=== PATIENT | female | born 1945 | race Caucasian/White ===

== ENCOUNTER 2016-05-05 14:23 | Inpatient (IN) | payer OTHER ==
[~2016-05-05] VITALS: Ht 160 cm; Wt 80.2 kg
[~2016-05-05 14:23] MED LIST: ALBUAER INH; AMITRIPTYLLINE; CHOL100010 PO; ZNTT/150 PO
--- NOTE | 2016-05-05 14:59 | EMERGENCY ROOM VISIT NOTE ---
History Report prepared by Blanka: Renetta Butts Under the Supervision of: Dr. Darci English M.D. First contact with patient: 14:37 Chief Complaint: OTHER COMPLAINT Stated Complaint: INTERNAL B DIRECT ADMIT-TO SOMERSET History of Present Illness The patient is a 70 year old female who presents to the Emergency Room per PCP referral to be evaluated for anemia. The patient states that she has a history of anemia and GI bleeding. Her most recent GI bleed was about a year ago. The patient states that she intermittently receives IV iron. Last week she had blood work and her hemoglobin was up to 9 after 4 weeks of IV iron. She is unsure what her target hemoglobin is. About a week ago, the patient started to develop shortness of breath which worsens with exertion. Her shortness of breath has been worsening since then. She also complains of a diffuse burning sensation to her body. She has been having black stools over the past couple of days. She is on Plavix and aspirin. The patient was referred to the ER today by Dr. Vargas for possible transfer to [facility]. She has been transferred to [facility] for transfusions in the past. 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 A total of 10 systems reviewed and were otherwise negative. 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 (11) Iron Defic Anemia Nos (12) PAD (peripheral artery disease) Surgical Problems: (1) History of appendectomy (2) History of cholecystectomy Family History Diabetes mellitus Kidney disease Social History Smoking Status: Former Smoker Alcohol Use: none Drug Use: none Marital Status: single Housing Status: lives with family Occupation Status: employed Current/Historical Medications Scheduled Amitriptyline HCl (Amitriptyline HCl), 5 MG PO HS Ascorbic Acid (Vitamin C), 500 MG PO DAILY Aspirin (Aspirin EC Low Dose), 81 MG PO DAILY B-Complex W/Biotin & Folic Aci (Super B-Complex), 1 CAP PO DAILY Buspirone Hcl (Buspar), 30 MG PO BID Cholecalciferol (Vitamin D 1000 Unit), 1,000 INTER.UNIT PO DAILY Citalopram Hydrobromide (Celexa), 40 MG PO QAM Clopidogrel (Plavix), 75 MG PO HS Diclofenac Sodium (Topical) (Voltaren 1% Top Gel), 2 GM TOP BID Furosemide (Lasix), 1 TAB PO DAILY Gabapentin (Neurontin), 300 MG PO BID Insulin Isophan/Regular (Novolin 70/30), 35 UNITS SC BID Magnesium Oxide (Mg Supplement (Magnesium), 500 MG PO DAILY Metformin Hcl (Glucophage), 1,000 MG PO BIDM Octreotide Acetate (Sandostatin [place]), 20 MG IM MONTHLY Omeprazole (Prilosec), 20 MG PO DAILY Probiotic Product (Probiotic), 1 TAB PO DAILY Ranitidine Hcl (Zantac), 1 TAB PO BID Simvastatin (Zocor), 20 MG PO QPM Scheduled PRN Acetaminophen (Tylenol), 1-2 TAB PO Q8 PRN for Pain Albuterol Sulfate (Proventil Hfa), 2 PUFFS INH Q6 PRN for Wheezing Cyclobenzaprine Hcl (Flexeril), 1 TAB PO BID PRN for Muscle Spasms Lorazepam (Lorazepam), 0.5 MG PO HS PRN for Anxiety Allergies Coded Allergies: Bupropion (Unverified Allergy, Intermediate, HIVES, 02/01/16) Iodinated Diagnostic Agents (Unverified Allergy, Intermediate, HIVES, ) TOLERATED IVP DYE WITH 50 MG IV BENADRYL, 100 MG SOLUCORTEF IV AND 20 MG IV PEPCID PREP Oxycodone (Verified Allergy, Intermediate, rashes, 02/01/16) Penicillins (Verified Allergy, Intermediate, Hives, 02/01/16) Pioglitazone (Verified Allergy, Intermediate, HIVES, 02/01/16) Sulfa Antibiotics (Verified Allergy, Intermediate, Hives, 02/01/16) Sulfamethoxazole w/Trimethoprim (Verified Allergy, Intermediate, HIVES, ) Acetaminophen (Unverified Allergy, Mild, ITCHING, 02/01/16) Clindamycin (Unverified Allergy, Mild, ITCHING, 02/01/16) Codeine (Unverified Allergy, Mild, ITCING, 02/01/16) Erythromycin (Unverified Allergy, Mild, RASH, HIVES, 02/01/16) Glimepiride (Unverified Allergy, Mild, TONGUE TINGLING AND ITCHING, ) Morphine (Unverified Allergy, Mild, ITCHING, 02/01/16) NSAIDs (Verified Allergy, Mild, Itching - TORADOL OK, 02/01/16) Propoxyphene (Unverified Allergy, Mild, ITCHING, 02/01/16) Glipizide (Verified Allergy, Unknown, Needle sensation- Tongue, 02/01/16) Rosuvastatin (Unverified Adverse Reaction, Intermediate, MUSCLE PAIN, ) Sitagliptin (Unverified Adverse Reaction, Intermediate, GI SYMPTOMS, 01/31) Adhesives (Verified Adverse Reaction, Mild, Tape - skin irritation, ) Atorvastatin (Verified Adverse Reaction, Mild, Muscle cramps, 02/01/16) Hydrocodone (Verified Adverse Reaction, Mild, ITCHING, 02/01/16) FROM DARVOCET Metformin (Unverified Adverse Reaction, Mild, BLOATING, 02/01/16) Physical Exam Vital Signs Date Time Temp Pulse Resp B/P Pulse Ox O2 Delivery O2 Flow Rate FiO2 05/05/16 15:05 84 05/05/16 14:53 98 Room Air 05/05/16 14:29 37.2 97 18 103/51 97 Room Air Physical Exam GENERAL: Patient is anxious appearing and in minimal distress. HEENT: No acute trauma, normocephalic atraumatic, mucous membranes moist, no nasal congestion, no scleral icterus. NECK: No stridor, no adenopathy, no meningismus, trachea is midline. LUNGS: No dyspnea. Clear to auscultation and equal bilaterally. No wheeze, no rhonchi. HEART: Regular rate and rhythm. No murmurs, rubs, gallops appreciated. ABDOMEN: Soft, nontender, bowel sounds positive, no masses appreciated, no peritonitis. BACK: No midline tenderness, no CVA tenderness RECTAL: Small hemorrhoids, dark black/brown heme positive stool. EXTREMITIES: Normal motion all extremities, no cyanosis, no edema. NEUROLOGIC: Alert and oriented, no acute motor or sensory deficits, no focal weakness, cranial nerves grossly intact. SKIN: No rash, no jaundice, no diaphoresis. Medical Decision & Procedures ER Provider Diagnostic Interpretation: X ray results are stated below per my interpretation and the radiologist's interpretation. CHEST ONE VIEW PORTABLE CLINICAL HISTORY: shortness of breath COMPARISON STUDY: 02/01/2016 FINDINGS: The cardiac and mediastinal contours are normal. There is no evidence of focal pulmonary consolidation. There is no evidence of failure. No pleural effusions are visualized.[ Spinal electrodes are again visualized. IMPRESSION: No active disease in the chest. Electronically signed by: Jimenez Snell M.D. 05/05/2016 3:17 PM Dictated Date/Time: 05/05/2016 3:16 PM Laboratory Results 05/05/16 15:15 Red Blood Count 3.04, Mean Corpuscular Volume 85.5, Mean Corpuscular Hemoglobin 27.0, Mean Corpuscular Hemoglobin Concent 31.5, Mean Platelet Volume 9.2, Neutrophils (%) (Auto) 72.0, Lymphocytes (%) (Auto) 17.5, Monocytes (%) (Auto) 6.2, Eosinophils (%) (Auto) 2.9, Basophils (%) (Auto) 1.0, Neutrophils # (Auto) 6.81, Lymphocytes # (Auto) 1.65, Monocytes # (Auto) 0.59, Eosinophils # (Auto) 0.27, Basophils # (Auto) 0.09 05/05/16 15:15 Test 05/05/16 15:15 White Blood Count 9.45 K/uL (4.8-10.8) Red Blood Count 3.04 M/uL (4.2-5.4) Hemoglobin 8.2 g/dL (12.0-16.0) Hematocrit 26.0 % (37-47) Mean Corpuscular Volume 85.5 fL (80-100) Mean Corpuscular Hemoglobin 27.0 pg (25-34) Mean Corpuscular Hemoglobin Concent 31.5 g/dl (32-36) Platelet Count 372 K/uL (130-400) Mean Platelet Volume 9.2 fL (7.4-10.4) Neutrophils (%) (Auto) 72.0 % Lymphocytes (%) (Auto) 17.5 % Monocytes (%) (Auto) 6.2 % Eosinophils (%) (Auto) 2.9 % Basophils (%) (Auto) 1.0 % Neutrophils # (Auto) 6.81 K/uL (1.4-6.5) Lymphocytes # (Auto) 1.65 K/uL (1.2-3.4) Monocytes # (Auto) 0.59 K/uL (0.11-0.59) Eosinophils # (Auto) 0.27 K/uL (0-0.5) Basophils # (Auto) 0.09 K/uL (0-0.2) RDW Standard Deviation 57.7 fL (36.4-46.3) RDW Coefficient of Variation 18.3 % (11.5-14.5) Immature Granulocyte % (Auto) 0.4 % Immature Granulocyte # (Auto) 0.04 K/uL (0.00-0.02) Polychromasia 1+ Ovalocytes 1+ Prothrombin Time 10.2 SECONDS (9.0-12.0) Prothromb Time International Ratio 1.0 (0.9-1.1) Activated Partial Thromboplast Time 21.0 SECONDS (21.0-31.0) Partial Thromboplastin Ratio 0.8 Anion Gap 14.0 mmol/L (3-11) Est Creatinine Clear Calc Drug Dose 53.4 ml/min Estimated GFR () 66.6 Estimated GFR (Non- 57.4 BUN/Creatinine Ratio 19.3 (10-20) Calcium Level 9.5 mg/dl (8.5-10.1) Troponin I < 0.015 ng/ml (0-0.045) Laboratory results as reviewed by me. Medications Administered Medications (Trade) Dose Ordered Sig/Carson Route Start Time Stop Time Status Last Admin Dose Admin Pantoprazole Sodium/Dextrose (Protonix Inj/D5 100ml) 120 ml @ 480 mls/hr TODAY@1530 ONCE IV 05/05/16 15:30 05/05/16 15:44 DC 05/05/16 15:29 480 MLS/HR Lorazepam (Ativan Tab) 0.5 mg NOW STAT PO 05/05/16 16:56 05/05/16 17:03 DC 05/05/16 17:09 0.5 MG ED Course 1450: The patient was evaluated in room C5. A complete history and physical exam was performed. 1500: Ordered Pantoprazole Sodium 80 mg/Dextrose 120 ml @ 400 mls/hr IV. 1525: I reassessed the patient. She was feeling fine. 1550: I spoke with the [facility] transfer center. They will not have any available beds for 2-3 days so I held off on speaking with the transfer physician. 1605: I discussed the case with Dr. Christa Zelaya. The patient will be evaluated for further management. 1610: Discussed results and treatment plan with the patient. She verbalized understanding and agreement with the treatment plan. The patient will be evaluated for further management. Medical Decision Differential: Diverticulitis, AVM, Coagulopathy, Colitis, Malignancy, Upper GI bleed, Fissure, Hemorrhoids, amongst other pathologies entertained. 70 yr old female arrives with complaint of increasing weakness, mild shob with exertion and new onset black tarry stools. Found to have acute anemia. Vitals remain stable. Review of chart notes extreme difficulty obtained PRBCs for transfusion in past secondary to her multiple antibodies. At request of PCP I attempted to transfer her to [facility] where she has had extensive procedures over the years including transfusions. They have no beds available for next few days thus can not accept her at this time. She is hemodynamically stable. She is not interested in being transferred to a different facility. I feel that any facility would likely have the same difficulties of transfusion thus transfer to another facility that knows nothing about her would likely be of little benefit. Will defer order of transfusion to hospitalist service. Given known history of duodenal ulcer, I did give dose of protonix. She is in no distress and looks well. 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 Consults Time Called: 1600 Consulting Physician: Dr. Christa Urbinaist Returned Call: 1605 I discussed the case with him. The patient will be evaluated for further management. Impression Primary Impression: GI bleed Additional Impression: Anemia Scribe Attestation The scribe's documentation has been prepared under my direction and personally reviewed by me in its entirety. I confirm that the note above accurately reflects all work, treatment, procedures, and medical decision making performed by me. Departure Information Dispostion Being Evaluated By Hospitalist Referrals Nicole Catherine M.D. (PCP) Patient Instructions My [facility] Problem Qualifiers Primary Impression: GI bleed GI bleed type/associated pathology: duodenal ulcer Qualified Codes: K26.4 - Chronic or unspecified duodenal ulcer with hemorrhage Additional Impression: Anemia Anemia type: unspecified type Qualified Codes: D64.9 - Anemia, unspecified
[2016-05-05] MEDS ORDERED: PANTOprazole INJ 80 MG in DEXTROSE 5% 100ML 100 ML IV SCH (15:00)
--- NOTE | 2016-05-05 15:19 | DIAGNOSTIC IMAGING REPORT ---
CHEST ONE VIEW PORTABLE CLINICAL HISTORY: shortness of breath COMPARISON STUDY: 02/01/2016 FINDINGS: The cardiac and mediastinal contours are normal. There is no evidence of focal pulmonary consolidation. There is no evidence of failure. No pleural effusions are visualized.[ Spinal electrodes are again visualized. IMPRESSION: No active disease in the chest. Electronically signed by: Jimenez Snell M.D. 05/05/2016 3:17 PM Dictated Date/Time: 05/05/2016 3:16 PM
[2016-05-05] MEDS ORDERED: PANTOprazole INJ 80 MG in DEXTROSE 5% 100ML IV ONE (15:30)
[2016-05-05 15:34] LABS: BASO ABS # 0.09 K/uL (0-0.2); EOS % 2.9 %; IG% 0.4 %; LYMPH % 17.5 %; LYMPH ABS # 1.65 K/uL (1.2-3.4); MEAN CELL VOLUME 85.5 fL (80-100); MEAN CORPUSCULAR HGB CONC 31.5 g/dl (32-36); MEAN PLATELET VOLUME 9.2 fL (7.4-10.4); MONO % 6.2 %; PLATELET COUNT 372 K/uL (130-400); RED BLOOD COUNT 3.04 M/uL (4.2-5.4); WHITE BLOOD COUNT 9.45 K/uL (4.8-10.8)
[2016-05-05 15:54] LABS: BLOOD UREA NITROGEN 19 mg/dl (7-18); BUN/CREATININE RATIO 19.3 (10-20); CALCIUM 9.5 mg/dl (8.5-10.1); CARBON DIOXIDE 23 mmol/L (21-32); CHLORIDE 106 mmol/L (98-107); COMPLETE YES; GLUCOSE 72 mg/dl (70-99); OVALOCYTES 1+; POLYCHROMASIA 1+; POTASSIUM 3.7 mmol/L (3.5-5.1); SODIUM 143 mmol/L (136-145)
[2016-05-05] MEDS ORDERED: OMEP20CA9 PO (15:56)
[2016-05-05 15:59] LABS: PARTIAL THROMBOPLASTIN RATIO 0.8; PROTHROMBIN TIME (PATIENT) 10.2 SECONDS (9.0-12.0)
[2016-05-05] MEDS ORDERED: RANI150T3 PO (16:51)
[2016-05-05] MEDS ORDERED: LORAZEPAM 0.5 MG TAB PO STA (16:56)
[2016-05-05] MEDS ORDERED: CYCLOBENZAPRINE HCL 5 MG TAB PO PRN (17:00)
[2016-05-05] MEDS ORDERED: LORAZEPAM 0.5 MG TAB PO PRN (17:00)
[2016-05-05] MEDS ORDERED: ONDANSETRON INJ 2 MG/ML 2 ML VIAL IV PRN (17:00)
[2016-05-05 17:20] VITALS: O2SAT 95; Ht 160 cm; Wt 80.2 kg
--- NOTE | 2016-05-05 17:28 | History and Physical ---
History & Physical Date & Time of Service: May 05, 2016 at 17:02 Chief Complaint: Internal B Direct Admit-To [facility] Primary Care Physician: Nicole Catherine M.D. History of Present Illness Source: patient, clinic records, hospital records Patient seen and examined. 70 year old female with PMHx of chronic mesenteric ischemia s/p bypass and stenting on ASA/Plavix, IDDM, depression and other problems listed below presents to the ED complaining of dark stools x 10 days. 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 She reports that in the last week or so she started to notice that her stool was very dark and tarry. She states that she has had increasing SOB and generalized weakness along with the dark stools.She reports low grade fevers and chills. She states that she occasionally has abdominal pain where she had the bypass but it comes and goes and is not severe, she denies vomiting. She reports that she saw her PCP and he sent her to the ED. She reports that she has many antibodies and needs special blood transfusions. She recently had stents placed in her mesenteric artery bypass and per patient her vascular surgeon said they may be narrowing. She denies URI symptoms, chest pain, vomiting, diarrhea, dysuria, calf pain and edema. She notices when she walks around she has heart palpitations. In the ED VS were stable, hgb was 8.2, other lab work was unremarkable. Rectal exam showed dark heme positive stool. She was given IV Protonix. [place] [facility] [place] for her interventions but they do not have any beds available for 2-3 days. She will be admitted for further workup and treatment. Past Medical/Surgical History Medical Problems: (1) Degenerative disc disease Status: Chronic (2) Depression Status: Chronic (3) Diab Gloria Wo Compl, Type Ii Or Unspec Type, Not Uncntrld Status: Chronic (4) Diverticulosis Colon (W/O Ment Of Hemorrhage) Status: Resolved (5) History of CVA (cerebrovascular accident) Permanent Comment: 2012; no residual deficits Status: Resolved (6) Hyperlipidemia Nec/Nos Status: Chronic (7) Hypertension Nos Status: Chronic (8) Intestinal ischemia Permanent Comment: s/p hepatic artery to SMA in November 2014 S/p angioplasty of proximal and distal anastomoses of the common hepatic to superior mesenteric artery reversed saphenous vein bypass graft (4 mm [employer] [place] balloon) by Dr. Gatica on 03/04/2015. -S/p angioplasty of proximal and distal anastomoses of the re-stenotic common hepatic => SMA reversed saphenous vein bypass graft 08/06/[address] Gatica. -S/p open exposure of left brachial artery (re-do), stenting of celiac artery ( Atrium iCast 7 x 22 mm stent post dilated to 8 mm), and angioplasty of proximal and distal anastomoses of the re-stenotic common hepatic to SMA reversed saphenous vein bypass graft (5 mm [employer] Angio[employer]pt balloon) 12/10/[address] Gatica. Status: Chronic (9) Iron Defic Anemia Nos Status: Chronic (10) PAD (peripheral artery disease) Status: Chronic Surgical Problems: (1) History of appendectomy Status: Resolved (2) History of cholecystectomy Status: Resolved Family History Diabetes mellitus Kidney disease Social History Smoking Status: Former Smoker Alcohol Use: none Drug Use: none Marital Status: single Housing status: lives with family Occupational Status: employed Immunizations History of Influenza Vaccine: Yes Influenza Vaccine Date: Dec 17, 2013 History of Tetanus Vaccine?: utd Tetanus Immunization Date: Jun 22, 2011 History of Pneumococcal: Yes Pneumococcal Date: Jun 15, 2012 History of Hepatitis B Vaccine: No Hepatitis Immunization Date: Jun 21, 1968 Multi-Drug Resistant Organisms History of MDRO: No Allergies Coded Allergies: Bupropion (Unverified Allergy, Intermediate, HIVES, 02/01/16) Iodinated Diagnostic Agents (Unverified Allergy, Intermediate, HIVES, ) TOLERATED IVP DYE WITH 50 MG IV BENADRYL, 100 MG SOLUCORTEF IV AND 20 MG IV PEPCID PREP Oxycodone (Verified Allergy, Intermediate, rashes, 02/01/16) Penicillins (Verified Allergy, Intermediate, Hives, 02/01/16) Pioglitazone (Verified Allergy, Intermediate, HIVES, 02/01/16) Sulfa Antibiotics (Verified Allergy, Intermediate, Hives, 02/01/16) Sulfamethoxazole w/Trimethoprim (Verified Allergy, Intermediate, HIVES, ) Acetaminophen (Unverified Allergy, Mild, ITCHING, 02/01/16) Clindamycin (Unverified Allergy, Mild, ITCHING, 02/01/16) Codeine (Unverified Allergy, Mild, ITCING, 02/01/16) Erythromycin (Unverified Allergy, Mild, RASH, HIVES, 02/01/16) Glimepiride (Unverified Allergy, Mild, TONGUE TINGLING AND ITCHING, ) Morphine (Unverified Allergy, Mild, ITCHING, 02/01/16) NSAIDs (Verified Allergy, Mild, Itching - TORADOL [place], 02/01/16) Propoxyphene (Unverified Allergy, Mild, ITCHING, 02/01/16) Glipizide (Verified Allergy, Unknown, Needle sensation- Tongue, 02/01/16) Rosuvastatin (Unverified Adverse Reaction, Intermediate, MUSCLE PAIN, ) Sitagliptin (Unverified Adverse Reaction, Intermediate, GI SYMPTOMS, 01/31) Adhesives (Verified Adverse Reaction, Mild, Tape - skin irritation, ) Atorvastatin (Verified Adverse Reaction, Mild, Muscle cramps, 02/01/16) Hydrocodone (Verified Adverse Reaction, Mild, ITCHING, 02/01/16) FROM DARVOCET Metformin (Unverified Adverse Reaction, Mild, BLOATING, 02/01/16) Home Medications Scheduled Amitriptyline HCl (Amitriptyline HCl), 5 MG PO HS Ascorbic Acid (Vitamin C), 500 MG PO DAILY Aspirin (Aspirin EC Low Dose), 81 MG PO DAILY B-Complex W/Biotin & Folic Aci (Super B-Complex), 1 CAP PO DAILY Buspirone Hcl (Buspar), 30 MG PO BID Cholecalciferol (Vitamin D 1000 Unit), 1,000 INTER.UNIT PO DAILY Citalopram Hydrobromide (Celexa), 40 MG PO QAM Clopidogrel (Plavix), 75 MG PO HS Diclofenac Sodium (Topical) (Voltaren 1% Top Gel), 2 GM TOP BID Furosemide (Lasix), 1 TAB PO DAILY Gabapentin (Neurontin), 300 MG PO BID Insulin Isophan/Regular (Novolin 70/30), 35 UNITS SC BID Magnesium Oxide (Mg Supplement (Magnesium), 500 MG PO DAILY Metformin Hcl (Glucophage), 1,000 MG PO BIDM Octreotide Acetate (Sandostatin [place]), 20 MG IM MONTHLY Omeprazole (Prilosec), 20 MG PO DAILY Probiotic Product (Probiotic), 1 TAB PO DAILY Ranitidine Hcl (Zantac), 1 TAB PO BID Simvastatin (Zocor), 20 MG PO QPM Scheduled PRN Acetaminophen (Tylenol), 1-2 TAB PO Q8 PRN for Pain Albuterol Sulfate (Proventil Hfa), 2 PUFFS INH Q6 PRN for Wheezing Cyclobenzaprine Hcl (Flexeril), 1 TAB PO BID PRN for Muscle Spasms Lorazepam (Lorazepam), 0.5 MG PO HS PRN for Anxiety Review of Systems See above for pertinent positives & negatives. A total of 10 systems reviewed and were otherwise negative. Physical Exam Vital Signs Date Time Temp Pulse Resp B/P Pulse Ox O2 Delivery O2 Flow Rate FiO2 05/05/16 15:05 84 05/05/16 14:53 98 Room Air 05/05/16 14:29 37.2 97 18 103/51 97 Room Air General Appearance: WD/WN, no apparent distress, + pertinent finding (Pleasant WD/WN 70 year old female lying in bed in NAD ) Head: normocephalic, atraumatic Eyes: PERRL, EOMI, sclerae normal ENT: hearing grossly normal, pharynx normal Neck: supple, no JVD, trachea midline Respiratory/Chest: chest non-tender, lungs clear, normal breath sounds, no respiratory distress, no accessory muscle use Cardiovascular: regular rate, rhythm, no edema, no gallop, no JVD, no murmur, normal peripheral pulses Abdomen/GI: normal bowel sounds, non tender, soft Back: normal inspection, no muscle spasm Extremities/Musculoskelatal: no calf tenderness, normal capillary refill, no pedal edema Neurologic/Psych: no motor/sensory deficits, alert, oriented x 3, + pertinent finding (no focal deficits noted on gross exam ) Skin: normal color, warm/dry, no rash Lymphatic: no adenopathy Diagnostics Laboratory Results Results Past 24 Hours Test 05/05/16 15:15 Range/Units White Blood Count 9.45 4.8-10.8 K/uL Red Blood Count 3.04 4.2-5.4 M/uL Hemoglobin 8.2 12.0-16.0 g/dL Hematocrit 26.0 37-47 % Mean Corpuscular Volume 85.5 80-100 fL Mean Corpuscular Hemoglobin 27.0 25-34 pg Mean Corpuscular Hemoglobin Concent 31.5 32-36 g/dl Platelet Count 372 130-400 K/uL Mean Platelet Volume 9.2 7.4-10.4 fL Neutrophils (%) (Auto) 72.0 % Lymphocytes (%) (Auto) 17.5 % Monocytes (%) (Auto) 6.2 % Eosinophils (%) (Auto) 2.9 % Basophils (%) (Auto) 1.0 % Neutrophils # (Auto) 6.81 1.4-6.5 K/uL Lymphocytes # (Auto) 1.65 1.2-3.4 K/uL Monocytes # (Auto) 0.59 0.11-0.59 K/uL Eosinophils # (Auto) 0.27 0-0.5 K/uL Basophils # (Auto) 0.09 0-0.2 K/uL RDW Standard Deviation 57.7 36.4-46.3 fL RDW Coefficient of Variation 18.3 11.5-14.5 % Immature Granulocyte % (Auto) 0.4 % Immature Granulocyte # (Auto) 0.04 0.00-0.02 K/uL Polychromasia 1+ Ovalocytes 1+ Prothrombin Time 10.2 9.0-12.0 SECONDS Prothromb Time International Ratio 1.0 0.9-1.1 Activated Partial Thromboplast Time 21.0 21.0-31.0 SECONDS Partial Thromboplastin Ratio 0.8 Sodium Level 143 136-145 mmol/L Potassium Level 3.7 3.5-5.1 mmol/L Chloride Level 106 98-107 mmol/L Carbon Dioxide Level 23 21-32 mmol/L Anion Gap 14.0 3-11 mmol/L Blood Urea Nitrogen 19 7-18 mg/dl Creatinine 1.00 0.60-1.20 mg/dl Est Creatinine Clear Calc Drug Dose 53.4 ml/min Estimated GFR () 66.6 Estimated GFR (Non- 57.4 BUN/Creatinine Ratio 19.3 10-20 Random Glucose 72 70-99 mg/dl Calcium Level 9.5 8.5-10.1 mg/dl Troponin I < 0.015 0-0.045 ng/ml Diagnostic Radiology CXR Per radiologist read: IMPRESSION: No active disease in the chest. Impression Assessment and Plan 70 year old female with significant PMHx of GI bleeds and mesenteric ischemia presents to the ED complaining of dark stools, SOB, generalized weakness. GI BLEED -Admit to tele -Likely upper heme positive dark stool -H&H 8.2, baseline around 11, serial H&H q6h -Type and cross 2 units PRBCs - patient has many antibodies - blood bank aware states blood will have to come from [place] -Protonix IV BID -clear liquid diet -IVFs -GI consult for further recommendations input appreciated - they do not anticipate any type of scoping down at [facility] any intervention would likely need transfer- [facility] [place] at this time -CBC, PRP, Mg daily -hemodynamically stable, monitor in tele CHRONIC MESENTERIC ISCHEMIA -follows with Dr. Clark - vascular surgery -Per outpatient note by Dr. Clark "S/p open exposure of left brachial artery (re -do), stenting of celiac artery (Atrium iCast 7 x 22 mm stent post dilated to 8 mm), and angioplasty of proximal and distal anastomoses of the re-stenotic common hepatic to SMA reversed saphenous vein bypass graft (5 mm [employer] Ang[employer] balloon) 12/10/[address] Gatica." -hold aspirin and plavix for GI bleed COPD -stable - recently quit smoking - efforts applauded -continue home inhalers prn DM2 -Hold po diabetic agents -SSI coverage -BSG AC HS DEPRESSION -continue Celexa, Ativan, BuSpar, Amitriptyline [id number] RED BLOOD CELL ANTIBODY POSITIVE -difficulty getting PRBCs, will try to obtain from [place] -[place] number listed at bottom of note HLD -continue Statin H/O CVA -no residual defects -hold ASA -continue statin for secondary prevention DVT PROPHYLAXIS: SCDs RE: GI bleed CODE STATUS: FULL CODE DISPO:In my clinical judgment this beneficiary meets acute admission criteria, established by [facility], that includes being hospitalized through two midnights. Patient seen in collaboration with Dr Christa Parrish [phone] - [place] Attending Note: Patient is a 70 Yr old female with PMH of chronic mesenteric ischemia s/p bypass and stenting on ASA/Plavix, H/O AVMs DM II, depression, Abs in blood presents with history of melena since 10 days duration. Reports associated SOB on exertion, generalized weakness and intermittent mild abdominal discomfort at the surgical site. Her Hb currently is 8.2 and her baseline is around 11.0. Physical Exam: Vital signs as noted above General:Moderately built and nourished, No distress HEENT: NC/AT, EOMI, PERRLA Neck: Supple, No JVD CVS: S1, S2, NSR, No murmur Resp: NVBS, CTA, no accessory muscle use Abd: Soft, non tender, BS present PAGINATOR: no focal deficits Ext: No cyanosis, clubbing, edema Assessment and Plan: Acute GI bleeding: Likely Upper GI H/O chronic mesenteric ischemia s/p bypass and stenting on ASA/Plavix, H /O AVMs Hold Aspirin, Plavix IV protonic BID, IV fluids Clear liquid diet Monitor H&H , Transfuse PRN H/O [id number] Red blood cell Ab positive GI consulted Agree with assessment and plan of Palmira Rubalcava PA-C as above VTE Prophylaxis VTE Risk Assessment Done? Y/N: Yes Risk Level: High
[2016-05-05] MEDS ORDERED: GLUCOSE 10 TABS/TUBE PO PRN (17:30)
[2016-05-05] MEDS ORDERED: GLUCAGON FOR INJ 1 MG VIAL SQ PRN (17:30)
[2016-05-05] MEDS ORDERED: DEXTROSE 50% 50 ML SYR IV PRN (17:30)
[2016-05-05] MEDS ORDERED: GLUCOSE 40% GEL 15 GM TUBE PO PRN (17:30)
[2016-05-05 18:42] VITALS: BP 104/67; PULSE 89; TEMP 36.7
[2016-05-05] MEDS ORDERED: DICL1GEL12 TOP (19:02)
[2016-05-05 19:09] VITALS: BP 95/52; PULSE 81; TEMP 36.9; O2SAT 94
[2016-05-05] MEDS: SODIUM CHLORIDE 0.9% 1000ML 1,000 ML IV SCH (19:24)
[2016-05-05] MEDS: INSULIN ASPART 100 UNITS/ML 3 ML PEN SC SCH (20:57)
[2016-05-05] MEDS ORDERED: ALBUTEROL HFA 8 GM INHALER INH PRN (21:00)
[2016-05-05 21:13] LABS: HEMATOCRIT 24.1 % (37-47)
[2016-05-05] MEDS: AMITRIPTYLINE HCL 10 MG TAB PO SCH (21:31)
[2016-05-05] MEDS: SIMVASTATIN 20 MG TAB PO SCH (21:32)
[2016-05-05] MEDS: BusPIRone 15 MG TAB PO SCH (21:32)
[2016-05-05] MEDS: GABAPENTIN 300 MG CAP PO SCH (21:32)
[2016-05-05] MEDS: PANTOprazole INJ 40 MG in SYRINGE 0 ML IV SCH (21:34)
[2016-05-06] VITALS (21 sets, daily range): BP systolic 82–135; BP diastolic 46–71; PULSE 70–84; TEMP 36.4–37.1; O2SAT 91–100
[2016-05-06] MEDS: SODIUM CHLORIDE 0.9% 1000ML 1,000 ML IV SCH ×3 (03:15→22:59)
[2016-05-06 03:22] LABS: HEMATOCRIT 24.3 % (37-47); MEAN CELL VOLUME 87.4 fL (80-100); MEAN CORPUSCULAR HEMOGLOBIN 27.7 pg (25-34); MEAN CORPUSCULAR HGB CONC 31.7 g/dl (32-36); MEAN PLATELET VOLUME 9.2 fL (7.4-10.4); PLATELET COUNT 360 K/uL (130-400); RED BLOOD COUNT 2.78 M/uL (4.2-5.4); WHITE BLOOD COUNT 5.87 K/uL (4.8-10.8)
[2016-05-06 03:40] LABS: BUN/CREATININE RATIO 15.7 (10-20); CALCIUM 8.7 mg/dl (8.5-10.1); CREATININE 0.98 mg/dl (0.60-1.20)
[2016-05-06] MEDS: BusPIRone 15 MG TAB PO SCH ×2 (07:54→21:22)
[2016-05-06] MEDS: GABAPENTIN 300 MG CAP PO SCH ×2 (07:55→21:22)
[2016-05-06] MEDS: CITALOPRAM 40 MG TAB PO SCH (07:55)
[2016-05-06] MEDS: PANTOprazole INJ 40 MG in SYRINGE 0 ML IV SCH ×2 (07:55→21:26)
[2016-05-06] MEDS: INSULIN ASPART 100 UNITS/ML 3 ML PEN SC SCH ×4 (08:05→21:20)
--- NOTE | 2016-05-06 08:20 | Progress Note ---
Medicine Progress Note Date & Time of Visit: May 06, 2016 at 08:07. (Palmira Rubalcava PA-C) Subjective Patient seen and examined this morning. Admitted last evening for a GI bleed likely upper. She is in good spirits this morning, reports feeling well. She states she slept very well, but still feels tired. Denies any more SOB. States she has not had a bowl movement since admission. She states her blood pressure is always on the lower side, denies dizziness, syncope. She denies fevers, chills, chest pain, SOB, palpitations, nausea, vomiting, diarrhea, dysuria, calf pain and edema. (Palmira Rubalcava PA-C) Objective Last 8 Hrs Date Time Temp Pulse Resp B/P Pulse Ox O2 Delivery O2 Flow Rate FiO2 05/06/16 07:45 36.8 78 18 90/46 92 Room Air 05/06/16 04:21 36.7 75 18 82/48 91 Room Air 05/06/16 04:00 Room Air 05/06/16 00:15 36.9 74 18 88/51 92 Room Air Physical Exam: General-Very pleasant WD/WN 70 year old female sitting in chair in NAD Eyes-PERRLA. EOMI ENT-hearing grossly intact, mucosa moist Neck-supple no JVD Lungs-CTA BL no accessory muscle use Heart-RRR, no murmurs, gallops or rubs Abdomen-Normoactive, soft, NT Extremities-distal pulses intact, no calf pain, no edema Neuro-A&Ox3, no focal deficits Laboratory Results: Last 24 Hours Test 05/05/16 15:15 05/05/16 21:03 05/06/16 03:14 White Blood Count 9.45 K/uL 5.87 K/uL Red Blood Count 3.04 M/uL 2.78 M/uL Hemoglobin 8.2 g/dL 7.7 g/dL 7.7 g/dL Hematocrit 26.0 % 24.1 % 24.3 % Mean Corpuscular Volume 85.5 fL 87.4 fL Mean Corpuscular Hemoglobin 27.0 pg 27.7 pg Mean Corpuscular Hemoglobin Concent 31.5 g/dl 31.7 g/dl Platelet Count 372 K/uL 360 K/uL Mean Platelet Volume 9.2 fL 9.2 fL Neutrophils (%) (Auto) 72.0 % Lymphocytes (%) (Auto) 17.5 % Monocytes (%) (Auto) 6.2 % Eosinophils (%) (Auto) 2.9 % Basophils (%) (Auto) 1.0 % Neutrophils # (Auto) 6.81 K/uL Lymphocytes # (Auto) 1.65 K/uL Monocytes # (Auto) 0.59 K/uL Eosinophils # (Auto) 0.27 K/uL Basophils # (Auto) 0.09 K/uL RDW Standard Deviation 57.7 fL 59.4 fL RDW Coefficient of Variation 18.3 % 18.5 % Immature Granulocyte % (Auto) 0.4 % Immature Granulocyte # (Auto) 0.04 K/uL Polychromasia 1+ Ovalocytes 1+ Prothrombin Time 10.2 SECONDS Prothromb Time International Ratio 1.0 Activated Partial Thromboplast Time 21.0 SECONDS Partial Thromboplastin Ratio 0.8 Sodium Level 143 mmol/L 144 mmol/L Potassium Level 3.7 mmol/L 4.0 mmol/L Chloride Level 106 mmol/L 108 mmol/L Carbon Dioxide Level 23 mmol/L 28 mmol/L Anion Gap 14.0 mmol/L 8.0 mmol/L Blood Urea Nitrogen 19 mg/dl 15 mg/dl Creatinine 1.00 mg/dl 0.98 mg/dl Est Creatinine Clear Calc Drug Dose 53.4 ml/min 54.5 ml/min Estimated GFR () 66.6 68.2 Estimated GFR (Non- 57.4 58.9 BUN/Creatinine Ratio 19.3 15.7 Random Glucose 72 mg/dl 132 mg/dl Calcium Level 9.5 mg/dl 8.7 mg/dl Troponin I < 0.015 ng/ml Magnesium Level 2.0 mg/dl (Palmira Rubalcava, PA-C) Assessment & Plan GI BLEED -Likely upper GI Bleed heme positive dark stool - no more BMs since admission -H&H 8.2 on arrival decreased to 7.7 overnight (baseline 11) -2 units PRBCs arrived from [place] - will transfuse now: indication Hgb <8 -continue Protonix IV BID, IVFs, and clear liquid diet -GI consult for further recommendations input appreciated - per Dr. Goodwin's discussion with GI - they do not anticipate any type of scoping down at [facility] any intervention would likely need transfer- [facility] [place] at [place], awaiting GI to see patient today -CBC, PRP, Mg daily HYPOTENSION -BP dropped into the 80s-90s systolically over night, patient asymptomatic -Hgb 7.7 so will transfuse 2 units PRBCs now -Continue volume support with IVF hydration -monitor BP closely CHRONIC MESENTERIC ISCHEMIA -follows with Dr. Clark - vascular surgery -Per outpatient note by Dr. Clark "S/p open exposure of left brachial artery (re -do), stenting of celiac artery (Atrium iCast 7 x 22 mm stent post dilated to 8 mm), and angioplasty of proximal and distal anastomoses of the re-stenotic common hepatic to SMA reversed saphenous vein bypass graft (5 mm [employer] Ang[employer] balloon) 12/10/[address] Gatica." -hold aspirin and Plavix for GI bleed COPD -stable - recently quit smoking - efforts applauded -continue home inhalers prn DM2 -Hold po diabetic agents -SSI coverage -BSG AC HS DEPRESSION -continue Celexa, Ativan, BuSpar, Amitriptyline [id number] RED BLOOD CELL ANTIBODY POSITIVE -Difficult to obtain PRBCs- 2 units PRBCs arrived from [place] overnight -[place] [employer] number listed at bottom of note HLD -continue Statin H/O CVA -no residual defects -hold ASA -continue statin for secondary prevention DVT PROPHYLAXIS: SCDs RE: GI bleed CODE STATUS: FULL CODE Patient seen in collaboration with Dr. Becerra Current Inpatient Medications: Current Inpatient Medications Medications (Trade) Dose Ordered Sig/Carson Route Start Time Stop Time Status Last Admin Dose Admin Ondansetron HCl (Zofran Inj) 4 mg Q6H PRN IV 05/05/16 17:00 06/04/16 16:59 05/06/16 01:51 4 MG Albuterol (Ventolin Hfa Inhaler) 2 puffs Q6R PRN INH 05/05/16 21:00 06/04/16 20:59 Amitriptyline HCl (Elavil Tab) 5 mg HS PO 05/05/16 21:00 06/04/16 20:59 05/05/16 21:31 5 MG Buspirone HCl (BusPAR TAB) 30 mg BID PO 05/05/16 21:00 06/04/16 20:59 05/05/16 21:32 30 MG Citalopram Hydrobromide (celeXA TAB) 40 mg QAM PO 05/06/16 09:00 06/05/16 08:59 Cyclobenzaprine HCl (Flexeril Tab) 5 mg BID PRN PO 05/05/16 17:00 06/04/16 16:59 05/05/16 19:26 5 MG Gabapentin (Neurontin Cap) 300 mg BID PO 05/05/16 21:00 06/04/16 20:59 05/05/16 21:32 300 MG Lorazepam 0.5 mg 0.5 mg HS PRN PO 05/05/16 17:00 06/04/16 16:59 Pantoprazole Sodium 40 mg/ Syringe 10 ml @ 5 mls/min BID@0900,2100 IV 05/05/16 21:00 06/04/16 20:59 05/05/16 21:34 5 MLS/MIN Sodium Chloride (Nss 1000ml) 1,000 ml @ 100 mls/hr Q10H IV 05/05/16 17:15 06/04/16 17:14 05/06/16 03:15 100 MLS/HR Insulin Aspart (novoLOG ASPART) SLIDING SCALE If C... ACHS SC 05/05/16 21:00 06/04/16 20:59 Glucose (Glucose 40% Gel) 15-30 GRAMS 15 GRAMS... UD PRN PO 05/05/16 17:30 06/04/16 17:29 Glucose (Glucose Chew Tab) 4-8 Tablets 4 Tabl... UD PRN PO 05/05/16 17:30 06/04/16 17:29 Dextrose (Dextrose 50% 50ML Syringe) 25-50ML OF 50% DW IV FOR... UD PRN IV 05/05/16 17:30 06/04/16 17:29 Glucagon (Glucagon Inj) 1 mg UD PRN SQ 05/05/16 17:30 06/04/16 17:29 Simvastatin (Zocor Tab) 20 mg QPM PO 05/05/16 21:00 06/04/16 20:59 05/05/16 21:32 20 MG (Palmira Rubalcava, DAMON) ATTENDING ADDENDUM care coordinated with COREY Rubalcava please refer to her notes for full details, I agree with her notes patient seen and examined, records reviewed by myself as well on exam, patient seen resting in bed, appears comfortable states she just feels tired, somewhat dyspneic with exertion no chest pain, dizziness no abdominal pain, no BM since admission, no nausea no other symptoms VS noted and reviewed oriented x 3 , not in distress, speaks in sentences with no effort nor accessory muscle use normal rate, regular rhythm, no murmurs clear breath sounds bilaterally non distended, soft, nontender no bipedal edema, erythema, warmth no neuro deficits Hg 7.7 Crea 0.98 ASSESSMENT/PLAN> POSSIBLE UPPER GI BLEED HISTORY OF AVMS, MESENTERIC ISCHEMIA S/P STENT - Hg 7.7 transfuse 2 units to maintain >8 - Protonix BID GI consulted awaiting further recommendations BORDERLINE HYPOTENSION - IV fluids hold Lasix monitor other diagnoses and plan of care as per COREY Rubalcava's notes Justin Becerra MD (Justin Becerra MD)
--- NOTE | 2016-05-06 08:36 | Clinical Documentation Query ---
SABI Mo : CLINICAL DOCUMENTATION QUERY Patient is a 70 year old female admitted for acute GI bleed. Admission hemoglobin and hematocrit were 8.2 g/dl and 26%. Treatment includes monitoring of CBC, PRP, Mg, telemetry, IV PPI, CL diet, IVF, GI consultation, type/cross/screen. Risk factors include chronic mesenteric ischemia with bypass grafting, angioplasty and stenting, ASA, Plavix, gastric ulcer. In your clinical opinion is this patient being managed for: ( ) Acute blood loss anemia ( ) Other explanation of clinical findings (Please Explain) ( ) Unable to determine (Please Define) ( ) Need to Discuss ( ) Not Agree The medical record reflects the following clinical findings, treatment, and risk factors. Clinical Indicators: As above. Anemia in the setting of black tarry stools, SOB, etc. Treatment:monitoring of CBC, PRP, Mg, telemetry, IV PPI, CL diet, IVF, GI consultation Risk Factors:chronic mesenteric ischemia with bypass grafting, angioplasty and stenting, ASA, Plavix Please clarify and document your clinical opinion in the progress notes and discharge summary. Terms such as "probable", "suspected", "likely", "questionable", "possible", or "still to be ruled out" are acceptable. IF IN AGREEMENT, YOU MUST DOCUMENT ABOVE DIAGNOSTIC STATEMENT IN DAILY PROGRESS NOTES AND DISCHARGE SUMMARY. This document is not part of the patient's record. Thank You, Priyank De Luna RN [phone]
[2016-05-06 09:42] LABS: HEMATOCRIT 26.5 % (37-47)
[2016-05-06] MEDS ORDERED: SUCCINYLCHOLINE CHLORIDE 20 MG/ML 10 ML VIAL IV ONE (10:00)
--- NOTE | 2016-05-06 10:50 | CONSULTATION REPORT ---
DATE OF CONSULTATION: 05/06/2016 REFERRING PHYSICIAN: Dr. Justin Becerra. CONSULTING PHYSICIAN: Dr. Prosper Verduzco. REASON FOR CONSULTATION: GI bleed. HISTORY OF PRESENT ILLNESS: Ms. Hawley is a 70-year-old female with past medical histories including chronic mesenteric ischemia status post SMA bypass grafting and stent placements, ex-lap, on aspirin and Plavix. 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 She presented to hematology/oncology clinic yesterday with complaints of melena x1 week, also having symptoms of lightheadedness, weakness, slight shortness of breath and thus referred to the ED for evaluation. She last received her octreotide depot injection about a week ago, noted that after the injection, she felt a ball of the medication remaining around the injection site. She has been rubbing around that area to help it absorb. She upon evaluation was noted to be febrile. Her blood pressure is somewhat soft around 100s/50s, currently 90s/40s. She is not tachycardic. O2 sat between 91-97% on room air. Her blood count is noted to be low, H/H of 8.2/26, baseline hemoglobin is around 9. She has got no leukocytosis. Her PT/INR is 10/1.0. BMP showed normal renal function, anion gap initially 14 but then now down to 8. Currently she has been typed and crossed for 1 unit of PRBC transfusion. She did have a chest x-ray done last night which was unremarkable. Rectal exam in the ED yesterday did show heme positive stool. She is currently on Protonix 40 mg IV b.i.d. [place], [place] [facility] [place], they did not have any beds for another 2-3 days, thus kept over at [facility] for stabilization, further evaluation and treatment. PAST MEDICAL HISTORY: As noted above. Also, DDD, depression, diabetes mellitus type 2, diverticulosis, history of CVA, hypertension, intestinal ischemia, PAD. PAST SURGICAL HISTORY: As noted in HPI above. Also history of appendectomy, cholecystectomy, D\T\C, ex-lap, tonsil and adenectomy, repair of ventral hernia. FAMILY HISTORY: Pertinent for diabetes mellitus and kidney disease. SOCIAL HISTORY: Former smoker, no alcohol or drug uses. ALLERGIES: BUPROPION, IODINATED CONTRAST AGENTS, OXYCODONE, PENICILLIN, PIOGLITAZONE, SULFA ANTIBIOTICS, BACTRIM, ACETAMINOPHEN, CLINDAMYCIN, CODEINE, ERYTHROMYCIN, LOPERAMIDE, MORPHINE, NSAIDS, PROPOXYPHENE, GLIPIZIDE, ROSUVASTATIN, SITAGLIPTIN ADHESIVES, ATORVASTATIN, HYDROCODONE, AND METFORMIN. MEDICATIONS: Current medication list reviewed in her EMR. REVIEW OF SYSTEMS: Please see HPI above. Rest of 12 systems reviewed are negative. PHYSICAL EXAMINATION: VITAL SIGNS: Temperature is 36.8, pulse 78, respiration rate 18, blood pressure 90/46, O2 sat 92% on room air. GENERAL: Ms. Hawley is a 70-year-old female, pleasant, cooperative, in no acute distress. HEENT: Head normocephalic. Eyes PERRLA. EOMs intact. NECK: Neck supple. Trachea midline. No JVD noted. RESPIRATORY: Clear to auscultation bilateral lung lobes. No respiratory distress or accessory muscles use noted. CARDIOVASCULAR: Heart sounds RRR. S1, S2 present. No murmur or gallops noted. GASTROINTESTINAL: Abdomen soft, nontender to palpation. LYMPHATIC: No edema on extremities. NEUROLOGIC: Awake, alert, oriented x3. No focal deficits noted. DIAGNOSTIC STUDIES: The patient's most recent imaging studies and lab results have all been reviewed in her EMR. ASSESSMENT AND PLAN: Ms. Hawley is a 70-year-old female with history of chronic superior mesenteric artery ischemia, status post bypass and stent placements, also arteriovenous malformations in the upper gastrointestinal area, currently on monthly octreotide depot injection to control the bleeding. She had her last EGD in 2014 and February, noted to have 9 arteriovenous malformations in the esophagus, stomach and duodenum, treated with APC and clip placement in the duodenum arteriovenous malformations. She had since noticed intermittent dark stools; however, this past week noticed that she has had multiple melanomas along with having symptoms of weakness, slight shortness of breath, and lightheadedness. No abdominal pain, nausea, or vomiting. She had received her octreotide injection about a week ago. Her last aspirin and Plavix intake was yesterday. She had been made n.p.o. after midnight. Protonix 40 mg IV b.i.d. had been started. She is going to receive a unit of blood this morning. H/H is now 8.4/26.5. We will go ahead and proceed with EGD evaluation to rule out upper gastrointestinal source of bleeding and treated if possible. Depending on results of the EGD, continues to have active bleeding source, we may need to obtain a gastrointestinal bleeding scan. If she continues to have melena within the next few days, she may need to be transferred [place] [facility] [place]. The above assessment has been reviewed with Dr. Verduzco who is in agreement with the-stated plan. I performed a history and physical examination of the patient. I have discussed the patient's case, impression and plan with FRANC Enriquez. Her note reflects my findings and plan. Most likely chronic bleeding from small bowel AVM's. I would discuss with cardiology if patient needs both ASA and Plavix and if so whether she can take ASA 2 or 3 times a week instead of daily. Prosper Verduzco MD [facility]
--- NOTE | 2016-05-06 11:34 | Anesthesiology Progress Note ---
Anesthesia Post Op Note Date & Time May 06, 2016 at 11:33 Vital Signs Pain Intensity: 0.0 Vital Signs Past 12 Hours Date Time Temp Pulse Resp B/P Pulse Ox O2 Delivery O2 Flow Rate FiO2 05/06/16 10:30 37.0 84 16 115/53 92 05/06/16 10:30 37.0 82 18 115/53 92 Room Air 05/06/16 10:10 36.9 78 20 104/46 93 Room Air 0.0 05/06/16 09:59 36.9 79 20 104/46 93 05/06/16 09:42 36.9 81 20 105/61 94 0.0 05/06/16 07:45 36.8 78 18 90/46 92 Room Air 05/06/16 04:21 36.7 75 18 82/48 91 Room Air 05/06/16 04:00 Room Air 05/06/16 00:15 36.9 74 18 88/51 92 Room Air 05/06/16 00:00 Room Air Notes Mental Status: alert / awake / arousable, participated in evaluation Pt Amnestic to Procedure: Yes Nausea / Vomiting: adequately controlled Pain: adequately controlled Airway Patency, RR, SpO2: stable & adequate BP & HR: stable & adequate Hydration State: stable & adequate Anesthetic Complications: no major complications apparent
--- NOTE | 2016-05-06 11:35 | GI REPORT ---
Procedure Date: 05/06/2016 10:36 AM Procedure: Upper GI endoscopy Indications: Melena, Anemia Medicines: See the Anesthesia note for documentation of the administered medications Complications: No immediate complications. Estimated Blood Loss: Estimated blood loss: none. Procedure: Pre-Anesthesia Assessment: - Prior to the procedure, a History and Physical was performed, and patient medications, allergies and sensitivities were reviewed. The patient's tolerance of previous anesthesia was reviewed. - The risks and benefits of the procedure and the sedation options and risks were discussed with the patient. All questions were answered and informed consent was obtained. - Patient identification and proposed procedure were verified prior to the procedure by the physician and the nurse. The procedure was verified in the pre-procedure area. - Pre-procedure physical examination revealed no contraindications to sedation. - After reviewing the risks and benefits, the patient was deemed in satisfactory condition to undergo the procedure. After obtaining informed consent, the endoscope was passed under direct vision. Throughout the procedure, the patient's blood pressure, pulse, and oxygen saturations were monitored continuously. The scope was introduced through the mouth, and advanced to the third part of duodenum. The upper GI endoscopy was accomplished without difficulty. The patient tolerated the procedure well. Findings: The esophagus was normal. The stomach was normal. The examined duodenum was normal. The cardia and gastric fundus were normal on retroflexion. Impression: - Normal esophagus. - Normal stomach. - No blood seen. - Normal examined duodenum. - No specimens collected. Recommendation: - Return patient to [facility] for [facility] care. - Advance diet as per primary service. Prosper Verduzco M.D. Prosper Verduzco MD 05/06/2016 11:33:49 AM This report has been signed electronically. Note Initiated On: 05/06/2016 10:36 AM
[2016-05-06 15:49] LABS: HEMATOCRIT 30.4 % (37-47)
[2016-05-06 21:21] LABS: HEMATOCRIT 30.5 % (37-47)
[2016-05-06] MEDS: AMITRIPTYLINE HCL 10 MG TAB PO SCH (21:21)
[2016-05-06] MEDS: SIMVASTATIN 20 MG TAB PO SCH (21:22)
[2016-05-07 00:51] VITALS: BP 110/60; PULSE 78; TEMP 36.7; O2SAT 91
[2016-05-07 03:28] LABS: HEMATOCRIT 31.1 % (37-47); MEAN CELL VOLUME 86.9 fL (80-100); MEAN CORPUSCULAR HEMOGLOBIN 27.9 pg (25-34); MEAN CORPUSCULAR HGB CONC 32.2 g/dl (32-36); MEAN PLATELET VOLUME 9.4 fL (7.4-10.4); PLATELET COUNT 301 K/uL (130-400); RED BLOOD COUNT 3.58 M/uL (4.2-5.4); WHITE BLOOD COUNT 6.62 K/uL (4.8-10.8)
[2016-05-07 04:00] LABS: BUN/CREATININE RATIO 7.8 (10-20); CALCIUM 8.4 mg/dl (8.5-10.1); CREATININE 0.97 mg/dl (0.60-1.20); MAGNESIUM 1.8 mg/dl (1.8-2.4); POTASSIUM 4.1 mmol/L (3.5-5.1)
[2016-05-07 04:33] VITALS: BP 104/57; PULSE 78; TEMP 36.8; O2SAT 93
--- NOTE | 2016-05-07 06:04 | Clinical Documentation Query ---
BETTIE REES : CLINICAL DOCUMENTATION QUERY Patient is a 70 year old female admitted for acute GI bleed. Admission hemoglobin and hematocrit were 8.2 g/dl and 26%. Treatment includes transfusion of PRBC's, monitoring of CBC, PRP, Mg, telemetry, IV PPI, CL diet, IVF, GI consultation, type/cross/screen. Risk factors include chronic mesenteric ischemia with bypass grafting, angioplasty and stenting, ASA, Plavix, gastric ulcer. In your clinical opinion is this patient being managed for: (x ) Acute blood loss anemia ( ) Other explanation of clinical findings (Please Explain) ( ) Unable to determine (Please Define) ( ) Need to Discuss ( ) Not Agree The medical record reflects the following clinical findings, treatment, and risk factors. Clinical Indicators: As above. Anemia in the setting of black tarry stools, SOB, etc. Treatment:monitoring of CBC, PRP, Mg, telemetry, IV PPI, CL diet, IVF, GI consultation Risk Factors:chronic mesenteric ischemia with bypass grafting, angioplasty and stenting, ASA, Plavix Please clarify and document your clinical opinion in the progress notes and discharge summary. Terms such as "probable", "suspected", "likely", "questionable", "possible", or "still to be ruled out" are acceptable. IF IN AGREEMENT, YOU MUST DOCUMENT ABOVE DIAGNOSTIC STATEMENT IN DAILY PROGRESS NOTES AND DISCHARGE SUMMARY. This document is not part of the patient's record. Thank You, Priyank De Luna, WILLOW [phone]
[2016-05-07 07:33] VITALS: BP 121/65; PULSE 77; TEMP 36.9; O2SAT 91
[2016-05-07] MEDS: GABAPENTIN 300 MG CAP PO SCH ×2 (07:43→20:21)
[2016-05-07] MEDS: BusPIRone 15 MG TAB PO SCH ×2 (07:43→20:21)
[2016-05-07] MEDS: CITALOPRAM 40 MG TAB PO SCH (07:43)
[2016-05-07] MEDS: SODIUM CHLORIDE 0.9% 1000ML 1,000 ML IV SCH (08:04)
[2016-05-07] MEDS: PANTOprazole INJ 40 MG in SYRINGE 0 ML IV SCH ×2 (08:04→20:33)
[2016-05-07] MEDS: INSULIN ASPART 100 UNITS/ML 3 ML PEN SC SCH ×4 (08:11→20:35)
--- NOTE | 2016-05-07 09:11 | Progress Note ---
Medicine Progress Note Date & Time of Visit: May 07, 2016 at 09:03. (Palmira Ledesma PA-C) Subjective Patient seen and examined this morning. Reports feeling tired this morning. States she was having diarrhea all last night, said the stool was very watery, still dark. Otherwise she reports feeling better, states the Protonix have really helped with the nausea. She denies fevers, chills, chest pain, SOB, nausea, vomiting, dysuria, calf pain and edema. Had EGD yesterday without source of bleeding. Tolerating clear liquid diet. (Palmira Ledesma PA-C) Objective Last 8 Hrs Date Time Temp Pulse Resp B/P Pulse Ox O2 Delivery O2 Flow Rate FiO2 05/07/16 07:33 36.9 77 16 121/65 91 Room Air 05/07/16 04:33 36.8 78 18 104/57 93 Room Air 05/07/16 04:00 Room Air Physical Exam: General-Very pleasant WD/WN 70 year old female sitting in chair in NAD Eyes-PERRLA. EOMI, sclera normal ENT-hearing grossly intact, mucosa moist Neck-supple no JVD Lungs-CTA BL no accessory muscle use Heart-RRR, no murmurs, gallops or rubs Abdomen-Normoactive, soft, NT Extremities-distal pulses intact, no calf pain, no edema Neuro-A&Ox3, no focal deficits Laboratory Results: Last 24 Hours Test 05/06/16 09:25 05/06/16 12:37 05/06/16 15:42 05/06/16 16:35 Hemoglobin 8.4 g/dL 9.9 g/dL Hematocrit 26.5 % 30.4 % Bedside Glucose 213 mg/dl 277 mg/dl Test 05/06/16 20:23 05/06/16 21:08 05/07/16 02:58 05/07/16 07:11 Bedside Glucose 223 mg/dl 202 mg/dl Hemoglobin 10.0 g/dL 10.0 g/dL Hematocrit 30.5 % 31.1 % White Blood Count 6.62 K/uL Red Blood Count 3.58 M/uL Mean Corpuscular Volume 86.9 fL Mean Corpuscular Hemoglobin 27.9 pg Mean Corpuscular Hemoglobin Concent 32.2 g/dl RDW Standard Deviation 53.9 fL RDW Coefficient of Variation 17.0 % Platelet Count 301 K/uL Mean Platelet Volume 9.4 fL Nucleated RBC Absolute Count (auto) 0.02 K/uL Nucleated Red Blood Cells % 0.3 % Sodium Level 145 mmol/L Potassium Level 4.1 mmol/L Chloride Level 111 mmol/L Carbon Dioxide Level 25 mmol/L Anion Gap 9.0 mmol/L Blood Urea Nitrogen 8 mg/dl Creatinine 0.97 mg/dl Est Creatinine Clear Calc Drug Dose 54.4 ml/min Estimated GFR () 69.1 Estimated GFR (Non- 59.6 BUN/Creatinine Ratio 7.8 Random Glucose 179 mg/dl Calcium Level 8.4 mg/dl Magnesium Level 1.8 mg/dl (Palmira Ledesma, PA-C) Assessment & Plan GI BLEED -S/P EGD on 05/06, no bleeding or bleeding source found -continue Protonix IV BID -Advance diet at lunch today -If good po intake continues will cut back on IVFs -GI on board, input appreciated -CBC, PRP, Mg daily ACUTE BLOOD LOSS ANEMIA -secondary to GI bleed -Hgb as low as 7.7 -S/P 2units PRBC now around 10 -continue to monitor H&H DIARRHEA -check C.diff HYPOTENSION - resolved -asymptomatic -BP improved s/p 2units PRBCs -continue gentle IVF hydration for now -monitor BP closely CHRONIC MESENTERIC ISCHEMIA -follows with Dr. Clark - vascular surgery -Per outpatient note by Dr. Clark "S/p open exposure of left brachial artery (re -do), stenting of celiac artery (Atrium iCast 7 x 22 mm stent post dilated to 8 mm), and angioplasty of proximal and distal anastomoses of the re-stenotic common hepatic to SMA reversed saphenous vein bypass graft (5 mm Open Lending AngioSculpt balloon) 12/10/[address] Gatica." -hold aspirin and Plavix for GI bleed COPD -stable - recently quit smoking - efforts applauded -continue home inhalers prn DM2 -Hold po diabetic agents -SSI coverage -BSG AC HS DEPRESSION -continue Celexa, Ativan, BuSpar, Amitriptyline [id number] RED BLOOD CELL ANTIBODY POSITIVE -Difficult to obtain PRBCs- 2 units PRBCs type and crossed -[place] number listed at bottom of note HLD -continue Statin H/O CVA -no residual defects -hold ASA -continue statin for secondary prevention H/O MRSA -contact precautions DVT PROPHYLAXIS: SCDs RE: GI bleed CODE STATUS: FULL CODE DISPO: likely discharge home when medically stable Patient seen in collaboration with Dr. Becerra Current Inpatient Medications: Current Inpatient Medications Medications (Trade) Dose Ordered Sig/Carson Route Start Time Stop Time Status Last Admin Dose Admin Ondansetron HCl (Zofran Inj) 4 mg Q6H PRN IV 05/05/16 17:00 06/04/16 16:59 05/06/16 01:51 4 MG Albuterol (Ventolin Hfa Inhaler) 2 puffs Q6R PRN INH 05/05/16 21:00 06/04/16 20:59 Amitriptyline HCl (Elavil Tab) 5 mg HS PO 05/05/16 21:00 06/04/16 20:59 05/06/16 21:21 5 MG Buspirone HCl (BusPAR TAB) 30 mg BID PO 05/05/16 21:00 06/04/16 20:59 05/07/16 07:43 30 MG Citalopram Hydrobromide (celeXA TAB) 40 mg QAM PO 05/06/16 09:00 06/05/16 08:59 05/07/16 07:43 40 MG Cyclobenzaprine HCl (Flexeril Tab) 5 mg BID PRN PO 05/05/16 17:00 06/04/16 16:59 05/05/16 19:26 5 MG Gabapentin (Neurontin Cap) 300 mg BID PO 05/05/16 21:00 06/04/16 20:59 05/07/16 07:43 300 MG Lorazepam 0.5 mg 0.5 mg HS PRN PO 05/05/16 17:00 06/04/16 16:59 Pantoprazole Sodium 40 mg/ Syringe 10 ml @ 5 mls/min BID@0900,2100 IV 05/05/16 21:00 06/04/16 20:59 05/07/16 08:04 5 MLS/MIN Sodium Chloride (Nss 1000ml) 1,000 ml @ 100 mls/hr Q10H IV 05/05/16 17:15 06/04/16 17:14 05/07/16 08:04 100 MLS/HR Insulin Aspart (novoLOG ASPART) SLIDING SCALE If C... ACHS SC 05/05/16 21:00 06/04/16 20:59 05/07/16 08:11 5 UNITS Glucose (Glucose 40% Gel) 15-30 GRAMS 15 GRAMS... UD PRN PO 05/05/16 17:30 06/04/16 17:29 Glucose (Glucose Chew Tab) 4-8 Tablets 4 Tabl... UD PRN PO 05/05/16 17:30 06/04/16 17:29 Dextrose (Dextrose 50% 50ML Syringe) 25-50ML OF 50% DW IV FOR... UD PRN IV 05/05/16 17:30 06/04/16 17:29 Glucagon (Glucagon Inj) 1 mg UD PRN SQ 05/05/16 17:30 06/04/16 17:29 Simvastatin (Zocor Tab) 20 mg QPM PO 05/05/16 21:00 06/04/16 20:59 05/06/16 21:22 20 MG (Palmira Ledesma, DAMON) ATTENDING ADDENDUM care coordinated with COREY ledesma please refer to her notes for full details, I agree with her notes patient seen and examined, records reviewed by myself as well on exam, patient seen resting in bedside chair states she feels better no abdominal pain, nausea had 2 diarrhea episodes no other symptoms VS noted and reviewed oriented x 3 , not in distress, speaks in sentences with no effort nor accessory muscle use normal rate, regular rhythm, no murmurs clear breath sounds bilaterally non distended, soft, nontender no bipedal edema, erythema, warmth no neuro deficits Hg 10.5 Crea 0.9 ASSESSMENT/PLAN> POSSIBLE GI BLEED S/P EGD - no identifiable source of bleeding per EGD -will resume Aspirin monitor Hg d/c IV fluids advance diet ANEMIA, POSSIBLE ACUTE BLOOD LOSS FROM GI BLEED s/p 2 units PRBC monitor hg other diagnoses and plan of care as per COREY Ledesma's notes Justin Becerra MD (Justin Becerra MD)
[2016-05-07 10:11] LABS: HEMATOCRIT 33.2 % (37-47)
--- NOTE | 2016-05-07 10:11 | Gastroenterology Progress Note ---
Progress Note Date of Service: May 07, 2016 Subjective Pt evaluation today including: conversation w/ patient, physical exam, chart review, lab review, review of inpatient medication list Pt overall feels energy increased, no SOB, CP, abd pain, n/v. She had multiple loose, "green and foul" stools overnight, CDiff ordered and pending. EGD yesterday w/o s/s of AVMs or UGI bleed. She received 2u PRBC yesterday, Hgb increased from 8-10 Review of Systems Constitutional: No chills, No fever Respiratory: No cough, No shortness of breath Cardiac: No chest pain Abdomen: + diarrhea, No nausea, No pain, No vomiting Medications Current Inpatient Medications Medications (Trade) Dose Ordered Sig/Carson Route Start Time Stop Time Status Last Admin Dose Admin Ondansetron HCl (Zofran Inj) 4 mg Q6H PRN IV 05/05/16 17:00 06/04/16 16:59 05/06/16 01:51 4 MG Albuterol (Ventolin Hfa Inhaler) 2 puffs Q6R PRN INH 05/05/16 21:00 06/04/16 20:59 Amitriptyline HCl (Elavil Tab) 5 mg HS PO 05/05/16 21:00 06/04/16 20:59 05/06/16 21:21 5 MG Buspirone HCl (BusPAR TAB) 30 mg BID PO 05/05/16 21:00 06/04/16 20:59 05/07/16 07:43 30 MG Citalopram Hydrobromide (celeXA TAB) 40 mg QAM PO 05/06/16 09:00 06/05/16 08:59 05/07/16 07:43 40 MG Cyclobenzaprine HCl (Flexeril Tab) 5 mg BID PRN PO 05/05/16 17:00 06/04/16 16:59 05/05/16 19:26 5 MG Gabapentin (Neurontin Cap) 300 mg BID PO 05/05/16 21:00 06/04/16 20:59 05/07/16 07:43 300 MG Lorazepam 0.5 mg 0.5 mg HS PRN PO 05/05/16 17:00 06/04/16 16:59 Pantoprazole Sodium 40 mg/ Syringe 10 ml @ 5 mls/min BID@0900,2100 IV 05/05/16 21:00 06/04/16 20:59 05/07/16 08:04 5 MLS/MIN Sodium Chloride (Nss 1000ml) 1,000 ml @ 100 mls/hr Q10H IV 05/05/16 17:15 06/04/16 17:14 05/07/16 08:04 100 MLS/HR Insulin Aspart (novoLOG ASPART) SLIDING SCALE If C... ACHS SC 05/05/16 21:00 06/04/16 20:59 05/07/16 08:11 5 UNITS Glucose (Glucose 40% Gel) 15-30 GRAMS 15 GRAMS... UD PRN PO 05/05/16 17:30 06/04/16 17:29 Glucose (Glucose Chew Tab) 4-8 Tablets 4 Tabl... UD PRN PO 05/05/16 17:30 06/04/16 17:29 Dextrose (Dextrose 50% 50ML Syringe) 25-50ML OF 50% DW IV FOR... UD PRN IV 05/05/16 17:30 06/04/16 17:29 Glucagon (Glucagon Inj) 1 mg UD PRN SQ 05/05/16 17:30 06/04/16 17:29 Simvastatin (Zocor Tab) 20 mg QPM PO 05/05/16 21:00 06/04/16 20:59 05/06/16 21:22 20 MG Objective Vital Signs Date Time Temp Pulse Resp B/P Pulse Ox O2 Delivery O2 Flow Rate FiO2 05/07/16 08:00 Room Air 05/07/16 07:33 36.9 77 16 121/65 91 Room Air 05/07/16 04:33 36.8 78 18 104/57 93 Room Air 05/07/16 04:00 Room Air 05/07/16 00:51 36.7 78 22 110/60 91 Room Air 05/06/16 23:59 Room Air 05/06/16 20:00 95 Room Air 3.0 05/06/16 19:48 37.1 71 18 114/68 95 Room Air 05/06/16 16:00 96 Room Air 05/06/16 15:35 36.7 78 18 115/65 96 Room Air 05/06/16 14:12 94 Room Air 05/06/16 13:50 36.8 80 18 101/63 95 05/06/16 13:31 36.7 81 18 108/62 94 Room Air 05/06/16 13:15 36.7 81 20 108/62 94 05/06/16 13:00 36.4 78 20 102/62 94 Room Air 3.0 05/06/16 12:45 36.4 81 20 102/62 94 05/06/16 12:30 36.7 18 135/71 91 Room Air 05/06/16 12:26 36.7 80 18 135/71 91 05/06/16 11:56 37.0 78 20 125/57 100 05/06/16 11:56 78 20 125/57 100 Room Air 05/06/16 11:44 75 18 119/56 99 Room Air 05/06/16 11:30 37.0 70 20 116/58 100 3.0 05/06/16 11:26 37.0 70 20 116/58 100 Mask 3 05/06/16 10:30 37.0 84 16 115/53 92 05/06/16 10:30 37.0 82 18 115/53 92 Room Air 05/06/16 10:10 36.9 78 20 104/46 93 Room Air 0.0 05/06/16 09:59 36.9 79 20 104/46 93 Physical Exam General Appearance: WD/WN, no apparent distress, + obese Eyes: normal inspection, PERRL, EOMI Neck: supple, no JVD, trachea midline Respiratory/Chest: normal breath sounds, no respiratory distress, no accessory muscle use Cardiovascular: regular rate, rhythm, no gallop, no murmur Abdomen: normal bowel sounds, non tender, soft Extremities: normal inspection, no pedal edema, no calf tenderness Neurologic/Psych: alert, normal mood/affect, oriented x 3 Skin: normal color, no jaundice, no rash Laboratory Results Last 24 Hours Test 05/06/16 12:37 05/06/16 15:42 05/06/16 16:35 05/06/16 20:23 Bedside Glucose 213 mg/dl 277 mg/dl 223 mg/dl Hemoglobin 9.9 g/dL Hematocrit 30.4 % Test 05/06/16 21:08 05/07/16 02:58 05/07/16 07:11 Hemoglobin 10.0 g/dL 10.0 g/dL Hematocrit 30.5 % 31.1 % White Blood Count 6.62 K/uL Red Blood Count 3.58 M/uL Mean Corpuscular Volume 86.9 fL Mean Corpuscular Hemoglobin 27.9 pg Mean Corpuscular Hemoglobin Concent 32.2 g/dl RDW Standard Deviation 53.9 fL RDW Coefficient of Variation 17.0 % Platelet Count 301 K/uL Mean Platelet Volume 9.4 fL Nucleated RBC Absolute Count (auto) 0.02 K/uL Nucleated Red Blood Cells % 0.3 % Sodium Level 145 mmol/L Potassium Level 4.1 mmol/L Chloride Level 111 mmol/L Carbon Dioxide Level 25 mmol/L Anion Gap 9.0 mmol/L Blood Urea Nitrogen 8 mg/dl Creatinine 0.97 mg/dl Est Creatinine Clear Calc Drug Dose 54.4 ml/min Estimated GFR () 69.1 Estimated GFR (Non- 59.6 BUN/Creatinine Ratio 7.8 Random Glucose 179 mg/dl Calcium Level 8.4 mg/dl Magnesium Level 1.8 mg/dl Bedside Glucose 202 mg/dl Assessment and Plan Ms. Hawley is a 70-year-old female w hx of bleeding UGI AVMs currently on Octreotide depot monthly injections. She was admitted for symptomatic anemia, dark stools. Hgb improved from 8-10 after 2U PRBC transfusion. EGD yesterday normal w/o signs of UGI bleeding or AVMs. She reports diarrhea, green and foul stools. Cdiff pending. PLANS: - Primary team to discuss w cardiology or vascular surgery if her ASA and Plavix should be continued - Continue Protonix 40mg IV - F/U on Cdiff - GI will watch peripherally; call if questions or concerns. I performed a history and physical examination of the patient. I have discussed the patient's case, impression and plan with FRANC Enriquez. Her note reflects my findings and plan. Check stools for C. diff. Prosper Verduzco MD
[2016-05-07 11:26] VITALS: BP 114/70; PULSE 71; TEMP 36.9; O2SAT 93
[2016-05-07] MEDS ORDERED: ASPIRIN 81 MG ECTAB PO ONE (11:36)
[2016-05-07 15:48] VITALS: BP 114/61; PULSE 76; TEMP 36.8; O2SAT 95
[2016-05-07 19:30] VITALS: BP 123/64; PULSE 74; TEMP 36.6; O2SAT 99
[2016-05-07] MEDS: SIMVASTATIN 20 MG TAB PO SCH (20:21)
[2016-05-07] MEDS: AMITRIPTYLINE HCL 10 MG TAB PO SCH (20:21)
[2016-05-08] VITALS (10 sets, daily range): BP systolic 116–147; BP diastolic 64–73; PULSE 68–85; TEMP 36.8–37.2; O2SAT 91–95
[2016-05-08 05:54] LABS: HEMATOCRIT 32.3 % (37-47); MEAN CELL VOLUME 86.4 fL (80-100); MEAN CORPUSCULAR HEMOGLOBIN 28.6 pg (25-34); MEAN CORPUSCULAR HGB CONC 33.1 g/dl (32-36); MEAN PLATELET VOLUME 9.3 fL (7.4-10.4); PLATELET COUNT 305 K/uL (130-400); RED BLOOD COUNT 3.74 M/uL (4.2-5.4); WHITE BLOOD COUNT 6.43 K/uL (4.8-10.8)
[2016-05-08 06:22] LABS: BUN/CREATININE RATIO 8.5 (10-20); CALCIUM 9.1 mg/dl (8.5-10.1); CREATININE 0.97 mg/dl (0.60-1.20); MAGNESIUM 1.8 mg/dl (1.8-2.4)
[2016-05-08] MEDS: CITALOPRAM 40 MG TAB PO SCH (07:45)
[2016-05-08] MEDS: GABAPENTIN 300 MG CAP PO SCH ×2 (07:45→20:33)
[2016-05-08] MEDS: ASPIRIN 81 MG ECTAB PO SCH (07:46)
[2016-05-08] MEDS: BusPIRone 15 MG TAB PO SCH ×2 (07:46→20:34)
[2016-05-08] MEDS: INSULIN ASPART 100 UNITS/ML 3 ML PEN SC SCH ×4 (08:33→20:45)
[2016-05-08] MEDS: PANTOprazole INJ 40 MG in SYRINGE 0 ML IV SCH ×2 (09:11→20:33)
--- NOTE | 2016-05-08 18:44 | Progress Note ---
Medicine Progress Note Date & Time of Visit: May 08, 2016 at 18:39. Subjective resting in bed, comfortable diarrhea resolved no abdominal pain, melena/hematochezia no chest pain, dyspnea, dizziness denies other symptoms Objective Last 8 Hrs Date Time Temp Pulse Resp B/P Pulse Ox O2 Delivery O2 Flow Rate FiO2 05/08/16 15:35 Room Air 05/08/16 15:22 36.9 74 20 137/73 93 Room Air 05/08/16 12:00 95 Room Air 05/08/16 11:29 37.2 70 18 144/71 95 Room Air Physical Exam: General-oriented x 3, not in distress, speaks in sentences with no effort Eyes- anicteric Neck- supple, no JVD Lungs- clear to auscultation bilaterally Heart- regular rhythm; no murmurs Abdomen- normal bowel sounds, soft, nontender Extremities- no pretibial edema, no calf tenderness Neuro- alert, oriented x 3; no gross deficits Skin- warm & dry Laboratory Results: Last 24 Hours Test 05/07/16 20:18 05/08/16 05:27 05/08/16 06:38 05/08/16 11:25 Bedside Glucose 245 mg/dl 284 mg/dl 282 mg/dl White Blood Count 6.43 K/uL Red Blood Count 3.74 M/uL Hemoglobin 10.7 g/dL Hematocrit 32.3 % Mean Corpuscular Volume 86.4 fL Mean Corpuscular Hemoglobin 28.6 pg Mean Corpuscular Hemoglobin Concent 33.1 g/dl RDW Standard Deviation 52.9 fL RDW Coefficient of Variation 16.7 % Platelet Count 305 K/uL Mean Platelet Volume 9.3 fL Sodium Level 141 mmol/L Potassium Level 4.0 mmol/L Chloride Level 106 mmol/L Carbon Dioxide Level 25 mmol/L Anion Gap 10.0 mmol/L Blood Urea Nitrogen 8 mg/dl Creatinine 0.97 mg/dl Est Creatinine Clear Calc Drug Dose 54.8 ml/min Estimated GFR () 69.1 Estimated GFR (Non- 59.6 BUN/Creatinine Ratio 8.5 Random Glucose 268 mg/dl Calcium Level 9.1 mg/dl Magnesium Level 1.8 mg/dl Test 05/08/16 16:15 Bedside Glucose 252 mg/dl Assessment & Plan POSSIBLE GI BLEED S/P EGD - no identifiable source of bleeding per EGD - resumed Aspirin, no signs of GI bleed Hg stable ANEMIA, POSSIBLE ACUTE BLOOD LOSS FROM GI BLEED s/p 2 units PRBC Hg stable at 10.7 DIARRHEA resolved HYPOTENSION - resolved -BP improved s/p 2units PRBCs CHRONIC MESENTERIC ISCHEMIA HISTORY -follows with Dr. Clark - vascular surgery -Per outpatient note by Dr. Clark "S/p open exposure of left brachial artery (re -do), stenting of celiac artery (Atrium iCast 7 x 22 mm stent post dilated to 8 mm), and angioplasty of proximal and distal anastomoses of the re-stenotic common hepatic to SMA reversed saphenous vein bypass graft (5 mm iZoca AngioSculpt balloon) 12/10/[address] Gatica." - Aspirin resumed Plavix on hold COPD -stable - recently quit smoking - efforts applauded -continue home inhalers prn DM2 -Hold po diabetic agents - start Lantus ISS DEPRESSION -continue Celexa, Ativan, BuSpar, Amitriptyline [id number] RED BLOOD CELL ANTIBODY POSITIVE -Difficult to obtain PRBCs- 2 units PRBCs type and crossed -[place] Bruneau number listed at bottom of note HLD -continue Statin H/O CVA -no residual defects - Aspirin resumed -continue statin H/O MRSA -contact precautions DVT PROPHYLAXIS: SCDs RE: GI bleed CODE STATUS: FULL CODE DISPO likely d/c home tomorrow Current Inpatient Medications: Current Inpatient Medications Medications (Trade) Dose Ordered Sig/Carson Route Start Time Stop Time Status Last Admin Dose Admin Ondansetron HCl (Zofran Inj) 4 mg Q6H PRN IV 05/05/16 17:00 06/04/16 16:59 05/06/16 01:51 4 MG Albuterol (Ventolin Hfa Inhaler) 2 puffs Q6R PRN INH 05/05/16 21:00 06/04/16 20:59 Amitriptyline HCl (Elavil Tab) 5 mg HS PO 05/05/16 21:00 06/04/16 20:59 05/07/16 20:21 5 MG Buspirone HCl (BusPAR TAB) 30 mg BID PO 05/05/16 21:00 06/04/16 20:59 05/08/16 07:46 30 MG Citalopram Hydrobromide (celeXA TAB) 40 mg QAM PO 05/06/16 09:00 06/05/16 08:59 05/08/16 07:45 40 MG Cyclobenzaprine HCl (Flexeril Tab) 5 mg BID PRN PO 05/05/16 17:00 06/04/16 16:59 05/05/16 19:26 5 MG Gabapentin (Neurontin Cap) 300 mg BID PO 05/05/16 21:00 06/04/16 20:59 05/08/16 07:45 300 MG Lorazepam 0.5 mg 0.5 mg HS PRN PO 05/05/16 17:00 06/04/16 16:59 Pantoprazole Sodium/Syringe (Protonix Inj/ Syringe) 10 ml @ 5 mls/min BID@0900,2100 IV 05/05/16 21:00 06/04/16 20:59 05/08/16 09:11 5 MLS/MIN Insulin Aspart (novoLOG ASPART) SLIDING SCALE If C... ACHS SC 05/05/16 21:00 06/04/16 20:59 05/08/16 17:30 6 UNITS Glucose (Glucose 40% Gel) 15-30 GRAMS 15 GRAMS... UD PRN PO 05/05/16 17:30 06/04/16 17:29 Glucose (Glucose Chew Tab) 4-8 Tablets 4 Tabl... UD PRN PO 05/05/16 17:30 06/04/16 17:29 Dextrose (Dextrose 50% 50ML Syringe) 25-50ML OF 50% DW IV FOR... UD PRN IV 05/05/16 17:30 06/04/16 17:29 Glucagon (Glucagon Inj) 1 mg UD PRN SQ 05/05/16 17:30 06/04/16 17:29 Simvastatin (Zocor Tab) 20 mg QPM PO 05/05/16 21:00 06/04/16 20:59 05/07/16 20:21 20 MG Aspirin (Ecotrin Tab) 81 mg QAM PO 05/08/16 09:00 06/07/16 08:59 05/08/16 07:46 81 MG Insulin Glargine (Lantus Solostar Pen) 10 unit HS SC 05/08/16 21:00 06/07/16 20:59
[2016-05-08] MEDS: SIMVASTATIN 20 MG TAB PO SCH (20:34)
[2016-05-08] MEDS ORDERED: INSULIN GLARGINE SOLOSTAR 100 UNITS/ML 3 ML PEN SC SCH (21:00)
[2016-05-08] MEDS: AMITRIPTYLINE HCL 10 MG TAB PO SCH (21:34)
[2016-05-09 06:16] LABS: BASO ABS # 0.06 K/uL (0-0.2); COMPLETE YES; EOS % 4.7 %; HEMATOCRIT 32.9 % (37-47); IG% 0.2 %; LYMPH % 15.6 %; LYMPH ABS # 0.97 K/uL (1.2-3.4); MEAN CELL VOLUME 86.4 fL (80-100); MEAN CORPUSCULAR HEMOGLOBIN 27.8 pg (25-34); MEAN CORPUSCULAR HGB CONC 32.2 g/dl (32-36); MEAN PLATELET VOLUME 9.6 fL (7.4-10.4); MONO % 9.3 %; NEUT % 69.2 %; PLATELET COUNT 316 K/uL (130-400); RED BLOOD COUNT 3.81 M/uL (4.2-5.4); WHITE BLOOD COUNT 6.21 K/uL (4.8-10.8)
[2016-05-09 06:49] LABS: BUN/CREATININE RATIO 10.2 (10-20); CALCIUM 8.8 mg/dl (8.5-10.1); CREATININE 1.1 mg/dl (0.60-1.20)
[2016-05-09 07:24] VITALS: BP 112/68; PULSE 76; TEMP 37.1; O2SAT 92
[2016-05-09] MEDS: CITALOPRAM 40 MG TAB PO SCH (09:10)
[2016-05-09] MEDS: ASPIRIN 81 MG ECTAB PO SCH (09:10)
[2016-05-09] MEDS: GABAPENTIN 300 MG CAP PO SCH (09:10)
[2016-05-09] MEDS: BusPIRone 15 MG TAB PO SCH (09:10)
[2016-05-09] MEDS: INSULIN ASPART 100 UNITS/ML 3 ML PEN SC SCH ×2 (09:16→13:08)
[2016-05-09] MEDS: PANTOprazole INJ 40 MG in SYRINGE 0 ML IV SCH (09:17)
[2016-05-09 14:55] VITALS: BP 119/68; PULSE 74; TEMP 36.8; O2SAT 96
--- NOTE | 2016-05-09 16:02 | Progress Note ---
Medicine Progress Note Date & Time of Visit: May 09, 2016 at 15:57. Subjective patient states she feels better overall today denies abdominal pain ,nausea no melena, hematochezia no dizziness, chest pain, palpitations denies other symptoms Objective Last 8 Hrs Date Time Temp Pulse Resp B/P Pulse Ox O2 Delivery O2 Flow Rate FiO2 05/09/16 14:55 36.8 74 18 119/68 96 Room Air 05/09/16 08:30 Room Air Physical Exam: General-oriented x 3, not in distress, speaks in sentences with no effort Neck- no JVD Lungs- clear to auscultation bilaterally, no rales/wheezes Heart- normal rate, regular rhythm; no murmurs Abdomen- normal bowel sounds, soft, nontender Extremities- no pretibial edema, no calf tenderness Neuro- alert, oriented x 3; no gross deficits Skin- warm & dry Laboratory Results: Last 24 Hours Test 05/08/16 16:15 05/08/16 20:21 05/09/16 05:40 05/09/16 08:14 Bedside Glucose 252 mg/dl 304 mg/dl 299 mg/dl White Blood Count 6.21 K/uL Red Blood Count 3.81 M/uL Hemoglobin 10.6 g/dL Hematocrit 32.9 % Mean Corpuscular Volume 86.4 fL Mean Corpuscular Hemoglobin 27.8 pg Mean Corpuscular Hemoglobin Concent 32.2 g/dl Platelet Count 316 K/uL Mean Platelet Volume 9.6 fL Neutrophils (%) (Auto) 69.2 % Lymphocytes (%) (Auto) 15.6 % Monocytes (%) (Auto) 9.3 % Eosinophils (%) (Auto) 4.7 % Basophils (%) (Auto) 1.0 % Neutrophils # (Auto) 4.30 K/uL Lymphocytes # (Auto) 0.97 K/uL Monocytes # (Auto) 0.58 K/uL Eosinophils # (Auto) 0.29 K/uL Basophils # (Auto) 0.06 K/uL RDW Standard Deviation 52.9 fL RDW Coefficient of Variation 16.7 % Immature Granulocyte % (Auto) 0.2 % Immature Granulocyte # (Auto) 0.01 K/uL Sodium Level 141 mmol/L Potassium Level 4.0 mmol/L Chloride Level 105 mmol/L Carbon Dioxide Level 27 mmol/L Anion Gap 9.0 mmol/L Blood Urea Nitrogen 11 mg/dl Creatinine 1.10 mg/dl Est Creatinine Clear Calc Drug Dose 48.4 ml/min Estimated GFR () 59.3 Estimated GFR (Non- 51.2 BUN/Creatinine Ratio 10.2 Random Glucose 276 mg/dl Calcium Level 8.8 mg/dl Test 05/09/16 11:33 Bedside Glucose 261 mg/dl Assessment & Plan MELENA, POSSIBLE GI BLEED S/P EGD - no identifiable source of bleeding per EGD - resumed Aspirin, no signs of GI bleed Hg stable change Ranitidine to Protonix 40mg BID ff up with GI as advised ANEMIA, POSSIBLE ACUTE BLOOD LOSS FROM GI BLEED s/p 2 units PRBC after transfusion, Hg stable at 10.7 - repeat Hg on ff up with PCP DIARRHEA resolved HYPOTENSION- resolved - BP improved CHRONIC MESENTERIC ISCHEMIA HISTORY -follows with Dr. Clark - vascular surgery -Per outpatient note by Dr. Clark "S/p open exposure of left brachial artery (re -do), stenting of celiac artery (Atrium iCast 7 x 22 mm stent post dilated to 8 mm), and angioplasty of proximal and distal anastomoses of the re-stenotic common hepatic to SMA reversed saphenous vein bypass graft (5 mm Dweho AngioSculpt balloon) 12/10/[address] Gatica." -- resume Aspirin and Plavix monitor Hg closely COPD -stable - recently quit smoking - efforts applauded -continue home inhalers prn DM2 - resume usual regimen DEPRESSION -continue Celexa, Ativan, BuSpar, Amitriptyline [id number] RED BLOOD CELL ANTIBODY POSITIVE HLD -continue Statin H/O CVA -no residual defects - Aspirin resumed -continue statin H/O MRSA -contact precautions DVT PROPHYLAXIS: SCDs provided RE: GI bleed CODE STATUS: FULL CODE DISPO d/c home today ff up with PCP in 3-5 days ff up with GI as scheduled Current Inpatient Medications: Current Inpatient Medications Medications (Trade) Dose Ordered Sig/Carson Route Start Time Stop Time Status Last Admin Dose Admin Ondansetron HCl (Zofran Inj) 4 mg Q6H PRN IV 05/05/16 17:00 06/04/16 16:59 05/06/16 01:51 4 MG Albuterol (Ventolin Hfa Inhaler) 2 puffs Q6R PRN INH 1/18/17 21:00 06/04/16 20:59 Amitriptyline HCl (Elavil Tab) 5 mg HS PO 05/05/16 21:00 06/04/16 20:59 05/08/16 21:34 5 MG Buspirone HCl (BusPAR TAB) 30 mg BID PO 05/05/16 21:00 06/04/16 20:59 05/09/16 09:10 30 MG Citalopram Hydrobromide (celeXA TAB) 40 mg QAM PO 05/06/16 09:00 06/05/16 08:59 05/09/16 09:10 40 MG Cyclobenzaprine HCl (Flexeril Tab) 5 mg BID PRN PO 05/05/16 17:00 06/04/16 16:59 05/05/16 19:26 5 MG Gabapentin (Neurontin Cap) 300 mg BID PO 05/05/16 21:00 06/04/16 20:59 05/09/16 09:10 300 MG Lorazepam 0.5 mg 0.5 mg HS PRN PO 05/05/16 17:00 06/04/16 16:59 Pantoprazole Sodium/Syringe (Protonix Inj/ Syringe) 10 ml @ 5 mls/min BID@0900,2100 IV 05/05/16 21:00 06/04/16 20:59 05/09/16 09:17 5 MLS/MIN Insulin Aspart (novoLOG ASPART) SLIDING SCALE If C... ACHS SC 05/05/16 21:00 06/04/16 20:59 05/09/16 13:08 4 UNITS Glucose (Glucose 40% Gel) 15-30 GRAMS 15 GRAMS... UD PRN PO 05/05/16 17:30 06/04/16 17:29 Glucose (Glucose Chew Tab) 4-8 Tablets 4 Tabl... UD PRN PO 05/05/16 17:30 06/04/16 17:29 Dextrose (Dextrose 50% 50ML Syringe) 25-50ML OF 50% DW IV FOR... UD PRN IV 05/05/16 17:30 06/04/16 17:29 Glucagon (Glucagon Inj) 1 mg UD PRN SQ 05/05/16 17:30 06/04/16 17:29 Simvastatin (Zocor Tab) 20 mg QPM PO 05/05/16 21:00 06/04/16 20:59 05/08/16 20:34 20 MG Aspirin (Ecotrin Tab) 81 mg QAM PO 05/08/16 09:00 06/07/16 08:59 05/09/16 09:10 81 MG Insulin Glargine (Lantus Solostar Pen) 10 unit HS SC 05/08/16 21:00 06/07/16 20:59 05/08/16 20:46 10 UNIT
[2016-05-09] MEDS ORDERED: PRT40 PO (16:06)
--- NOTE | 2016-05-09 16:13 | Discharge Instructions ---
Discharge Instructions Admission Reason for Admission: Gi Bleed Discharge Discharge Diagnosis / Problem: ANEMIA, POSSIBLE GASTROINTESTINAL BLEED Discharge Goals Goal(s): Diagnostic testing, Therapeutic intervention Activity Recommendations Activity Limitations: as noted below (NO HEAVY EXERTION UNTIL RE-EVALUATED BY PRIMARY CARE PHYSICIAN) . Instructions / Follow-Up Instructions / Follow-Up PLEASE REVIEW YOUR NEW MEDICATION LIST AND FOLLOW INSTRUCTIONS CAREFULLY. CALL PRIMARY CARE PHYSICIAN OR RETURN TO ER IMMEDIATELY IF WITH RECURRENCE OF SYMPTOMS- BLACK OR BLOOD IN THE STOOLS, ABDOMINAL PAIN, NAUSEA, WEAKNESS, DIZZINESS, SHORTNESS OF BREATH. TAKE PROTONIX 30 MINUTES BEFORE MEALS. FOLLOW UP WITH DR. DUMAS IN 3-5 DAYS (CLINIC TO CALL PATIENT). FOLLOW UP WITH WATCH REPAIR PERSON ADVISED. Current Hospital Diet Patient's current hospital diet: Diabetes Type 2 Diet Discharge Diet Recommended Diet: Diabetes Type 2 Diet Procedures Procedures Performed: ESOPHAGOGASTRODUODENOSCOPY (EGD) Pending Studies Studies pending at discharge: yes (REPEAT BLOOD WORK: CBC) List of pending studies: REPEAT BLOOD WORK - CBC Medical Emergencies . Who to Call and When: Medical Emergencies: If at any time you feel your situation is an emergency, please call 911 immediately. . Non-Emergent Contact Non-Emergency issues call your: Primary Care Provider Call Non-Emergent contact if: you have a fever, your pain is not controlled . Past History Medical & Surgical History: (1) Degenerative disc disease (2) Diab Gloria Wo Compl, Type Ii Or Unspec Type, Not Uncntrld (3) Diverticulosis Colon (W/O Ment Of Hemorrhage) (4) Hyperlipidemia Nec/Nos (5) Hypertension Nos (6) Iron Defic Anemia Nos (7) Intestinal ischemia (8) History of CVA (cerebrovascular accident) (9) PAD (peripheral artery disease) (10) Depression (11) Anxiety (12) Anemia (13) GI bleed (14) History of appendectomy (15) History of cholecystectomy . "Provider Documentation" section prepared by Justin Becerra. VTE Core Measure Inpt VTE Proph given/why not?: SCD's
--- NOTE | 2016-05-09 16:20 | Discharge Summary ---
Discharge Summary Admission Date: May 05, 2016 at 16:56 Discharge Date: May 09, 2016 Discharge Disposition: Home Principal Diagnosis: ANEMIA, POSSIBLE ACUTE BLOOD LOSS FROM GI BLEED Secondary Diagnoses/Problems: PLEASE REFER TO HOSPITAL COURSE BELOW. Procedures: S/P EGD BY DR. VERDUZCO 05/06/16 Findings: The esophagus was normal. The stomach was normal. The examined duodenum was normal. The cardia and gastric fundus were normal on retroflexion. Impression: - Normal esophagus. - Normal stomach. - No blood seen. - Normal examined duodenum. - No specimens collected. Recommendation: - Return patient to hospital [facility] for ongoing care. - Advance diet as per primary service. Consultations: GI: Dr. Verduzco/COREY Herrera Pending Studies/Follow-Up: Repeat CBC , Please refer to hospital course below for further details. Medication Reconciliation New Medications: Pantoprazole (Pantoprazole Sodium) 40 Mg Tab 1 TAB PO BID for 30 Days, #60 TABS 1 Refill take 30 minutes before meal Continued Medications: Acetaminophen (Tylenol) 500 Mg Tab 1-2 TAB PO Q8 PRN for Pain for 3 Days, #10 TAB Albuterol Sulfate (Proventil Hfa) 108 Mcg/Act Aer 2 PUFFS INH Q6 PRN for Wheezing Amitriptyline HCl (Amitriptyline HCl) 10 Mg Tab 5 MG PO HS Ascorbic Acid (Vitamin C) 500 Mg Tab 500 MG PO DAILY Aspirin (Aspirin EC Low Dose) 81 Mg Ectab 81 MG PO DAILY B-Complex W/Biotin & Folic Aci (Super B-Complex) 1 Cap Cap 1 CAP PO DAILY Buspirone Hcl (Buspar) 15 Mg Tab 30 MG PO BID Cholecalciferol (Vitamin D 1000 Unit) 1,000 Unit Cap 1000 INTER.UNIT PO DAILY, CAP Citalopram Hydrobromide (Celexa) 40 Mg Tab 40 MG PO QAM Clopidogrel (Plavix) 75 Mg Tab 75 MG PO HS, TAB Cyclobenzaprine Hcl (Flexeril) 5 Mg Tab 1 TAB PO BID PRN for Muscle Spasms for 30 Days, #30 TAB Furosemide (Lasix) 20 Mg Tab 1 TAB PO DAILY, TAB 1 Refill CAN TAKE 1 EXTRA FOR INCREASED SWELLING/EDEMA WITH WEIGHT GAIN Gabapentin (Neurontin) 300 Mg Cap 300 MG PO BID, CAP Insulin Isophan/Regular (Novolin 70/30) Susp 35 UNITS SC BID, BTL TAKE BEFORE BREAKFAST AND SUPPER Lorazepam (Lorazepam) 0.5 Mg Tab 0.5 MG PO HS PRN for Anxiety Magnesium Oxide (Mg Supplement (Magnesium) 500 Mg Cap 500 MG PO DAILY Metformin Hcl (Glucophage) 1,000 Mg Tab 1000 MG PO BIDM, TAB Octreotide Acetate (Sandostatin [place]) 20 Mg Kit 20 MG IM MONTHLY Probiotic Product (Probiotic) 1 Tab Tab 1 TAB PO DAILY Simvastatin (Zocor) 20 Mg Tab 20 MG PO QPM, TAB Discontinued Medications: Diclofenac Sodium (Topical) (Voltaren 1% Top Gel) 1 % Gel 2 GM TOP BID APPLY NEEDED TO AFFECTED AREA Omeprazole (Prilosec) 20 Mg Cap 20 MG PO DAILY, #30 Ranitidine Hcl (Zantac) 150 Mg Tab 1 TAB PO BID for 90 Days, #180 TAB 3 Refills Admission Information HPI (per Admitting provider): Patient seen and examined. 70 year old female with PMHx of chronic mesenteric ischemia s/p bypass and stenting on ASA/Plavix, IDDM, depression and other problems listed below presents to the ED complaining of dark stools x 10 days. 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 She reports that in the last week or so she started to notice that her stool was very dark and tarry. She states that she has had increasing SOB and generalized weakness along with the dark stools.She reports low grade fevers and chills. She states that she occasionally has abdominal pain where she had the bypass but it comes and goes and is not severe, she denies vomiting. She reports that she saw her PCP and he sent her to the ED. She reports that she has many antibodies and needs special blood transfusions. She recently had stents placed in her mesenteric artery bypass and per patient her vascular surgeon said they may be narrowing. She denies URI symptoms, chest pain, vomiting, diarrhea, dysuria, calf pain and edema. She notices when she walks around she has heart palpitations. In the ED VS were stable, hgb was 8.2, other lab work was unremarkable. Rectal exam showed dark heme positive stool. She was given IV Protonix. A call was made to [facility] [place] [place] as patient traditionally goes there for her interventions but they do not have any beds available for 2-3 days. She will be admitted for further workup and treatment. Physical Exam (per Admitting): General Appearance: WD/WN, no apparent distress, + pertinent finding ( Pleasant WD/WN 70 year old female lying in bed in NAD ) Head: normocephalic, atraumatic Eyes: PERRL, EOMI, sclerae normal ENT: hearing grossly normal, pharynx normal Neck: supple, no JVD, trachea midline Respiratory/Chest: chest non-tender, lungs clear, normal breath sounds, no respiratory distress, no accessory muscle use Cardiovascular: regular rate, rhythm, no edema, no gallop, no JVD, no murmur , normal peripheral pulses Abdomen/GI: normal bowel sounds, non tender, soft Back: normal inspection, no muscle spasm Extremities/Musculoskelatal: no calf tenderness, normal capillary refill, no pedal edema Neurologic/Psych: no motor/sensory deficits, alert, oriented x 3, + pertinent finding (no focal deficits noted on gross exam ) Skin: normal color, warm/dry, no rash Lymphatic: no adenopathy Hospital Course MELENA, POSSIBLE GI BLEED S/P EGD 05/06/16 - no identifiable source of bleeding per EGD Findings: The esophagus was normal. The stomach was normal. The examined duodenum was normal. The cardia and gastric fundus were normal on retroflexion. Impression: - Normal esophagus. - Normal stomach. - No blood seen. - Normal examined duodenum. - No specimens collected. Recommendation: - Return patient to hospital [facility] for ongoing care. - Advance diet as per primary service. - resumed Aspirin, with no signs of GI bleed Hg stable at ~ 10 change Ranitidine to Protonix 40mg BID resume Aspirin and Plavix (history of Mesenteric Stent Placement) no further work up at this time per GI, monitor CBC and if symptoms recur, will need to be referred to [facility] for further work up ff up with GI as scheduled for now ANEMIA, POSSIBLE ACUTE BLOOD LOSS FROM GI BLEED Hg 7.7 s/p 2 units PRBC after transfusion, Hg stable at ~10 - repeat Hg on ff up with PCP DIARRHEA resolved HYPOTENSION - resolved - BP improved CHRONIC MESENTERIC ISCHEMIA HISTORY -follows with Dr. Clark - vascular surgery -Per outpatient note by Dr. Clark "S/p open exposure of left brachial artery (re -do), stenting of celiac artery (Atrium iCast 7 x 22 mm stent post dilated to 8 mm), and angioplasty of proximal and distal anastomoses of the re-stenotic common hepatic to SMA reversed saphenous vein bypass graft (5 mm Affymax AngioSculpt balloon) 12/10/[address] Gatica." -- resume Aspirin and Plavix monitor Hg closely COPD -stable - recently quit smoking - efforts applauded -continue home inhalers prn DM2 - resume usual regimen DEPRESSION -continue Celexa, Ativan, BuSpar, Amitriptyline [id number] RED BLOOD CELL ANTIBODY POSITIVE HLD -continue Statin H/O CVA -no residual defects - Aspirin resumed -continue statin DVT PROPHYLAXIS: SCDs provided RE: GI bleed CODE STATUS: FULL CODE DISPO d/c home ff up with PCP in 3-5 days ff up with GI as scheduled Total time spent on discharge = 30 minutes This includes examination of the patient, discharge planning, medication reconciliation, and communication with other providers. Discharge Instructions Discharge Instructions Admission Reason for Admission: Gi Bleed Discharge Discharge Diagnosis / Problem: ANEMIA, POSSIBLE GASTROINTESTINAL BLEED Discharge Goals Goal(s): Diagnostic testing, Therapeutic intervention Activity Recommendations Activity Limitations: as noted below (NO HEAVY EXERTION UNTIL RE-EVALUATED BY PRIMARY CARE PHYSICIAN) . Instructions / Follow-Up Instructions / Follow-Up PLEASE REVIEW YOUR NEW MEDICATION LIST AND FOLLOW INSTRUCTIONS CAREFULLY. CALL PRIMARY CARE PHYSICIAN OR RETURN TO ER IMMEDIATELY IF WITH RECURRENCE OF SYMPTOMS- BLACK OR BLOOD IN THE STOOLS, ABDOMINAL PAIN, NAUSEA, WEAKNESS, DIZZINESS, SHORTNESS OF BREATH. TAKE PROTONIX 30 MINUTES BEFORE MEALS. FOLLOW UP WITH DR. DUMAS IN 3-5 DAYS (CLINIC TO CALL PATIENT). FOLLOW UP WITH TUTOR COORDINATOR ADVISED. Current Hospital Diet Patient's current hospital diet: Diabetes Type 2 Diet Discharge Diet Recommended Diet: Diabetes Type 2 Diet Procedures Procedures Performed: ESOPHAGOGASTRODUODENOSCOPY (EGD) Pending Studies Studies pending at discharge: yes (REPEAT BLOOD WORK: CBC) List of pending studies: REPEAT BLOOD WORK - CBC Medical Emergencies . Who to Call and When: Medical Emergencies: If at any time you feel your situation is an emergency, please call 911 immediately. . Non-Emergent Contact Non-Emergency issues call your: Primary Care Provider Call Non-Emergent contact if: you have a fever, your pain is not controlled . Past History Medical & Surgical History: (1) Degenerative disc disease (2) Diab Gloria Wo Compl, Type Ii Or Unspec Type, Not Uncntrld (3) Diverticulosis Colon (W/O Ment Of Hemorrhage) (4) Hyperlipidemia Nec/Nos (5) Hypertension Nos (6) Iron Defic Anemia Nos (7) Intestinal ischemia (8) History of CVA (cerebrovascular accident) (9) PAD (peripheral artery disease) (10) Depression (11) Anxiety (12) Anemia (13) GI bleed (14) History of appendectomy (15) History of cholecystectomy . "Provider Documentation" section prepared by Justin Becerra. VTE Core Measure Inpt VTE Proph given/why not?: SCD's
[2016-05-09 16:21] VITALS: BP 119/68; PULSE 74; TEMP 36.8; O2SAT 96
[2016-05-13] MEDS ORDERED: ONDA4TAB46 PO (18:23)
[2016-06-08] MEDS ORDERED: AMT10 PO (00:53)
[2016-06-08] MEDS ORDERED: SIMV20TA2 PO (05:28)
[2016-06-08] MEDS ORDERED: B-CO1CAP5 PO (05:30)
[2016-06-08] MEDS ORDERED: OMEP40CA41 PO (12:28)
[2016-06-08] MEDS ORDERED: CHOL100027 PO (15:56)
[2016-06-08] MEDS ORDERED: ALBUAER INH (15:56)
[2016-06-08] MEDS ORDERED: MAGN500C PO (16:03)
[2016-06-08] MEDS ORDERED: ASCO500T3 PO (16:03)
[2016-06-08] MEDS ORDERED: LORA0.5T12 PO (16:12)
[2016-06-08] MEDS ORDERED: ASPEC81 PO (16:12)
[2016-06-08] MEDS ORDERED: BUSP15TA70 PO (18:58)
[2016-06-08] MEDS ORDERED: METF-384 PO (19:02)
[2016-06-08] MEDS ORDERED: CYCL5TAB PO (19:02)
[2016-06-08] MEDS ORDERED: FURO-85 PO (19:02)
[2016-06-08] MEDS ORDERED: GABA-113 PO (19:02)
[2016-06-09] MEDS ORDERED: PRD20 PO (10:02)
== END 2016-05-09 16:42 | disposition home or self-care (01) | DRG 378 ==
LOC: ENRESERVDT → ENRESERVTM → C.EDB 14:26 → C.2T 16:56 → EDBEDREQ 17:25 → C.MS4W 05-08 19:53
PROVIDERS: ADMIT Internal Medicine; ATTEND Internal Medicine
PROC: 0DJ08ZZ Inspection of Upper Intestinal Tract, Via Natural or Artificial Opening Endoscopic (ICD-10-PCS; principal; 2016-05-06 10:26)
DX: K92.2 Gastrointestinal hemorrhage, unspecified (principal); D62 Acute posthemorrhagic anemia; K55.1 Chronic vascular disorders of intestine; E11.9 Type 2 diabetes mellitus without complications; I10 Essential (primary) hypertension; E78.5 Hyperlipidemia, unspecified; F32.9 Major depressive disorder, single episode, unspecified; J44.9 Chronic obstructive pulmonary disease, unspecified; I95.9 Hypotension, unspecified; R19.7 Diarrhea, unspecified; Z79.02 Long term (current) use of antithrombotics/antiplatelets; Z79.82 Long term (current) use of aspirin; Z79.899 Other long term (current) drug therapy; Z86.73 Personal history of transient ischemic attack (TIA), and cerebral infarction without residual deficits; Z87.891 Personal history of nicotine dependence

== ENCOUNTER 2016-05-11 16:03 | Inpatient (IN) | payer OTHER ==
[~2016-05-11] VITALS: Ht 165.1 cm; Wt 81.8 kg
[~2016-05-11 16:03] MED LIST changes: -ALBUAER INH; -CHOL100010 PO; +PRT40 PO; -ZNTT/150 PO
[2016-05-11] MEDS ORDERED: FENTANYL CITRATE INJ 50 MCG/1 ML 2 ML VIAL IV STA (16:19)
[2016-05-11] MEDS ORDERED: ONDANSETRON INJ 2 MG/ML 2 ML VIAL IV STA (16:19)
[2016-05-11] MEDS ORDERED: SODIUM CHLORIDE 0.9% 500ML 500 ML IV STA (16:19)
--- NOTE | 2016-05-11 16:21 | EMERGENCY ROOM VISIT NOTE ---
History Report prepared by Blanka: Alonso Leal Under the Supervision of: Dr. Darci English M.D. First contact with patient: 16:13 Chief Complaint: ABDOMINAL PAIN Stated Complaint: ABD PAIN, HX OF OBSTRUCTIONS History of Present Illness The patient is a 70 year old female who presents to the Emergency Room with complaints of worsening abdominal pain that started this morning. She describes the pain as a terrible burning sensation. Per the patient's sister, the patient ate prior to arrival and then vomited on the way here. The patient says she was dry heaving after the episode of vomiting. She was at her doctor's office this morning, and the patient told her doctor about the burning pain, but the pain has worsened since then. She denies any bloating, melena, or rashes. The patient notes that she has not had burning pain like this before, and she says it does not feel like her previous bout of ischemia. The patient has a history of obstructions. She has been compliant with her medications, and she is still on Plavix and Aspirin. The patient was just here for a GI bleed. Source of History: patient, family Onset: This morning Position: abdomen Symptom Intensity: "terrible" Quality: burning Timing: worsening Associated Symptoms: + vomiting, No melena, No rash Note: Associated symptoms: Dry heaves. Denies any bloating. Review of Systems See HPI for pertinent positives & negatives. A total of 10 systems reviewed and were otherwise negative. Past Medical & Surgical Medical Problems: (1) Anxiety (2) Degenerative disc disease (3) Depression (4) Diab Gloria Wo Compl, Type Ii Or Unspec Type, Not Uncntrld (5) Diverticulosis Colon (W/O Ment Of Hemorrhage) (6) History of CVA (cerebrovascular accident) (7) Hyperlipidemia Nec/Nos (8) Hypertension Nos (9) Intestinal ischemia (10) Iron Defic Anemia Nos (11) PAD (peripheral artery disease) (12) SBO (small bowel obstruction) Surgical Problems: (1) History of appendectomy (2) History of cholecystectomy Family History Diabetes mellitus Kidney disease Social History Smoking Status: Former Smoker Alcohol Use: none Drug Use: none Marital Status: single Housing Status: lives with family Occupation Status: employed Current/Historical Medications Scheduled Amitriptyline HCl (Amitriptyline HCl), 5 MG PO HS Ascorbic Acid (Vitamin C), 500 MG PO DAILY Aspirin (Aspirin EC Low Dose), 81 MG PO DAILY B-Complex W/Biotin & Folic Aci (Super B-Complex), 1 CAP PO DAILY Buspirone Hcl (Buspar), 30 MG PO BID Cholecalciferol (Vitamin D 1000 Unit), 1,000 INTER.UNIT PO DAILY Citalopram Hydrobromide (Celexa), 40 MG PO QAM Clopidogrel (Plavix), 75 MG PO HS Furosemide (Lasix), 1 TAB PO DAILY Gabapentin (Neurontin), 300 MG PO BID Insulin Isophan/Regular (Novolin 70/30), 35 UNITS SC BID Magnesium Oxide (Mg Supplement (Magnesium), 500 MG PO DAILY Metformin Hcl (Glucophage), 1,000 MG PO BIDM Octreotide Acetate (Sandostatin Lar Depot), 20 MG IM MONTHLY Pantoprazole (Pantoprazole Sodium), 1 TAB PO BID Probiotic Product (Probiotic), 1 TAB PO DAILY Simvastatin (Zocor), 20 MG PO QPM Scheduled PRN Acetaminophen (Tylenol), 1-2 TAB PO Q8 PRN for Pain Albuterol Sulfate (Proventil Hfa), 2 PUFFS INH Q6 PRN for Wheezing Cyclobenzaprine Hcl (Flexeril), 1 TAB PO BID PRN for Muscle Spasms Lorazepam (Lorazepam), 0.5 MG PO HS PRN for Anxiety Allergies Coded Allergies: Bupropion (Unverified Allergy, Intermediate, HIVES, 02/01/16) Iodinated Diagnostic Agents (Unverified Allergy, Intermediate, HIVES, ) TOLERATED IVP DYE WITH 50 MG IV BENADRYL, 100 MG SOLUCORTEF IV AND 20 MG IV PEPCID PREP Oxycodone (Verified Allergy, Intermediate, rashes, 02/01/16) Penicillins (Verified Allergy, Intermediate, Hives, 02/01/16) Pioglitazone (Verified Allergy, Intermediate, HIVES, 02/01/16) Sulfa Antibiotics (Verified Allergy, Intermediate, Hives, 02/01/16) Sulfamethoxazole w/Trimethoprim (Verified Allergy, Intermediate, HIVES, ) Acetaminophen (Unverified Allergy, Mild, ITCHING, 02/01/16) Clindamycin (Unverified Allergy, Mild, ITCHING, 02/01/16) Codeine (Unverified Allergy, Mild, ITCING, 02/01/16) Erythromycin (Unverified Allergy, Mild, RASH, HIVES, 02/01/16) Glimepiride (Unverified Allergy, Mild, TONGUE TINGLING AND ITCHING, ) Morphine (Unverified Allergy, Mild, ITCHING, 02/01/16) NSAIDs (Verified Allergy, Mild, Itching - TORADOL OK, 02/01/16) Propoxyphene (Unverified Allergy, Mild, ITCHING, 02/01/16) Glipizide (Verified Allergy, Unknown, Needle sensation- Tongue, 02/01/16) Rosuvastatin (Unverified Adverse Reaction, Intermediate, MUSCLE PAIN, ) Sitagliptin (Unverified Adverse Reaction, Intermediate, GI SYMPTOMS, 01/31) Adhesives (Verified Adverse Reaction, Mild, Tape - skin irritation, ) Atorvastatin (Verified Adverse Reaction, Mild, Muscle cramps, 02/01/16) Hydrocodone (Verified Adverse Reaction, Mild, ITCHING, 02/01/16) FROM DARVOCET Metformin (Unverified Adverse Reaction, Mild, BLOATING, 02/01/16) Physical Exam Vital Signs Date Time Temp Pulse Resp B/P Pulse Ox O2 Delivery O2 Flow Rate FiO2 05/11/16 19:19 36.9 89 18 143/86 96 05/11/16 19:14 89 18 143/86 96 Room Air 05/11/16 18:10 96 Room Air 05/11/16 16:08 36.9 96 18 142/72 96 Room Air Physical Exam GENERAL: Patient is uncomfortable-appearing and in moderate distress. HEENT: No acute trauma, normocephalic atraumatic, mucous membranes moist, no nasal congestion, no scleral icterus. NECK: No stridor, no adenopathy, no meningismus, trachea is midline. LUNGS: No dyspnea. Clear to auscultation and equal bilaterally. No wheeze, no rhonchi. HEART: Regular rate and rhythm. No murmurs, rubs, gallops appreciated. ABDOMEN: Diffuse tenderness all over entire abdomen. Hyperactive bowel sounds. No masses, no rebound, no guarding. BACK: No midline tenderness, no CVA tenderness EXTREMITIES: Normal motion all extremities, no cyanosis, no edema. NEUROLOGIC: Alert and oriented, no acute motor or sensory deficits, no focal weakness, cranial nerves grossly intact. SKIN: No rash, no jaundice, no diaphoresis. Medical Decision & Procedures ER Provider Diagnostic Interpretation: CT results are stated below per my interpretation and the radiologist's interpretation. CT OF THE ABDOMEN AND PELVIS WITHOUT CONTRAST, STONE PROTOCOL CLINICAL HISTORY: Abdominal pain. History of bowel obstruction. COMPARISON STUDY: CT of the abdomen and pelvis May 23, 2014. TECHNIQUE: Helical axial images of the abdomen and pelvis were obtained without IV or oral contrast according to renal stone protocol. FINDINGS: Evaluation of the abdomen and pelvis is suboptimal given the lack of IV and oral contrast. There is no pneumatosis, free air or portal venous gas. An intracanalicular device is in place. There is fatty infiltration of the liver. Unenhanced images of the spleen, adrenal glands, kidneys and pancreas are unremarkable with exception of a left renal parapelvic cysts. The proximal small bowel is fluid-filled and moderately dilated. A small bowel feces sign is noted with transition point within the left mid anterior abdomen shown on image 282 of 436. Several bowel anastomoses are noted. There is colonic diverticulosis without evidence for acute diverticulitis. There are findings consistent with a ventral hernia repair with mesh. There is a recurrent hernia along the right anterior aspect of the mesh. This does not result in the bowel obstruction. No suspicious skeletal lesions are identified. There is no lymphadenopathy. IMPRESSION: Findings consistent with a moderate grade partial small bowel obstruction with transition site within the left mid anterior abdomen. Minimal adjacent infiltration. No free air, pneumatosis or portal venous gas. No bowel wall thickening. While nonspecific, this obstruction is statistically on the basis of adhesions. Electronically signed by: Jose Perkins M.D. 05/11/2016 5:00 PM Dictated Date/Time: 05/11/2016 4:51 PM Laboratory Results 05/11/16 16:30 Red Blood Count 4.33, Mean Corpuscular Volume 86.8, Mean Corpuscular Hemoglobin 28.4, Mean Corpuscular Hemoglobin Concent 32.7, Mean Platelet Volume 9.8, Neutrophils (%) (Auto) 81.6, Lymphocytes (%) (Auto) 8.6, Monocytes (%) (Auto) 6.4, Eosinophils (%) (Auto) 2.5, Basophils (%) (Auto) 0.5, Neutrophils # (Auto) 11.24, Lymphocytes # (Auto) 1.18, Monocytes # (Auto) 0.88, Eosinophils # (Auto) 0.35, Basophils # (Auto) 0.07 05/11/16 16:30 Test 05/11/16 16:29 05/11/16 16:30 05/11/16 17:46 Bedside Lactic Acid Venous 3.46 mmol/L (0.90-1.70) White Blood Count 13.78 K/uL (4.8-10.8) Red Blood Count 4.33 M/uL (4.2-5.4) Hemoglobin 12.3 g/dL (12.0-16.0) Hematocrit 37.6 % (37-47) Mean Corpuscular Volume 86.8 fL (80-100) Mean Corpuscular Hemoglobin 28.4 pg (25-34) Mean Corpuscular Hemoglobin Concent 32.7 g/dl (32-36) Platelet Count 381 K/uL (130-400) Mean Platelet Volume 9.8 fL (7.4-10.4) Neutrophils (%) (Auto) 81.6 % Lymphocytes (%) (Auto) 8.6 % Monocytes (%) (Auto) 6.4 % Eosinophils (%) (Auto) 2.5 % Basophils (%) (Auto) 0.5 % Neutrophils # (Auto) 11.24 K/uL (1.4-6.5) Lymphocytes # (Auto) 1.18 K/uL (1.2-3.4) Monocytes # (Auto) 0.88 K/uL (0.11-0.59) Eosinophils # (Auto) 0.35 K/uL (0-0.5) Basophils # (Auto) 0.07 K/uL (0-0.2) RDW Standard Deviation 53.0 fL (36.4-46.3) RDW Coefficient of Variation 16.6 % (11.5-14.5) Immature Granulocyte % (Auto) 0.4 % Immature Granulocyte # (Auto) 0.06 K/uL (0.00-0.02) Anion Gap 15.0 mmol/L (3-11) Est Creatinine Clear Calc Drug Dose 46.7 ml/min Estimated GFR () 53.4 Estimated GFR (Non- 46.1 BUN/Creatinine Ratio 9.8 (10-20) Calcium Level 9.8 mg/dl (8.5-10.1) Total Bilirubin 0.3 mg/dl (0.2-1) Direct Bilirubin < 0.1 mg/dl (0-0.2) Aspartate Amino Transf (AST/SGOT) 19 U/L (15-37) Alanine Aminotransferase (ALT/SGPT) 24 U/L (12-78) Alkaline Phosphatase 82 U/L (45-117) Total Protein 7.0 gm/dl (6.4-8.2) Albumin 3.9 gm/dl (3.4-5.0) Lipase 96 U/L (73-393) Lactic Acid Level 2.7 mmol/L (0.4-2.0) Laboratory results as reviewed by me. Medications Administered Medications (Trade) Dose Ordered Sig/Carson Route Start Time Stop Time Status Last Admin Dose Admin Sodium Chloride (Nss 500ml) 500 ml @ 999 mls/hr Q31M STAT IV 05/11/16 16:19 05/11/16 16:49 DC 05/11/16 16:32 999 MLS/HR Fentanyl Citrate (Fentanyl Inj) 100 mcg NOW STAT IV 05/11/16 16:19 05/11/16 16:21 DC 05/11/16 16:32 100 MCG Ondansetron HCl (Zofran Inj) 4 mg NOW STAT IV 05/11/16 16:19 05/11/16 16:21 DC 05/11/16 16:32 4 MG Hydromorphone HCl 2 mg 2 mg NOW STAT IV 05/11/16 16:59 05/11/16 17:00 DC 05/11/16 17:12 2 MG Sodium Chloride (Nss 1000ml) 1,000 ml @ 75 mls/hr [id number] STAT IV 05/11/16 17:19 05/12/16 06:38 05/11/16 18:10 75 MLS/HR ED Course 1614: The patient was evaluated in room A11B. A complete history and physical exam was performed. 1619: Ordered Zofran Inj 4 mg IV, Fentanyl Inj 100 mcg IV, NSS 500 ml @ 999 mls/ hr IV. 1659: Ordered Dilaudid Inj 2 mg IV. 1700: I reevaluated the patient and she says that her pain has not improved at all with the Fentanyl. 1706: I discussed the patient with Dr. Mesfin LARES General Surgery - he will come to see the patient. 1718: I discussed the patient with Julia Grant - she will evaluate the patient for further treatment. 1719: Ordered NSS 1000 ml @ 75 mls/hr IV. 1740: I reevaluated the patient and she is feeling much better. She has 1.5 liters NG tube out. The patient verbally expressed understanding and agreement of the treatment plan. The patient will be evaluated for further treatment. Medical Decision Differential: Appendicitis, Diverticulitis, PUD/Gastritis, Biliary Pathology, UTI, Pyelonephritis, Renal Colic, Bowel Obstruction, Aortic Pathology, Acute Coronary Syndrome, amongst other pathologies entertained. 70 yr old female well known to me from previous ED visits including recent visit for anemia due to GI bleed. She has history of SMA occlusion which I have previously seen her for and she makes clear this is not similar to that. Exam and story consistent with early SBO confirmed by CT. There is mild lactic acidosis which given vomiting and pain I suspect is not truly ischemic gut, especially given that she has tendancy to run mildly elevated lactic acid. I have consulted Gen Surg for their input but in mean time NG tube placed with large bowel outs and patient feeling much improved. She is not septic and does not have surgical abdomen by exam. Given fluids for clearance and IV narcotics for pain control. Consults Time Called: 170 Consulting Physician: Dr. Mesfin LARES General Surgery Returned Call: [phone] I discussed the patient with Dr. Mesfin LARES General Surgery - he will come to see the patient. Additional Consults: Time Called: 171 Consulted Physician: Julia Grant Returned Call: [phone] Additional Comments: I discussed the patient with Julia Grant - she will evaluate the patient for further treatment. Impression Primary Impression: Small bowel obstruction Additional Impression: Lactic acidosis Scribe Attestation The scribe's documentation has been prepared under my direction and personally reviewed by me in its entirety. I confirm that the note above accurately reflects all work, treatment, procedures, and medical decision making performed by me. Departure Information Dispostion Being Evaluated By Hospitalist Nicole Carlton M.D. (PCP) Patient Instructions My [facility] Health Problem Qualifiers
[2016-05-11 16:45] LABS: BASO % 0.5 %; BASO ABS # 0.07 K/uL (0-0.2); COMPLETE YES; EOS % 2.5 %; HEMATOCRIT 37.6 % (37-47); IG% 0.4 %; LYMPH % 8.6 %; LYMPH ABS # 1.18 K/uL (1.2-3.4); MEAN CELL VOLUME 86.8 fL (80-100); MEAN CORPUSCULAR HEMOGLOBIN 28.4 pg (25-34); MEAN CORPUSCULAR HGB CONC 32.7 g/dl (32-36); MEAN PLATELET VOLUME 9.8 fL (7.4-10.4); MONO % 6.4 %; NEUT % 81.6 %; PLATELET COUNT 381 K/uL (130-400); RED BLOOD COUNT 4.33 M/uL (4.2-5.4); WHITE BLOOD COUNT 13.78 K/uL (4.8-10.8)
[2016-05-11] MEDS ORDERED: HYDROmorphone INJ 2 MG/ML SYR/VIAL IV STA (16:59)
--- NOTE | 2016-05-11 17:02 | DIAGNOSTIC IMAGING REPORT ---
CT OF THE ABDOMEN AND PELVIS WITHOUT CONTRAST, STONE PROTOCOL CLINICAL HISTORY: Abdominal pain. History of bowel obstruction. COMPARISON STUDY: CT of the abdomen and pelvis May 23, 2014. TECHNIQUE: Helical axial images of the abdomen and pelvis were obtained without IV or oral contrast according to renal stone protocol. FINDINGS: Evaluation of the abdomen and pelvis is suboptimal given the lack of IV and oral contrast. There is no pneumatosis, free air or portal venous gas. An intracanalicular device is in place. There is fatty infiltration of the liver. Unenhanced images of the spleen, adrenal glands, kidneys and pancreas are unremarkable with exception of a left renal parapelvic cysts. The proximal small bowel is fluid-filled and moderately dilated. A small bowel feces sign is noted with transition point within the left mid anterior abdomen shown on image 282 of 436. Several bowel anastomoses are noted. There is colonic diverticulosis without evidence for acute diverticulitis. There are findings consistent with a ventral hernia repair with mesh. There is a recurrent hernia along the right anterior aspect of the mesh. This does not result in the bowel obstruction. No suspicious skeletal lesions are identified. There is no lymphadenopathy. IMPRESSION: Findings consistent with a moderate grade partial small bowel obstruction with transition site within the left mid anterior abdomen. Minimal adjacent infiltration. No free air, pneumatosis or portal venous gas. No bowel wall thickening. While nonspecific, this obstruction is statistically on the basis of adhesions. Electronically signed by: Jose Perkins M.D. 05/11/2016 5:00 PM Dictated Date/Time: 05/11/2016 4:51 PM
[2016-05-11 17:05] LABS: ALT/SGPT 24 U/L (12-78); BLOOD UREA NITROGEN 12 mg/dl (7-18); BUN/CREATININE RATIO 9.8 (10-20); CALCIUM 9.8 mg/dl (8.5-10.1); CARBON DIOXIDE 20 mmol/L (21-32); CHLORIDE 105 mmol/L (98-107); GLUCOSE 180 mg/dl (70-99); SODIUM 140 mmol/L (136-145)
[2016-05-11 17:08] LABS: ALKALINE PHOSPHATASE 82 U/L (45-117); AST/SGOT 19 U/L (15-37)
[2016-05-11] MEDS ORDERED: SODIUM CHLORIDE 0.9% 1000ML 1,000 ML IV STA (17:19)
[2016-05-11 18:10] VITALS: O2SAT 96; Ht 165.1 cm; Wt 81.8 kg
[2016-05-11] MEDS ORDERED: GLUCOSE 10 TABS/TUBE PO PRN (18:15)
[2016-05-11] MEDS ORDERED: GLUCAGON FOR INJ 1 MG VIAL SQ PRN (18:15)
[2016-05-11] MEDS ORDERED: ONDANSETRON INJ 2 MG/ML 2 ML VIAL IV PRN (18:15)
[2016-05-11] MEDS ORDERED: GLUCOSE 40% GEL 15 GM TUBE PO PRN (18:15)
[2016-05-11] MEDS ORDERED: HYDROmorphone INJ 1 MG/ML SYR IV PRN (18:15)
[2016-05-11] MEDS ORDERED: DEXTROSE 50% 50 ML SYR IV PRN (18:15)
--- NOTE | 2016-05-11 18:42 | Surgery Consultation ---
Consultation Date of Consultation: May 11, 2016. 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 she states she was recently d/c'd 2 days ago for admission for GI bleed. she has a hx of GI bleeds without identifiable source though has been told she has avm's. she states she has been admitted other times for partial SBO's but never had surgery for them. she states this pain does not feel like her prior ischemia. she is currently feeling better after NGT placement and dilaudid. Past Medical/Surgical History Medical Problems: (1) Abdominal pain Status: Acute (2) Abdominal pain Status: Acute (3) Diffuse abdominal pain Status: Acute (4) Hx of arteriovenous malformation (AVM) Status: Acute (5) Lactic acidosis Status: Acute (6) Mesenteric ischemia Status: Acute (7) Mesenteric ischemia Status: Acute (8) Mesenteric ischemia Status: Acute (9) Occlusion of superior mesenteric artery Status: Acute (10) Small bowel obstruction Status: Acute (11) Symptomatic anemia Status: Acute Family History Diabetes mellitus Kidney disease Social History Smoking Status: Former Smoker Drug Use: none Marital Status: single Housing Status: lives with family Occupation Status: employed Allergies Coded Allergies: Bupropion (Unverified Allergy, Intermediate, HIVES, 02/01/16) Iodinated Diagnostic Agents (Unverified Allergy, Intermediate, HIVES, ) TOLERATED IVP DYE WITH 50 MG IV BENADRYL, 100 MG SOLUCORTEF IV AND 20 MG IV PEPCID PREP Oxycodone (Verified Allergy, Intermediate, rashes, 02/01/16) Penicillins (Verified Allergy, Intermediate, Hives, 02/01/16) Pioglitazone (Verified Allergy, Intermediate, HIVES, 02/01/16) Sulfa Antibiotics (Verified Allergy, Intermediate, Hives, 02/01/16) Sulfamethoxazole w/Trimethoprim (Verified Allergy, Intermediate, HIVES, ) Acetaminophen (Unverified Allergy, Mild, ITCHING, 02/01/16) Clindamycin (Unverified Allergy, Mild, ITCHING, 02/01/16) Codeine (Unverified Allergy, Mild, ITCING, 02/01/16) Erythromycin (Unverified Allergy, Mild, RASH, HIVES, 02/01/16) Glimepiride (Unverified Allergy, Mild, TONGUE TINGLING AND ITCHING, ) Morphine (Unverified Allergy, Mild, ITCHING, 02/01/16) NSAIDs (Verified Allergy, Mild, Itching - TORADOL OK, 02/01/16) Propoxyphene (Unverified Allergy, Mild, ITCHING, 02/01/16) Glipizide (Verified Allergy, Unknown, Needle sensation- Tongue, 02/01/16) Rosuvastatin (Unverified Adverse Reaction, Intermediate, MUSCLE PAIN, ) Sitagliptin (Unverified Adverse Reaction, Intermediate, GI SYMPTOMS, 01/31) Adhesives (Verified Adverse Reaction, Mild, Tape - skin irritation, ) Atorvastatin (Verified Adverse Reaction, Mild, Muscle cramps, 02/01/16) Hydrocodone (Verified Adverse Reaction, Mild, ITCHING, 02/01/16) FROM DARVOCET Metformin (Unverified Adverse Reaction, Mild, BLOATING, 02/01/16) Home Medications Scheduled Amitriptyline HCl (Amitriptyline HCl), 5 MG PO HS Ascorbic Acid (Vitamin C), 500 MG PO DAILY Aspirin (Aspirin EC Low Dose), 81 MG PO DAILY B-Complex W/Biotin & Folic Aci (Super B-Complex), 1 CAP PO DAILY Buspirone Hcl (Buspar), 30 MG PO BID Cholecalciferol (Vitamin D 1000 Unit), 1,000 INTER.UNIT PO DAILY Citalopram Hydrobromide (Celexa), 40 MG PO QAM Clopidogrel (Plavix), 75 MG PO HS Furosemide (Lasix), 1 TAB PO DAILY Gabapentin (Neurontin), 300 MG PO BID Insulin Isophan/Regular (Novolin 70/30), 35 UNITS SC BID Magnesium Oxide (Mg Supplement (Magnesium), 500 MG PO DAILY Metformin Hcl (Glucophage), 1,000 MG PO BIDM Octreotide Acetate (Sandostatin Lar Depot), 20 MG IM MONTHLY Pantoprazole (Pantoprazole Sodium), 1 TAB PO BID Probiotic Product (Probiotic), 1 TAB PO DAILY Simvastatin (Zocor), 20 MG PO QPM Scheduled PRN Acetaminophen (Tylenol), 1-2 TAB PO Q8 PRN for Pain Albuterol Sulfate (Proventil Hfa), 2 PUFFS INH Q6 PRN for Wheezing Cyclobenzaprine Hcl (Flexeril), 1 TAB PO BID PRN for Muscle Spasms Lorazepam (Lorazepam), 0.5 MG PO HS PRN for Anxiety Current Inpatient Medications Current Inpatient Medications Medications (Trade) Dose Ordered Sig/Carson Route Start Time Stop Time Status Last Admin Dose Admin Sodium Chloride (Nss 1000ml) 1,000 ml @ 75 mls/hr [id number] STAT IV 05/11/16 17:19 05/12/16 06:38 05/11/16 18:10 75 MLS/HR Enoxaparin Sodium (Lovenox Inj) 40 mg Q24H SQ 05/11/16 18:15 06/10/16 18:14 UNV Ondansetron HCl 4 mg 4 mg Q6H PRN IV 05/11/16 18:15 06/10/16 18:14 Sodium Chloride (Nss 1000ml) 1,000 ml @ 100 mls/hr Q10H IV 05/11/16 18:15 06/10/16 18:14 Hydromorphone HCl (Dilaudid Inj) 0.5 mg Q4H PRN IV 05/11/16 18:15 05/25/16 18:14 Insulin Aspart (novoLOG ASPART) SLIDING SCALE If C... ACHS SC 05/11/16 21:00 06/10/16 20:59 Glucose (Glucose 40% Gel) 15-30 GRAMS 15 GRAMS... UD PRN PO 05/11/16 18:15 06/10/16 18:14 Glucose (Glucose Chew Tab) 4-8 Tablets 4 Tabl... UD PRN PO 05/11/16 18:15 06/10/16 18:14 Dextrose (Dextrose 50% 50ML Syringe) 25-50ML OF 50% DW IV FOR... UD PRN IV 05/11/16 18:15 06/10/16 18:14 Glucagon (Glucagon Inj) 1 mg UD PRN SQ 05/11/16 18:15 06/10/16 18:14 Review of Systems Respiratory: + shortness of breath (states improved after recent transfusion) Abdomen: + GI bleeding, + nausea, + pain, + vomiting Physical Exam Date Time Temp Pulse Resp B/P Pulse Ox O2 Delivery O2 Flow Rate FiO2 05/11/16 18:10 96 Room Air 05/11/16 16:08 36.9 96 18 142/72 96 Room Air General Appearance: no apparent distress Head: normocephalic, atraumatic Eyes: PERRL, EOMI ENT: hearing grossly normal Neck: supple, no adenopathy Respiratory/Chest: no respiratory distress, no accessory muscle use Cardiovascular: no edema Abdomen/GI: soft, + pertinent finding (slightly distended. no g/r/r. pt resting comfortably/no colicky pain. 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, alert, normal mood/affect Skin: warm/dry, + pertinent finding (decreased turgor) Lymphatic: no adenopathy Laboratory Results Last 24 Hours Test 05/11/16 16:29 05/11/16 16:30 05/11/16 17:46 Bedside Lactic Acid Venous 3.46 mmol/L White Blood Count 13.78 K/uL Red Blood Count 4.33 M/uL Hemoglobin 12.3 g/dL Hematocrit 37.6 % Mean Corpuscular Volume 86.8 fL Mean Corpuscular Hemoglobin 28.4 pg Mean Corpuscular Hemoglobin Concent 32.7 g/dl Platelet Count 381 K/uL Mean Platelet Volume 9.8 fL Neutrophils (%) (Auto) 81.6 % Lymphocytes (%) (Auto) 8.6 % Monocytes (%) (Auto) 6.4 % Eosinophils (%) (Auto) 2.5 % Basophils (%) (Auto) 0.5 % Neutrophils # (Auto) 11.24 K/uL Lymphocytes # (Auto) 1.18 K/uL Monocytes # (Auto) 0.88 K/uL Eosinophils # (Auto) 0.35 K/uL Basophils # (Auto) 0.07 K/uL RDW Standard Deviation 53.0 fL RDW Coefficient of Variation 16.6 % Immature Granulocyte % (Auto) 0.4 % Immature Granulocyte # (Auto) 0.06 K/uL Sodium Level 140 mmol/L Potassium Level 4.0 mmol/L Chloride Level 105 mmol/L Carbon Dioxide Level 20 mmol/L Anion Gap 15.0 mmol/L Blood Urea Nitrogen 12 mg/dl Creatinine 1.20 mg/dl Est Creatinine Clear Calc Drug Dose 46.7 ml/min Estimated GFR () 53.4 Estimated GFR (Non- 46.1 BUN/Creatinine Ratio 9.8 Random Glucose 180 mg/dl Calcium Level 9.8 mg/dl Total Bilirubin 0.3 mg/dl Direct Bilirubin < 0.1 mg/dl Aspartate Amino Transf (AST/SGOT) 19 U/L Alanine Aminotransferase (ALT/SGPT) 24 U/L Alkaline Phosphatase 82 U/L Total Protein 7.0 gm/dl Albumin 3.9 gm/dl Lipase 96 U/L Assessment & Plan 1. partial SBO currently no evidence of ischemia LA elevation likely secondary to dehydration IVF. recheck lactic acid level NGT will likely need SBFT or CT scan with oral contrast KUB in AM 2. Chronic GI bleed hx HG stable/monitor no evidence of active bleeding 3. With hx of celiac +/- sma stents/bypass....would leave on aspirin and plavix for now until we definitively r/o bowel ischemia will follow closely.
--- NOTE | 2016-05-11 18:43 | History and Physical ---
History & Physical Date & Time of Service: May 11, 2016 at 18:17 Chief Complaint: Abd Pain, Hx Of Obstructions Primary Care Physician: Nicole Catherine M.D. History of Present Illness Source: patient Patient seen and examined. 70 year old female with PMHx of chronic mesenteric ischemia s/p bypass and stenting on ASA/Plavix, IDDM, depression and other problems listed below presents to the ED c/o abdominal pain that began this morning. Pt was recently admitted to [facility] from 05/05/16-05/09/16 with GI bleed. She was transfused 2 units pRBCS and EGD was normal. Pt was feeling well upon discharge however this morning she developed upper abdominal pain that got progressively worse throughout the day. She rated her pain at a 9/10 when she arrived to the ED. Her sxs were assoc with abdominal distention and vomiting. Last normal BM was yesterday. Patient has a history of bowel obstructions in the past which have never required surgical intervention. Pt also has history of SMA occlusions. She does not feel that this pain is reflects the ischemic pain she has experienced in the past. Pt denies fever/chills, diaphoresis, chest pain, palpitations, SOB, hematemesis, hematochezia, melena, constipation, diarrhea, bladder issues, LE edema, calf pain, lightheadedness/dizziness. In the ED, vitals are stable. POC Lactic acid 3.46. CT abd/pelvis + SBO. Pt received Dilaudid in the ED and currently denies any abdominal pain. She will be admitted for further evaluation and treatment. Past Medical/Surgical History Medical Problems: (1) Degenerative disc disease Status: Chronic (2) Depression Status: Chronic (3) Diab Gloria Wo Compl, Type Ii Or Unspec Type, Not Uncntrld Status: Chronic (4) Diverticulosis Colon (W/O Ment Of Hemorrhage) Status: Resolved (5) History of CVA (cerebrovascular accident) Permanent Comment: 2012; no residual deficits Status: Resolved (6) Hyperlipidemia Nec/Nos Status: Chronic (7) Hypertension Nos Status: Chronic (8) Intestinal ischemia Permanent Comment: s/p hepatic artery to SMA in November 2014 S/p angioplasty of proximal and distal anastomoses of the common hepatic to superior mesenteric artery reversed saphenous vein bypass graft (4 mm [employer] Reuben balloon) by Dr. Gatica on 03/04/2015. -S/p angioplasty of proximal and distal anastomoses of the re-stenotic common hepatic => SMA reversed saphenous vein bypass graft 08/06/[address] Gatica. -S/p open exposure of left brachial artery (re-do), stenting of celiac artery ( [employer] iCast 7 x 22 mm stent post dilated to 8 mm), and angioplasty of proximal and distal anastomoses of the re-stenotic common hepatic to SMA reversed saphenous vein bypass graft (5 mm [employer] AngioSculpt balloon) 12/10/[address] Gatica. Status: Chronic (9) Iron Defic Anemia Nos Status: Chronic (10) PAD (peripheral artery disease) Status: Chronic Surgical Problems: (1) History of appendectomy Status: Resolved (2) History of cholecystectomy Status: Resolved Family History Diabetes mellitus Kidney disease Social History Smoking Status: Former Smoker Drug Use: none Marital Status: single Housing status: lives with family (sister) Immunizations History of Influenza Vaccine: Yes Influenza Vaccine Date: Dec 17, 2013 History of Tetanus Vaccine?: utd Tetanus Immunization Date: Jun 22, 2011 History of Pneumococcal: Yes Pneumococcal Date: Jun 15, 2012 History of Hepatitis B Vaccine: No Hepatitis Immunization Date: Jun 21, 1968 Multi-Drug Resistant Organisms History of MDRO: Yes Type of MDRO: MRSA Allergies Coded Allergies: Bupropion (Unverified Allergy, Intermediate, HIVES, 02/01/16) Iodinated Diagnostic Agents (Unverified Allergy, Intermediate, HIVES, ) TOLERATED IVP DYE WITH 50 MG IV BENADRYL, 100 MG SOLUCORTEF IV AND 20 MG IV PEPCID PREP Oxycodone (Verified Allergy, Intermediate, rashes, 02/01/16) Penicillins (Verified Allergy, Intermediate, Hives, 02/01/16) Pioglitazone (Verified Allergy, Intermediate, HIVES, 02/01/16) Sulfa Antibiotics (Verified Allergy, Intermediate, Hives, 02/01/16) Sulfamethoxazole w/Trimethoprim (Verified Allergy, Intermediate, HIVES, ) Acetaminophen (Unverified Allergy, Mild, ITCHING, 02/01/16) Clindamycin (Unverified Allergy, Mild, ITCHING, 02/01/16) Codeine (Unverified Allergy, Mild, ITCING, 02/01/16) Erythromycin (Unverified Allergy, Mild, RASH, HIVES, 02/01/16) Glimepiride (Unverified Allergy, Mild, TONGUE TINGLING AND ITCHING, ) Morphine (Unverified Allergy, Mild, ITCHING, 02/01/16) NSAIDs (Verified Allergy, Mild, Itching - TORADOL [place], 02/01/16) Propoxyphene (Unverified Allergy, Mild, ITCHING, 02/01/16) Glipizide (Verified Allergy, Unknown, Needle sensation- Tongue, 02/01/16) Rosuvastatin (Unverified Adverse Reaction, Intermediate, MUSCLE PAIN, ) Sitagliptin (Unverified Adverse Reaction, Intermediate, GI SYMPTOMS, 01/31) Adhesives (Verified Adverse Reaction, Mild, Tape - skin irritation, ) Atorvastatin (Verified Adverse Reaction, Mild, Muscle cramps, 02/01/16) Hydrocodone (Verified Adverse Reaction, Mild, ITCHING, 02/01/16) FROM DARVOCET Metformin (Unverified Adverse Reaction, Mild, BLOATING, 02/01/16) Home Medications Scheduled Amitriptyline HCl (Amitriptyline HCl), 5 MG PO HS Ascorbic Acid (Vitamin C), 500 MG PO DAILY Aspirin (Aspirin EC Low Dose), 81 MG PO DAILY B-Complex W/Biotin & Folic Aci (Super B-Complex), 1 CAP PO DAILY Buspirone Hcl (Buspar), 30 MG PO BID Cholecalciferol (Vitamin D 1000 Unit), 1,000 INTER.UNIT PO DAILY Citalopram Hydrobromide (Celexa), 40 MG PO QAM Clopidogrel (Plavix), 75 MG PO HS Furosemide (Lasix), 1 TAB PO DAILY Gabapentin (Neurontin), 300 MG PO BID Insulin Isophan/Regular (Novolin 70/30), 35 UNITS SC BID Magnesium Oxide (Mg Supplement (Magnesium), 500 MG PO DAILY Metformin Hcl (Glucophage), 1,000 MG PO BIDM Octreotide Acetate (Sandostatin [place]), 20 MG IM MONTHLY Pantoprazole (Pantoprazole Sodium), 1 TAB PO BID Probiotic Product (Probiotic), 1 TAB PO DAILY Simvastatin (Zocor), 20 MG PO QPM Scheduled PRN Acetaminophen (Tylenol), 1-2 TAB PO Q8 PRN for Pain Albuterol Sulfate (Proventil Hfa), 2 PUFFS INH Q6 PRN for Wheezing Cyclobenzaprine Hcl (Flexeril), 1 TAB PO BID PRN for Muscle Spasms Lorazepam (Lorazepam), 0.5 MG PO HS PRN for Anxiety Review of Systems Constitutional: No chills, No fatigue, No fever, No sweats, No weakness Eyes: No worsening of vision ENT: No hearing loss Respiratory: No cough, No shortness of breath Cardiovascular: No chest pain, No claudication, No edema Abdomen: + nausea, + pain, + vomiting, No GI bleeding, No constipation, No diarrhea Musculoskeletal: No calf pain, No swelling Genitourinary - Female: No dysuria Neurologic: No weakness Psychiatric: No depression symptoms Endocrine: No fatigue Hematologic / Lymphatic: No abnormal bleeding/bruising Integumentary: No new/changing skin lesions Physical Exam Vital Signs Date Time Temp Pulse Resp B/P Pulse Ox O2 Delivery O2 Flow Rate FiO2 05/11/16 16:08 36.9 96 18 142/72 96 Room Air General Appearance: WD/WN, no apparent distress, + pertinent finding (Pt is sitting up in bed with NG tube in place and sister at bedside) Eyes: normal inspection ENT: hearing grossly normal Neck: supple Respiratory/Chest: chest non-tender, lungs clear, normal breath sounds, no respiratory distress Cardiovascular: regular rate, rhythm, no edema, no murmur Abdomen/GI: normal bowel sounds, + tenderness (diffuse), + distended Back: normal inspection Extremities/Musculoskelatal: normal inspection, no calf tenderness, no pedal edema Neurologic/Psych: alert, normal mood/affect, oriented x 3 Skin: normal color, warm/dry Diagnostics Laboratory Results Results Past 24 Hours Test 05/11/16 16:29 05/11/16 16:30 05/11/16 17:46 Range/Units Bedside Lactic Acid Venous 3.46 0.90-1.70 mmol/L White Blood Count 13.78 4.8-10.8 K/uL Red Blood Count 4.33 4.2-5.4 M/uL Hemoglobin 12.3 12.0-16.0 g/dL Hematocrit 37.6 37-47 % Mean Corpuscular Volume 86.8 80-100 fL Mean Corpuscular Hemoglobin 28.4 25-34 pg Mean Corpuscular Hemoglobin Concent 32.7 32-36 g/dl Platelet Count 381 130-400 K/uL Mean Platelet Volume 9.8 7.4-10.4 fL Neutrophils (%) (Auto) 81.6 % Lymphocytes (%) (Auto) 8.6 % Monocytes (%) (Auto) 6.4 % Eosinophils (%) (Auto) 2.5 % Basophils (%) (Auto) 0.5 % Neutrophils # (Auto) 11.24 1.4-6.5 K/uL Lymphocytes # (Auto) 1.18 1.2-3.4 K/uL Monocytes # (Auto) 0.88 0.11-0.59 K/uL Eosinophils # (Auto) 0.35 0-0.5 K/uL Basophils # (Auto) 0.07 0-0.2 K/uL RDW Standard Deviation 53.0 36.4-46.3 fL RDW Coefficient of Variation 16.6 11.5-14.5 % Immature Granulocyte % (Auto) 0.4 % Immature Granulocyte # (Auto) 0.06 0.00-0.02 K/uL Sodium Level 140 136-145 mmol/L Potassium Level 4.0 3.5-5.1 mmol/L Chloride Level 105 98-107 mmol/L Carbon Dioxide Level 20 21-32 mmol/L Anion Gap 15.0 3-11 mmol/L Blood Urea Nitrogen 12 7-18 mg/dl Creatinine 1.20 0.60-1.20 mg/dl Est Creatinine Clear Calc Drug Dose 46.7 ml/min Estimated GFR () 53.4 Estimated GFR (Non- 46.1 BUN/Creatinine Ratio 9.8 10-20 Random Glucose 180 70-99 mg/dl Calcium Level 9.8 8.5-10.1 mg/dl Total Bilirubin 0.3 0.2-1 mg/dl Direct Bilirubin < 0.1 0-0.2 mg/dl Aspartate Amino Transf (AST/SGOT) 19 15-37 U/L Alanine Aminotransferase (ALT/SGPT) 24 12-78 U/L Alkaline Phosphatase 82 45-117 U/L Total Protein 7.0 6.4-8.2 gm/dl Albumin 3.9 3.4-5.0 gm/dl Lipase 96 73-393 U/L Diagnostic Radiology CT ABD/PELVIS IMPRESSION: Findings consistent with a moderate grade partial small bowel obstruction with transition site within the left mid anterior abdomen. Minimal adjacent infiltration. No free air, pneumatosis or portal venous gas. No bowel wall thickening. While nonspecific, this obstruction is statistically on the basis of adhesions. Impression Assessment and Plan SMALL BOWEL OBSTRUCTION pt presents with abd pain, distention and vomiting; prior h/o bowel obstruction -admit to med/surg -likely secondary to adhesions from multiple abdominal surgeries -pt is afebrile with leukocytosis >13k -CT abd/pelvis + SBO; re-check KUB in AM -NG tube in place -start IVF and Dilaudid PRN pain -keep NPO except meds -consult surgery, Dr. Toure-pending input -monitor LACTIC ACIDOSIS -POC lactic acid 3.4; re-check lab value and repeat within 6 hrs -likely elevated secondary to dehydration CHRONIC MESENTERIC ISCHEMIA -follows with Dr. Clark - vascular surgery -per outpatient note by Dr. Clark "S/p open exposure of left brachial artery (re -do), stenting of celiac artery and angioplasty of proximal and distal anastomoses of the re-stenotic common hepatic to SMA reversed saphenous vein bypass graft 12/10/[address] Gatica." -cont ASA and Plavix for now COPD -stable; no evidence of acute exacerbation -recently quit smoking -cont home inhalers prn INSULIN-DEPENDENT DM2 -recent A1C 5.8 -Hold metformin and Novolin -start ISS -BSG AC HS DEPRESSION/ANXIETY -hold Celexa, BuSpar, Amitriptyline for now -switch Ativan from PO to IV H/O [id number] RED BLOOD CELL ANTIBODY POSITIVE DYSLIPIDEMIA -hold statin for now H/O CVA -no residual defects -cont ASA -hold statin for now DVT PROPHYLAXIS -subq Lovenox CODE STATUS -FULL CODE status per discussion with patient upon admission DISPO -Pt seen in collaboration with Dr. Bray. Please see his addendum for further details. Thanks! ATTENDING NOTE Patient seen & examined at bedside. She has previous episodes of small bowel obstruction and comes in with gradually worsening abdominal pain with nausea/vomiting. Found to have Small bowel obstruction. Reviewed above History/Physical and confirmed all the findings in person. Being admitted to medical Floor. Keep NPO. Surgical consult requested. NG tube with intermittent suction. Pain medications as needed. Has elevated Lactic acid which will be followed periodically. Continue IVF. Patient id FULL CODE. DVT Prophylaxis with Sq Lovenox. Sawyer Bray MD VTE Prophylaxis VTE Risk Assessment Done? Y/N: Yes Risk Level: Moderate
[2016-05-11] MEDS ORDERED: LORAZEPAM 2 MG/ML 1 ML VIAL IV PRN (18:45)
[2016-05-11 19:25] VITALS: BP 116/64; PULSE 87; TEMP 37; O2SAT 93
[2016-05-11] MEDS ORDERED: INSULIN ASPART 100 UNITS/ML 3 ML PEN SC SCH (21:00)
[2016-05-11] MEDS: SODIUM CHLORIDE 0.9% 1000ML 1,000 ML IV SCH (21:46)
[2016-05-11] MEDS: ENOXAPARIN 40 MG/0.4 ML SYR SQ SCH (21:47)
[2016-05-11] MEDS: CLOPIDOGREL BISULFATE 75 MG TAB PO SCH (21:47)
[2016-05-11] MEDS ORDERED: NURSING VERBAL MED ORDER ONE (23:00)
[2016-05-11 23:38] VITALS: BP 106/61; PULSE 79; TEMP 37.2; O2SAT 92
[2016-05-11] MEDS: LORAZEPAM INJ 0.5 MG in SYRINGE 0.75 ML IV PRN (23:52)
[2016-05-11] MEDS: INSULIN ASPART 100 UNITS/ML 3 ML PEN SC SCH (23:52)
[2016-05-12 01:11] LABS: URINE APPEARANCE CLEAR (CLEAR); URINE BILIRUBIN NEG (NEG); URINE COLOR DK YELLOW; URINE EPITHELIAL CELL AUTO 20-30 /lpf (0-5); URINE NITRITE NEG (NEG); URINE SPECIFIC GRAVITY 1.021 (1.000-1.030); UROBILINOGEN NEG (NEG); ZZUR CULT IF INDIC CLEAN CATCH NO
[2016-05-12 01:13] LABS: MANUAL MICROSCOPIC REQUIRED? NO; REVIEW REQ? NO
[2016-05-12] MEDS: INSULIN ASPART 100 UNITS/ML 3 ML PEN SC SCH ×4 (06:00→21:11)
[2016-05-12] MEDS: SODIUM CHLORIDE 0.9% 1000ML 1,000 ML IV SCH ×3 (06:08→23:10)
[2016-05-12] MEDS: ASPIRIN 81 MG ECTAB PO SCH (07:31)
[2016-05-12 07:39] LABS: HEMATOCRIT 31.9 % (37-47); MEAN CELL VOLUME 87.9 fL (80-100); MEAN CORPUSCULAR HEMOGLOBIN 28.4 pg (25-34); MEAN CORPUSCULAR HGB CONC 32.3 g/dl (32-36); MEAN PLATELET VOLUME 9.7 fL (7.4-10.4); PLATELET COUNT 306 K/uL (130-400); RED BLOOD COUNT 3.63 M/uL (4.2-5.4); WHITE BLOOD COUNT 6.52 K/uL (4.8-10.8)
[2016-05-12 07:48] LABS: ESTIMATED AVERAGE GLUCOSE 126 mg/dl; HA1C FLAG Normal (Normal)
[2016-05-12 08:03] LABS: CALCIUM 8.5 mg/dl (8.5-10.1); CREATININE 0.97 mg/dl (0.60-1.20); POTASSIUM 3.9 mmol/L (3.5-5.1)
[2016-05-12 08:16] VITALS: BP 136/73; PULSE 77; TEMP 36.8; O2SAT 94
--- NOTE | 2016-05-12 08:42 | DIAGNOSTIC IMAGING REPORT ---
KUB HISTORY: Follow-up small bowel obstruction. COMPARISON: Abdomen and pelvis CT 05/11/2016. FINDINGS: A nasogastric tube terminates in the body of the stomach. The lung bases appear clear. Spinal electrodes are again noted. Prior cholecystectomy. Surgical clips seen within the abdomen. There is gas and a moderate amount of stool seen within the colon. Interval improvement in the dilated loops of small bowel. No renal calculi. No ureteral calculi. No pneumoperitoneum or pneumatosis. IMPRESSION: Interval improvement in the dilated loops of small bowel as well as gas and stool within the colon. Findings are consistent with a resolving small bowel obstruction. Electronically signed by: Jad Pollack M.D. 05/12/2016 8:40 AM Dictated Date/Time: 05/12/2016 8:38 AM
[2016-05-12] MEDS ORDERED: NURSING VERBAL MED ORDER ONE (09:00)
[2016-05-12] MEDS ORDERED: ASPIRIN 81 MG ECTAB PO SCH (09:00)
--- NOTE | 2016-05-12 12:40 | Surgery Progress Note ---
Surgery Progress Note Date of Service May 12, 2016. Subjective + feeling well feeling much better today. abdominal pain essentially resolved. no bm but is passing gas. no n/v. Objective Vital Signs: Date Time Temp Pulse Resp B/P Pulse Ox O2 Delivery O2 Flow Rate FiO2 05/12/16 08:53 Room Air 05/12/16 08:16 36.8 77 19 136/73 94 Room Air 05/12/16 00:01 Room Air 05/11/16 23:38 37.2 79 18 106/61 92 Room Air 05/11/16 19:25 37.0 87 17 116/64 93 Room Air 05/11/16 19:25 Room Air 05/11/16 19:19 36.9 89 18 143/86 96 05/11/16 19:14 89 18 143/86 96 Room Air 05/11/16 18:10 96 Room Air 05/11/16 16:08 36.9 96 18 142/72 96 Room Air General Appearance: no apparent distress Head: normocephalic, atraumatic Neck: supple Respiratory/Chest: no respiratory distress, no accessory muscle use Cardiovascular: no edema Abdomen: non tender, non distended, soft Extremities: normal range of motion Laboratory Results: Results Past 24 Hours Test 05/11/16 16:29 05/11/16 16:30 05/11/16 17:46 05/11/16 20:44 Range/Units Bedside Lactic Acid Venous 3.46 0.90-1.70 mmol/L White Blood Count 13.78 4.8-10.8 K/uL Red Blood Count 4.33 4.2-5.4 M/uL Hemoglobin 12.3 12.0-16.0 g/dL Hematocrit 37.6 37-47 % Mean Corpuscular Volume 86.8 80-100 fL Mean Corpuscular Hemoglobin 28.4 25-34 pg Mean Corpuscular Hemoglobin Concent 32.7 32-36 g/dl Platelet Count 381 130-400 K/uL Mean Platelet Volume 9.8 7.4-10.4 fL Neutrophils (%) (Auto) 81.6 % Lymphocytes (%) (Auto) 8.6 % Monocytes (%) (Auto) 6.4 % Eosinophils (%) (Auto) 2.5 % Basophils (%) (Auto) 0.5 % Neutrophils # (Auto) 11.24 1.4-6.5 K/uL Lymphocytes # (Auto) 1.18 1.2-3.4 K/uL Monocytes # (Auto) 0.88 0.11-0.59 K/uL Eosinophils # (Auto) 0.35 0-0.5 K/uL Basophils # (Auto) 0.07 0-0.2 K/uL RDW Standard Deviation 53.0 36.4-46.3 fL RDW Coefficient of Variation 16.6 11.5-14.5 % Immature Granulocyte % (Auto) 0.4 % Immature Granulocyte # (Auto) 0.06 0.00-0.02 K/uL Sodium Level 140 136-145 mmol/L Potassium Level 4.0 3.5-5.1 mmol/L Chloride Level 105 98-107 mmol/L Carbon Dioxide Level 20 21-32 mmol/L Anion Gap 15.0 3-11 mmol/L Blood Urea Nitrogen 12 7-18 mg/dl Creatinine 1.20 0.60-1.20 mg/dl Est Creatinine Clear Calc Drug Dose 46.7 ml/min Estimated GFR () 53.4 Estimated GFR (Non- 46.1 BUN/Creatinine Ratio 9.8 10-20 Random Glucose 180 70-99 mg/dl Calcium Level 9.8 8.5-10.1 mg/dl Total Bilirubin 0.3 0.2-1 mg/dl Direct Bilirubin < 0.1 0-0.2 mg/dl Aspartate Amino Transf (AST/SGOT) 19 15-37 U/L Alanine Aminotransferase (ALT/SGPT) 24 12-78 U/L Alkaline Phosphatase 82 45-117 U/L Total Protein 7.0 6.4-8.2 gm/dl Albumin 3.9 3.4-5.0 gm/dl Lipase 96 73-393 U/L Lactic Acid Level 2.7 0.4-2.0 mmol/L Bedside Glucose 199 70-90 mg/dl Test 05/11/16 21:00 05/12/16 00:00 05/12/16 00:07 05/12/16 06:03 Range/Units Lactic Acid Level 2.3 0.4-2.0 mmol/L Urine Color DK YELLOW Urine Appearance CLEAR CLEAR Urine pH 5.0 4.5-7.5 Urine Specific [place] 1.021 1.000-1.030 Urine Protein NEG NEG Urine Glucose (UA) NEG NEG Urine Ketones NEG NEG Urine Occult Blood NEG NEG Urine Nitrite NEG NEG Urine Bilirubin NEG NEG Urine Urobilinogen NEG NEG Urine Leukocyte Esterase TRACE NEG Urine WBC (Auto) 5-10 0-5 /hpf Urine RBC (Auto) 0-4 0-4 /hpf Urine Hyaline Casts (Auto) 1-5 0-5 /lpf Urine Epithelial Cells (Auto) 20-30 0-5 /lpf Urine Bacteria (Auto) NEG NEG Bedside Glucose 165 126 70-90 mg/dl Test 05/12/16 07:13 05/12/16 11:10 Range/Units White Blood Count 6.52 4.8-10.8 K/uL Red Blood Count 3.63 4.2-5.4 M/uL Hemoglobin 10.3 12.0-16.0 g/dL Hematocrit 31.9 37-47 % Mean Corpuscular Volume 87.9 80-100 fL Mean Corpuscular Hemoglobin 28.4 25-34 pg Mean Corpuscular Hemoglobin Concent 32.3 32-36 g/dl RDW Standard Deviation 54.2 36.4-46.3 fL RDW Coefficient of Variation 16.6 11.5-14.5 % Platelet Count 306 130-400 K/uL Mean Platelet Volume 9.7 7.4-10.4 fL Sodium Level 142 136-145 mmol/L Potassium Level 3.9 3.5-5.1 mmol/L Chloride Level 107 98-107 mmol/L Carbon Dioxide Level 24 21-32 mmol/L Anion Gap 11.0 3-11 mmol/L Blood Urea Nitrogen 10 7-18 mg/dl Creatinine 0.97 0.60-1.20 mg/dl Est Creatinine Clear Calc Drug Dose 57.8 ml/min Estimated GFR () 69.1 Estimated GFR (Non- 59.6 BUN/Creatinine Ratio 10.0 10-20 Random Glucose 127 70-99 mg/dl Estimated Average Glucose 126 mg/dl Hemoglobin A1c 6.0 4.5-5.6 % Lactic Acid Level 1.5 0.4-2.0 mmol/L Calcium Level 8.5 8.5-10.1 mg/dl Bedside Glucose 216 70-90 mg/dl Assessment & Plan KUB shows resolving SBO clinically much improved NGT output decreased/now clear abdomen now soft/nt Lactic acid now back to normal d/c NGT and start clears if continues to do well will advance diet tomorrow.
--- NOTE | 2016-05-12 13:06 | Progress Note ---
Medicine Progress Note Date & Time of Visit: May 12, 2016 at 11:21. (Julia Friedman ., PA-C) Subjective Pt is sitting up in chair next to bed. She did well overnight. Her abdominal pain has completely resolved. + flatus. No BM. NG tube was removed this morning and she tolerated a clear liquid diet. Pt denies chest pain, SOB, abd pain, N/V , bowel or bladder issues, LE edema ,calf pain, lightheadedness/dizziness. (Julia Friedman ., PA-C) Patient is sitting sitting in her bed and is very comfortable today. NG tube has been taken out and she has been started on clear liquids which she has been tolerating well. No other event /complaint overnight (Sawyer Bray MD) Objective Last 8 Hrs Date Time Temp Pulse Resp B/P Pulse Ox O2 Delivery O2 Flow Rate FiO2 05/12/16 08:53 Room Air 05/12/16 08:16 36.8 77 19 136/73 94 Room Air Physical Exam: General-Very pleasant 70y/o female is sitting up in chair next to bed Neck-supple; no JVD Lungs-CTA throughout; no crackles or wheezes noted Heart-RRR Abdomen-BS diminished; abd is soft with mild tenderness throughout Extremities-normal to inspection; no calf tenderness or swelling noted Neuro-A&O x 3 Laboratory Results: Last 24 Hours Test 05/11/16 16:29 05/11/16 16:30 05/11/16 17:46 05/11/16 20:44 Bedside Lactic Acid Venous 3.46 mmol/L White Blood Count 13.78 K/uL Red Blood Count 4.33 M/uL Hemoglobin 12.3 g/dL Hematocrit 37.6 % Mean Corpuscular Volume 86.8 fL Mean Corpuscular Hemoglobin 28.4 pg Mean Corpuscular Hemoglobin Concent 32.7 g/dl Platelet Count 381 K/uL Mean Platelet Volume 9.8 fL Neutrophils (%) (Auto) 81.6 % Lymphocytes (%) (Auto) 8.6 % Monocytes (%) (Auto) 6.4 % Eosinophils (%) (Auto) 2.5 % Basophils (%) (Auto) 0.5 % Neutrophils # (Auto) 11.24 K/uL Lymphocytes # (Auto) 1.18 K/uL Monocytes # (Auto) 0.88 K/uL Eosinophils # (Auto) 0.35 K/uL Basophils # (Auto) 0.07 K/uL RDW Standard Deviation 53.0 fL RDW Coefficient of Variation 16.6 % Immature Granulocyte % (Auto) 0.4 % Immature Granulocyte # (Auto) 0.06 K/uL Sodium Level 140 mmol/L Potassium Level 4.0 mmol/L Chloride Level 105 mmol/L Carbon Dioxide Level 20 mmol/L Anion Gap 15.0 mmol/L Blood Urea Nitrogen 12 mg/dl Creatinine 1.20 mg/dl Est Creatinine Clear Calc Drug Dose 46.7 ml/min Estimated GFR () 53.4 Estimated GFR (Non- 46.1 BUN/Creatinine Ratio 9.8 Random Glucose 180 mg/dl Calcium Level 9.8 mg/dl Total Bilirubin 0.3 mg/dl Direct Bilirubin < 0.1 mg/dl Aspartate Amino Transf (AST/SGOT) 19 U/L Alanine Aminotransferase (ALT/SGPT) 24 U/L Alkaline Phosphatase 82 U/L Total Protein 7.0 gm/dl Albumin 3.9 gm/dl Lipase 96 U/L Lactic Acid Level 2.7 mmol/L Bedside Glucose 199 mg/dl Test 05/11/16 21:00 05/12/16 00:00 05/12/16 00:07 05/12/16 06:03 Lactic Acid Level 2.3 mmol/L Urine Color DK YELLOW Urine Appearance CLEAR Urine pH 5.0 Urine Specific [place] 1.021 Urine Protein NEG Urine Glucose (UA) NEG Urine Ketones NEG Urine Occult Blood NEG Urine Nitrite NEG Urine Bilirubin NEG Urine Urobilinogen NEG Urine Leukocyte Esterase TRACE Urine WBC (Auto) 5-10 /hpf Urine RBC (Auto) 0-4 /hpf Urine Hyaline Casts (Auto) 1-5 /lpf Urine Epithelial Cells (Auto) 20-30 /lpf Urine Bacteria (Auto) NEG Bedside Glucose 165 mg/dl 126 mg/dl Test 05/12/16 07:13 05/12/16 11:10 White Blood Count 6.52 K/uL Red Blood Count 3.63 M/uL Hemoglobin 10.3 g/dL Hematocrit 31.9 % Mean Corpuscular Volume 87.9 fL Mean Corpuscular Hemoglobin 28.4 pg Mean Corpuscular Hemoglobin Concent 32.3 g/dl RDW Standard Deviation 54.2 fL RDW Coefficient of Variation 16.6 % Platelet Count 306 K/uL Mean Platelet Volume 9.7 fL Sodium Level 142 mmol/L Potassium Level 3.9 mmol/L Chloride Level 107 mmol/L Carbon Dioxide Level 24 mmol/L Anion Gap 11.0 mmol/L Blood Urea Nitrogen 10 mg/dl Creatinine 0.97 mg/dl Est Creatinine Clear Calc Drug Dose 57.8 ml/min Estimated GFR () 69.1 Estimated GFR (Non- 59.6 BUN/Creatinine Ratio 10.0 Random Glucose 127 mg/dl Estimated Average Glucose 126 mg/dl Hemoglobin A1c 6.0 % Lactic Acid Level 1.5 mmol/L Calcium Level 8.5 mg/dl Bedside Glucose 216 mg/dl Diagnostic Imaging: KUB IMPRESSION: Interval improvement in the dilated loops of small bowel as well as gas and stool within the colon. Findings are consistent with a resolving small bowel obstruction. (Julia Friedman ., PA-C) Assessment & Plan SMALL BOWEL OBSTRUCTION: RESOLVING pt presented with abd pain, distention and vomiting; prior h/o bowel obstruction -admitted to med/surg -likely secondary to adhesions from multiple abdominal surgeries -pt remains afebrile with resolved leukocytosis -CT abd/pelvis 05/11 + SBO -KUB 05/12 consistent with resolving SBO -NG tube removed -cont gentle IVF and Dilaudid PRN pain -advance to clear liquid diet -encouraged patient to ambulate -consult surgery, Dr. Toure-appreciate input -monitor LACTIC ACIDOSIS:RESOLVED -POC lactic acid 3.4-->1.5 -likely elevated secondary to dehydration CHRONIC MESENTERIC ISCHEMIA -follows with Dr. Clark - vascular surgery -per outpatient note by Dr. Clark "S/p open exposure of left brachial artery (re -do), stenting of celiac artery and angioplasty of proximal and distal anastomoses of the re-stenotic common hepatic to SMA reversed saphenous vein bypass graft 12/10/[address] Gatica." -cont ASA and Plavix for now COPD -stable; no evidence of acute exacerbation -recently quit smoking-efforts applauded -cont home inhalers prn INSULIN-DEPENDENT DM2 -A1C 6.0 -Hold metformin and Novolin -cont ISS -BSG AC HS DEPRESSION/ANXIETY -cont Celexa, BuSpar, Amitriptyline -cont Ativan IV PRN H/O [id number] RED BLOOD CELL ANTIBODY POSITIVE DYSLIPIDEMIA -cont statin H/O CVA -no residual defects -cont ASA and statin DVT PROPHYLAXIS -subq Lovenox CODE STATUS -FULL CODE status per discussion with patient upon admission DISPO -Pt seen in collaboration with Dr. Bray. Please see his addendum for further details. Thanks! Current Inpatient Medications: Current Inpatient Medications Medications (Trade) Dose Ordered Sig/Carson Route Start Time Stop Time Status Last Admin Dose Admin Enoxaparin Sodium (Lovenox Inj) 40 mg QPM SQ 05/11/16 21:00 06/10/16 18:14 05/11/16 21:47 40 MG Ondansetron HCl 4 mg 4 mg Q6H PRN IV 05/11/16 18:15 06/10/16 18:14 Sodium Chloride (Nss 1000ml) 1,000 ml @ 100 mls/hr Q10H IV 05/11/16 18:15 06/10/16 18:14 05/12/16 06:08 100 MLS/HR Hydromorphone HCl (Dilaudid Inj) 0.5 mg Q4H PRN IV 05/11/16 18:15 05/25/16 18:14 Glucose (Glucose 40% Gel) 15-30 GRAMS 15 GRAMS... UD PRN PO 05/11/16 18:15 06/10/16 18:14 Glucose (Glucose Chew Tab) 4-8 Tablets 4 Tabl... UD PRN PO 05/11/16 18:15 06/10/16 18:14 Dextrose (Dextrose 50% 50ML Syringe) 25-50ML OF 50% DW IV FOR... UD PRN IV 05/11/16 18:15 06/10/16 18:14 Glucagon (Glucagon Inj) 1 mg UD PRN SQ 05/11/16 18:15 06/10/16 18:14 Aspirin (Ecotrin Tab) 81 mg DAILY PO 05/12/16 09:00 06/11/16 08:59 05/12/16 07:31 81 MG Clopidogrel Bisulfate 75 mg 75 mg HS PO 05/11/16 21:00 06/10/16 20:59 05/11/16 21:47 75 MG Lorazepam/Syringe (Ativan Inj/ Syringe) 1 ml @ 1 mls/min Q12H PRN IV 05/11/16 20:45 06/10/16 20:44 05/11/16 23:52 1 MLS/MIN Insulin Aspart (novoLOG ASPART) SLIDING SCALE If C... ACHS SC 05/12/16 12:00 06/11/16 00:00 (Julia Friedman ., PA-C) Clinically doing well. KUB shows resolution of SBO. Will advance the diet gradually. Encouraged to start ambulating as tolerated. (Sawyer Bray MD)
[2016-05-12 15:30] VITALS: BP 124/71; PULSE 81; TEMP 36.9; O2SAT 96
[2016-05-12] MEDS ORDERED: AMITRIPTYLINE HCL 10 MG TAB PO SCH (21:00)
[2016-05-12] MEDS ORDERED: SIMVASTATIN 20 MG TAB PO SCH (21:00)
[2016-05-12] MEDS: ENOXAPARIN 40 MG/0.4 ML SYR SQ SCH (21:13)
[2016-05-12] MEDS: BusPIRone 15 MG TAB PO SCH (21:14)
[2016-05-12] MEDS: CLOPIDOGREL BISULFATE 75 MG TAB PO SCH (21:15)
[2016-05-12] MEDS: LORAZEPAM INJ 0.5 MG in SYRINGE 0.75 ML IV PRN (23:10)
[2016-05-12 23:16] VITALS: BP 126/74; PULSE 74; TEMP 37.1; O2SAT 93
[2016-05-13 07:24] LABS: BASO % 1.4 %; BASO ABS # 0.06 K/uL (0-0.2); COMPLETE YES; EOS % 5.8 %; HEMATOCRIT 31.7 % (37-47); IG% 0.2 %; LYMPH ABS # 0.95 K/uL (1.2-3.4); MEAN CELL VOLUME 86.4 fL (80-100); MEAN CORPUSCULAR HEMOGLOBIN 27.5 pg (25-34); MEAN CORPUSCULAR HGB CONC 31.9 g/dl (32-36); MEAN PLATELET VOLUME 9.7 fL (7.4-10.4); MONO % 9.3 %; NEUT % 61.3 %; PLATELET COUNT 270 K/uL (130-400); RED BLOOD COUNT 3.67 M/uL (4.2-5.4); WHITE BLOOD COUNT 4.31 K/uL (4.8-10.8)
[2016-05-13 07:48] VITALS: BP 133/63; PULSE 74; TEMP 37.1; O2SAT 95
[2016-05-13 07:52] LABS: BUN/CREATININE RATIO 5.8 (10-20); CALCIUM 8.5 mg/dl (8.5-10.1); CREATININE 0.88 mg/dl (0.60-1.20); MAGNESIUM 1.9 mg/dl (1.8-2.4)
[2016-05-13 08:00] VITALS: O2SAT 95
--- NOTE | 2016-05-13 08:31 | DIAGNOSTIC IMAGING REPORT ---
KUB CLINICAL HISTORY: Follow-up small bowel obstruction. COMPARISON STUDY: CT of the abdomen and pelvis May 11, 2016 and KUB May 12, 2016. FINDINGS: An intracanalicular device is incidentally noted. Mild small bowel dilatation persists. There is gas within portions of the colon and rectum. IMPRESSION: Mild small bowel dilatation with gas within portions of the colon and rectum. The findings suggest a persistent but improving small bowel obstruction. Electronically signed by: Jose Perkins M.D. 05/13/2016 8:30 AM Dictated Date/Time: 05/13/2016 8:26 AM
[2016-05-13] MEDS: INSULIN ASPART 100 UNITS/ML 3 ML PEN SC SCH ×3 (08:59→18:23)
[2016-05-13] MEDS: ASPIRIN 81 MG ECTAB PO SCH (08:59)
[2016-05-13] MEDS: BusPIRone 15 MG TAB PO SCH (08:59)
[2016-05-13] MEDS: SODIUM CHLORIDE 0.9% 1000ML 1,000 ML IV SCH (09:00)
[2016-05-13] MEDS ORDERED: CITALOPRAM 40 MG TAB PO SCH (09:00)
[2016-05-13] MEDS ORDERED: FUROSEMIDE 20 MG TAB PO SCH (09:00)
--- NOTE | 2016-05-13 10:06 | Progress Note ---
Medicine Progress Note Date & Time of Visit: May 13, 2016 at 10:01. (Julia Friedman ., PA-C) Subjective Pt reports 2 episodes of "explosive" diarrhea yesterday afternoon/evening. + flatus. No abdominal pain. No issues with clear liquid diet-ate 100% of breakfast. Pt has been ambulating. Pt denies N/V, hematochezia or melena. (Julia Friedman ., PA-C) patient is awake/alert and is walking around in the hallway. Denies any nausea/ vomiting. Minimal abdominal discomfort. Had a small BM earlier today. No other new change or complaint. (Sawyer Bray MD) Objective Last 8 Hrs Date Time Temp Pulse Resp B/P Pulse Ox O2 Delivery O2 Flow Rate FiO2 05/13/16 08:00 95 Room Air 05/13/16 07:48 37.1 74 16 133/63 95 Room Air Physical Exam: General-Very pleasant 70y/o female is sitting up comfortably in bed Neck-supple; no JVD Lungs-CTA throughout; no crackles or wheezes noted Heart-RRR Abdomen-BS diminished; abd is soft and non-distended with mild tenderness throughout Extremities-normal to inspection; no calf tenderness or swelling noted Neuro-A&O x 3 Laboratory Results: Last 24 Hours Test 05/12/16 11:10 05/12/16 17:05 05/12/16 20:49 05/13/16 06:45 Bedside Glucose 216 mg/dl 128 mg/dl 190 mg/dl White Blood Count 4.31 K/uL Red Blood Count 3.67 M/uL Hemoglobin 10.1 g/dL Hematocrit 31.7 % Mean Corpuscular Volume 86.4 fL Mean Corpuscular Hemoglobin 27.5 pg Mean Corpuscular Hemoglobin Concent 31.9 g/dl Platelet Count 270 K/uL Mean Platelet Volume 9.7 fL Neutrophils (%) (Auto) 61.3 % Lymphocytes (%) (Auto) 22.0 % Monocytes (%) (Auto) 9.3 % Eosinophils (%) (Auto) 5.8 % Basophils (%) (Auto) 1.4 % Neutrophils # (Auto) 2.64 K/uL Lymphocytes # (Auto) 0.95 K/uL Monocytes # (Auto) 0.40 K/uL Eosinophils # (Auto) 0.25 K/uL Basophils # (Auto) 0.06 K/uL RDW Standard Deviation 52.1 fL RDW Coefficient of Variation 16.4 % Immature Granulocyte % (Auto) 0.2 % Immature Granulocyte # (Auto) 0.01 K/uL Sodium Level 143 mmol/L Potassium Level 4.0 mmol/L Chloride Level 110 mmol/L Carbon Dioxide Level 25 mmol/L Anion Gap 8.0 mmol/L Blood Urea Nitrogen 5 mg/dl Creatinine 0.88 mg/dl Est Creatinine Clear Calc Drug Dose 63.7 ml/min Estimated GFR () 77.7 Estimated GFR (Non- 67.0 BUN/Creatinine Ratio 5.8 Random Glucose 180 mg/dl Calcium Level 8.5 mg/dl Magnesium Level 1.9 mg/dl Test 05/13/16 07:45 Bedside Glucose 189 mg/dl Diagnostic Imaging: KUB IMPRESSION 05/13/16: Mild small bowel dilatation with gas within portions of the colon and rectum. The findings suggest a persistent but improving small bowel obstruction. (Julia Friedman ., PA-C) Assessment & Plan SMALL BOWEL OBSTRUCTION: RESOLVING pt presented with abd pain, distention and vomiting; prior h/o bowel obstruction -admitted to med/surg -likely secondary to adhesions from multiple abdominal surgeries -pt remains afebrile with resolved leukocytosis -CT abd/pelvis 05/11 + SBO; KUB 05/12 consistent with resolving SBO; repeat KUB today shows further resolution -cont gentle IVF and Dilaudid PRN pain -advance to soft diet today -encouraged patient to cont ambulation -consulted surgery, Dr. Toure-appreciate input -monitor LACTIC ACIDOSIS:RESOLVED -POC lactic acid 3.4-->1.5 -likely elevated secondary to dehydration CHRONIC MESENTERIC ISCHEMIA -follows with Dr. Clark - vascular surgery -per outpatient note by Dr. Clark "S/p open exposure of left brachial artery (re -do), stenting of celiac artery and angioplasty of proximal and distal anastomoses of the re-stenotic common hepatic to SMA reversed saphenous vein bypass graft 12/10/[address] Gatica." -cont ASA and Plavix COPD -stable; no evidence of acute exacerbation -recently quit smoking-efforts applauded -cont home inhalers prn INSULIN-DEPENDENT DM2 -A1C 6.0 -Hold metformin and Novolin -cont ISS -BSG AC HS DEPRESSION/ANXIETY -cont Celexa, BuSpar, Amitriptyline -cont Ativan IV PRN H/O [id number] RED BLOOD CELL ANTIBODY POSITIVE DYSLIPIDEMIA -cont statin H/O CVA -no residual defects -cont ASA and statin DVT PROPHYLAXIS -subq Lovenox CODE STATUS -FULL CODE status per discussion with patient upon admission DISPO -Pt seen in collaboration with Dr. Bray. Please see his addendum for further details. Thanks! Current Inpatient Medications: Current Inpatient Medications Medications (Trade) Dose Ordered Sig/[place] Route Start Time Stop Time Status Last Admin Dose Admin Enoxaparin Sodium (Lovenox Inj) 40 mg QPM SQ 05/11/16 21:00 06/10/16 18:14 05/12/16 21:13 40 MG Ondansetron HCl 4 mg 4 mg Q6H PRN IV 05/11/16 18:15 06/10/16 18:14 Sodium Chloride (Nss 1000ml) 1,000 ml @ 100 mls/hr Q10H IV 05/11/16 18:15 06/10/16 18:14 05/13/16 09:00 100 MLS/HR Hydromorphone HCl (Dilaudid Inj) 0.5 mg Q4H PRN IV 05/11/16 18:15 05/25/16 18:14 Glucose (Glucose 40% Gel) 15-30 GRAMS 15 GRAMS... UD PRN PO 05/11/16 18:15 06/10/16 18:14 Glucose (Glucose Chew Tab) 4-8 Tablets 4 Tabl... UD PRN PO 05/11/16 18:15 06/10/16 18:14 Dextrose (Dextrose 50% 50ML Syringe) 25-50ML OF 50% DW IV FOR... UD PRN IV 05/11/16 18:15 06/10/16 18:14 Glucagon (Glucagon Inj) 1 mg UD PRN SQ 05/11/16 18:15 06/10/16 18:14 Aspirin (Ecotrin Tab) 81 mg DAILY PO 05/12/16 09:00 06/11/16 08:59 05/13/16 08:59 81 MG Clopidogrel Bisulfate 75 mg 75 mg HS PO 05/11/16 21:00 06/10/16 20:59 1/25/17 21:15 75 MG Lorazepam/Syringe (Ativan Inj/ Syringe) 1 ml @ 1 mls/min Q12H PRN IV 05/11/16 20:45 06/10/16 20:44 05/12/16 23:10 1 MLS/MIN Insulin Aspart (novoLOG ASPART) SLIDING SCALE If C... ACHS SC 05/12/16 12:00 06/11/16 00:00 05/13/16 08:59 3 UNITS Amitriptyline HCl (Elavil Tab) 5 mg HS PO 05/12/16 21:00 06/11/16 20:59 05/12/16 21:15 5 MG Buspirone HCl (BusPAR TAB) 30 mg BID PO 05/12/16 21:00 06/11/16 20:59 05/13/16 08:59 30 MG Citalopram Hydrobromide (celeXA TAB) 40 mg QAM PO 05/13/16 09:00 06/12/16 08:59 05/13/16 08:59 40 MG Furosemide (Lasix Tab) 20 mg DAILY PO 05/13/16 09:00 06/12/16 08:59 05/13/16 08:59 20 MG Simvastatin (Zocor Tab) 20 mg QPM PO 05/12/16 21:00 06/11/16 20:59 05/12/16 21:16 20 MG (Julia Friedman, PA-C) Clinically doing well. SBO is gradually resolving. Advanced to regular diet. If tolerates well. potential discharge in evening today. Discussed with patient and answered all the questions. Sawyer Bray MD (Sawyer Bray MD)
--- NOTE | 2016-05-13 10:14 | Surgery Progress Note ---
Surgery Progress Note Date of Service May 13, 2016. Subjective + feeling well tolerated liquids. no nausea. no abdominal pain + small bm Objective Vital Signs: Date Time Temp Pulse Resp B/P Pulse Ox O2 Delivery O2 Flow Rate FiO2 05/13/16 08:00 95 Room Air 05/13/16 07:48 37.1 74 16 133/63 95 Room Air 05/12/16 23:16 37.1 74 15 126/74 93 Room Air 05/12/16 19:10 Room Air 05/12/16 15:30 36.9 81 16 124/71 96 Room Air 05/12/16 15:25 Room Air General Appearance: no apparent distress Head: normocephalic Neck: supple Respiratory/Chest: no respiratory distress, no accessory muscle use Cardiovascular: no edema, no JVD Abdomen: non tender, soft Extremities: normal range of motion, non-tender Laboratory Results: Results Past 24 Hours Test 05/12/16 11:10 05/12/16 17:05 05/12/16 20:49 05/13/16 06:45 Range/Units Bedside Glucose 216 128 190 70-90 mg/dl White Blood Count 4.31 4.8-10.8 K/uL Red Blood Count 3.67 4.2-5.4 M/uL Hemoglobin 10.1 12.0-16.0 g/dL Hematocrit 31.7 37-47 % Mean Corpuscular Volume 86.4 80-100 fL Mean Corpuscular Hemoglobin 27.5 25-34 pg Mean Corpuscular Hemoglobin Concent 31.9 32-36 g/dl Platelet Count 270 130-400 K/uL Mean Platelet Volume 9.7 7.4-10.4 fL Neutrophils (%) (Auto) 61.3 % Lymphocytes (%) (Auto) 22.0 % Monocytes (%) (Auto) 9.3 % Eosinophils (%) (Auto) 5.8 % Basophils (%) (Auto) 1.4 % Neutrophils # (Auto) 2.64 1.4-6.5 K/uL Lymphocytes # (Auto) 0.95 1.2-3.4 K/uL Monocytes # (Auto) 0.40 0.11-0.59 K/uL Eosinophils # (Auto) 0.25 0-0.5 K/uL Basophils # (Auto) 0.06 0-0.2 K/uL RDW Standard Deviation 52.1 36.4-46.3 fL RDW Coefficient of Variation 16.4 11.5-14.5 % Immature Granulocyte % (Auto) 0.2 % Immature Granulocyte # (Auto) 0.01 0.00-0.02 K/uL Sodium Level 143 136-145 mmol/L Potassium Level 4.0 3.5-5.1 mmol/L Chloride Level 110 98-107 mmol/L Carbon Dioxide Level 25 21-32 mmol/L Anion Gap 8.0 3-11 mmol/L Blood Urea Nitrogen 5 7-18 mg/dl Creatinine 0.88 0.60-1.20 mg/dl Est Creatinine Clear Calc Drug Dose 63.7 ml/min Estimated GFR () 77.7 Estimated GFR (Non- 67.0 BUN/Creatinine Ratio 5.8 10-20 Random Glucose 180 70-99 mg/dl Calcium Level 8.5 8.5-10.1 mg/dl Magnesium Level 1.9 1.8-2.4 mg/dl Test 05/13/16 07:45 Range/Units Bedside Glucose 189 70-90 mg/dl Assessment & Plan 05/13/16 pt clinically doing well. agree/advance diet if tolerates reg diet can plan d/c home soon 05/12/16 KUB shows resolving SBO clinically much improved NGT output decreased/now clear abdomen now soft/nt Lactic acid now back to normal d/c NGT and start clears if continues to do well will advance diet tomorrow. KUB shows resolving SBO clinically much improved NGT output decreased/now clear abdomen now soft/nt Lactic acid now back to normal d/c NGT and start clears if continues to do well will advance diet tomorrow.
[2016-05-13] MEDS ORDERED: ONDA4TAB46 PO (18:23)
--- NOTE | 2016-05-13 18:26 | Discharge Instructions ---
Discharge Instructions Admission Reason for Admission: SBO Discharge Discharge Diagnosis / Problem: Small Bowel Obstruction (Resolved) Discharge Goals Goal(s): Decrease discomfort, Improve function, Increase independence, Improve disease control, Improve nutritional status, Learn about illness, Diagnostic testing, Therapeutic intervention Activity Recommendations Activity Limitations: resume your previous activity Exercise/Sports Limitations: as tolerated Shower/Bathe: no limitations Driving or Machine Use: no limitations . Instructions / Follow-Up Instructions / Follow-Up Continue with Soft and liquid diet for now and advance diet gradually. Avoid any fatty/fried foods Keep your appointment with your PCP for next Current Hospital Diet Patient's current hospital diet: Regular Diet Discharge Diet Recommended Diet: Diabetes Type 2 Diet (Soft & Liquid diet only and advance gradually) Pending Studies Studies pending at discharge: no Laboratory Results Hemoglobin A1c Test 05/12/16 07:13 Range/Units Estimated Average Glucose 126 mg/dl Hemoglobin A1c 6.0 H 4.5-5.6 % Medical Emergencies . Who to Call and When: Medical Emergencies: If at any time you feel your situation is an emergency, please call 911 immediately. . Non-Emergent Contact Non-Emergency issues call your: Primary Care Provider . . "Provider Documentation" section prepared by Sawyer Bray. VTE Core Measure Inpt VTE Proph given/why not?: Enoxaparin (Lovenox)SQ
--- NOTE | 2016-05-13 18:27 | Discharge Summary ---
Discharge Summary Admission Date: May 11, 2016 at 18:10 Discharge Date: May 13, 2016 Discharge Disposition: Home Principal Diagnosis: Small Bowel Obstruction Lactic Acidosis (Resolved) Secondary Diagnoses/Problems: Chronic Mesenteric Ischemia COPD History CVA Diabetes Type II Dyslipidemia Anxiety/Depression Procedures: CT OF THE ABDOMEN AND PELVIS WITHOUT CONTRAST, STONE PROTOCOL IMPRESSION: Findings consistent with a moderate grade partial small bowel obstruction with transition site within the left mid anterior abdomen. Minimal adjacent infiltration. No free air, pneumatosis or portal venous gas. No bowel wall thickening. While nonspecific, this obstruction is statistically on the basis of adhesions. KUB FINDINGS: An intracanalicular device is incidentally noted. Mild small bowel dilatation persists. There is gas within portions of the colon and rectum. IMPRESSION: Mild small bowel dilatation with gas within portions of the colon and rectum. The findings suggest a persistent but improving small bowel obstruction. Vaccinations: NONE Consultations: General Surgery Pending Studies/Follow-Up: NONE Medication Reconciliation New Medications: Ondansetron Hcl (Zofran) 4 Mg Tab 4 MG PO TID PRN for Nausea, #30 TAB Continued Medications: Acetaminophen (Tylenol) 500 Mg Tab 1-2 TAB PO Q8 PRN for Pain for 3 Days, #10 TAB Albuterol Sulfate (Proventil Hfa) 108 Mcg/Act Aer 2 PUFFS INH Q6 PRN for Wheezing Amitriptyline HCl (Amitriptyline HCl) 10 Mg Tab 5 MG PO HS Ascorbic Acid (Vitamin C) 500 Mg Tab 500 MG PO DAILY Aspirin (Aspirin EC Low Dose) 81 Mg Ectab 81 MG PO DAILY B-Complex W/Biotin & Folic Aci (Super B-Complex) 1 Cap Cap 1 CAP PO DAILY Buspirone Hcl (Buspar) 15 Mg Tab 30 MG PO BID Cholecalciferol (Vitamin D 1000 Unit) 1,000 Unit Cap 1000 INTER.UNIT PO DAILY, CAP Citalopram Hydrobromide (Celexa) 40 Mg Tab 40 MG PO QAM Clopidogrel (Plavix) 75 Mg Tab 75 MG PO HS, TAB Cyclobenzaprine Hcl (Flexeril) 5 Mg Tab 1 TAB PO BID PRN for Muscle Spasms for 30 Days, #30 TAB Furosemide (Lasix) 20 Mg Tab 1 TAB PO DAILY, TAB 1 Refill CAN TAKE 1 EXTRA FOR INCREASED SWELLING/EDEMA WITH WEIGHT GAIN Gabapentin (Neurontin) 300 Mg Cap 300 MG PO BID, CAP Insulin Isophan/Regular (Novolin 70/30) Susp 35 UNITS SC BID, BTL TAKE BEFORE BREAKFAST AND SUPPER Lorazepam (Lorazepam) 0.5 Mg Tab 0.5 MG PO HS PRN for Anxiety Magnesium Oxide (Mg Supplement (Magnesium) 500 Mg Cap 500 MG PO DAILY Metformin Hcl (Glucophage) 1,000 Mg Tab 1000 MG PO BIDM, TAB Octreotide Acetate (Sandostatin [place]) 20 Mg Kit 20 MG IM MONTHLY Pantoprazole (Pantoprazole Sodium) 40 Mg Tab 1 TAB PO BID for 30 Days, #60 TABS 1 Refill take 30 minutes before meal Probiotic Product (Probiotic) 1 Tab Tab 1 TAB PO DAILY Simvastatin (Zocor) 20 Mg Tab 20 MG PO QPM, TAB Admission Information HPI (per Admitting provider): Patient seen and examined. 70 year old female with PMHx of chronic mesenteric ischemia s/p bypass and stenting on ASA/Plavix, IDDM, depression and other problems listed below presents to the ED c/o abdominal pain that began this morning. Pt was recently admitted to [facility], [place] from 05/05/16-05/09/16 with GI bleed. She was transfused 2 units pRBCS and EGD was normal. Pt was feeling well upon discharge however this morning she developed upper abdominal pain that got progressively worse throughout the day. She rated her pain at a 9/10 when she arrived to the ED. Her sxs were assoc with abdominal distention and vomiting. Last normal BM was yesterday. Patient has a history of bowel obstructions in the past which have never required surgical intervention. Pt also has history of SMA occlusions. She does not feel that this pain is reflects the ischemic pain she has experienced in the past. Pt denies fever/chills, diaphoresis, chest pain, palpitations, SOB, hematemesis, hematochezia, melena, constipation, diarrhea, bladder issues, LE edema, calf pain, lightheadedness/dizziness. In the ED, vitals are stable. POC Lactic acid 3.46. CT abd/pelvis + SBO. Pt received Dilaudid in the ED and currently denies any abdominal pain. She will be admitted for further evaluation and treatment. Physical Exam (per Admitting): General Appearance: WD/WN, no apparent distress, + pertinent finding (Pt is sitting up in bed with NG tube in place and sister at bedside) Eyes: normal inspection ENT: hearing grossly normal Neck: supple Respiratory/Chest: chest non-tender, lungs clear, normal breath sounds, no respiratory distress Cardiovascular: regular rate, rhythm, no edema, no murmur Abdomen/GI: normal bowel sounds, + tenderness (diffuse), + distended Back: normal inspection Extremities/Musculoskelatal: normal inspection, no calf tenderness, no pedal edema Neurologic/Psych: alert, normal mood/affect, oriented x 3 Skin: normal color, warm/dry Hospital Course SMALL BOWEL OBSTRUCTION: RESOLVING pt presented with abd pain, distention and vomiting; prior h/o bowel obstruction -admitted to med/surg -likely secondary to adhesions from multiple abdominal surgeries -pt remains afebrile with resolved leukocytosis -CT abd/pelvis 05/11 + SBO; KUB 05/12 consistent with resolving SBO; repeat KUB today shows further resolution -cont gentle IVF and Dilaudid PRN pain -advance to soft diet today -encouraged patient to cont ambulation -consulted surgery, Dr. Toure-appreciate input -monitor LACTIC ACIDOSIS:RESOLVED -POC lactic acid 3.4-->1.5 -likely elevated secondary to dehydration CHRONIC MESENTERIC ISCHEMIA -follows with Dr. Clark - vascular surgery -per outpatient note by Dr. Clark "S/p open exposure of left brachial artery (re -do), stenting of celiac artery and angioplasty of proximal and distal anastomoses of the re-stenotic common hepatic to SMA reversed saphenous vein bypass graft 12/10/[address] Gatica." -cont ASA and Plavix COPD -stable; no evidence of acute exacerbation -recently quit smoking-efforts applauded -cont home inhalers prn INSULIN-DEPENDENT DM2 -A1C 6.0 -Hold metformin and Novolin -cont ISS -BSG AC HS DEPRESSION/ANXIETY -cont Celexa, BuSpar, Amitriptyline -cont Ativan IV PRN H/O [id number] RED BLOOD CELL ANTIBODY POSITIVE DYSLIPIDEMIA -cont statin H/O CVA -no residual defects -cont ASA and statin DVT PROPHYLAXIS -subq Lovenox CODE STATUS -FULL CODE status per discussion with patient upon admission Clinically doing well. SBO is gradually resolving. Advanced to regular diet. If tolerates well. potential discharge in evening today. Discussed with patient and answered all the questions. Sawyer Bray MD Total time spent on discharge = 42 minutes. This includes examination of the patient, discharge planning, medication reconciliation, and communication with other providers. Discharge Instructions Discharge Goals Goal(s): Decrease discomfort, Improve function, Increase independence, Improve disease control, Improve nutritional status, Learn about illness, Diagnostic testing, Therapeutic intervention Activity Recommendations Activity Limitations: resume your previous activity Exercise/Sports Limitations: as tolerated Shower/Bathe: no limitations Driving or Machine Use: no limitations . Instructions / Follow-Up Instructions / Follow-Up Continue with Soft and liquid diet for now and advance diet gradually. Avoid any fatty/fried foods Keep your appointment with your PCP for next Current Hospital Diet Patient's current hospital diet: Regular Diet Discharge Diet Recommended Diet: Diabetes Type 2 Diet (Soft & Liquid diet only and advance gradually) Additional Copies To Nicole Catherine M.D.
[2016-05-13 19:40] VITALS: BP 133/63; PULSE 74; TEMP 37.1; O2SAT 95
[2016-06-08] MEDS ORDERED: AMT10 PO (00:53)
[2016-06-08] MEDS ORDERED: SIMV20TA2 PO (05:28)
[2016-06-08] MEDS ORDERED: B-CO1CAP5 PO (05:30)
[2016-06-08] MEDS ORDERED: OMEP40CA41 PO (12:28)
[2016-06-08] MEDS ORDERED: CHOL100027 PO (15:56)
[2016-06-08] MEDS ORDERED: ALBUAER INH (15:56)
[2016-06-08] MEDS ORDERED: ASCO500T3 PO (16:03)
[2016-06-08] MEDS ORDERED: MAGN500C PO (16:03)
[2016-06-08] MEDS ORDERED: ASPEC81 PO (16:12)
[2016-06-08] MEDS ORDERED: LORA0.5T12 PO (16:12)
[2016-06-08] MEDS ORDERED: BUSP15TA70 PO (18:58)
[2016-06-08] MEDS ORDERED: FURO-85 PO (19:02)
[2016-06-08] MEDS ORDERED: CYCL5TAB PO (19:02)
[2016-06-08] MEDS ORDERED: GABA-113 PO (19:02)
[2016-06-08] MEDS ORDERED: METF-384 PO (19:02)
[2016-06-09] MEDS ORDERED: PRD20 PO (10:02)
== END 2016-05-13 20:08 | disposition home or self-care (01) | DRG 389 ==
LOC: ENRESERVTM → ENRESERVDT → C.EDB 16:04 → C.MSW 18:10
PROVIDERS: ADMIT Emergency Medicine; ATTEND Emergency Medicine
DX: K56.5 Intestinal adhesions [bands] with obstruction (postinfection) (principal); E87.2 Acidosis; F32.9 Major depressive disorder, single episode, unspecified; K57.30 Diverticulosis of large intestine without perforation or abscess without bleeding; Z86.73 Personal history of transient ischemic attack (TIA), and cerebral infarction without residual deficits; I10 Essential (primary) hypertension; E78.5 Hyperlipidemia, unspecified; E11.51 Type 2 diabetes mellitus with diabetic peripheral angiopathy without gangrene; Z90.49 Acquired absence of other specified parts of digestive tract; Z87.891 Personal history of nicotine dependence; J44.9 Chronic obstructive pulmonary disease, unspecified; F41.9 Anxiety disorder, unspecified; E86.0 Dehydration; D72.829 Elevated white blood cell count, unspecified; D50.9 Iron deficiency anemia, unspecified; Z79.4 Long term (current) use of insulin; Z79.82 Long term (current) use of aspirin; Z79.02 Long term (current) use of antithrombotics/antiplatelets; Z86.14 Personal history of Methicillin resistant Staphylococcus aureus infection; Z87.19 Personal history of other diseases of the digestive system; Z88.8 Allergy status to other drugs, medicaments and biological substances; Z91.041 Radiographic dye allergy status; Z88.5 Allergy status to narcotic agent; Z88.0 Allergy status to penicillin; Z88.2 Allergy status to sulfonamides; Z88.6 Allergy status to analgesic agent; Z91.048 Other nonmedicinal substance allergy status; Z88.3 Allergy status to other anti-infective agents

== ENCOUNTER 2016-05-31 10:45 | Inpatient (IN) | payer OTHER ==
[~2016-05-31] VITALS: Ht 160 cm; Wt 79.6 kg
[~2016-05-31 10:45] MED LIST changes: +ONDA4TAB46 PO
[2016-05-31] MEDS ORDERED: PANTOprazole INJ 80 MG in DEXTROSE 5% 100ML IV ONE (11:45)
[2016-05-31] MEDS ORDERED: SODIUM CHLORIDE 0.9% 500ML 500 ML IV STA (11:51)
[2016-05-31 11:55] LABS: ISTAT CREATININE 0.9 mg/dl (0.6-1.3); ISTAT HEMOGLOBIN 9.2 g/dl (12.0-16.0); ISTAT IONIZED CALCIUM 1.17 mmol/l (1.12-1.32)
[2016-05-31 11:59] LABS: BASO % 1.4 %; COMPLETE YES; EOS % 4.1 %; HEMATOCRIT 28.9 % (37-47); IG% 0.5 %; LYMPH % 16.9 %; LYMPH ABS # 1.24 K/uL (1.2-3.4); MEAN CELL VOLUME 86.5 fL (80-100); MEAN CORPUSCULAR HEMOGLOBIN 27.8 pg (25-34); MEAN CORPUSCULAR HGB CONC 32.2 g/dl (32-36); MONO % 5.3 %; NEUT % 71.8 %; PLATELET COUNT 339 K/uL (130-400); RED BLOOD COUNT 3.34 M/uL (4.2-5.4); WHITE BLOOD COUNT 7.32 K/uL (4.8-10.8)
[2016-05-31] MEDS ORDERED: PANTOprazole INJ 40 MG in DEXTROSE 5% 100ML IV SCH (12:00)
[2016-05-31 12:09] LABS: PARTIAL THROMBOPLASTIN RATIO 0.9; PROTHROMBIN TIME (PATIENT) 10.2 SECONDS (9.0-12.0)
[2016-05-31 12:12] LABS: URINE APPEARANCE CLEAR (CLEAR); URINE BILIRUBIN NEG (NEG); URINE COLOR DK YELLOW; URINE NITRITE NEG (NEG); URINE SPECIFIC GRAVITY 1.022 (1.000-1.030); UROBILINOGEN NEG (NEG); ZZUR CULT IF INDIC CLEAN CATCH NO
[2016-05-31 12:17] LABS: BUN/CREATININE RATIO 13.8 (10-20); C-REACTIVE PROTEIN 0.63 mg/dl (0-0.29); CALCIUM 9.2 mg/dl (8.5-10.1); CREATININE 1.3 mg/dl (0.60-1.20); MAGNESIUM 1.6 mg/dl (1.8-2.4)
[2016-05-31 12:21] LABS: MANUAL MICROSCOPIC REQUIRED? NO; REVIEW REQ? NO
[2016-05-31 12:26] LABS: ALB/GLOB RATIO 1.1 (0.9-2); CKMB/CK RATIO 2.1 (0-3.0); PHOSPHORUS 3.1 mg/dl (2.5-4.9); THYROID STIMULATING HORMONE 1.61 uIu/ml (0.300-4.500)
--- NOTE | 2016-05-31 12:33 | DIAGNOSTIC IMAGING REPORT ---
ABDOMEN AND PELVIS CT WITHOUT CONTRAST CT DOSE: 1079.93 mGy.cm HISTORY: Pain abd pain/black stools, h/o AV malformation w/ bypass - entrust hiwot TECHNIQUE: Multiaxial CT images of the abdomen and pelvis were performed without the use of intravenous and oral contrast according to the standard department stone protocol. COMPARISON STUDY: 05/11/2016 FINDINGS: Lung bases are clear. Gastric distention on the prior study is no longer present. A component of fatty infiltration of liver. There is a ventral hernia containing several loops of bowel which are nonobstructive. Current study shows no evidence for an obstructive pattern. There is no evidence for distention of small bowel or colon. IMPRESSION: Considerable atherosclerotic change abdominal and pelvic arterial vasculature. Pelvic bowel pattern is nonobstructive. Bladder is relatively collapsed. There are no contained calcifications. IMPRESSION: 1. No evidence for an obstructive bowel pattern. 2. Improved study as compared to the prior exam. 3. No evidence for an acute process. Electronically signed by: Brandan Soliz M.D. 05/31/2016 12:32 PM Dictated Date/Time: 05/31/2016 12:25 PM
[2016-05-31] MEDS ORDERED: SODIUM CHLORIDE 0.9% 1000ML 1,000 ML IV STA ×2 (13:14→20:18)
[2016-05-31] MEDS ORDERED: FAMOTIDINE 20MG/102 ML D5W IV STA (13:14)
[2016-05-31] MEDS ORDERED: METHYLPREDNISOLONE 125 MG VIAL IV STA (13:14)
[2016-05-31] MEDS ORDERED: DiphenhydrAMINE HCL 50 MG/ML VIAL IV STA (13:14)
[2016-05-31] MEDS ORDERED: METRONIDAZOLE 500MG / 100ML NSS IV STA (13:27)
[2016-05-31] MEDS ORDERED: CIPROFLOXACIN 400MG / 200ML D5W IV STA (13:27)
[2016-05-31] MEDS ORDERED: OPTIRAY 320 IV PRN (13:30)
[2016-05-31 13:40] VITALS: BP 122/44; PULSE 88; TEMP 37.2; O2SAT 94; BMI 31.6
--- NOTE | 2016-05-31 13:56 | Progress Note ---
Progress Note Discussed case with ED doctor - suggest PPI drip (reports melena, hx of AVM - most recent scope without any identified AVM 05/06/16) and CTA abdomen (CT suggestive of arthrosclerotic changes to abd/pelvis) VSS, HGB on 05/13/16 was 10.1 HGB 05/31/16 was 9.3 PLAN: Monitor stools, trend H&H, transfuse as needed, PPI drip. Official consult to follow - ED reports patient is likely to be admitted.
--- NOTE | 2016-05-31 14:58 | DIAGNOSTIC IMAGING REPORT ---
CT ANGIO ABD/PELVIS WITH INTRAVENOUS CONTRAST HISTORY: GI bleed. History of AV malformation. TECHNIQUE: Multiaxial CT images of the abdomen and pelvis were performed following use of intravenous contrast to evaluate the major arterial structures. Maximal intensity projection images were also obtained. COMPARISON STUDY: Abdomen and pelvis CT 05/31/2016. FINDINGS: There is a 7 mm nodule within the right lower lobe on image 5 of 476. This demonstrates 2 year stability and is considered to be benign. No pneumoperitoneum. No pneumatosis. Posterior decompression within the lower lumbar spine.. Intrathecal spinal electrodes are noted within the thoracolumbar spine. Moderate atherosclerotic plaque throughout the descending thoracic and proximal abdominal aorta. There is a proximal celiac artery stent which is patent. The proximal superior mesenteric artery is occluded. However, there is reconstitution of the mid superior mesenteric artery due to collaterals. Evidence for aortobiiliac bypass. Complete occlusion of the left common iliac artery with reconstitution of the hypoplastic red devil left external iliac artery. There is also widely patent left iliac graft. Both arteries join at the level of the left common femoral artery. The right iliac arteries are patent. Large anterior abdominal wall mesh is again noted. Small hernia containing fat and a knuckle of small bowel along the right lower aspect of the mesh remains unchanged. Fatty changes within the liver. The spleen, adrenal glands, and pancreas are unremarkable. No hydronephrosis. Stable left renal peripelvic cyst. Dextroscoliosis of the lumbar spine. No retroperitoneal lymphadenopathy. There is a 1.9 cm enhancing lesion within the right hepatic lobe. This is incompletely characterized on this study but may represent a hemangioma. The bladder, uterus, bilateral adnexa are unremarkable. No pelvic free fluid. Mild pelvic floor collapse. No bowel obstruction. Colonic diverticulosis. There may be minimal fat stranding adjacent to a short segment of proximal jejunum best seen on image 161. Evidence for prior small bowel anastomosis IMPRESSION: 1. Suggestion of minimal fat stranding adjacent to the short segment of the proximal jejunum. This is consistent with a mild nonspecific enteritis. 2. No evidence for bowel obstruction. 3. The celiac artery stent is patent. 4. Occluded proximal superior and inferior mesenteric arteries with reconstitution through collaterals. This is likely chronic. 5. The aortobiiliac grafts appear patent. 6. A 1.9 cm enhancing lesion within the right hepatic lobe. This favors a hemangioma. 7. Additional findings as described above. Electronically signed by: Jad Pollack M.D. 05/31/2016 2:57 PM Dictated Date/Time: 05/31/2016 2:37 PM
[2016-05-31] MEDS ORDERED: ACETAMINOPHEN 500 MG TAB PO PRN (16:00)
[2016-05-31] MEDS ORDERED: ALBUTEROL HFA 8 GM INHALER INH PRN (16:00)
[2016-05-31] MEDS ORDERED: ONDANSETRON INJ 2 MG/ML 2 ML VIAL IV PRN (16:00)
[2016-05-31] MEDS ORDERED: LORAZEPAM 0.5 MG TAB PO PRN (16:00)
[2016-05-31] MEDS ORDERED: GLUCOSE 10 TABS/TUBE PO PRN (16:15)
[2016-05-31] MEDS ORDERED: DEXTROSE 50% 50 ML SYR IV PRN (16:15)
[2016-05-31] MEDS ORDERED: GLUCOSE 40% GEL 15 GM TUBE PO PRN (16:15)
[2016-05-31] MEDS ORDERED: GLUCAGON FOR INJ 1 MG VIAL SQ PRN (16:15)
--- NOTE | 2016-05-31 16:22 | History and Physical ---
History & Physical Date & Time of Service: May 31, 2016 at 16:05 Chief Complaint: Sob, Black Stools, Weak Primary Care Physician: Nicole Catherine M.D. History of Present Illness Source: patient, clinic records, hospital records Patient seen and examined. 70 year old female with PMHx of chronic mesenteric ischemia s/p bypass and stenting, h/o multiple AVMs, IDDM, depression and other problems listed below presents to the ED complaining of dark tarry stools x 2 days. Recently patient was admitted from 05/05-05/09 with UGI bleed, EGD was normal at that time. She was then readmitted on 05/11-05/13 for SBO managed conservatively. Patient reports since then she has been doing fairly well. She states she gradually returned to a regular diet and started that approximately 4 days ago. 2 days ago she started to notice her stool was dark and tarry. She had some rectal pain with defecation d/t some constipation. She reports her stools are currently soft but continue to be dark and tarry. She states she has not seen any bright red blood. She also reports nausea. She reports that over the last day or so she has had increased BAHENA and extremity cramping with activity and that is always a sign that her blood counts are dropping. She denies fevers, chills, URI symptoms, chest pain, vomiting, diarrhea, dysuria, and edema. Patient is on Aspirin and Plavix last dose of Aspirin was this morning and last dose of Plavix was last night. In the ED VS were stable, Hgb was 9.3 and had been running around 10. POC lactate was 5.43. CTA a/p showed mild nonspecific enteritis but otherwise nothing acute. She was started on Cipro /Flagyl, and PPI gtt, and IVFs. GI was consulted and will follow the patient. She will be admitted for further workup and treatment. Past Medical/Surgical History Medical Problems: (1) Anxiety Status: Chronic (2) Degenerative disc disease Status: Chronic (3) Depression Status: Chronic (4) Diab Gloria Wo Compl, Type Ii Or Unspec Type, Not Uncntrld Status: Chronic (5) Diverticulosis Colon (W/O Ment Of Hemorrhage) Status: Resolved (6) History of CVA (cerebrovascular accident) Permanent Comment: 2012; no residual deficits Status: Resolved (7) Hyperlipidemia Nec/Nos Status: Chronic (8) Hypertension Nos Status: Chronic (9) Intestinal ischemia Permanent Comment: s/p hepatic artery to SMA in November 2014 S/p angioplasty of proximal and distal anastomoses of the common hepatic to superior mesenteric artery reversed saphenous vein bypass graft (4 mm [employer] balloon) by Dr. Gatica on 03/04/2015. -S/p angioplasty of proximal and distal anastomoses of the re-stenotic common hepatic => SMA reversed saphenous vein bypass graft 08/06/[address] Gatica. -S/p open exposure of left brachial artery (re-do), stenting of celiac artery ( [employer] iCast 7 x 22 mm stent post dilated to 8 mm), and angioplasty of proximal and distal anastomoses of the re-stenotic common hepatic to SMA reversed saphenous vein bypass graft (5 mm [employer] balloon) 12/10/[address] Gatica. Status: Chronic (10) Iron Defic Anemia Nos Status: Chronic (11) PAD (peripheral artery disease) Status: Chronic Surgical Problems: (1) History of appendectomy Status: Resolved (2) History of cholecystectomy Status: Resolved Family History Diabetes mellitus Kidney disease Social History Smoking Status: Former Smoker Alcohol Use: none Drug Use: none Marital Status: single Housing status: lives with family Occupational Status: retired Immunizations History of Influenza Vaccine: Yes Influenza Vaccine Date: Dec 17, 2013 History of Tetanus Vaccine?: utd Tetanus Immunization Date: Jun 22, 2011 History of Pneumococcal: Yes Pneumococcal Date: Jun 15, 2012 History of Hepatitis B Vaccine: No Hepatitis Immunization Date: [birth year], 1968 Multi-Drug Resistant Organisms History of MDRO: Yes Type of MDRO: MRSA Allergies Coded Allergies: Bupropion (Unverified Allergy, Intermediate, HIVES, 05/31/16) Iodinated Diagnostic Agents (Unverified Allergy, Intermediate, HIVES, 05/31) TOLERATED IVP DYE WITH 50 MG IV BENADRYL, 100 MG SOLUCORTEF IV AND 20 MG IV PEPCID PREP Oxycodone (Verified Allergy, Intermediate, rashes, 05/31/16) Penicillins (Verified Allergy, Intermediate, Hives, 05/31/16) Pioglitazone (Verified Allergy, Intermediate, HIVES, 05/31/16) Sulfa Antibiotics (Verified Allergy, Intermediate, Hives, 05/31/16) Sulfamethoxazole w/Trimethoprim (Verified Allergy, Intermediate, HIVES, ) Acetaminophen (Unverified Allergy, Mild, ITCHING, 05/31/16) Clindamycin (Unverified Allergy, Mild, ITCHING, 05/31/16) Codeine (Unverified Allergy, Mild, ITCING, 05/31/16) Erythromycin (Unverified Allergy, Mild, RASH, HIVES, 05/31/16) Glimepiride (Unverified Allergy, Mild, TONGUE TINGLING AND ITCHING, ) Morphine (Unverified Allergy, Mild, ITCHING, 05/31/16) NSAIDs (Verified Allergy, Mild, Itching - TORADOL OK, 05/31/16) Propoxyphene (Unverified Allergy, Mild, ITCHING, 05/31/16) Glipizide (Verified Allergy, Unknown, Needle sensation- Tongue, 05/31/16) Rosuvastatin (Unverified Adverse Reaction, Intermediate, MUSCLE PAIN, 05/31) Sitagliptin (Unverified Adverse Reaction, Intermediate, GI SYMPTOMS, ) Adhesives (Verified Adverse Reaction, Mild, Tape - skin irritation, ) Atorvastatin (Verified Adverse Reaction, Mild, Muscle cramps, 05/31/16) Hydrocodone (Verified Adverse Reaction, Mild, ITCHING, 05/31/16) FROM DARVOCET Metformin (Unverified Adverse Reaction, Mild, BLOATING, 05/31/16) Home Medications Scheduled Amitriptyline HCl (Amitriptyline HCl), 5 MG PO HS Ascorbic Acid (Vitamin C), 500 MG PO DAILY Aspirin (Aspirin EC Low Dose), 81 MG PO DAILY B-Complex W/Biotin & Folic Aci (Super B-Complex), 1 CAP PO DAILY Buspirone Hcl (Buspar), 30 MG PO BID Cholecalciferol (Vitamin D 1000 Unit), 1,000 INTER.UNIT PO DAILY Citalopram Hydrobromide (Celexa), 40 MG PO QAM Clopidogrel (Plavix), 75 MG PO HS Furosemide (Lasix), 1 TAB PO DAILY Gabapentin (Neurontin), 300 MG PO BID Insulin Isophan/Regular (Novolin 70/30), 35 UNITS SC BID Magnesium Oxide (Mg Supplement (Magnesium), 500 MG PO DAILY Metformin Hcl (Glucophage), 1,000 MG PO BIDM Octreotide Acetate (Sandostatin [place]), 20 MG IM MONTHLY Omeprazole (Prilosec), 40 MG PO BID Probiotic Product (Probiotic), 1 TAB PO DAILY Simvastatin (Zocor), 20 MG PO QPM Scheduled PRN Acetaminophen (Tylenol), 1-2 TAB PO Q8 PRN for Pain Albuterol Sulfate (Proventil Hfa), 2 PUFFS INH Q6 PRN for Wheezing Cyclobenzaprine Hcl (Flexeril), 1 TAB PO BID PRN for Muscle Spasms Lorazepam (Lorazepam), 0.5 MG PO HS PRN for Anxiety Ondansetron Hcl (Zofran), 4 MG PO TID PRN for Nausea Review of Systems See above for pertinent positives & negatives. A total of 10 systems reviewed and were otherwise negative. Physical Exam Vital Signs Date Time Temp Pulse Resp B/P Pulse Ox O2 Delivery O2 Flow Rate FiO2 05/31/16 14:00 96 20 135/56 96 Room Air 05/31/16 13:40 94 Room Air 05/31/16 12:00 92 18 148/68 94 05/31/16 11:35 95 Room Air 05/31/16 10:58 37.1 86 18 107/63 94 Room Air General Appearance: + pertinent finding (Very pleasant WD/WN 70 year old female lying inbed in NAD ) Head: normocephalic, atraumatic Eyes: PERRL, EOMI, sclerae normal ENT: hearing grossly normal, pharynx normal Neck: supple, no JVD Respiratory/Chest: chest non-tender, lungs clear, normal breath sounds, no respiratory distress, no accessory muscle use Cardiovascular: regular rate, rhythm, no edema, no gallop, no JVD, no murmur, normal peripheral pulses Abdomen/GI: normal bowel sounds, soft, + tenderness (diffuse mild tenderness, no guarding or rigidity ), + distended Back: normal inspection, no muscle spasm Extremities/Musculoskelatal: no calf tenderness, normal capillary refill, no pedal edema Neurologic/Psych: alert, oriented x 3, + pertinent finding (no motor or sensory deficits noted on gross exam ) Skin: normal color, warm/dry, no rash Lymphatic: no adenopathy Diagnostics Laboratory Results Results Past 24 Hours Test 05/31/16 11:33 05/31/16 11:35 05/31/16 11:38 05/31/16 11:44 Range/Units Bedside Lactic Acid Venous 5.43 0.90-1.70 mmol/L White Blood Count 7.32 4.8-10.8 K/uL Red Blood Count 3.34 4.2-5.4 M/uL Hemoglobin 9.3 12.0-16.0 g/dL Hematocrit 28.9 37-47 % Mean Corpuscular Volume 86.5 80-100 fL Mean Corpuscular Hemoglobin 27.8 25-34 pg Mean Corpuscular Hemoglobin Concent 32.2 32-36 g/dl Platelet Count 339 130-400 K/uL Mean Platelet Volume 10.0 7.4-10.4 fL Neutrophils (%) (Auto) 71.8 % Lymphocytes (%) (Auto) 16.9 % Monocytes (%) (Auto) 5.3 % Eosinophils (%) (Auto) 4.1 % Basophils (%) (Auto) 1.4 % Neutrophils # (Auto) 5.25 1.4-6.5 K/uL Lymphocytes # (Auto) 1.24 1.2-3.4 K/uL Monocytes # (Auto) 0.39 0.11-0.59 K/uL Eosinophils # (Auto) 0.30 0-0.5 K/uL Basophils # (Auto) 0.10 0-0.2 K/uL RDW Standard Deviation 52.2 36.4-46.3 fL RDW Coefficient of Variation 16.4 11.5-14.5 % Immature Granulocyte % (Auto) 0.5 % Immature Granulocyte # (Auto) 0.04 0.00-0.02 K/uL Erythrocyte Sedimentation Rate 6 0-21 mm/hr Prothrombin Time 10.2 9.0-12.0 SECONDS Prothromb Time International Ratio 1.0 0.9-1.1 Activated Partial Thromboplast Time 22.6 21.0-31.0 SECONDS Partial Thromboplastin Ratio 0.9 Sodium Level 139 136-145 mmol/L Potassium Level 4.0 3.5-5.1 mmol/L Chloride Level 104 98-107 mmol/L Carbon Dioxide Level 19 21-32 mmol/L Anion Gap 16.0 21.0 16-25 mmol/L Blood Urea Nitrogen 18 7-18 mg/dl Creatinine 1.30 0.60-1.20 mg/dl Est Creatinine Clear Calc Drug Dose 41.2 ml/min Estimated GFR () 48.5 Estimated GFR (Non- 41.8 BUN/Creatinine Ratio 13.8 10-20 Random Glucose 297 70-99 mg/dl Calcium Level 9.2 8.5-10.1 mg/dl Phosphorus Level 3.1 2.5-4.9 mg/dl Magnesium Level 1.6 1.8-2.4 mg/dl Total Bilirubin 0.3 0.2-1 mg/dl Aspartate Amino Transf (AST/SGOT) 16 15-37 U/L Alanine Aminotransferase (ALT/SGPT) 23 12-78 U/L Alkaline Phosphatase 81 45-117 U/L Total Creatine Kinase 71 26-192 U/L Creatine Kinase MB 1.5 0.5-3.6 ng/ml Creatine Kinase MB Ratio 2.1 0-3.0 C-Reactive Protein 0.63 0-0.29 mg/dl Total Protein 6.6 6.4-8.2 gm/dl Albumin 3.4 3.4-5.0 gm/dl Globulin 3.2 2.5-4.0 gm/dl Albumin/Globulin Ratio 1.1 0.9-2 Lipase 123 73-393 U/L Thyroid Stimulating Hormone (TSH) 1.610 0.300-4.500 uIu/ml Bedside Hemoglobin 9.2 12.0-16.0 g/dl Bedside Hematocrit 27 37-47 % Bedside Sodium 137 135-144 mEq/L Bedside Potassium 4.1 3.3-5.0 mEq/L Bedside Chloride 102 101-112 mEq/L Bedside Total CO2 19 24-31 mEq/l Bedside Blood Urea Nitrogen 18 7-18 mg/dl Bedside Creatinine 0.9 0.6-1.3 mg/dl Bedside Glucose (other) 306 70-99 mg/dl Bedside Ionized Calcium (Rylie) 1.17 1.12-1.32 mmol/l Bedside Troponin I 0.000 0-0.045 ng/ml Test 05/31/16 11:55 Range/Units Urine Color DK YELLOW Urine Appearance CLEAR CLEAR Urine pH 5.0 4.5-7.5 Urine Specific [place] 1.022 1.000-1.030 Urine Protein NEG NEG Urine Glucose (UA) 3+ NEG Urine Ketones 1+ NEG Urine Occult Blood NEG NEG Urine Nitrite NEG NEG Urine Bilirubin NEG NEG Urine Urobilinogen NEG NEG Urine Leukocyte Esterase TRACE NEG Urine WBC (Auto) 1-5 0-5 /hpf Urine RBC (Auto) 0-4 0-4 /hpf Urine Hyaline Casts (Auto) 1-5 0-5 /lpf Urine Epithelial Cells (Auto) 10-20 0-5 /lpf Urine Bacteria (Auto) NEG NEG Diagnostic Radiology CTA A/P Per radiologist read: IMPRESSION: 1. Suggestion of minimal fat stranding adjacent to the short segment of the proximal jejunum. This is consistent with a mild nonspecific enteritis. 2. No evidence for bowel obstruction. 3. The celiac artery stent is patent. 4. Occluded proximal superior and inferior mesenteric arteries with reconstitution through collaterals. This is likely chronic. 5. The aortobiiliac grafts appear patent. 6. A 1.9 cm enhancing lesion within the right hepatic lobe. This favors a hemangioma. 7. Additional findings as described above. CT A/P Per radiologist read: IMPRESSION: 1. No evidence for an obstructive bowel pattern. 2. Improved study as compared to the prior exam. 3. No evidence for an acute process. EKG Sinus Tachycardia 104 BPM, QTc 407 Impression Assessment and Plan 70 year old female well known to the hospitalist service presents to the ED complaining dark tarry stools UPPER GI BLEED -Admit to tele -presents with Dark Tarry stools, has history of AVMS, mesenteric ischemia. Last EGD in 05/04 without signs of AVM or evidence of bleeding -Hgb 9.3 has been around 10 recently -Serial H&H q6h -type and cross 2 units, transfuse prn -Lactate 5.43 - known history of mesenteric ischemia, CTA a/p with nonspecific enteritis -Serial Lactate q6h -Protonix gtt -IVFs -nonspecific enteritis by CTA - empirically treat with Cipro/Flagyl -npo except sips and chips -GI consulted and on board, input appreciated - follows with Dr. Srivastava -Hemodynamically stable CHRONIC MESENTERIC ISCHEMIA -follows with Dr. Clark - vascular surgery at [facility] [place] -hold aspirin and Plavix for GI bleed -CTA a/p without signs of acute ischemia -Lactate 5.43, will trend BILL -likely pre-renal etiology -IVF overnight, PRP in am ANEMIA -2/2 blood loss and frequent phlebotomy s/p two recent hospitalizations -just slightly lower now than at discharge 2 weeks ago -trend H/H q6h in setting of possible bleed COPD -stable -continue home inhalers prn IDDM -A1c 6 -SSI coverage -BSG AC HS -Pharmacy consulted for glycemic control - BSG >290 DEPRESSION -continue Celexa, Ativan, BuSpar, Amitriptyline [id number] RED BLOOD CELL ANTIBODY POSITIVE -has had difficulties getting PRBCs in the past -2 units ordered HLD -hold statin while npo H/O CVA -no residual defects -hold ASA for GI bleed -hold statin while npo DVT PROPHYLAXIS: SCDs RE: GI bleed CODE STATUS: FULL CODE DISPO:In my clinical judgment this beneficiary meets acute admission criteria, established by [facility], that includes being hospitalized through two midnights. Patient seen in collaboration with Dr. Duran [facility] Telemetry Advanced Directives Existing Living Will: No Existing Power of Assembly Leader: No Resuscitation Status FULL RESUSCITATION VTE Prophylaxis VTE Risk Assessment Done? Y/N: Yes Risk Level: Moderate Given or contraindicated: Contraindicated Note ADDENDUM: 70 yoF with chronic mesenteric ischemia and recurrent bowel obstructions presents today with 1-2 days of dark red stools consistent with melena. She was recently admitted 05/05-05/09 for a GI bleed, transfused 2 Units of pRBCs and had a normal EGD. She then developed upper abdominal pain at home and was readmitted for SBO from 05/11-, which was managed non-operatively. Upon discharge, her H/H was 10.1/31.7 and on presentation today (05/31) she is 9.3/29. She has a h/o AVMs in her GI tract and in Nov 2015 underwent stenting of celiac artery and angio of the proximal and distal anastomoses of the re- stenotic common hepatic to SMA reversed saphenous vein bypass graft. On exam she has borderline tachycardia but is alert and appropriate in no distress. Her abdominal exam reveals pain in the LUQ>RUQ with some guarding of this area. She also has minor pain in the LLQ. Heart and lungs are clear and no other signs of bruising or bleeding are present. CTA of the abdomen reveals non- specific enteritis, no evidence of bowel obstruction, a patent celiac artery, likely chronic occluded proximal superior and inferior mesenteric arteries with reconstitution through collaterals, patent aortobiiliac grafts, a 2cm hemangioma of the liver. General surgery and GI were both consulted. I agree with trending the lactate and H/H every 6hrs along with the empiric Cipro/ Flagyl in the setting of enteritis. Cont protonix drip and ER states 2IV sites are present with blood on hold if needed. Otherwise I have examined the patient and discussed the case with the provider above. I agree with the assessment and plan as stated. Dispo to tele for further monitoring. Odessa Duran DO
--- NOTE | 2016-05-31 17:44 | Gastrointestinal Consultation ---
Gastrointestinal Consultation Date of Consultation: May 31, 2016 Consulting Physician: Diego Reason for Consultation: melena History of Present Illness Patient is a 70 year old female with past medical history significant for IBS, essential tremor, hyperlipidemia, lung nodule, fibromyalgia, iron deficiency anemia, COPD, celiac artery stenosis, depression, ischemic bowel disease, chronic mesenteric ischemia with bypass and stenting, AVMs angiodysplasia of intestine, T2DM, CVA on aspirin and SBO who presents to the ED with symptomatic anemia with melena. She reports for the past two days she has been having dark, tarry stools. There was associated rectal pain that was resolved after the BM was passed. There was no abdominal pain. There was intermittent nausea but no vomiting. She reports that she started to notice SOB with activity and lower extremity cramping. She sought emergency medical attention because she reports last time she ignored these early symptoms and that her blood count was very low. She is denying any fever, chills, chest pain, SOB or BRBPR. WBC 7, H&H 9.3/28, lactic acid 5.4 She follows closely with Dr. Srivastava for recurrent episodes with melena. She is receiving octreotide monthly infusions. CT abd: No evidence for an obstructive bowel pattern, improved study as compared to the prior exam, No evidence for an acute process. CTA abd: Suggestion of minimal fat stranding adjacent to the short segment of the proximal jejunum. This is consistent with a mild nonspecific enteritis. No evidence for bowel obstruction. The celiac artery stent is patent. Occluded proximal superior and inferior mesenteric arteries with reconstitution through collaterals. This is likely chronic. The aortobiiliac grafts appear patent. A 1.9 cm enhancing lesion within the right hepatic lobe. This favors a hemangioma. EGD 05/06/16: Dr. Verduzco, unremarkable and normal study. Past Medical/Surgical History Medical Problems: (1) Abdominal pain Status: Acute (2) Abdominal pain Status: Acute (3) Diffuse abdominal pain Status: Acute (4) Hx of arteriovenous malformation (AVM) Status: Acute (5) Lactic acidosis Status: Acute (6) Mesenteric ischemia Status: Acute (7) Mesenteric ischemia Status: Acute (8) Mesenteric ischemia Status: Acute (9) Occlusion of superior mesenteric artery Status: Acute (10) Symptomatic anemia Status: Acute Family History Diabetes mellitus Kidney disease Social History Smoking Status: Former Smoker Alcohol Use: none Drug Use: none Marital Status: single Housing Status: lives with family Occupation Status: retired Allergies Coded Allergies: Bupropion (Unverified Allergy, Intermediate, HIVES, 05/31/16) Iodinated Diagnostic Agents (Unverified Allergy, Intermediate, HIVES, 05/31) TOLERATED IVP DYE WITH 50 MG IV BENADRYL, 100 MG SOLUCORTEF IV AND 20 MG IV PEPCID PREP Oxycodone (Verified Allergy, Intermediate, rashes, 05/31/16) Penicillins (Verified Allergy, Intermediate, Hives, 05/31/16) Pioglitazone (Verified Allergy, Intermediate, HIVES, 05/31/16) Sulfa Antibiotics (Verified Allergy, Intermediate, Hives, 05/31/16) Sulfamethoxazole w/Trimethoprim (Verified Allergy, Intermediate, HIVES, ) Clindamycin (Unverified Allergy, Mild, ITCHING, 05/31/16) Codeine (Unverified Allergy, Mild, ITCING, 05/31/16) Erythromycin (Unverified Allergy, Mild, RASH, HIVES, 05/31/16) Glimepiride (Unverified Allergy, Mild, TONGUE TINGLING AND ITCHING, ) Morphine (Unverified Allergy, Mild, ITCHING, 05/31/16) NSAIDs (Verified Allergy, Mild, Itching - TORADOL OK, 05/31/16) Propoxyphene (Unverified Allergy, Mild, ITCHING, 05/31/16) Glipizide (Verified Allergy, Unknown, Needle sensation- Tongue, 05/31/16) Rosuvastatin (Unverified Adverse Reaction, Intermediate, MUSCLE PAIN, 05/31) Sitagliptin (Unverified Adverse Reaction, Intermediate, GI SYMPTOMS, ) Adhesives (Verified Adverse Reaction, Mild, Tape - skin irritation, ) Atorvastatin (Verified Adverse Reaction, Mild, Muscle cramps, 05/31/16) Hydrocodone (Verified Adverse Reaction, Mild, ITCHING, 05/31/16) FROM DARVOCET Metformin (Unverified Adverse Reaction, Mild, BLOATING, 05/31/16) Current Medications Home Meds and Scripts Medications Dose Route/Sig Max Daily Dose Days Date Category Dose Instructions Prilosec (Omeprazole) 40 Mg Cap 40 Mg PO BID 05/31/16 Reported Zofran (Ondansetron HCl) 4 Mg Tab 4 Mg PO TID PRN 05/13/16 Rx Magnesium (Magnesium Oxide (Mg Supplement) 500 Mg Cap 500 Mg PO DAILY 05/05/16 Reported Vitamin C (Ascorbic Acid) 500 Mg Tab 500 Mg PO DAILY 05/05/16 Reported Vitamin D 1000 Unit (Cholecalciferol) 1,000 Unit Cap 1,000 Inter.unit PO DAILY 05/05/16 Reported Proventil Hfa (Albuterol Sulfate) 108 Mcg/Act Aer 2 Puffs INH Q6 PRN 05/05/16 Reported Sandostatin [place] (Octreotide Acetate) 20 Mg Kit 20 Mg IM MONTHLY 02/01/16 Reported Novolin 70/30 (Insulin Human Isoph/Insulin Regular) Susp 35 Units SC BID 02/01/16 Reported TAKE BEFORE BREAKFAST AND SUPPER Probiotic (Probiotic Product) 1 Tab Tab 1 Tab PO DAILY 02/01/16 Reported Tylenol (Acetaminophen) 500 Mg Tab 1-2 Tab PO Q8 PRN 3 02/01/16 Reported Plavix (Clopidogrel Bisulfate) 75 Mg Tab 75 Mg PO HS 02/01/16 Reported Glucophage (Metformin Hcl) 1,000 Mg Tab 1,000 Mg PO BIDM 02/01/16 Reported Lasix (Furosemide) 20 Mg Tab 1 Tab PO DAILY 02/01/16 Reported CAN TAKE 1 EXTRA FOR INCREASED SWELLING/EDEMA WITH WEIGHT GAIN Flexeril (Cyclobenzaprine Hcl) 5 Mg Tab 1 Tab PO BID PRN 30 02/01/16 Reported Neurontin (Gabapentin) 300 Mg Cap 300 Mg PO BID 02/01/16 Reported Amitriptyline HCl 10 Mg Tab 5 Mg PO HS 10/20/15 Reported Super B-Complex (B-Complex W/Biotin & Folic Aci) 1 Cap Cap 1 Cap PO DAILY 10/10/15 Reported Zocor (Simvastatin) 20 Mg Tab 20 Mg PO QPM 10/10/15 Reported Lorazepam 0.5 Mg Tab 0.5 Mg PO HS PRN 02/28/15 Reported Aspirin EC Low Dose (Aspirin) 81 Mg Ectab 81 Mg PO DAILY 02/28/15 Reported Buspar (Buspirone Hcl) 15 Mg Tab 30 Mg PO BID 10/01/14 Reported Celexa (Citalopram Hydrobromide) 40 Mg Tab 40 Mg PO QAM 07/04/11 Reported Review of Systems Constitutional: No chills, No fever Respiratory: No cough, No shortness of breath Cardiac: No chest pain, No edema Abdomen: + GI bleeding, + nausea, No constipation, No diarrhea, No pain, No vomiting Skin: No itch, No jaundice, No rash Physical Exam Date Time Temp Pulse Resp B/P Pulse Ox O2 Delivery O2 Flow Rate FiO2 05/31/16 17:06 94 18 120/67 97 05/31/16 16:47 92 05/31/16 16:12 98 18 106/58 97 Room Air 05/31/16 14:00 96 20 135/56 96 Room Air 05/31/16 13:40 94 Room Air 05/31/16 12:00 92 18 148/68 94 05/31/16 11:35 95 Room Air 05/31/16 10:58 37.1 86 18 107/63 94 Room Air General Appearance: no apparent distress (patient was seen and evaluated in POD C in the ER) Eyes: PERRL ENT: hearing grossly normal Neck: supple, trachea midline Respiratory/Chest: lungs clear, normal breath sounds, no respiratory distress, no accessory muscle use Cardiovascular: regular rate, rhythm, no gallop, no JVD, no murmur Abdomen: normal bowel sounds, non tender, soft, no organomegaly Neurologic/Psych: alert, normal mood/affect, oriented x 3 Skin: normal color, no jaundice, warm/dry, no rash Laboratory Results Last 24 Hours Test 05/31/16 11:33 05/31/16 11:35 05/31/16 11:38 05/31/16 11:44 Bedside Lactic Acid Venous 5.43 mmol/L White Blood Count 7.32 K/uL Red Blood Count 3.34 M/uL Hemoglobin 9.3 g/dL Hematocrit 28.9 % Mean Corpuscular Volume 86.5 fL Mean Corpuscular Hemoglobin 27.8 pg Mean Corpuscular Hemoglobin Concent 32.2 g/dl Platelet Count 339 K/uL Mean Platelet Volume 10.0 fL Neutrophils (%) (Auto) 71.8 % Lymphocytes (%) (Auto) 16.9 % Monocytes (%) (Auto) 5.3 % Eosinophils (%) (Auto) 4.1 % Basophils (%) (Auto) 1.4 % Neutrophils # (Auto) 5.25 K/uL Lymphocytes # (Auto) 1.24 K/uL Monocytes # (Auto) 0.39 K/uL Eosinophils # (Auto) 0.30 K/uL Basophils # (Auto) 0.10 K/uL RDW Standard Deviation 52.2 fL RDW Coefficient of Variation 16.4 % Immature Granulocyte % (Auto) 0.5 % Immature Granulocyte # (Auto) 0.04 K/uL Erythrocyte Sedimentation Rate 6 mm/hr Prothrombin Time 10.2 SECONDS Prothromb Time International Ratio 1.0 Activated Partial Thromboplast Time 22.6 SECONDS Partial Thromboplastin Ratio 0.9 Sodium Level 139 mmol/L Potassium Level 4.0 mmol/L Chloride Level 104 mmol/L Carbon Dioxide Level 19 mmol/L Anion Gap 16.0 mmol/L 21.0 mmol/L Blood Urea Nitrogen 18 mg/dl Creatinine 1.30 mg/dl Est Creatinine Clear Calc Drug Dose 41.2 ml/min Estimated GFR () 48.5 Estimated GFR (Non- 41.8 BUN/Creatinine Ratio 13.8 Random Glucose 297 mg/dl Calcium Level 9.2 mg/dl Phosphorus Level 3.1 mg/dl Magnesium Level 1.6 mg/dl Total Bilirubin 0.3 mg/dl Aspartate Amino Transf (AST/SGOT) 16 U/L Alanine Aminotransferase (ALT/SGPT) 23 U/L Alkaline Phosphatase 81 U/L Total Creatine Kinase 71 U/L Creatine Kinase MB 1.5 ng/ml Creatine Kinase MB Ratio 2.1 C-Reactive Protein 0.63 mg/dl Total Protein 6.6 gm/dl Albumin 3.4 gm/dl Globulin 3.2 gm/dl Albumin/Globulin Ratio 1.1 Lipase 123 U/L Thyroid Stimulating Hormone (TSH) 1.610 uIu/ml Bedside Hemoglobin 9.2 g/dl Bedside Hematocrit 27 % Bedside Sodium 137 mEq/L Bedside Potassium 4.1 mEq/L Bedside Chloride 102 mEq/L Bedside Total CO2 19 mEq/l Bedside Blood Urea Nitrogen 18 mg/dl Bedside Creatinine 0.9 mg/dl Bedside Glucose (other) 306 mg/dl Bedside Ionized Calcium (Rylie) 1.17 mmol/l Bedside Troponin I 0.000 ng/ml Test 05/31/16 11:55 05/31/16 17:00 Urine Color DK YELLOW Urine Appearance CLEAR Urine pH 5.0 Urine Specific [place] 1.022 Urine Protein NEG Urine Glucose (UA) 3+ Urine Ketones 1+ Urine Occult Blood NEG Urine Nitrite NEG Urine Bilirubin NEG Urine Urobilinogen NEG Urine Leukocyte Esterase TRACE Urine WBC (Auto) 1-5 /hpf Urine RBC (Auto) 0-4 /hpf Urine Hyaline Casts (Auto) 1-5 /lpf Urine Epithelial Cells (Auto) 10-20 /lpf Urine Bacteria (Auto) NEG Impression Patient is a 70 year old female with history of recurrent melena secondary to AVM. As an outpatient she receives octreotide infusions once monthly - unlikely to be working at this time due to recurrent episodes of melena. VSS and H&H stable. There is no elevated white count but lactic acid elevation. Differentials include AVM, gastritis, esophagitis, PUD, colitis Plan Surgery was consulted per ED doc Monitor stools, trend H&H, transfuse as needed Repeat lactic acid - ?GI etiology with unspecified colitis - may continue coverage with cipro/flagyl PPI drip stool studies if loose stools develop Additional recommendations to follow Please call with any questions ATTESTATION: I have performed a history and physical examination of this patient and reviewed the electronic record. Specifically, on physical examination there is mild tenderness. I have discussed the case with FRANC Gomez. The above note reflects my findings, conclusions, and recommendations. Hi Cortez MD
[2016-05-31] MEDS ORDERED: PHARMACY GLYCEMIC MGMT CONSULT SCH (18:17)
[2016-05-31] MEDS: PANTOprazole INJ 40 MG in DEXTROSE 5% 100ML IV SCH ×2 (18:21→22:34)
[2016-05-31] MEDS: SODIUM CHLORIDE 0.9% 1000ML 1,000 ML IV SCH (18:21)
[2016-05-31] MEDS: INSULIN ASPART 100 UNITS/ML 3 ML PEN SC SCH ×2 (18:29→21:16)
[2016-05-31 19:19] LABS: HEMATOCRIT 27.4 % (37-47)
[2016-05-31 19:51] VITALS: BP 126/74; PULSE 96; TEMP 36.9; O2SAT 96
[2016-05-31] MEDS ORDERED: PROB1TAB16 PO (20:17)
[2016-05-31] MEDS ORDERED: INSULIN GLARGINE SOLOSTAR 100 UNITS/ML 3 ML PEN SC SCH (21:00)
[2016-05-31] MEDS: AMITRIPTYLINE HCL 10 MG TAB PO SCH (21:13)
[2016-05-31] MEDS: BusPIRone 15 MG TAB PO SCH (21:13)
[2016-05-31] MEDS: GABAPENTIN 300 MG CAP PO SCH (21:14)
[2016-05-31] MEDS: MAGNESIUM SULFATE 1GM / D5W 1 GM in PREMIXED IN D5W 100 ML IV SCH (23:05)
[2016-05-31] MEDS: METRONIDAZOLE / NSS 500 MG in PREMIXED NSS 100 ML IV SCH (23:09)
[2016-05-31 23:15] LABS: HEMATOCRIT 26.4 % (37-47)
[2016-06-01] MEDS: MAGNESIUM SULFATE 1GM / D5W 1 GM in PREMIXED IN D5W 100 ML IV SCH ×3 (00:12→02:25)
[2016-06-01] MEDS: INSULIN ASPART 100 UNITS/ML 3 ML PEN SC SCH ×4 (00:13→17:23)
[2016-06-01 00:42] VITALS: BP 110/56; PULSE 82; TEMP 37.1; O2SAT 93
--- NOTE | 2016-06-01 02:17 | SURGICAL CONSULTATION ---
DATE OF CONSULTATION: 05/31/2016 I have been asked by Palmira Rubalcava to see this 70-year-old female who presented to the Emergency Room with complaint of abdominal pain, mostly in the left lower quadrant and nausea. The patient has a very long involved GI history. She has irritable bowel syndrome as well. She has been admitted for multiple episodes of what she describes as bowel obstruction, all of which have resolved spontaneously. She has a history of GI bleeding, felt to be due to multiple AV malformations. 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 She has a patent celiac. She underwent a hepatic artery to SMA bypass for revascularization of the SMA system. She has subsequently had 3 procedures for balloon angioplasty of the proximal and distal anastomosis related to that bypass. She has had an aortobifemoral bypass. She has at least [id number] history of smoking and quit only 2 years ago. She began to develop nausea and discomfort in the left lower quadrant that was consistent with the onset of her small bowel obstructions. Her most recent hospitalization was about 2 weeks ago. That resolved spontaneously. She had returned to a regular diet since then. At present, the discomfort has decreased. She has only mild nausea. She has been passing gas. Her last bowel movement was yesterday. She has had melena for the last 2 days. She is on Plavix for patency of the hepatic artery to SMA bypass. Her lactic acid was 5.4, H\T\H was 9.3 and 28. PAST MEDICAL HISTORY: Includes hyperlipidemia, fibromyalgia, iron deficiency anemia, COPD, celiac artery stenosis, SMA occlusion, KRISTA occlusion, diabetes mellitus type 2, CVA and bowel obstructions, lung nodule, IBS, essential tremor. PAST SURGICAL HISTORY: For tubal ligation, cholecystectomy, hepatic artery to SMA bypass, angioplasty x3, aortobifemoral bypass. MEDICATIONS: At home include amitriptyline, aspirin, BuSpar, Celexa, Plavix, Lasix, Neurontin, Novolin 70/30, Glucophage, Sandostatin, Prilosec, probiotic, Zocor, and multiple vitamins. ALLERGIES: MULTIPLE, PLEASE SEE CHART FOR LIST. SOCIAL HISTORY: She no longer smokes. She does not drink alcohol. PHYSICAL EXAMINATION: GENERAL: Reveals a well-developed, well-nourished female who is resting comfortably and answers questions appropriately. VITAL SIGNS: Blood pressure 126/74, heart rate 96, respirations 18, temperature 36.9, pulse oximetry is 96% on room air. HEENT: Reveals the sclerae to be anicteric. Mucous membranes are moist. NECK: Supple with no adenopathy. BACK: Has no spinal or CVA tenderness. LUNGS: Clear. HEART: Regular. ABDOMEN: Has normoactive bowel sounds, is soft, nondistended. There is tenderness mostly in the left lower quadrant but diffuse mild tenderness throughout. EXTREMITIES: Reveal no edema. LABORATORY DATA: WBC 7.32, H\T\H is 9.3 and 28.9 with a platelet count of 339,000. Sodium 137, potassium 4.1, chloride 102, CO2 19, BUN 18, creatinine 0.9, glucose 306 and subsequent lactic acid is 2.8. CT scan of the abdomen and pelvis with CT angiography shows minimal fat stranding adjacent to a short segment of proximal jejunum, consistent with mild nonspecific enteritis. There is no evidence of bowel obstruction. The celiac artery stent is patent. The [id number] grafts appear patent. ASSESSMENT AND PLAN: This patient has chronic ischemia with arteriovenous malformations and is on Plavix. She has melena. She is mildly anemic. She has some abdominal tenderness as well but not significant abdominal pain at the present time. She is moving her bowels. She is passing flatus. There is no evidence of bowel obstruction by CT scan. I do not feel that there is any need for immediate surgical intervention. If surgical intervention would become necessary and because of her multiple comorbid conditions, tertiary care center would be the best option for her. She agrees with that.
[2016-06-01] MEDS: PANTOprazole INJ 40 MG in DEXTROSE 5% 100ML IV SCH ×5 (03:34→21:50)
[2016-06-01] MEDS: SODIUM CHLORIDE 0.9% 1000ML 1,000 ML IV SCH ×3 (03:34→16:28)
[2016-06-01] MEDS: CIPROFLOXACIN / D5W 400 MG in PREMIXED IN D5W 200 ML IV SCH ×3 (03:35→21:31)
[2016-06-01 03:59] VITALS: BP 111/46; PULSE 86; TEMP 37; O2SAT 93
[2016-06-01 05:39] LABS: HEMATOCRIT 25.2 % (37-47); MEAN CELL VOLUME 83.2 fL (80-100); MEAN CORPUSCULAR HEMOGLOBIN 27.7 pg (25-34); MEAN CORPUSCULAR HGB CONC 33.3 g/dl (32-36); MEAN PLATELET VOLUME 9.5 fL (7.4-10.4); PLATELET COUNT 311 K/uL (130-400); RED BLOOD COUNT 3.03 M/uL (4.2-5.4)
[2016-06-01] MEDS: METRONIDAZOLE / NSS 500 MG in PREMIXED NSS 100 ML IV SCH ×3 (06:10→23:19)
[2016-06-01 06:12] LABS: BUN/CREATININE RATIO 10.9 (10-20); CALCIUM 8.3 mg/dl (8.5-10.1); CREATININE 1.1 mg/dl (0.60-1.20); MAGNESIUM 2.8 mg/dl (1.8-2.4); POTASSIUM 4.3 mmol/L (3.5-5.1)
[2016-06-01] MEDS ORDERED: SODIUM CHLORIDE 0.45% 1000ML 1,000 ML IV ONE (06:30)
[2016-06-01 08:11] VITALS: BP 117/50; PULSE 86; TEMP 36.9; O2SAT 97
[2016-06-01] MEDS: GABAPENTIN 300 MG CAP PO SCH ×2 (08:14→21:33)
[2016-06-01] MEDS: CITALOPRAM 40 MG TAB PO SCH (08:14)
[2016-06-01] MEDS: BusPIRone 15 MG TAB PO SCH ×2 (08:14→21:32)
--- NOTE | 2016-06-01 08:43 | Progress Note ---
Medicine Progress Note Date & Time of Visit: Jun 01, 2016 at 08:37. Subjective resting in bed, appears comfortable had 1 melena episode yesterday, no recurrence, no abdominal pain/nausea, (+) hungry denies dizziness, chest pain, dyspnea weakness is improving denies other symptoms Objective Last 8 Hrs Date Time Temp Pulse Resp B/P Pulse Ox O2 Delivery O2 Flow Rate FiO2 06/01/16 08:11 36.9 86 18 117/50 97 06/01/16 04:02 Room Air 06/01/16 03:59 37.0 86 19 111/46 93 Room Air 06/01/16 00:42 37.1 82 19 110/56 93 Room Air Physical Exam: General- oriented x 3, not in distress, speaks in sentences with no effort Head- atraumatic Eyes- anicteric ENT- oropharynx clear Neck- supple, no JVD, no adenopathy Lungs- clear to auscultation bilaterally Heart-normal rate, regular rhythm; no murmurs Abdomen- normal bowel sounds, non distended, soft, nontender Extremities- no pretibial edema, no calf tenderness Neuro- alert, oriented x 3; no gross deficits Skin- warm & dry Laboratory Results: Last 24 Hours Test 05/31/16 11:33 05/31/16 11:35 05/31/16 11:38 05/31/16 11:44 Bedside Lactic Acid Venous 5.43 mmol/L White Blood Count 7.32 K/uL Red Blood Count 3.34 M/uL Hemoglobin 9.3 g/dL Hematocrit 28.9 % Mean Corpuscular Volume 86.5 fL Mean Corpuscular Hemoglobin 27.8 pg Mean Corpuscular Hemoglobin Concent 32.2 g/dl Platelet Count 339 K/uL Mean Platelet Volume 10.0 fL Neutrophils (%) (Auto) 71.8 % Lymphocytes (%) (Auto) 16.9 % Monocytes (%) (Auto) 5.3 % Eosinophils (%) (Auto) 4.1 % Basophils (%) (Auto) 1.4 % Neutrophils # (Auto) 5.25 K/uL Lymphocytes # (Auto) 1.24 K/uL Monocytes # (Auto) 0.39 K/uL Eosinophils # (Auto) 0.30 K/uL Basophils # (Auto) 0.10 K/uL RDW Standard Deviation 52.2 fL RDW Coefficient of Variation 16.4 % Immature Granulocyte % (Auto) 0.5 % Immature Granulocyte # (Auto) 0.04 K/uL Erythrocyte Sedimentation Rate 6 mm/hr Prothrombin Time 10.2 SECONDS Prothromb Time International Ratio 1.0 Activated Partial Thromboplast Time 22.6 SECONDS Partial Thromboplastin Ratio 0.9 Sodium Level 139 mmol/L Potassium Level 4.0 mmol/L Chloride Level 104 mmol/L Carbon Dioxide Level 19 mmol/L Anion Gap 16.0 mmol/L 21.0 mmol/L Blood Urea Nitrogen 18 mg/dl Creatinine 1.30 mg/dl Est Creatinine Clear Calc Drug Dose 41.2 ml/min Estimated GFR () 48.5 Estimated GFR (Non- 41.8 BUN/Creatinine Ratio 13.8 Random Glucose 297 mg/dl Calcium Level 9.2 mg/dl Phosphorus Level 3.1 mg/dl Magnesium Level 1.6 mg/dl Total Bilirubin 0.3 mg/dl Aspartate Amino Transf (AST/SGOT) 16 U/L Alanine Aminotransferase (ALT/SGPT) 23 U/L Alkaline Phosphatase 81 U/L Total Creatine Kinase 71 U/L Creatine Kinase MB 1.5 ng/ml Creatine Kinase MB Ratio 2.1 C-Reactive Protein 0.63 mg/dl Total Protein 6.6 gm/dl Albumin 3.4 gm/dl Globulin 3.2 gm/dl Albumin/Globulin Ratio 1.1 Lipase 123 U/L Thyroid Stimulating Hormone (TSH) 1.610 uIu/ml Bedside Hemoglobin 9.2 g/dl Bedside Hematocrit 27 % Bedside Sodium 137 mEq/L Bedside Potassium 4.1 mEq/L Bedside Chloride 102 mEq/L Bedside Total CO2 19 mEq/l Bedside Blood Urea Nitrogen 18 mg/dl Bedside Creatinine 0.9 mg/dl Bedside Glucose (other) 306 mg/dl Bedside Ionized Calcium (Rylie) 1.17 mmol/l Bedside Troponin I 0.000 ng/ml Test 05/31/16 11:55 05/31/16 19:04 05/31/16 20:53 05/31/16 23:05 Urine Color DK YELLOW Urine Appearance CLEAR Urine pH 5.0 Urine Specific [place] 1.022 Urine Protein NEG Urine Glucose (UA) 3+ Urine Ketones 1+ Urine Occult Blood NEG Urine Nitrite NEG Urine Bilirubin NEG Urine Urobilinogen NEG Urine Leukocyte Esterase TRACE Urine WBC (Auto) 1-5 /hpf Urine RBC (Auto) 0-4 /hpf Urine Hyaline Casts (Auto) 1-5 /lpf Urine Epithelial Cells (Auto) 10-20 /lpf Urine Bacteria (Auto) NEG Hemoglobin 8.8 g/dL 8.7 g/dL Hematocrit 27.4 % 26.4 % Lactic Acid Level 2.8 mmol/L 2.5 mmol/L Bedside Glucose 269 mg/dl Test 05/31/16 23:59 06/01/16 05:32 06/01/16 06:11 Bedside Glucose 271 mg/dl 303 mg/dl White Blood Count 14.00 K/uL Red Blood Count 3.03 M/uL Hemoglobin 8.4 g/dL Hematocrit 25.2 % Mean Corpuscular Volume 83.2 fL Mean Corpuscular Hemoglobin 27.7 pg Mean Corpuscular Hemoglobin Concent 33.3 g/dl RDW Standard Deviation 49.4 fL RDW Coefficient of Variation 16.2 % Platelet Count 311 K/uL Mean Platelet Volume 9.5 fL Sodium Level 141 mmol/L Potassium Level 4.3 mmol/L Chloride Level 106 mmol/L Carbon Dioxide Level 23 mmol/L Anion Gap 12.0 mmol/L Blood Urea Nitrogen 12 mg/dl Creatinine 1.10 mg/dl Est Creatinine Clear Calc Drug Dose 48.0 ml/min Estimated GFR () 59.3 Estimated GFR (Non- 51.2 BUN/Creatinine Ratio 10.9 Random Glucose 271 mg/dl Lactic Acid Level 2.9 mmol/L Calcium Level 8.3 mg/dl Magnesium Level 2.8 mg/dl Date/Time Source Procedure Growth Status 05/31/16 20:55 Stool C.difficile Toxin B Gene (PCR) - Final No C. difficile toxin B gene detected Complete 05/31/16 20:55 Stool Shiga Toxin Test Pending Received 05/31/16 20:55 Stool Stool Culture Pending Received Assessment & Plan 70 year old female with history of chronic mesenteric ischemia s/p stent and bypass graft, Multiple AVMs on monthly octreotide injections, presenting with melena. ANEMIA, LIKELY SECONDARY TO ACUTE BLOOD LOSS FROM UPPER GI BLEED, UNCLEAR ETIOLOGY - recent EGD in 05/04 unrevealing - Hg decreased from 9.4 to 8.3 monitor Hg - transfuse if < 8 - continue empiric Protonix NPO awaiting GI recommendations POSSIBLE NON SPECIFIC ENTERITIS based on CT abdomen no diarrhea on empiric Cipro + Metro CHRONIC MESENTERIC ISCHEMIA ELEVATED LACTIC ACID -follows with Dr. Clark - vascular surgery at [facility] [place] -hold aspirin and Plavix for GI bleed -CTA a/p without signs of acute ischemia -Lactate 5.43 --> 2.9 continue IV fluids monitor BILL -likely pre-renal etiology - resolved COPD -stable -continue home inhalers prn IDDM -A1c 6 -SSI coverage -BSG AC HS -Pharmacy consulted for glycemic control - BSG >290 DEPRESSION -continue Celexa, Ativan, BuSpar, Amitriptyline [id number] RED BLOOD CELL ANTIBODY POSITIVE -has had difficulties getting PRBCs in the past -2 units ordered HLD -hold statin while npo H/O CVA -no residual defects -hold ASA for GI bleed -hold statin while npo DVT PROPHYLAXIS: SCDs RE: GI bleed CODE STATUS: FULL CODE Disposition Pending Current Inpatient Medications: Current Inpatient Medications Medications (Trade) Dose Ordered Sig/[place] Route Start Time Stop Time Status Last Admin Dose Admin Ioversol (Optiray 320) 125 ml UD PRN IV 05/31/16 13:30 06/04/16 13:29 Ondansetron HCl 4 mg 4 mg Q6H PRN IV 05/31/16 16:00 06/30/16 15:59 06/01/16 05:19 4 MG Ciprofloxacin/ Dextrose 400 mg/ Prmx 200 ml @ 100 mls/hr Q12 IV 06/01/16 04:00 06/11/16 03:59 06/01/16 08:14 100 MLS/HR Metronidazole 500 mg/Prmx 100 ml @ 100 mls/hr Q8H IV 05/31/16 22:00 06/10/16 21:59 06/01/16 06:10 100 MLS/HR Sodium Chloride (Nss 1000ml) 1,000 ml @ 125 mls/hr Q8H IV 05/31/16 16:00 06/30/16 15:59 06/01/16 03:34 125 MLS/HR Acetaminophen (Tylenol Tab) 500 mg Q8 PRN PO 05/31/16 16:00 06/30/16 15:59 Albuterol (Ventolin Hfa Inhaler) 2 puffs Q6 PRN INH 05/31/16 16:00 06/30/16 15:59 Amitriptyline HCl (Elavil Tab) 5 mg HS PO 05/31/16 21:00 06/30/16 20:59 05/31/16 21:13 5 MG Buspirone HCl (BusPAR TAB) 30 mg BID PO 05/31/16 21:00 06/30/16 20:59 06/01/16 08:14 30 MG Citalopram Hydrobromide (celeXA TAB) 40 mg QAM PO 06/01/16 09:00 07/01/16 08:59 06/01/16 08:14 40 MG Cyclobenzaprine HCl (Flexeril Tab) 5 mg BID PRN PO 05/31/16 16:00 06/30/16 15:59 Gabapentin (Neurontin Cap) 300 mg BID PO 05/31/16 21:00 06/30/16 20:59 06/01/16 08:14 300 MG Lorazepam (Ativan Tab) 0.5 mg HS PRN PO 05/31/16 16:00 06/30/16 15:59 Insulin Aspart (novoLOG ASPART) SLIDING SCALE If C... Q6 SC 05/31/16 18:29 06/30/16 18:28 06/01/16 06:13 6 UNITS Glucose (Glucose 40% Gel) 15-30 GRAMS 15 GRAMS... UD PRN PO 05/31/16 16:15 06/30/16 16:14 Glucose (Glucose Chew Tab) 4-8 Tablets 4 Tabl... UD PRN PO 05/31/16 16:15 06/30/16 16:14 Dextrose (Dextrose 50% 50ML Syringe) 25-50ML OF 50% DW IV FOR... UD PRN IV 05/31/16 16:15 06/30/16 16:14 Glucagon (Glucagon Inj) 1 mg UD PRN SQ 05/31/16 16:15 06/30/16 16:14 Miscellaneous Information 1 ea 1 ea UD N/A 05/31/16 18:17 06/30/16 18:16 Pantoprazole Sodium 40 mg/ Dextrose 100 ml @ 20 mls/hr Q5H IV 05/31/16 17:00 06/30/16 16:59 06/01/16 08:13 20 MLS/HR Sodium Chloride (1/2 Nss 1000ml) 1,000 ml @ 500 mls/hr Q2H ONCE IV 06/01/16 06:30 06/01/16 08:29 06/01/16 06:37 500 MLS/HR Insulin Glargine (Lantus Solostar Pen) SEE PROTOCOL TEXT BID SC 06/01/16 09:00 07/01/16 08:59
--- NOTE | 2016-06-01 08:52 | Clinical Documentation Query ---
Madalyn JUAN FRANCISCOBETTIE : CLINICAL DOCUMENTATION QUERIES QUERY 1 OF 3 GI bleed noted to be in the setting of known AVM's, chronic mesenteric ischemia, and chronic ASA and aspirin use. As appropriate, consider clarification as suggested below as this directly impacts DRG assignment. Thank you. In your clinical opinion is this patient being managed for: ( X ) GI bleed due to drug induced hemorrhagic disorder in the setting of AVM's and chronic mesenteric ischemia ( ) Other explanation of clinical findings (Please Explain) ( ) Unable to determine (Please Define) ( ) Need to Discuss ( ) Not Agree The medical record reflects the following clinical findings, treatment, and risk factors. Clinical Indicators: As above Treatment: Telemetry, GI consultation, serial hematology, PPI infusion, IVF, Risk Factors: ASA, Plavix use in the setting of AVM's and chronic mesenteric ischemia. QUERY 2 OF 3 Patient is a 70 year old female admitted with an upper GI bleed. Also documented was "nonspecific enteritis by CTA - empirically treat with Cipro/Flagyl ". If clinically appropriate, please explicitly specify as suggested below as this affects coding assignment and associated severity of illness. Thank you. In your clinical opinion is this patient being managed for: (X ) (Possible/Suspected/Likely) Infectious enteritis ( ) Other explanation of clinical findings (Please Explain) ( ) Unable to determine (Please Define) ( ) Need to Discuss ( ) Not Agree The medical record reflects the following clinical findings, treatment, and risk factors. Clinical Indicators: As above Treatment: Cipro, Flagyl Risk Factors:na QUERY 3 OF 3 Further documentation includes: "ANEMIA -2/2 blood loss and frequent phlebotomy s/p two recent hospitalizations -just slightly lower now than at discharge 2 weeks ago -trend H/H q6h in setting of possible bleed" As appropriate, please consider documentation as suggested below as the acuity associated with this diagnosis cannot be assumed by the professional logistics project manager. Thank you. In your clinical opinion is this patient being managed for: ( x ) Acute blood loss anemia ( ) Other explanation of clinical findings (Please Explain) ( ) Unable to determine (Please Define) ( ) Need to Discuss ( ) Not Agree The medical record reflects the following clinical findings, treatment, and risk factors. Clinical Indicators: As above Treatment: Telemetry, serial hematology, GI consultation, PPI infusion, IVF, NPO Risk Factors: known AVM's, ASA, Plavix, age Please clarify and document your clinical opinion in the progress notes and discharge summary. Terms such as "probable", "suspected", "likely", "questionable", "possible", or "still to be ruled out" are acceptable. Please clarify and document your clinical opinion in the progress notes and discharge summary. Terms such as "probable", "suspected", "likely", "questionable", "possible", or "still to be ruled out" are acceptable. IF IN AGREEMENT, YOU MUST DOCUMENT ABOVE DIAGNOSTIC STATEMENT IN DAILY PROGRESS NOTES AND DISCHARGE SUMMARY. This document is not part of the patient's record. Thank You, Priyank De Luna, RN [phone]
[2016-06-01] MEDS: INSULIN GLARGINE SOLOSTAR 100 UNITS/ML 3 ML PEN SC SCH ×2 (08:53→21:35)
--- NOTE | 2016-06-01 08:54 | Clinical Documentation Query ---
SABI Mo : CLINICAL DOCUMENTATION QUERIES QUERY 1 OF 3 GI bleed noted to be in the setting of known AVM's, chronic mesenteric ischemia, and chronic ASA and aspirin use. As appropriate, consider clarification as suggested below as this directly impacts DRG assignment. Thank you. 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 Clinical Indicators: As above Treatment: Telemetry, GI consultation, serial hematology, PPI infusion, IVF, Risk Factors: ASA, Plavix use in the setting of AVM's and chronic mesenteric ischemia. QUERY 2 OF 3 Patient is a 70 year old female admitted with an upper GI bleed. Also documented was "nonspecific enteritis by CTA - empirically treat with Cipro/Flagyl ". If clinically appropriate, please explicitly specify as suggested below as this affects coding assignment and associated severity of illness. Thank you. In your clinical opinion is this patient being managed for: ( ) (Possible/Suspected/Likely) Infectious enteritis ( ) Other explanation of clinical findings (Please Explain) ( ) Unable to determine (Please Define) ( ) Need to Discuss ( ) Not Agree The medical record reflects the following clinical findings, treatment, and risk factors. Clinical Indicators: As above Treatment: Cipro, Flagyl Risk Factors:na QUERY 3 OF 3 Further documentation includes: "ANEMIA -2/2 blood loss and frequent phlebotomy s/p two recent hospitalizations -just slightly lower now than at discharge 2 weeks ago -trend H/H q6h in setting of possible bleed" As appropriate, please consider documentation as suggested below as the acuity associated with this diagnosis cannot be assumed by the professional pulp maker. Thank you. In your clinical opinion is this patient being managed for: ( ) Acute blood loss anemia ( ) Other explanation of clinical findings (Please Explain) ( ) Unable to determine (Please Define) ( ) Need to Discuss ( ) Not Agree The medical record reflects the following clinical findings, treatment, and risk factors. Clinical Indicators: As above Treatment: Telemetry, serial hematology, GI consultation, PPI infusion, IVF, NPO Risk Factors: known AVM's, ASA, Plavix, age Please clarify and document your clinical opinion in the progress notes and discharge summary. Terms such as "probable", "suspected", "likely", "questionable", "possible", or "still to be ruled out" are acceptable. IF IN AGREEMENT, YOU MUST DOCUMENT ABOVE DIAGNOSTIC STATEMENT IN DAILY PROGRESS NOTES AND DISCHARGE SUMMARY. This document is not part of the patient's record. Thank You, Priyank De Luna, RN [phone]
--- NOTE | 2016-06-01 10:40 | Pharmacy Progress Note ---
Glycemic Control Intl Consult Date of Service Jun 01, 2016. Scope Glycemic Pharmacist consulted by Palmira Rubalcava PA-C on 05/31/16 for glycemic control and to write orders per [facility] inpatient glycemic control protocol Objective Weight (Kilograms): 79.000 Accuchecks BSG (last 24hrs): Test 05/31/16 11:35 05/31/16 20:53 05/31/16 23:59 06/01/16 05:32 Random Glucose 297 mg/dl (70-99) 271 mg/dl (70-99) Bedside Glucose 269 mg/dl (70-90) 271 mg/dl (70-90) Test 06/01/16 06:11 Bedside Glucose 303 mg/dl (70-90) Laboratory Data (last 24hrs) Test 05/31/16 11:35 05/31/16 11:38 06/01/16 05:32 Anion Gap 16.0 mmol/L 21.0 mmol/L 12.0 mmol/L BUN/Creatinine Ratio 13.8 10.9 Blood Urea Nitrogen 18 mg/dl 12 mg/dl Creatinine 1.30 mg/dl 1.10 mg/dl Potassium Level 4.0 mmol/L 4.3 mmol/L Sodium Level 139 mmol/L 141 mmol/L White Blood Count 7.32 K/uL 14.00 K/uL Red Blood Count 3.34 M/uL Hemoglobin 9.3 g/dL Hematocrit 28.9 % Mean Corpuscular Volume 86.5 fL Mean Corpuscular Hemoglobin 27.8 pg Mean Corpuscular Hemoglobin Concent 32.2 g/dl Platelet Count 339 K/uL Mean Platelet Volume 10.0 fL Neutrophils (%) (Auto) 71.8 % Lymphocytes (%) (Auto) 16.9 % Monocytes (%) (Auto) 5.3 % Eosinophils (%) (Auto) 4.1 % Basophils (%) (Auto) 1.4 % Neutrophils # (Auto) 5.25 K/uL Lymphocytes # (Auto) 1.24 K/uL Monocytes # (Auto) 0.39 K/uL Eosinophils # (Auto) 0.30 K/uL Basophils # (Auto) 0.10 K/uL HbA1c 6% on 05/12/16 Recent Pertinent Medications Outpatient Anti-diabetic Regimen: * Novolin 70/30 premixed insulin 35 units SQ BIDM The patient is currently receiving: * Basal insulin: None * Correctional Insulin: Novolog Correction per scale ACHS Goal Range: Low 120 mg/dL - High 150 mg/dL Correction Factor: 30 mg/dL/unit * Prandial insulin: Per carb ratio of 1 unit per 10 grams CHO consumed Risk Factors for Insulin Resistance: * Steroids: Solumedrol 125mg IV x 1 dose in ED 05/31 @ 1330 * Infection * IVF Risk Factors for Insulin Sensitivity: * Diet: NPO Assessment & Plan ASSESSMENT: * 70yo T2DM female with adequately controlled diabetes per recent A1c * Pt is maintained on pre-mixed insulin regimen as an outpatient. * Pre-mixed insulins are difficult to titrate since they are already in a 70/ 30 distribution of basal:prandial insulin. Pre-mixed insulins typically lead to hypoglycemia while admitted d/t changing PO status but rapid acting insulin is unable to be held. * Home regimen discontinued on admission per pharmacy consult & pt changed to SQ basal bolus insulin regimen of Lantus + NovoLog SSI (CF+CR) * Since pt is NPO will dose insulin based on weight rather than outpatient dosing. * Will titrate Lantus based on BSG trends --> dose given will be dependent on BSG to prevent hypo/hyperglycemia * Pt with sustained hyperglycemia d/t large dose of Solumedrol given in ED. Hyperglycemic effects should start to diminish this afternoon. * Dosing Lantus by BSG will help determine basal needs with changing factors for insulin resistance. * ADA & AACE recommend a goal blood sugar range 140-180 mg/dl for the majority of critically ill & non-critically ill patients. However, more stringent targets may be selected in individual cases. Will utilize a slightly more stringent target of 120-150mg/dl based on tight outpatient glycemic control and NPO status. PLAN FOR INPATIENT GLYCEMIC CONTROL: * Hold outpatient pre-mixed insulin - may resume at discharge based on adequate A1c * Basal insulin with LANTUS SQ BID - dosing based on BSG * If BSG below 120mg/dl --> administer 10 units of Lantus * If BSG 120-179mg/dl --> administer 15 units of Lantus * If BSG 180mg/dl or above --> administer Lantus 20 units * Correctional Insulin with NOVOLOG per scale ACHS or Q6hrs while NPO * Goal Range: Low 120 mg/dL - High 150 mg/dL * Correction Factor: 30 mg/dL/unit * Nutritional / Prandial insulin per carb ratio of 1 unit per 10 grams CHO consumed * Please note that the plan above was derived based on current level of insulin resistance and hospital stress. These recommendations are appropriate for inpatient admission only. Plan of care upon discharge will need to be reassessed to avoid potential outpatient hypo/hyperglycemia. Thank you.
[2016-06-01 11:33] LABS: HEMATOCRIT 26.3 % (37-47)
[2016-06-01 11:57] VITALS: BP 115/50; PULSE 83; TEMP 36.6; O2SAT 98
[2016-06-01 15:08] VITALS: Ht 160 cm; Wt 79.6 kg
[2016-06-01 16:03] VITALS: BP 119/53; PULSE 101; TEMP 36.8; O2SAT 96
--- NOTE | 2016-06-01 16:59 | Surgery Progress Note ---
Surgery Progress Note Date of Service Jun 01, 2016. Subjective + feeling well, + flatus, No bowel movement, No nausea, No vomiting Denies pain Objective Vital Signs: Date Time Temp Pulse Resp B/P Pulse Ox O2 Delivery O2 Flow Rate FiO2 06/01/16 16:03 36.8 101 18 119/53 96 06/01/16 15:49 Room Air 06/01/16 11:57 36.6 83 18 115/50 98 06/01/16 11:25 Room Air 06/01/16 08:11 36.9 86 18 117/50 97 06/01/16 08:00 Room Air 06/01/16 04:02 Room Air 06/01/16 03:59 37.0 86 19 111/46 93 Room Air 06/01/16 00:42 37.1 82 19 110/56 93 Room Air 06/01/16 00:00 Room Air 05/31/16 20:04 Room Air 05/31/16 19:51 36.9 96 18 126/74 96 05/31/16 17:06 94 18 120/67 97 Abdomen: non tender, soft Laboratory Results: Results Past 24 Hours Test 05/31/16 19:04 05/31/16 20:53 05/31/16 23:05 05/31/16 23:59 Range/Units Hemoglobin 8.8 8.7 12.0-16.0 g/dL Hematocrit 27.4 26.4 37-47 % Lactic Acid Level 2.8 2.5 0.4-2.0 mmol/L Bedside Glucose 269 271 70-90 mg/dl Test 06/01/16 05:32 06/01/16 06:11 06/01/16 11:25 06/01/16 11:27 Range/Units White Blood Count 14.00 4.8-10.8 K/uL Red Blood Count 3.03 4.2-5.4 M/uL Hemoglobin 8.4 8.7 12.0-16.0 g/dL Hematocrit 25.2 26.3 37-47 % Mean Corpuscular Volume 83.2 80-100 fL Mean Corpuscular Hemoglobin 27.7 25-34 pg Mean Corpuscular Hemoglobin Concent 33.3 32-36 g/dl RDW Standard Deviation 49.4 36.4-46.3 fL RDW Coefficient of Variation 16.2 11.5-14.5 % Platelet Count 311 130-400 K/uL Mean Platelet Volume 9.5 7.4-10.4 fL Sodium Level 141 136-145 mmol/L Potassium Level 4.3 3.5-5.1 mmol/L Chloride Level 106 98-107 mmol/L Carbon Dioxide Level 23 21-32 mmol/L Anion Gap 12.0 3-11 mmol/L Blood Urea Nitrogen 12 7-18 mg/dl Creatinine 1.10 0.60-1.20 mg/dl Est Creatinine Clear Calc Drug Dose 48.0 ml/min Estimated GFR () 59.3 Estimated GFR (Non- 51.2 BUN/Creatinine Ratio 10.9 10-20 Random Glucose 271 70-99 mg/dl Lactic Acid Level 2.9 3.7 0.4-2.0 mmol/L Calcium Level 8.3 8.5-10.1 mg/dl Magnesium Level 2.8 1.8-2.4 mg/dl Bedside Glucose 303 237 70-90 mg/dl Test 06/01/16 16:10 Range/Units Bedside Glucose 239 70-90 mg/dl Microbiology Results 05/31/16 C.difficile Toxin B Gene (PCR) - Final, Complete No C. difficile toxin B gene detected 05/31/16 Shiga Toxin Test, Received Pending 05/31/16 Stool Culture, Received Pending Assessment & Plan Partial SBO now resolving Tolerating regular diet No surgical indication at present
--- NOTE | 2016-06-01 17:04 | Gastroenterology Progress Note ---
Progress Note Date of Service: Jun 01, 2016 Subjective Pt evaluation today including: conversation w/ patient, conversation w/ family , physical exam, chart review, lab review 70yo with complex medical hx including chronic anemia due to iron def, melena from AVMs on octreotide injections as out patient as well as chronic mesenteric ischemia. Pt presented with melena, hgb remains stable at 8.4, only down slightly from admission. No recurrent melena overnight. Pt eager to eat and go home. Denies N/V, has chronic LLQ pain intermittent, currently tolerable. Surgical consult notes if she requires intervention, will need a tertiary center. Pt has arrangements made and will be moving to the [place], [place] area next week near family. Review of Systems Constitutional: No fever Eyes: No problem reported ENT: No hearing loss Respiratory: No cough Cardiac: No chest pain, No edema Abdomen: + see HPI Musculoskeletal: No problem reported Female : No dysuria Heme: + see HPI Endo: No problem reported Skin: No rash Medications Current Inpatient Medications Medications (Trade) Dose Ordered Sig/Carson Route Start Time Stop Time Status Last Admin Dose Admin Ioversol (Optiray 320) 125 ml UD PRN IV 05/31/16 13:30 06/04/16 13:29 Ondansetron HCl 4 mg 4 mg Q6H PRN IV 05/31/16 16:00 06/30/16 15:59 06/01/16 05:19 4 MG Ciprofloxacin/ Dextrose 400 mg/ Prmx 200 ml @ 100 mls/hr Q12 IV 06/01/16 04:00 06/11/16 03:59 06/01/16 08:14 100 MLS/HR Metronidazole 500 mg/Prmx 100 ml @ 100 mls/hr Q8H IV 05/31/16 22:00 06/10/16 21:59 06/01/16 13:04 100 MLS/HR Sodium Chloride (Nss 1000ml) 1,000 ml @ 125 mls/hr Q8H IV 05/31/16 16:00 06/30/16 15:59 06/01/16 16:28 125 MLS/HR Acetaminophen (Tylenol Tab) 500 mg Q8 PRN PO 05/31/16 16:00 06/30/16 15:59 Albuterol (Ventolin Hfa Inhaler) 2 puffs Q6 PRN INH 05/31/16 16:00 3/15/17 15:59 Amitriptyline HCl (Elavil Tab) 5 mg HS PO 05/31/16 21:00 06/30/16 20:59 05/31/16 21:13 5 MG Buspirone HCl (BusPAR TAB) 30 mg BID PO 05/31/16 21:00 06/30/16 20:59 06/01/16 08:14 30 MG Citalopram Hydrobromide (celeXA TAB) 40 mg QAM PO 06/01/16 09:00 07/01/16 08:59 06/01/16 08:14 40 MG Cyclobenzaprine HCl (Flexeril Tab) 5 mg BID PRN PO 05/31/16 16:00 06/30/16 15:59 Gabapentin (Neurontin Cap) 300 mg BID PO 05/31/16 21:00 06/30/16 20:59 06/01/16 08:14 300 MG Lorazepam (Ativan Tab) 0.5 mg HS PRN PO 05/31/16 16:00 06/30/16 15:59 Insulin Aspart (novoLOG ASPART) SLIDING SCALE If C... Q6 SC 05/31/16 18:29 06/30/16 18:28 06/01/16 11:30 3 UNITS Glucose (Glucose 40% Gel) 15-30 GRAMS 15 GRAMS... UD PRN PO 05/31/16 16:15 06/30/16 16:14 Glucose (Glucose Chew Tab) 4-8 Tablets 4 Tabl... UD PRN PO 05/31/16 16:15 06/30/16 16:14 Dextrose (Dextrose 50% 50ML Syringe) 25-50ML OF 50% DW IV FOR... UD PRN IV 05/31/16 16:15 06/30/16 16:14 Glucagon (Glucagon Inj) 1 mg UD PRN SQ 05/31/16 16:15 06/30/16 16:14 Miscellaneous Information 1 ea 1 ea UD N/A 05/31/16 18:17 06/30/16 18:16 Pantoprazole Sodium/Dextrose (Protonix Inj/D5 100ml) 100 ml @ 20 mls/hr Q5H IV 05/31/16 17:00 3/15/17 16:59 06/01/16 16:29 20 MLS/HR Insulin Glargine (Lantus Solostar Pen) SEE PROTOCOL TEXT BID SC 06/01/16 09:00 07/01/16 08:59 06/01/16 08:53 20 UNIT Objective Vital Signs Date Time Temp Pulse Resp B/P Pulse Ox O2 Delivery O2 Flow Rate FiO2 06/01/16 16:03 36.8 101 18 119/53 96 06/01/16 15:49 Room Air 06/01/16 11:57 36.6 83 18 115/50 98 06/01/16 11:25 Room Air 06/01/16 08:11 36.9 86 18 117/50 97 06/01/16 08:00 Room Air 06/01/16 04:02 Room Air 06/01/16 03:59 37.0 86 19 111/46 93 Room Air 06/01/16 00:42 37.1 82 19 110/56 93 Room Air 06/01/16 00:00 Room Air 05/31/16 20:04 Room Air 05/31/16 19:51 36.9 96 18 126/74 96 05/31/16 17:06 94 18 120/67 97 Physical Exam General Appearance: WD/WN, no apparent distress Eyes: normal inspection ENT: hearing grossly normal Neck: supple Respiratory/Chest: normal breath sounds, no respiratory distress Cardiovascular: regular rate, rhythm Abdomen: normal bowel sounds, soft, + tenderness (mild tenderness in LLQ, no rebound or guarding) Extremities: no pedal edema Neurologic/Psych: alert, oriented x 3 Laboratory Results Last 24 Hours Test 05/31/16 19:04 05/31/16 20:53 05/31/16 23:05 05/31/16 23:59 Hemoglobin 8.8 g/dL 8.7 g/dL Hematocrit 27.4 % 26.4 % Lactic Acid Level 2.8 mmol/L 2.5 mmol/L Bedside Glucose 269 mg/dl 271 mg/dl Test 06/01/16 05:32 06/01/16 06:11 06/01/16 11:25 06/01/16 11:27 White Blood Count 14.00 K/uL Red Blood Count 3.03 M/uL Hemoglobin 8.4 g/dL 8.7 g/dL Hematocrit 25.2 % 26.3 % Mean Corpuscular Volume 83.2 fL Mean Corpuscular Hemoglobin 27.7 pg Mean Corpuscular Hemoglobin Concent 33.3 g/dl RDW Standard Deviation 49.4 fL RDW Coefficient of Variation 16.2 % Platelet Count 311 K/uL Mean Platelet Volume 9.5 fL Sodium Level 141 mmol/L Potassium Level 4.3 mmol/L Chloride Level 106 mmol/L Carbon Dioxide Level 23 mmol/L Anion Gap 12.0 mmol/L Blood Urea Nitrogen 12 mg/dl Creatinine 1.10 mg/dl Est Creatinine Clear Calc Drug Dose 48.0 ml/min Estimated GFR () 59.3 Estimated GFR (Non- 51.2 BUN/Creatinine Ratio 10.9 Random Glucose 271 mg/dl Lactic Acid Level 2.9 mmol/L 3.7 mmol/L Calcium Level 8.3 mg/dl Magnesium Level 2.8 mg/dl Bedside Glucose 303 mg/dl 237 mg/dl Test 06/01/16 16:10 Bedside Glucose 239 mg/dl Assessment and Plan Chronic anemia - multifactoral. Hgb remains stable. Continue IV iron infusions. AVMs - on octreotide as out patient - pt has appt with new GI provider and PCP in [place] in the upcoming weeks Enteritis - on cipro/flagyl - ok to continue 5 day course of antibiotics Advance diet, may discharge when clinically stable. GI will sign off, call with questions. ATTESTATION: I have performed a history and physical examination of this patient and reviewed the electronic record. Specifically, on physical examination she is much more comfortable with mild lower abdominal tenderness. I have discussed the case with Kimberly Montez PA-C. The above note reflects my findings, conclusions, and recommendations. Hi Cortez MD
--- NOTE | 2016-06-01 20:05 | EMERGENCY ROOM VISIT NOTE ---
ED Visit Note First contact with patient: 11:11 I have personally seen and evaluated the patient with the PA. I agree with the diagnosis and management decisions and have been personally involved in the case. Please see Spencer Mauricio PA-C's notes for further details of the history, physical and visit.
[2016-06-01 20:10] VITALS: BP 101/50; PULSE 86; TEMP 36.9; O2SAT 96
[2016-06-01] MEDS: AMITRIPTYLINE HCL 10 MG TAB PO SCH (21:33)
[2016-06-01] MEDS ORDERED: NURSING DECISION MEDICATION ORDER SCH (23:00)
[2016-06-01] MEDS ORDERED: DiphenhydrAMINE HCL 50 MG/ML VIAL IV ONE (23:15)
[2016-06-01] MEDS ORDERED: DiphenhydrAMINE INJ 25 MG in SYRINGE 0 ML IV ONE (23:15)
[2016-06-02] VITALS (11 sets, daily range): BP systolic 116–141; BP diastolic 48–63; PULSE 73–80; TEMP 36.7–37.2; O2SAT 93–97
[2016-06-02] MEDS: SODIUM CHLORIDE 0.9% 1000ML 1,000 ML IV SCH ×2 (00:01→07:57)
[2016-06-02] MEDS: PANTOprazole INJ 40 MG in DEXTROSE 5% 100ML IV SCH ×5 (03:31→23:15)
--- NOTE | 2016-06-02 05:01 | Progress Note ---
Internal Med Progress Note Date of Service: Jun 02, 2016. Provider Documentation: Vital Signs: Date Time Temp Pulse Resp B/P Pulse Ox O2 Delivery O2 Flow Rate FiO2 06/02/16 07:40 36.7 76 20 132/58 95 Room Air 06/02/16 04:00 Room Air 06/02/16 03:32 36.9 77 17 118/50 94 Room Air 06/02/16 00:02 Room Air 06/02/16 00:00 37.1 80 18 141/61 94 Room Air 06/01/16 20:10 36.9 86 18 101/50 96 06/01/16 20:04 Room Air 06/01/16 16:03 36.8 101 18 119/53 96 06/01/16 15:49 Room Air 06/01/16 11:57 36.6 83 18 115/50 98 06/01/16 11:25 Room Air Lab Results: Results Past 24 Hours Test 06/01/16 11:25 06/01/16 11:27 06/01/16 16:10 06/01/16 19:29 Range/Units Hemoglobin 8.7 8.5 12.0-16.0 g/dL Hematocrit 26.3 37-47 % Lactic Acid Level 3.7 2.3 0.4-2.0 mmol/L Bedside Glucose 237 239 70-90 mg/dl Test 06/01/16 20:17 06/02/16 06:27 06/02/16 06:41 Range/Units Bedside Glucose 253 155 70-90 mg/dl White Blood Count 7.68 4.8-10.8 K/uL Red Blood Count 2.86 4.2-5.4 M/uL Hemoglobin 7.8 12.0-16.0 g/dL Hematocrit 24.3 37-47 % Mean Corpuscular Volume 85.0 80-100 fL Mean Corpuscular Hemoglobin 27.3 25-34 pg Mean Corpuscular Hemoglobin Concent 32.1 32-36 g/dl Platelet Count 288 130-400 K/uL Mean Platelet Volume 9.1 7.4-10.4 fL Neutrophils (%) (Auto) 76.1 % Lymphocytes (%) (Auto) 12.8 % Monocytes (%) (Auto) 8.2 % Eosinophils (%) (Auto) 2.1 % Basophils (%) (Auto) 0.4 % Neutrophils # (Auto) 5.85 1.4-6.5 K/uL Lymphocytes # (Auto) 0.98 1.2-3.4 K/uL Monocytes # (Auto) 0.63 0.11-0.59 K/uL Eosinophils # (Auto) 0.16 0-0.5 K/uL Basophils # (Auto) 0.03 0-0.2 K/uL RDW Standard Deviation 50.6 36.4-46.3 fL RDW Coefficient of Variation 16.4 11.5-14.5 % Immature Granulocyte % (Auto) 0.4 % Immature Granulocyte # (Auto) 0.03 0.00-0.02 K/uL Red Blood Cell Morphology Unremarkable Sodium Level 143 136-145 mmol/L Potassium Level 3.9 3.5-5.1 mmol/L Chloride Level 110 98-107 mmol/L Carbon Dioxide Level 25 21-32 mmol/L Anion Gap 8.0 3-11 mmol/L Blood Urea Nitrogen 11 7-18 mg/dl Creatinine 1.10 0.60-1.20 mg/dl Est Creatinine Clear Calc Drug Dose 49.3 ml/min Estimated GFR () 59.3 Estimated GFR (Non- 51.2 BUN/Creatinine Ratio 9.8 10-20 Random Glucose 141 70-99 mg/dl Lactic Acid Level 1.6 0.4-2.0 mmol/L Calcium Level 8.0 8.5-10.1 mg/dl Magnesium Level 1.9 1.8-2.4 mg/dl
[2016-06-02] MEDS: METRONIDAZOLE / NSS 500 MG in PREMIXED NSS 100 ML IV SCH ×2 (06:17→13:41)
[2016-06-02 06:57] LABS: BASO % 0.4 %; BASO ABS # 0.03 K/uL (0-0.2); EOS % 2.1 %; HEMATOCRIT 24.3 % (37-47); IG% 0.4 %; LYMPH % 12.8 %; LYMPH ABS # 0.98 K/uL (1.2-3.4); MEAN CORPUSCULAR HEMOGLOBIN 27.3 pg (25-34); MEAN CORPUSCULAR HGB CONC 32.1 g/dl (32-36); MEAN PLATELET VOLUME 9.1 fL (7.4-10.4); MONO % 8.2 %; NEUT % 76.1 %; PLATELET COUNT 288 K/uL (130-400); RED BLOOD COUNT 2.86 M/uL (4.2-5.4); WHITE BLOOD COUNT 7.68 K/uL (4.8-10.8)
[2016-06-02] MEDS: INSULIN ASPART 100 UNITS/ML 3 ML PEN SC SCH ×4 (07:00→20:48)
[2016-06-02 07:29] LABS: BUN/CREATININE RATIO 9.8 (10-20); CREATININE 1.1 mg/dl (0.60-1.20); MAGNESIUM 1.9 mg/dl (1.8-2.4); POTASSIUM 3.9 mmol/L (3.5-5.1)
[2016-06-02 07:31] LABS: COMPLETE YES
[2016-06-02] MEDS: GABAPENTIN 300 MG CAP PO SCH ×2 (07:42→20:45)
[2016-06-02] MEDS: BusPIRone 15 MG TAB PO SCH ×2 (07:42→20:46)
[2016-06-02] MEDS: CIPROFLOXACIN / D5W 400 MG in PREMIXED IN D5W 200 ML IV SCH (07:42)
[2016-06-02] MEDS: CITALOPRAM 40 MG TAB PO SCH (07:43)
[2016-06-02] MEDS: INSULIN GLARGINE SOLOSTAR 100 UNITS/ML 3 ML PEN SC SCH ×2 (07:48→20:49)
[2016-06-02] MEDS ORDERED: POTASSIUM CHLORIDE 10 MEQ TABCR PO ONE (08:00)
[2016-06-02] MEDS ORDERED: MAGNESIUM SULFATE 1GM / D5W 1 GM in PREMIXED IN D5W 100 ML IV ONE (08:00)
--- NOTE | 2016-06-02 11:05 | Surgery Progress Note ---
Surgery Progress Note Date of Service Jun 02, 2016. Subjective Post OP Day: 3 + diet (tolerating regular diet), + feeling well (very tired today), + flatus, No SOB, No bowel movement, No chest pain, No nausea, No vomiting Objective Vital Signs: Date Time Temp Pulse Resp B/P Pulse Ox O2 Delivery O2 Flow Rate FiO2 06/02/16 07:40 36.7 76 20 132/58 95 Room Air 06/02/16 04:00 Room Air 06/02/16 03:32 36.9 77 17 118/50 94 Room Air 06/02/16 00:02 Room Air 06/02/16 00:00 37.1 80 18 141/61 94 Room Air 06/01/16 20:10 36.9 86 18 101/50 96 06/01/16 20:04 Room Air 06/01/16 16:03 36.8 101 18 119/53 96 06/01/16 15:49 Room Air 06/01/16 11:57 36.6 83 18 115/50 98 06/01/16 11:25 Room Air General Appearance: WD/WN, no apparent distress, + obese Head: normocephalic, atraumatic Abdomen: soft, + distended (mildly), + tenderness (slight tenderness in the upper abdomen, no rigidity, guarding, or rebound) Extremities: normal range of motion Laboratory Results: Results Past 24 Hours Test 06/01/16 11:25 06/01/16 11:27 06/01/16 16:10 06/01/16 19:29 Range/Units Hemoglobin 8.7 8.5 12.0-16.0 g/dL Hematocrit 26.3 37-47 % Lactic Acid Level 3.7 2.3 0.4-2.0 mmol/L Bedside Glucose 237 239 70-90 mg/dl Test 06/01/16 20:17 06/02/16 06:27 06/02/16 06:41 Range/Units Bedside Glucose 253 155 70-90 mg/dl White Blood Count 7.68 4.8-10.8 K/uL Red Blood Count 2.86 4.2-5.4 M/uL Hemoglobin 7.8 12.0-16.0 g/dL Hematocrit 24.3 37-47 % Mean Corpuscular Volume 85.0 80-100 fL Mean Corpuscular Hemoglobin 27.3 25-34 pg Mean Corpuscular Hemoglobin Concent 32.1 32-36 g/dl Platelet Count 288 130-400 K/uL Mean Platelet Volume 9.1 7.4-10.4 fL Neutrophils (%) (Auto) 76.1 % Lymphocytes (%) (Auto) 12.8 % Monocytes (%) (Auto) 8.2 % Eosinophils (%) (Auto) 2.1 % Basophils (%) (Auto) 0.4 % Neutrophils # (Auto) 5.85 1.4-6.5 K/uL Lymphocytes # (Auto) 0.98 1.2-3.4 K/uL Monocytes # (Auto) 0.63 0.11-0.59 K/uL Eosinophils # (Auto) 0.16 0-0.5 K/uL Basophils # (Auto) 0.03 0-0.2 K/uL RDW Standard Deviation 50.6 36.4-46.3 fL RDW Coefficient of Variation 16.4 11.5-14.5 % Immature Granulocyte % (Auto) 0.4 % Immature Granulocyte # (Auto) 0.03 0.00-0.02 K/uL Red Blood Cell Morphology Unremarkable Sodium Level 143 136-145 mmol/L Potassium Level 3.9 3.5-5.1 mmol/L Chloride Level 110 98-107 mmol/L Carbon Dioxide Level 25 21-32 mmol/L Anion Gap 8.0 3-11 mmol/L Blood Urea Nitrogen 11 7-18 mg/dl Creatinine 1.10 0.60-1.20 mg/dl Est Creatinine Clear Calc Drug Dose 49.3 ml/min Estimated GFR () 59.3 Estimated GFR (Non- 51.2 BUN/Creatinine Ratio 9.8 10-20 Random Glucose 141 70-99 mg/dl Lactic Acid Level 1.6 0.4-2.0 mmol/L Calcium Level 8.0 8.5-10.1 mg/dl Magnesium Level 1.9 1.8-2.4 mg/dl Assessment & Plan Partial Small Bowel Obstruction Resolving - + flatus , no bowel movement -Lactic acid decreased to 1.6 today. - abdomen soft, slightly distended - no nausea or vomiting, tolerating regular diet Anemia - H&H 7.8/24.3 today - Fatigued/tired PLAN: Continue current management Continue regular diet No surgical indication at this time Surgical services signing off at this time. Thank you for the consultation and involving us in the care of this patient. Dr. Rico has seen and examined patient agrees with above stated findings and treatment plan. I interviewed and examined the patient, Partial SBO resolved Will sign off Please left us know if we can be of further assistance.
--- NOTE | 2016-06-02 13:20 | Pharmacy Progress Note ---
Glycemic Control: Progress Nt Date of Service Jun 02, 2016. Scope Glycemic Pharmacist consulted for glycemic control and to write orders per [facility] inpatient glycemic control protocol. Objective Accuchecks BSG (last 24hrs): Test 06/01/16 16:10 06/01/16 20:17 06/02/16 06:27 06/02/16 06:41 Bedside Glucose 239 mg/dl (70-90) 253 mg/dl (70-90) 155 mg/dl (70-90) Random Glucose 141 mg/dl (70-99) Test 06/02/16 11:20 Bedside Glucose 172 mg/dl (70-90) Laboratory Data (last 24hrs) Test 06/02/16 06:41 Anion Gap 8.0 mmol/L BUN/Creatinine Ratio 9.8 Blood Urea Nitrogen 11 mg/dl Creatinine 1.10 mg/dl Potassium Level 3.9 mmol/L Sodium Level 143 mmol/L White Blood Count 7.68 K/uL Red Blood Count 2.86 M/uL Hemoglobin 7.8 g/dL Hematocrit 24.3 % Mean Corpuscular Volume 85.0 fL Mean Corpuscular Hemoglobin 27.3 pg Mean Corpuscular Hemoglobin Concent 32.1 g/dl Platelet Count 288 K/uL Mean Platelet Volume 9.1 fL Neutrophils (%) (Auto) 76.1 % Lymphocytes (%) (Auto) 12.8 % Monocytes (%) (Auto) 8.2 % Eosinophils (%) (Auto) 2.1 % Basophils (%) (Auto) 0.4 % Neutrophils # (Auto) 5.85 K/uL Lymphocytes # (Auto) 0.98 K/uL Monocytes # (Auto) 0.63 K/uL Eosinophils # (Auto) 0.16 K/uL Basophils # (Auto) 0.03 K/uL HbA1c: 6% on 05/12/16 Recent Pertinent Medications Outpatient Anti-diabetic Regimen: * Novolin 70/30 premixed insulin 35 units SQ BIDM The patient is currently receiving: * Basal insulin: Lantus SQ BID - dosing based on BSG * Correctional Insulin: Novolog Correction per scale ACHS Goal Range: Low 120 mg/dL - High 150 mg/dL Correction Factor: 30 mg/dL/unit * Prandial insulin: Per carb ratio of 1 unit per 10 grams CHO consumed Risk Factors for Insulin Resistance: * Infection * Diet Assessment & Plan ASSESSMENT: * 70yo T2DM female with adequately controlled diabetes per recent A1c * Pt is maintained on pre-mixed insulin regimen as an outpatient. * Pre-mixed insulins are difficult to titrate since they are already in a 70/ 30 distribution of basal:prandial insulin. Pre-mixed insulins typically lead to hypoglycemia while admitted d/t changing PO status but rapid acting insulin is unable to be held. * Home regimen discontinued on admission per pharmacy consult & pt changed to SQ basal bolus insulin regimen of Lantus + NovoLog SSI (CF+CR) * Started regimen based on weight/stress based dosing and will titrate regimen based on BSG trends. * Dosing Lantus by BSG will help determine basal needs with changing factors for insulin resistance. * Hyperglycemic effects from solumedrol given in ED should be diminished * Pt has received 56 units of insulin over the past 24hrs. Outpatient dosing is ~ 70 units of insulin per day * BSGs [phone] over the past 24hrs * AM fasting BSG is close to goal range, expect to to continue to improve as lantus approaches steady state * Post-prandial BSGs are elevated, will tighten bolus insulin parameters * ADA & AACE recommend a goal blood sugar range 140-180 mg/dl for the majority of critically ill & non-critically ill patients. However, more stringent targets may be selected in individual cases. Will utilize a slightly more stringent target of 120-150mg/dl based on tight outpatient glycemic control and NPO status. PLAN FOR INPATIENT GLYCEMIC CONTROL: Change regimen based on an estimated total daily dose of ~ 60 units/day * Hold outpatient pre-mixed insulin - may resume at discharge based on adequate A1c * Basal insulin with LANTUS SQ BID - dosing based on BSG * If BSG below 120mg/dl --> administer 10 units of Lantus * If BSG 120-179mg/dl --> administer 15 units of Lantus * If BSG 180mg/dl or above --> administer Lantus 20 units * Correctional Insulin with NOVOLOG per scale ACHS or Q6hrs while NPO * Goal Range: Low 120 mg/dL - High 150 mg/dL * Correction Factor: 25 mg/dL/unit * Nutritional / Prandial insulin per carb ratio of 1 unit per 9 grams CHO consumed * Please note that the plan above was derived based on current level of insulin resistance and hospital stress. These recommendations are appropriate for inpatient admission only. Plan of care upon discharge will need to be reassessed to avoid potential outpatient hypo/hyperglycemia. Thank you.
[2016-06-02 14:11] LABS: HEMATOCRIT 24.8 % (37-47)
--- NOTE | 2016-06-02 14:12 | Progress Note ---
Medicine Progress Note Date & Time of Visit: Jun 02, 2016 at 14:12. Subjective delayed entry date of service as noted above seen resting in bed states she feels somewhat dizzy when standing denies abdominal pain, (+) BM- brown, formed, tolerating diet no chest pain, dyspnea, palpitations Objective Last 8 Hrs Date Time Temp Pulse Resp B/P Pulse Ox O2 Delivery O2 Flow Rate FiO2 06/02/16 12:00 37.1 73 20 126/55 93 Room Air 06/02/16 07:40 36.7 76 20 132/58 95 Room Air Physical Exam: General- oriented x 3, not in distress, speaks in sentences with no effort Eyes- anicteric ENT- oropharynx clear Neck- supple, no JVD Lungs- clear to auscultation bilaterally, no rales Heart-normal rate, regular rhythm; no murmurs Abdomen- normal bowel sounds, non distended, soft, nontender Extremities- no pretibial edema, no calf tenderness Neuro- alert, oriented x 3; no gross deficits Skin- warm & dry Laboratory Results: Last 24 Hours Test 06/01/16 16:10 06/01/16 19:29 06/01/16 20:17 06/02/16 06:27 Bedside Glucose 239 mg/dl 253 mg/dl 155 mg/dl Hemoglobin 8.5 g/dL Lactic Acid Level 2.3 mmol/L Test 06/02/16 06:41 06/02/16 11:20 06/02/16 14:00 White Blood Count 7.68 K/uL Red Blood Count 2.86 M/uL Hemoglobin 7.8 g/dL 8.0 g/dL Hematocrit 24.3 % 24.8 % Mean Corpuscular Volume 85.0 fL Mean Corpuscular Hemoglobin 27.3 pg Mean Corpuscular Hemoglobin Concent 32.1 g/dl Platelet Count 288 K/uL Mean Platelet Volume 9.1 fL Neutrophils (%) (Auto) 76.1 % Lymphocytes (%) (Auto) 12.8 % Monocytes (%) (Auto) 8.2 % Eosinophils (%) (Auto) 2.1 % Basophils (%) (Auto) 0.4 % Neutrophils # (Auto) 5.85 K/uL Lymphocytes # (Auto) 0.98 K/uL Monocytes # (Auto) 0.63 K/uL Eosinophils # (Auto) 0.16 K/uL Basophils # (Auto) 0.03 K/uL RDW Standard Deviation 50.6 fL RDW Coefficient of Variation 16.4 % Immature Granulocyte % (Auto) 0.4 % Immature Granulocyte # (Auto) 0.03 K/uL Red Blood Cell Morphology Unremarkable Sodium Level 143 mmol/L Potassium Level 3.9 mmol/L Chloride Level 110 mmol/L Carbon Dioxide Level 25 mmol/L Anion Gap 8.0 mmol/L Blood Urea Nitrogen 11 mg/dl Creatinine 1.10 mg/dl Est Creatinine Clear Calc Drug Dose 49.3 ml/min Estimated GFR () 59.3 Estimated GFR (Non- 51.2 BUN/Creatinine Ratio 9.8 Random Glucose 141 mg/dl Lactic Acid Level 1.6 mmol/L Calcium Level 8.0 mg/dl Magnesium Level 1.9 mg/dl Bedside Glucose 172 mg/dl Assessment & Plan 70 year old female with history of chronic mesenteric ischemia s/p stent and bypass graft, Multiple AVMs on monthly octreotide injections, presenting with melena. ANEMIA, LIKELY SECONDARY TO ACUTE BLOOD LOSS FROM UPPER GI BLEED, UNCLEAR ETIOLOGY - recent EGD in 05/04 unrevealing - Hg decreased from 9.4 to 7.8 - transfuse 1 unit pRBC - per GI, no interventions at this point continue supportive care, PRN transfusions and Venofer POSSIBLE NON SPECIFIC ENTERITIS based on CT abdomen no diarrhea on empiric Cipro + Metro--> changed to Aztreonam as patient was having hives/ dyspnea/pruritus complete 5 days antibiotic course CHRONIC MESENTERIC ISCHEMIA ELEVATED LACTIC ACID -follows with Dr. Clark [place] [facility] [place]hold aspirin and Plavix for GI bleed -CTA a/p without signs of acute ischemia -Lactate 5.43 --> 2.9 - Lactic acid normalized d/c IV fluids BILL -likely pre-renal etiology - resolved COPD -stable -continue home inhalers prn IDDM -A1c 6 -SSI coverage -BSG AC HS -Pharmacy consulted for glycemic control - BSG >290 DEPRESSION -continue Celexa, Ativan, BuSpar, Amitriptyline [id number] RED BLOOD CELL ANTIBODY POSITIVE -has had difficulties getting PRBCs in the past HLD - statin H/O CVA -no residual defects -hold ASA for GI bleed Statin DVT PROPHYLAXIS: SCDs RE: GI bleed CODE STATUS: FULL CODE Disposition Pending Current Inpatient Medications: Current Inpatient Medications Medications (Trade) Dose Ordered Sig/Carson Route Start Time Stop Time Status Last Admin Dose Admin Ioversol (Optiray 320) 125 ml UD PRN IV 05/31/16 13:30 06/04/16 13:29 Ondansetron HCl (Zofran Inj) 4 mg Q6H PRN IV 05/31/16 16:00 06/30/16 15:59 06/01/16 05:19 4 MG Acetaminophen (Tylenol Tab) 500 mg Q8 PRN PO 05/31/16 16:00 06/30/16 15:59 Albuterol (Ventolin Hfa Inhaler) 2 puffs Q6 PRN INH 05/31/16 16:00 06/30/16 15:59 Amitriptyline HCl (Elavil Tab) 5 mg HS PO 05/31/16 21:00 06/30/16 20:59 06/01/16 21:33 5 MG Buspirone HCl (BusPAR TAB) 30 mg BID PO 05/31/16 21:00 06/30/16 20:59 06/02/16 07:42 30 MG Citalopram Hydrobromide (celeXA TAB) 40 mg QAM PO 06/01/16 09:00 07/01/16 08:59 06/02/16 07:43 40 MG Cyclobenzaprine HCl (Flexeril Tab) 5 mg BID PRN PO 05/31/16 16:00 06/30/16 15:59 Gabapentin (Neurontin Cap) 300 mg BID PO 05/31/16 21:00 06/30/16 20:59 06/02/16 07:42 300 MG Lorazepam (Ativan Tab) 0.5 mg HS PRN PO 05/31/16 16:00 06/30/16 15:59 Glucose (Glucose 40% Gel) 15-30 GRAMS 15 GRAMS... UD PRN PO 05/31/16 16:15 06/30/16 16:14 Glucose (Glucose Chew Tab) 4-8 Tablets 4 Tabl... UD PRN PO 05/31/16 16:15 06/30/16 16:14 Dextrose (Dextrose 50% 50ML Syringe) 25-50ML OF 50% DW IV FOR... UD PRN IV 2/13/17 16:15 06/30/16 16:14 Glucagon (Glucagon Inj) 1 mg UD PRN SQ 05/31/16 16:15 06/30/16 16:14 Miscellaneous Information 1 ea 1 ea UD N/A 05/31/16 18:17 06/30/16 18:16 Pantoprazole Sodium/Dextrose (Protonix Inj/D5 100ml) 100 ml @ 20 mls/hr Q5H IV 05/31/16 17:00 06/30/16 16:59 06/02/16 13:41 20 MLS/HR Insulin Glargine (Lantus Solostar Pen) SEE PROTOCOL TEXT BID SC 06/01/16 09:00 07/01/16 08:59 06/02/16 07:48 15 UNIT Diphenhydramine HCl (Benadryl Cap) 25 mg Q6H PRN PO 06/01/16 21:30 07/01/16 21:29 06/02/16 12:20 25 MG Insulin Aspart SLIDING SCALE If C... ACHS SC 06/02/16 07:00 07/02/16 06:59 06/02/16 11:00 7 UNITS Aztreonam/Dextrose (Azactam IV/D5 100ml) 110 ml @ 100 mls/hr Q8H IV 06/02/16 14:15 06/12/16 14:14 UNV
[2016-06-02] MEDS: AZTREONAM IV 1,000 MG in DEXTROSE 5% 100ML 100 ML IV SCH ×2 (17:05→23:15)
[2016-06-02] MEDS: AMITRIPTYLINE HCL 10 MG TAB PO SCH (20:46)
[2016-06-03 00:07] VITALS: BP 112/47; PULSE 73; TEMP 37; O2SAT 95
[2016-06-03 04:00] VITALS: BP 135/48; PULSE 66; TEMP 37.1; O2SAT 96
[2016-06-03] MEDS: PANTOprazole INJ 40 MG in DEXTROSE 5% 100ML IV SCH ×2 (05:06→09:05)
[2016-06-03] MEDS: INSULIN ASPART 100 UNITS/ML 3 ML PEN SC SCH ×4 (07:00→21:07)
[2016-06-03 08:29] VITALS: BP 150/53; PULSE 65; TEMP 36.7; O2SAT 96
[2016-06-03] MEDS: AZTREONAM IV 1,000 MG in DEXTROSE 5% 100ML 100 ML IV SCH ×2 (09:05→16:49)
[2016-06-03] MEDS: BusPIRone 15 MG TAB PO SCH ×2 (09:07→21:01)
[2016-06-03] MEDS: CITALOPRAM 40 MG TAB PO SCH (09:07)
[2016-06-03] MEDS: GABAPENTIN 300 MG CAP PO SCH ×2 (09:07→21:00)
[2016-06-03] MEDS: CYCLOBENZAPRINE HCL 10 MG TAB PO PRN (09:07)
[2016-06-03] MEDS: INSULIN GLARGINE SOLOSTAR 100 UNITS/ML 3 ML PEN SC SCH ×2 (09:13→21:08)
[2016-06-03 10:17] LABS: HEMATOCRIT 31.7 % (37-47)
--- NOTE | 2016-06-03 10:25 | Pharmacy Progress Note ---
Glycemic Control: Progress Nt Date of Service Jun 03, 2016. Scope Glycemic Pharmacist consulted for glycemic control and to write orders per [facility] inpatient glycemic control protocol. Objective Accuchecks BSG (last 24hrs): Test 06/02/16 11:20 06/02/16 16:40 06/02/16 20:17 06/03/16 06:43 Bedside Glucose 172 mg/dl (70-90) 213 mg/dl (70-90) 220 mg/dl (70-90) 170 mg/dl (70-90) HbA1c: 6.0 % on 05/12/16 Recent Pertinent Medications Outpatient Anti-diabetic Regimen: * Novolin 70/30 premixed insulin 35 units SQ BIDM The patient is currently receiving: * Basal insulin: Lantus SQ BID - dosing based on BSG 10 units for BSG < 120 mg/dL 15 units for BSG 120-199 mg/dL 20 units for BSG 200+ mg/dL * Correctional Insulin: Novolog Correction per scale ACHS Goal Range: Low 120 mg/dL - High 150 mg/dL Correction Factor: 25 mg/dL/unit * Prandial insulin: Per carb ratio of 1 unit per 9 grams CHO consumed Risk Factors for Insulin Resistance: * Infection * IVF: pantoprazole gtt (in dextrose) * Diet Assessment & Plan ASSESSMENT: * ADA & AACE recommend a goal blood sugar range 140-180 mg/dl for the majority of critically ill & non-critically ill patients. However, more stringent targets may be selected in individual cases. 06/02/16 * 70yo T2DM female with adequately controlled diabetes per recent A1c * Pt is maintained on pre-mixed insulin regimen as an outpatient. * Pre-mixed insulins are difficult to titrate since they are already in a 70/ 30 distribution of basal:prandial insulin. Pre-mixed insulins typically lead to hypoglycemia while admitted d/t changing PO status but rapid acting insulin is unable to be held. * Home regimen discontinued on admission per pharmacy consult & pt changed to SQ basal bolus insulin regimen of Lantus + NovoLog SSI (CF+CR) * Started regimen based on weight/stress based dosing and will titrate regimen based on BSG trends. * Dosing Lantus by BSG will help determine basal needs with changing factors for insulin resistance. * Hyperglycemic effects from solumedrol given in ED should be diminished * Pt has received 56 units of insulin over the past 24hrs. Outpatient dosing is ~ 70 units of insulin per day * BSGs [phone] over the past 24hrs * AM fasting BSG is close to goal range, expect to to continue to improve as lantus approaches steady state * Post-prandial BSGs are elevated, will tighten bolus insulin parameters * ADA & AACE recommend a goal blood sugar range 140-180 mg/dl for the majority of critically ill & non-critically ill patients. However, more stringent targets may be selected in individual cases. Will utilize a slightly more stringent target of 120-150mg/dl based on tight outpatient glycemic control and NPO status. 06/03/16 * BSG's trending up steadily yesterday after received lower dose of Lantus yesterday AM. Furthermore, AM fasting BSG this AM elevated to 170 mg/dL. Patient received a total of 35 units of Lantus yesterday. Will adjust Lantus so patient receives ~ 40 units for BSG's within goal * Tightened carb ratio and correction factor at lunch yesterday. Will leave for now, but will decrease goal range as pt is ordered diet now PLAN FOR INPATIENT GLYCEMIC CONTROL: * Increase Basal insulin with LANTUS SQ BID as follows: 10 units for BSG < 120 mg/dL 20 units for BSG 120-199 mg/dL 25 units for BSG 200+ mg/dL * Correctional Insulin with NOVOLOG per scale ACHS or Q6hrs while NPO * Decrease Goal Range: Low 110 mg/dL - High 140 mg/dL * Correction Factor: 25 mg/dL/unit * Nutritional / Prandial insulin per carb ratio of 1 unit per 9 grams CHO consumed * Please note that the plan above was derived based on current level of insulin resistance and hospital stress. These recommendations are appropriate for inpatient admission only. Plan of care upon discharge will need to be reassessed to avoid potential outpatient hypo/hyperglycemia. Thank you.
[2016-06-03] MEDS ORDERED: ASPIRIN 81 MG ECTAB PO ONE (10:36)
[2016-06-03] MEDS ORDERED: IRON SUCROSE INJ 300 MG in SODIUM CHLORIDE 0.9% 250ML 250 ML IV SCH (10:45)
--- NOTE | 2016-06-03 10:48 | Progress Note ---
Medicine Progress Note Date & Time of Visit: Jun 03, 2016 at 10:44. Subjective seen sitting up in bedside chair states she feels improved today denies dizziness, dyspnea no BM today, (+) flatus, tolerating diet no other symptoms Objective Last 8 Hrs Date Time Temp Pulse Resp B/P Pulse Ox O2 Delivery O2 Flow Rate FiO2 06/03/16 08:29 36.7 65 18 150/53 96 06/03/16 04:00 37.1 66 16 135/48 96 Room Air 06/03/16 04:00 Room Air Physical Exam: General- oriented x 3, not in distress, speaks in sentences with no effort Eyes- anicteric Neck- no JVD Lungs- clear to auscultation bilaterally, no rales/wheeze Heart-normal rate, regular rhythm; no murmurs Abdomen- normal bowel sounds, non distended, soft, nontender Extremities- no pretibial edema, no calf tenderness Neuro- alert, oriented x 3; no gross deficits Skin- warm & dry Laboratory Results: Last 24 Hours Test 06/02/16 11:20 06/02/16 14:00 06/02/16 16:40 06/02/16 20:17 Bedside Glucose 172 mg/dl 213 mg/dl 220 mg/dl Hemoglobin 8.0 g/dL Hematocrit 24.8 % Test 06/03/16 06:43 06/03/16 09:55 Bedside Glucose 170 mg/dl Hemoglobin 10.3 g/dL Hematocrit 31.7 % Assessment & Plan 70 year old female with history of chronic mesenteric ischemia s/p stent and bypass graft, Multiple AVMs on monthly octreotide injections, presenting with melena. ANEMIA, LIKELY SECONDARY TO ACUTE BLOOD LOSS FROM UPPER GI BLEED, UNCLEAR ETIOLOGY HISTORY OF MULTIPLE AVMS, MESENTERIC ISCHEMIA - recent EGD in 05/04 unrevealing - Hg decreased from 9.4 to 7.8 - transfuse 1 unit pRBC--> hg improved to 10 - per GI, no interventions at this point continue supportive care, PRN transfusions and Venofer - no recurrence of melena - change protonix drip to PO BID re-start Aspirin, still hold Plavix monitor Hg POSSIBLE NON SPECIFIC ENTERITIS based on CT abdomen no diarrhea on empiric Cipro + Metro--> changed to Aztreonam as patient was having hives/ dyspnea/pruritus- day 2 complete 5 days antibiotic course CHRONIC MESENTERIC ISCHEMIA ELEVATED LACTIC ACID -follows with Dr. Clark - vascular surgery at [facility] [place] -hold aspirin and Plavix for GI bleed -CTA a/p without signs of acute ischemia -Lactate 5.43 --> 2.9 - Lactic acid normalized d/c IV fluids BILL -likely pre-renal etiology - resolved COPD -stable -continue home inhalers prn IDDM -A1c 6 -SSI coverage -BSG AC HS -Pharmacy consulted for glycemic control - BSG >290 DEPRESSION -continue Celexa, Ativan, BuSpar, Amitriptyline [id number] RED BLOOD CELL ANTIBODY POSITIVE -has had difficulties getting PRBCs in the past HLD - statin H/O CVA -no residual defects - resume Aspirin and Statin DVT PROPHYLAXIS: SCDs RE: GI bleed - ambulate in the halls CODE STATUS: FULL CODE Disposition Pending possible d./c in 1-2 days Current Inpatient Medications: Current Inpatient Medications Medications (Trade) Dose Ordered Sig/Carson Route Start Time Stop Time Status Last Admin Dose Admin Ioversol (Optiray 320) 125 ml UD PRN IV 05/31/16 13:30 06/04/16 13:29 Ondansetron HCl (Zofran Inj) 4 mg Q6H PRN IV 05/31/16 16:00 06/30/16 15:59 06/01/16 05:19 4 MG Acetaminophen (Tylenol Tab) 500 mg Q8 PRN PO 05/31/16 16:00 06/30/16 15:59 Albuterol (Ventolin Hfa Inhaler) 2 puffs Q6 PRN INH 05/31/16 16:00 06/30/16 15:59 Amitriptyline HCl (Elavil Tab) 5 mg HS PO 05/31/16 21:00 06/30/16 20:59 06/02/16 20:46 5 MG Buspirone HCl (BusPAR TAB) 30 mg BID PO 05/31/16 21:00 06/30/16 20:59 06/03/16 09:07 30 MG Citalopram Hydrobromide (celeXA TAB) 40 mg QAM PO 06/01/16 09:00 07/01/16 08:59 06/03/16 09:07 40 MG Cyclobenzaprine HCl (Flexeril Tab) 5 mg BID PRN PO 05/31/16 16:00 06/30/16 15:59 06/03/16 09:07 5 MG Gabapentin (Neurontin Cap) 300 mg BID PO 05/31/16 21:00 06/30/16 20:59 06/03/16 09:07 300 MG Lorazepam (Ativan Tab) 0.5 mg HS PRN PO 05/31/16 16:00 06/30/16 15:59 Glucose (Glucose 40% Gel) 15-30 GRAMS 15 GRAMS... UD PRN PO 05/31/16 16:15 06/30/16 16:14 Glucose (Glucose Chew Tab) 4-8 Tablets 4 Tabl... UD PRN PO 05/31/16 16:15 06/30/16 16:14 Dextrose (Dextrose 50% 50ML Syringe) 25-50ML OF 50% DW IV FOR... UD PRN IV 05/31/16 16:15 06/30/16 16:14 Glucagon (Glucagon Inj) 1 mg UD PRN SQ 05/31/16 16:15 06/30/16 16:14 Miscellaneous Information 1 ea 1 ea UD N/A 05/31/16 18:17 06/30/16 18:16 Pantoprazole Sodium/Dextrose (Protonix Inj/D5 100ml) 100 ml @ 20 mls/hr Q5H IV 05/31/16 17:00 06/30/16 16:59 06/03/16 09:05 20 MLS/HR Insulin Glargine (Lantus Solostar Pen) SEE PROTOCOL TEXT BID SC 06/01/16 09:00 07/01/16 08:59 06/03/16 09:13 20 UNIT Diphenhydramine HCl (Benadryl Cap) 25 mg Q6H PRN PO 06/01/16 21:30 07/01/16 21:29 06/02/16 18:28 25 MG Insulin Aspart SLIDING SCALE If C... ACHS SC 06/02/16 07:00 07/02/16 06:59 06/03/16 07:00 4 UNITS Aztreonam 1000 mg/ Dextrose 110 ml @ 100 mls/hr Q8H IV 06/02/16 16:00 06/12/16 14:14 2/16/17 09:05 100 MLS/HR Iron Sucrose/ Sodium Chloride (Venofer Inj/Nss 250ml) 265 ml @ 177 mls/hr TODAY@1045 IV 06/03/16 10:45 06/03/16 12:15
[2016-06-03 11:35] VITALS: BP 139/62; PULSE 75; TEMP 36.8; O2SAT 94
[2016-06-03] MEDS: LACTOBACILLUS ACIDOPHILUS (FLORANEX) TAB PO SCH ×2 (12:58→16:55)
--- NOTE | 2016-06-03 14:01 | EMERGENCY ROOM VISIT NOTE ---
History First contact with patient: 11:11 Chief Complaint: RECTAL BLEEDING Stated Complaint: GI BLEED Nursing Triage Summary: hx of bowel obstructions and bleeding in the past. History of Present Illness The patient is a 70 year old female who presents to the Emergency Department by private vehicle for evaluation of her black stools as well as shortness breath. The patient does report a history of arteriovenous malformation of the bowels. She's had 2 previous surgeries of the vasculature of the abdomen including a mesenteric artery stenting with iliac bypass. Her most recent surgery was performed 3 years ago at [place]. She presents today after having 1.5 days of black/tarry stools. She reports a significant past medical history of GI bleed in the past month. In addition, she is also had a bowel obstruction within the last month as well. The patient denies any pain at this point, however she does report pain when she feels that she needs to move her bowels. She rates her current discomfort as a 0/10. Patient also complains of some shortness of breath which she reports is consistent with previous episodes of anemia. The patient is scheduled to have iron infusion therapy secondary to this anemia. The patient denies any dizziness, lightheadedness, nausea, vomiting, hematemesis, hematuria, or dysuria. She denies any falls or recent trauma. She does take Plavix secondary to her significant vasculopathy. Review of Systems A complete 10-point Review of Systems was discussed with the patient, with pertinent positives and negatives listed in the History of Present Illness. All remaining Review of Systems questions can be considered negative unless otherwise specified. 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 (11) Iron Defic Anemia Nos (12) PAD (peripheral artery disease) (13) SBO (small bowel obstruction) Surgical Problems: (1) History of appendectomy (2) History of cholecystectomy Family History Diabetes mellitus Kidney disease Social History Smoking Status: Former Smoker Alcohol Use: none Drug Use: none Marital Status: single Housing Status: lives with family Occupation Status: retired Current/Historical Medications Scheduled Amitriptyline HCl (Amitriptyline HCl), 5 MG PO HS Ascorbic Acid (Vitamin C), 500 MG PO DAILY Aspirin (Aspirin EC Low Dose), 81 MG PO DAILY B-Complex W/Biotin & Folic Aci (Super B-Complex), 1 CAP PO DAILY Buspirone Hcl (Buspar), 30 MG PO BID Cholecalciferol (Vitamin D 1000 Unit), 1,000 INTER.UNIT PO DAILY Citalopram Hydrobromide (Celexa), 40 MG PO QAM Clopidogrel (Plavix), 75 MG PO HS Furosemide (Lasix), 1 TAB PO DAILY Gabapentin (Neurontin), 300 MG PO BID Insulin Isophan/Regular (Novolin 70/30), 35 UNITS SC BID Magnesium Oxide (Mg Supplement (Magnesium), 500 MG PO DAILY Metformin Hcl (Glucophage), 1,000 MG PO BIDM Octreotide Acetate (Sandostatin [place]), 20 MG IM MONTHLY Omeprazole (Prilosec), 40 MG PO BID Probiotic Product (Probiotic), 1 TAB PO DAILY Simvastatin (Zocor), 20 MG PO QPM Scheduled PRN Acetaminophen (Tylenol), 1-2 TAB PO Q8 PRN for Pain Albuterol Sulfate (Proventil Hfa), 2 PUFFS INH Q6 PRN for Wheezing Cyclobenzaprine Hcl (Flexeril), 1 TAB PO BID PRN for Muscle Spasms Lorazepam (Lorazepam), 0.5 MG PO HS PRN for Anxiety Ondansetron Hcl (Zofran), 4 MG PO TID PRN for Nausea Allergies Coded Allergies: Bupropion (Unverified Allergy, Intermediate, HIVES, 05/31/16) Iodinated Diagnostic Agents (Unverified Allergy, Intermediate, HIVES, 05/31) TOLERATED IVP DYE WITH 50 MG IV BENADRYL, 100 MG SOLUCORTEF IV AND 20 MG IV PEPCID PREP Oxycodone (Verified Allergy, Intermediate, rashes, 05/31/16) Penicillins (Verified Allergy, Intermediate, Hives, 05/31/16) Pioglitazone (Verified Allergy, Intermediate, HIVES, 05/31/16) Sulfa Antibiotics (Verified Allergy, Intermediate, Hives, 05/31/16) Sulfamethoxazole w/Trimethoprim (Verified Allergy, Intermediate, HIVES, ) Clindamycin (Unverified Allergy, Mild, ITCHING, 05/31/16) Codeine (Unverified Allergy, Mild, ITCING, 05/31/16) Erythromycin (Unverified Allergy, Mild, RASH, HIVES, 05/31/16) Glimepiride (Unverified Allergy, Mild, TONGUE TINGLING AND ITCHING, ) Morphine (Unverified Allergy, Mild, ITCHING, 05/31/16) NSAIDs (Verified Allergy, Mild, Itching - TORADOL OK, 05/31/16) Propoxyphene (Unverified Allergy, Mild, ITCHING, 05/31/16) Glipizide (Verified Allergy, Unknown, Needle sensation- Tongue, 05/31/16) Rosuvastatin (Unverified Adverse Reaction, Intermediate, MUSCLE PAIN, 05/31) Sitagliptin (Unverified Adverse Reaction, Intermediate, GI SYMPTOMS, ) Adhesives (Verified Adverse Reaction, Mild, Tape - skin irritation, ) Atorvastatin (Verified Adverse Reaction, Mild, Muscle cramps, 05/31/16) Hydrocodone (Verified Adverse Reaction, Mild, ITCHING, 05/31/16) FROM DARVOCET Metformin (Unverified Adverse Reaction, Mild, BLOATING, 05/31/16) Physical Exam Vital Signs Date Time Temp Pulse Resp B/P Pulse Ox O2 Delivery O2 Flow Rate FiO2 05/31/16 14:00 96 20 135/56 96 Room Air 05/31/16 13:40 37.2 88 20 122/44 94 Room Air 05/31/16 12:00 92 18 148/68 94 05/31/16 11:35 95 Room Air 05/31/16 10:58 37.1 86 18 107/63 94 Room Air Pain Rating (0-10): 0 Physical Exam VITAL SIGNS - Vital signs and nursing notes were reviewed. GENERAL - 70-year-old female appearing her stated age who is in no acute distress. Communicates well with provider and answers questions appropriately. LUNGS - Chest wall symmetric without accessory muscle use, intercostals retractions, or central cyanosis. Normal vesicular breath sounds CTA B/L. No wheezes, rales, or rhonchi appreciated. CARDIAC - RRR with S1/S2. No murmur, rubs, or gallops appreciated. ABDOMEN - Abdominal contour obese and without pulsations or visible masses. BS normoactive all four quadrants. No tenderness to palpation appreciated throughout. No guarding. No Rebound Tenderness. Negative Rovsing's. Negative Matthews's. No palpable masses, hepatosplenomegaly, or ascites noted. RECTAL - No rectal fissures. No active bleeding. A sterile, water-soluble lubricant was applied to the examiner's finger prior to internal exam. No rectal vault tenderness. No rectal masses. No fecal impaction. Stool Guaiac Test : Hemoccult POSITIVE. PSYCH - A&Ox3 and cooperates fully with examiner. Pt is very pleasant and interacts well with examiner. Medical Decision & Procedures ER Provider Diagnostic Interpretation: Radiological imaging and reports were reviewed by myself. Radiologist's Interpretation as follows: ABDOMEN AND PELVIS CT WITHOUT CONTRAST CT DOSE: 1079.93 mGy.cm HISTORY: Pain abd pain/black stools, h/o AV malformation w/ bypass - entrust hiwot TECHNIQUE: Multiaxial CT images of the abdomen and pelvis were performed without the use of intravenous and oral contrast according to the standard department stone protocol. COMPARISON STUDY: 05/11/2016 FINDINGS: Lung bases are clear. Gastric distention on the prior study is no longer present. A component of fatty infiltration of liver. There is a ventral hernia containing several loops of bowel which are nonobstructive. Current study shows no evidence for an obstructive pattern. There is no evidence for distention of small bowel or colon. IMPRESSION: Considerable atherosclerotic change abdominal and pelvic arterial vasculature. Pelvic bowel pattern is nonobstructive. Bladder is relatively collapsed. There are no contained calcifications. IMPRESSION: 1. No evidence for an obstructive bowel pattern. 2. Improved study as compared to the prior exam. 3. No evidence for an acute process. CT ANGIO ABD/PELVIS WITH INTRAVENOUS CONTRAST HISTORY: GI bleed. History of AV malformation. TECHNIQUE: Multiaxial CT images of the abdomen and pelvis were performed following use of intravenous contrast to evaluate the major arterial structures. Maximal intensity projection images were also obtained. COMPARISON STUDY: Abdomen and pelvis CT 05/31/2016. FINDINGS: There is a 7 mm nodule within the right lower lobe on image 5 of 476. This demonstrates 2 year stability and is considered to be benign. No pneumoperitoneum. No pneumatosis. Posterior decompression within the lower lumbar spine.. Intrathecal spinal electrodes are noted within the thoracolumbar spine. Moderate atherosclerotic plaque throughout the descending thoracic and proximal abdominal aorta. There is a proximal celiac artery stent which is patent. The proximal superior mesenteric artery is occluded. However, there is reconstitution of the mid superior mesenteric artery due to collaterals. Evidence for aortobiiliac bypass. Complete occlusion of the left common iliac artery with reconstitution of the hypoplastic hoh left external iliac artery. There is also widely patent left iliac graft. Both arteries join at the level of the left common femoral artery. The right iliac arteries are patent. Large anterior abdominal wall mesh is again noted. Small hernia containing fat and a knuckle of small bowel along the right lower aspect of the mesh remains unchanged. Fatty changes within the liver. The spleen, adrenal glands, and pancreas are unremarkable. No hydronephrosis. Stable left renal peripelvic cyst. Dextroscoliosis of the lumbar spine. No retroperitoneal lymphadenopathy. There is a 1.9 cm enhancing lesion within the right hepatic lobe. This is incompletely characterized on this study but may represent a hemangioma. The bladder, uterus, bilateral adnexa are unremarkable. No pelvic free fluid. Mild pelvic floor collapse. No bowel obstruction. Colonic diverticulosis. There may be minimal fat stranding adjacent to a short segment of proximal jejunum best seen on image 161. Evidence for prior small bowel anastomosis IMPRESSION: 1. Suggestion of minimal fat stranding adjacent to the short segment of the proximal jejunum. This is consistent with a mild nonspecific enteritis. 2. No evidence for bowel obstruction. 3. The celiac artery stent is patent. 4. Occluded proximal superior and inferior mesenteric arteries with reconstitution through collaterals. This is likely chronic. 5. The aortobiiliac grafts appear patent. 6. A 1.9 cm enhancing lesion within the right hepatic lobe. This favors a hemangioma. 7. Additional findings as described above. Laboratory Results Test 05/31/16 11:33 05/31/16 11:35 05/31/16 11:38 05/31/16 11:44 Bedside Lactic Acid Venous 5.43 mmol/L (0.90-1.70) Erythrocyte Sedimentation Rate 6 mm/hr (0-21) Prothrombin Time 10.2 SECONDS (9.0-12.0) Prothromb Time International Ratio 1.0 (0.9-1.1) Activated Partial Thromboplast Time 22.6 SECONDS (21.0-31.0) Partial Thromboplastin Ratio 0.9 Phosphorus Level 3.1 mg/dl (2.5-4.9) Total Bilirubin 0.3 mg/dl (0.2-1) Aspartate Amino Transf (AST/SGOT) 16 U/L (15-37) Alanine Aminotransferase (ALT/SGPT) 23 U/L (12-78) Alkaline Phosphatase 81 U/L (45-117) Total Creatine Kinase 71 U/L (26-192) Creatine Kinase MB 1.5 ng/ml (0.5-3.6) Creatine Kinase MB Ratio 2.1 (0-3.0) C-Reactive Protein 0.63 mg/dl (0-0.29) Total Protein 6.6 gm/dl (6.4-8.2) Albumin 3.4 gm/dl (3.4-5.0) Globulin 3.2 gm/dl (2.5-4.0) Albumin/Globulin Ratio 1.1 (0.9-2) Lipase 123 U/L (73-393) Thyroid Stimulating Hormone (TSH) 1.610 uIu/ml (0.300-4.500) Bedside Hemoglobin 9.2 g/dl (12.0-16.0) Bedside Hematocrit 27 % (37-47) Bedside Sodium 137 mEq/L (135-144) Bedside Potassium 4.1 mEq/L (3.3-5.0) Bedside Chloride 102 mEq/L (101-112) Bedside Total CO2 19 mEq/l (24-31) Bedside Blood Urea Nitrogen 18 mg/dl (7-18) Bedside Creatinine 0.9 mg/dl (0.6-1.3) Bedside Glucose (other) 306 mg/dl (70-99) Bedside Ionized Calcium (Rylie) 1.17 mmol/l (1.12-1.32) Bedside Troponin I 0.000 ng/ml (0-0.045) Test 05/31/16 11:55 Urine Color DK YELLOW Urine Appearance CLEAR (CLEAR) Urine pH 5.0 (4.5-7.5) Urine Specific [place] 1.022 (1.000-1.030) Urine Protein NEG (NEG) Urine Glucose (UA) 3+ (NEG) Urine Ketones 1+ (NEG) Urine Occult Blood NEG (NEG) Urine Nitrite NEG (NEG) Urine Bilirubin NEG (NEG) Urine Urobilinogen NEG (NEG) Urine Leukocyte Esterase TRACE (NEG) Urine WBC (Auto) 1-5 /hpf (0-5) Urine RBC (Auto) 0-4 /hpf (0-4) Urine Hyaline Casts (Auto) 1-5 /lpf (0-5) Urine Epithelial Cells (Auto) 10-20 /lpf (0-5) Urine Bacteria (Auto) NEG (NEG) Medications Administered Medications (Trade) Dose Ordered Sig/Carson Route Start Time Stop Time Status Last Admin Dose Admin Pantoprazole Sodium 1 ea 1 ea NOW STAT IV 05/31/16 11:31 05/31/16 11:35 DC 05/31/16 12:38 1 EA Pantoprazole Sodium 80 mg/ Dextrose 120 ml @ 480 mls/hr TODAY@1145 ONCE IV 05/31/16 11:45 05/31/16 11:59 DC 05/31/16 12:38 480 MLS/HR Pantoprazole Sodium 40 mg/ Dextrose 100 ml @ 20 mls/hr Q5H IV 05/31/16 12:00 05/31/16 16:59 DC 05/31/16 12:39 20 MLS/HR Sodium Chloride (Nss 500ml) 500 ml @ 999 mls/hr Q31M STAT IV 05/31/16 11:51 05/31/16 12:21 DC 05/31/16 12:39 999 MLS/HR Methylprednisolone Sodium Succinate (Solu-Medrol IV) 125 mg NOW STAT IV 05/31/16 13:14 05/31/16 13:17 DC 05/31/16 13:32 125 MG Diphenhydramine HCl (Benadryl Inj) 25 mg NOW STAT IV 05/31/16 13:14 05/31/16 13:17 DC 05/31/16 13:33 25 MG Famotidine (Pepcid 20mg/100 ml) 20 mg ONE STAT IV 05/31/16 13:14 05/31/16 13:17 DC 05/31/16 13:33 20 MG Ciprofloxacin/ Dextrose (Cipro / D5w) 400 mg NOW STAT IV 05/31/16 13:27 05/31/16 13:29 DC 05/31/16 16:09 400 MG Metronidazole (Flagyl / Nss) 500 mg NOW STAT IV 05/31/16 13:27 05/31/16 13:29 DC 05/31/16 14:52 500 MG Procedure Patient was placed on the correctional treatment specialist and monitored throughout the entire extent of their stay. In addition, the patient's pulse oximetry was monitored throughout the entire stay. Any abnormalities or aberrancies were addressed appropriately. ECG Indication: weakness Rate (beats per minute): 104 Rhythm: sinus tachycardia Findings: nonspecific-ST abn (Inferior) Change: no significant change (from 02/01/2016.) ED Course Patient was seen and evaluate by myself. Previous emergency permit visit notes and hospitalizations were reviewed. EKG was obtained. Patient was treated with Protonix drip and bolus. Patient was typed and crossed. She was hydrated with a 500 mL normal saline bolus. A conversation with the patient, she reports that she develops extreme itchiness after IV contrast. Initial conversations for CT angiogram. She initially declines the study. Because of this, a CT without contrast was obtained for initial evaluation. Laboratory results demonstrated anemia with an H&H of 9.3 and 28.9, respectively. ESR is not elevated. CRP is not significantly elevated. Point of care lactic acid is grossly abnormal at 5.43. CT results above. The case was discussed with my attending physician. I did discuss the case with the hospitalist as well as Gen. surgery services and GI. The patient was placed on Cipro and Flagyl prophylactically. After conversation with the patient, she does agree to have a CT angiogram performed. She was prepped with 125 mg IM and Medrol, 25 mg Benadryl, [address] results above. Upon return from CT, the patient is complaining of itchiness. She has no visible rash. She was treated with an additional 25 mg Benadryl with complete resolve of symptoms. CT and grams above. The patient was admitted to the [facility] service in stable condition. Medical Decision Given the patient's presentation and stated complaint, I did elect to perform the above-mentioned workup. The patient is a vasculopath who presents today with black stools. She complains of subjective shortness of breath. She is not hypoxic. She has grossly heme positive stools. She has no tenderness to palpation on initial abdominal exam. The patient was treated with Protonix drip and bolus. She received an IV fluid boluses well. Initial CT without contrast in a straight no acute findings of intra-abdominal pathology. Given the patient's significant critical presentation and ongoing symptoms with associated melena, it was discussed in a CT angiogram of the abdomen was performed. There is no acute findings per CT angiogram. Patient will be admitted to the hospitalist service for continued management and close monitoring. The patient was admitted in fair condition. In the evaluation and treatment this patient, the following differential diagnoses were considered: Ischemic colitis, ischemic, perforation, amongst others. Impression Primary Impression: GI bleed Additional Impression: Anemia Departure Information Dispostion Admitted as an inpatient Condition FAIR Referrals Nicole Catherine M.D. (PCP) Forms WORK / SCHOOL INSTRUCTIONS, HOME CARE DOCUMENTATION FORM, IMPORTANT VISIT INFORMATION Patient Instructions [facility] Problem Qualifiers Primary Impression: GI bleed GI bleed type/associated pathology: unspecified peptic ulcer Qualified Codes : K27.4 - Chronic or unspecified peptic ulcer, site unspecified, with hemorrhage Additional Impression: Anemia Anemia type: other cause
[2016-06-03 15:43] VITALS: BP 126/66; PULSE 79; TEMP 36.6; O2SAT 96
[2016-06-03 19:23] VITALS: BP 125/53; PULSE 83; TEMP 37.1; O2SAT 94
[2016-06-03] MEDS: AMITRIPTYLINE HCL 10 MG TAB PO SCH (21:00)
[2016-06-03] MEDS: SIMVASTATIN 20 MG TAB PO SCH (21:03)
[2016-06-03] MEDS: PANTOprazole SOD 40 MG TAB PO SCH (21:04)
[2016-06-04] VITALS (8 sets, daily range): BP systolic 109–163; BP diastolic 46–71; PULSE 74–87; TEMP 36.8–37.4; O2SAT 92–97
[2016-06-04] MEDS: AZTREONAM IV 1,000 MG in DEXTROSE 5% 100ML 100 ML IV SCH ×3 (00:06→17:07)
[2016-06-04 06:39] LABS: BASO % 1.2 %; BASO ABS # 0.11 K/uL (0-0.2); COMPLETE YES; EOS % 5.6 %; HEMATOCRIT 31.2 % (37-47); IG% 1.4 %; LYMPH % 14.8 %; LYMPH ABS # 1.35 K/uL (1.2-3.4); MEAN CELL VOLUME 82.8 fL (80-100); MEAN CORPUSCULAR HEMOGLOBIN 27.9 pg (25-34); MEAN CORPUSCULAR HGB CONC 33.7 g/dl (32-36); MEAN PLATELET VOLUME 9.2 fL (7.4-10.4); MONO % 7.5 %; NEUT % 69.5 %; PLATELET COUNT 324 K/uL (130-400); RED BLOOD COUNT 3.77 M/uL (4.2-5.4); WHITE BLOOD COUNT 9.11 K/uL (4.8-10.8)
[2016-06-04] MEDS: INSULIN ASPART 100 UNITS/ML 3 ML PEN SC SCH ×4 (08:33→21:14)
[2016-06-04] MEDS: INSULIN GLARGINE SOLOSTAR 100 UNITS/ML 3 ML PEN SC SCH ×2 (08:34→21:14)
[2016-06-04] MEDS: LACTOBACILLUS ACIDOPHILUS (FLORANEX) TAB PO SCH ×3 (08:36→17:11)
[2016-06-04] MEDS: BusPIRone 15 MG TAB PO SCH ×2 (08:37→21:02)
[2016-06-04] MEDS: GABAPENTIN 300 MG CAP PO SCH ×2 (08:37→21:03)
[2016-06-04] MEDS: ASPIRIN 81 MG ECTAB PO SCH (08:37)
[2016-06-04] MEDS: CITALOPRAM 40 MG TAB PO SCH (08:37)
[2016-06-04] MEDS: CHOLECALCIFEROL 1000 INTER.UNIT TAB PO SCH (08:38)
[2016-06-04] MEDS: PANTOprazole SOD 40 MG TAB PO SCH ×2 (08:38→21:04)
--- NOTE | 2016-06-04 11:51 | Progress Note ---
Medicine Progress Note Date & Time of Visit: Jun 04, 2016 at 11:47. Subjective feels ok overall today no abdominal pain, (+) BM- formed, brown last night no nausea tolerated walking in the halls today denies other symptoms Objective Last 8 Hrs Date Time Temp Pulse Resp B/P Pulse Ox O2 Delivery O2 Flow Rate FiO2 06/04/16 08:03 37.0 79 18 109/52 95 06/04/16 08:00 Room Air 06/04/16 04:00 37.0 74 18 116/46 93 Room Air 06/04/16 04:00 Room Air Physical Exam: General- oriented x 3, not in distress, speaks in sentences with no effort Eyes- anicteric Neck- no JVD Lungs- clear breath sounds bilaterally, no rales/wheeze Heart-normal rate, regular rhythm; no murmurs Abdomen- normal bowel sounds, non distended, soft, nontender Extremities- mild pretibial edema, no calf tenderness Neuro- alert, oriented x 3; no gross deficits Skin- warm & dry Laboratory Results: Last 24 Hours Test 06/03/16 16:01 06/03/16 20:15 06/04/16 06:17 06/04/16 07:00 Bedside Glucose 245 mg/dl 170 mg/dl 176 mg/dl White Blood Count 9.11 K/uL Red Blood Count 3.77 M/uL Hemoglobin 10.5 g/dL Hematocrit 31.2 % Mean Corpuscular Volume 82.8 fL Mean Corpuscular Hemoglobin 27.9 pg Mean Corpuscular Hemoglobin Concent 33.7 g/dl Platelet Count 324 K/uL Mean Platelet Volume 9.2 fL Neutrophils (%) (Auto) 69.5 % Lymphocytes (%) (Auto) 14.8 % Monocytes (%) (Auto) 7.5 % Eosinophils (%) (Auto) 5.6 % Basophils (%) (Auto) 1.2 % Neutrophils # (Auto) 6.33 K/uL Lymphocytes # (Auto) 1.35 K/uL Monocytes # (Auto) 0.68 K/uL Eosinophils # (Auto) 0.51 K/uL Basophils # (Auto) 0.11 K/uL RDW Standard Deviation 47.2 fL RDW Coefficient of Variation 15.6 % Immature Granulocyte % (Auto) 1.4 % Immature Granulocyte # (Auto) 0.13 K/uL Test 06/04/16 11:28 Bedside Glucose 231 mg/dl Assessment & Plan 70 year old female with history of chronic mesenteric ischemia s/p stent and bypass graft, Multiple AVMs on monthly octreotide injections, presenting with melena. ANEMIA, LIKELY SECONDARY TO ACUTE BLOOD LOSS FROM UPPER GI BLEED, UNCLEAR ETIOLOGY HISTORY OF MULTIPLE AVMS, MESENTERIC ISCHEMIA - recent EGD in 05/04 unrevealing - Hg decreased from 9.4 to 7.8 - transfuse 1 unit pRBC--> hg improved to 10 - per GI, no interventions at this point continue supportive care, PRN transfusions and Venofer - no recurrence of melena Aspirin resumed yesterday, no melena, Hg stable at 10 - changed protonix drip to PO BID discussed with Vascular Surgery in [place], will need to resume Plavix and just monitor H&H POSSIBLE NON SPECIFIC ENTERITIS based on CT abdomen no diarrhea on empiric Cipro + Metro--> changed to Aztreonam as patient was having hives/ dyspnea/pruritus- day 2 complete 5 days antibiotic course today CHRONIC MESENTERIC ISCHEMIA ELEVATED LACTIC ACID -follows with Dr. Clark - vascular surgery at [facility] -hold aspirin and Plavix for GI bleed -CTA a/p without signs of acute ischemia -Lactate 5.43 --> 2.9 - Lactic acid normalized d/c IV fluids - resume Lasix BILL -likely pre-renal etiology - resolved COPD -stable -continue home inhalers prn IDDM -A1c 6 -SSI coverage -BSG AC HS -Pharmacy consulted for glycemic control - BSG >290 DEPRESSION -continue Celexa, Ativan, BuSpar, Amitriptyline [id number] RED BLOOD CELL ANTIBODY POSITIVE -has had difficulties getting PRBCs in the past HLD - statin H/O CVA -no residual defects - resume Aspirin and Statin DVT PROPHYLAXIS: SCDs RE: GI bleed - ambulate in the halls CODE STATUS: FULL CODE Disposition Pending possible d./c in 1-2 days Current Inpatient Medications: Current Inpatient Medications Medications (Trade) Dose Ordered Sig/Carson Route Start Time Stop Time Status Last Admin Dose Admin Ioversol (Optiray 320) 125 ml UD PRN IV 05/31/16 13:30 06/04/16 13:29 Ondansetron HCl (Zofran Inj) 4 mg Q6H PRN IV 05/31/16 16:00 06/30/16 15:59 06/01/16 05:19 4 MG Acetaminophen (Tylenol Tab) 500 mg Q8 PRN PO 05/31/16 16:00 06/30/16 15:59 Albuterol (Ventolin Hfa Inhaler) 2 puffs Q6 PRN INH 05/31/16 16:00 06/30/16 15:59 Amitriptyline HCl (Elavil Tab) 5 mg HS PO 05/31/16 21:00 06/30/16 20:59 06/03/16 21:00 5 MG Buspirone HCl (BusPAR TAB) 30 mg BID PO 05/31/16 21:00 06/30/16 20:59 06/04/16 08:37 30 MG Citalopram Hydrobromide (celeXA TAB) 40 mg QAM PO 06/01/16 09:00 07/01/16 08:59 06/04/16 08:37 40 MG Cyclobenzaprine HCl (Flexeril Tab) 5 mg BID PRN PO 05/31/16 16:00 06/30/16 15:59 06/03/16 09:07 5 MG Gabapentin (Neurontin Cap) 300 mg BID PO 05/31/16 21:00 06/30/16 20:59 06/04/16 08:37 300 MG Lorazepam (Ativan Tab) 0.5 mg HS PRN PO 05/31/16 16:00 06/30/16 15:59 Glucose (Glucose 40% Gel) 15-30 GRAMS 15 GRAMS... UD PRN PO 05/31/16 16:15 06/30/16 16:14 Glucose (Glucose Chew Tab) 4-8 Tablets 4 Tabl... UD PRN PO 05/31/16 16:15 06/30/16 16:14 Dextrose (Dextrose 50% 50ML Syringe) 25-50ML OF 50% DW IV FOR... UD PRN IV 05/31/16 16:15 06/30/16 16:14 Glucagon (Glucagon Inj) 1 mg UD PRN SQ 05/31/16 16:15 06/30/16 16:14 Miscellaneous Information (Consult Glycemic Management Pharmacy) 1 ea UD N/A 05/31/16 18:17 06/30/16 18:16 Insulin Glargine (Lantus Solostar Pen) SEE PROTOCOL TEXT BID SC 06/01/16 09:00 07/01/16 08:59 06/04/16 08:34 20 UNIT Diphenhydramine HCl (Benadryl Cap) 25 mg Q6H PRN PO 06/01/16 21:30 07/01/16 21:29 06/02/16 18:28 25 MG Insulin Aspart SLIDING SCALE If C... ACHS SC 06/02/16 07:00 07/02/16 06:59 06/04/16 08:33 5 UNITS Aztreonam/Dextrose (Azactam IV/D5 100ml) 110 ml @ 100 mls/hr Q8H IV 06/02/16 16:00 06/04/16 23:59 06/04/16 08:35 100 MLS/HR Aspirin (Ecotrin Tab) 81 mg DAILY PO 06/04/16 09:00 07/04/16 08:59 06/04/16 08:37 81 MG Cholecalciferol (Vitamin D Tab) 1,000 inter.unit DAILY PO 06/04/16 09:00 07/04/16 08:59 06/04/16 08:38 1,000 INTER.UNIT Lactobacillus Acidophilus (Floranex Tab) 4 tab TIDM PO 06/03/16 11:30 07/03/16 11:29 06/04/16 08:36 4 TAB Pantoprazole Sodium (Protonix Tab) 40 mg BID PO 06/03/16 21:00 07/03/16 20:59 06/04/16 08:38 40 MG Simvastatin (Zocor Tab) 20 mg QPM PO 06/03/16 21:00 07/03/16 20:59 06/03/16 21:03 20 MG Clopidogrel Bisulfate (plAVix TAB) 75 mg HS PO 06/04/16 21:00 07/04/16 20:59 UNV Furosemide (Lasix Tab) 20 mg DAILY PO 06/05/16 09:00 07/05/16 08:59 UNV
--- NOTE | 2016-06-04 15:09 | Pharmacy Progress Note ---
Glycemic Control: Progress Nt Date of Service Jun 04, 2016. Scope Glycemic Pharmacist consulted for glycemic control and to write orders per [facility] inpatient glycemic control protocol. Objective Accuchecks BSG (last 24hrs): Test 06/03/16 16:01 06/03/16 20:15 06/04/16 07:00 06/04/16 11:28 Bedside Glucose 245 mg/dl (70-90) 170 mg/dl (70-90) 176 mg/dl (70-90) 231 mg/dl (70-90) Laboratory Data (last 24hrs) Test 06/04/16 06:17 White Blood Count 9.11 K/uL Red Blood Count 3.77 M/uL Hemoglobin 10.5 g/dL Hematocrit 31.2 % Mean Corpuscular Volume 82.8 fL Mean Corpuscular Hemoglobin 27.9 pg Mean Corpuscular Hemoglobin Concent 33.7 g/dl Platelet Count 324 K/uL Mean Platelet Volume 9.2 fL Neutrophils (%) (Auto) 69.5 % Lymphocytes (%) (Auto) 14.8 % Monocytes (%) (Auto) 7.5 % Eosinophils (%) (Auto) 5.6 % Basophils (%) (Auto) 1.2 % Neutrophils # (Auto) 6.33 K/uL Lymphocytes # (Auto) 1.35 K/uL Monocytes # (Auto) 0.68 K/uL Eosinophils # (Auto) 0.51 K/uL Basophils # (Auto) 0.11 K/uL HbA1c: 6.0% on 05/12/16 Recent Pertinent Medications Outpatient Anti-diabetic Regimen: * Novolin 70/30 premixed insulin 35 units SQ BIDM The patient is currently receiving: * Basal insulin: Lantus SQ BID - dosing based on BSG 10 units for BSG < 120 mg/dL 15 units for BSG 120-199 mg/dL 20 units for BSG 200+ mg/dL * Correctional Insulin: Novolog Correction per scale ACHS Goal Range: Low 110 mg/dL - High 140 mg/dL Correction Factor: 25 mg/dL/unit * Prandial insulin: Per carb ratio of 1 unit per 9 grams CHO consumed Risk Factors for Insulin Resistance: * Infection * Diet Assessment & Plan ASSESSMENT: * ADA & AACE recommend a goal blood sugar range 140-180 mg/dl for the majority of critically ill & non-critically ill patients. However, more stringent targets may be selected in individual cases. 06/03/16 * BSG's trending up steadily yesterday after received lower dose of Lantus yesterday AM. Furthermore, AM fasting BSG this AM elevated to 170 mg/dL. Patient received a total of 35 units of Lantus yesterday. Will adjust Lantus so patient receives ~ 40 units for BSG's within goal * Tightened carb ratio and correction factor at lunch yesterday. Will leave for now, but will decrease goal range as pt is ordered diet now 06/04/16 * BSG's persistently elevated. Significantly higher % as basal insulin - will leave basal as-is for now. * Will tighten carb ratio (which will help especially with lunch, dinner, HS sugars) * Will tighten correction factor (which will help with all BSG's, including AM fasting) PLAN FOR INPATIENT GLYCEMIC CONTROL: * Basal insulin with LANTUS SQ BID as follows: 10 units for BSG < 100 mg/dL 20 units for BSG 100-199 mg/dL 25 units for BSG 200+ mg/dL * Correctional Insulin with NOVOLOG per scale ACHS or Q6hrs while NPO * Goal Range: Low 110 mg/dL - High 140 mg/dL * Tighten Correction Factor: 20 mg/dL/unit * Tighten Nutritional / Prandial insulin per carb ratio of 1 unit per 8 grams CHO consumed * Please note that the plan above was derived based on current level of insulin resistance and hospital stress. These recommendations are appropriate for inpatient admission only. Plan of care upon discharge will need to be reassessed to avoid potential outpatient hypo/hyperglycemia. Thank you.
[2016-06-04] MEDS ORDERED: CLOPIDOGREL BISULFATE 75 MG TAB PO SCH (21:00)
[2016-06-04] MEDS: AMITRIPTYLINE HCL 10 MG TAB PO SCH (21:03)
[2016-06-04] MEDS: SIMVASTATIN 20 MG TAB PO SCH (21:03)
[2016-06-05] MEDS: CYCLOBENZAPRINE HCL 10 MG TAB PO PRN ×2 (00:18→08:51)
[2016-06-05 07:23] LABS: BASO % 0.7 %; BASO ABS # 0.07 K/uL (0-0.2); COMPLETE YES; EOS % 5.5 %; IG% 0.5 %; LYMPH % 15.7 %; LYMPH ABS # 1.52 K/uL (1.2-3.4); MEAN CELL VOLUME 84.3 fL (80-100); MEAN CORPUSCULAR HEMOGLOBIN 28.3 pg (25-34); MEAN CORPUSCULAR HGB CONC 33.6 g/dl (32-36); MEAN PLATELET VOLUME 9.3 fL (7.4-10.4); MONO % 8.1 %; NEUT % 69.5 %; PLATELET COUNT 356 K/uL (130-400); RED BLOOD COUNT 4.27 M/uL (4.2-5.4); WHITE BLOOD COUNT 9.67 K/uL (4.8-10.8)
[2016-06-05 07:40] VITALS: BP 129/72; PULSE 75; TEMP 37; O2SAT 96
[2016-06-05 08:00] VITALS: O2SAT 96
[2016-06-05] MEDS: LACTOBACILLUS ACIDOPHILUS (FLORANEX) TAB PO SCH ×2 (08:50→12:45)
--- NOTE | 2016-06-05 08:50 | Pharmacy Progress Note ---
Glycemic Control: Progress Nt Date of Service Jun 05, 2016. Scope Glycemic Pharmacist consulted for glycemic control and to write orders per [facility] inpatient glycemic control protocol. Objective Accuchecks BSG (last 24hrs): Test 06/04/16 11:28 06/04/16 16:36 06/04/16 20:47 06/05/16 07:03 Bedside Glucose 231 mg/dl (70-90) 260 mg/dl (70-90) 231 mg/dl (70-90) 185 mg/dl (70-90) Laboratory Data (last 24hrs) Test 06/05/16 07:08 White Blood Count 9.67 K/uL Red Blood Count 4.27 M/uL Hemoglobin 12.1 g/dL Hematocrit 36.0 % Mean Corpuscular Volume 84.3 fL Mean Corpuscular Hemoglobin 28.3 pg Mean Corpuscular Hemoglobin Concent 33.6 g/dl Platelet Count 356 K/uL Mean Platelet Volume 9.3 fL Neutrophils (%) (Auto) 69.5 % Lymphocytes (%) (Auto) 15.7 % Monocytes (%) (Auto) 8.1 % Eosinophils (%) (Auto) 5.5 % Basophils (%) (Auto) 0.7 % Neutrophils # (Auto) 6.72 K/uL Lymphocytes # (Auto) 1.52 K/uL Monocytes # (Auto) 0.78 K/uL Eosinophils # (Auto) 0.53 K/uL Basophils # (Auto) 0.07 K/uL HbA1c: 6.0% on 05/12/16 Recent Pertinent Medications Outpatient Anti-diabetic Regimen: * Novolin 70/30 premixed insulin 35 units SQ BIDM The patient is currently receiving: * Basal insulin: Lantus SQ BID - dosing based on BSG 10 units for BSG < 120 mg/dL 20 units for BSG 120-199 mg/dL 25 units for BSG 200+ mg/dL * Correctional Insulin: Novolog Correction per scale ACHS Goal Range: Low 110 mg/dL - High 140 mg/dL Correction Factor: 20 mg/dL/unit * Prandial insulin: Per carb ratio of 1 unit per 8 grams CHO consumed Risk Factors for Insulin Resistance: * Diet Assessment & Plan ASSESSMENT: * ADA & AACE recommend a goal blood sugar range 140-180 mg/dl for the majority of critically ill & non-critically ill patients. However, more stringent targets may be selected in individual cases. 06/04/16 * BSG's persistently elevated. Significantly higher % as basal insulin - will leave basal as-is for now. * Will tighten carb ratio (which will help especially with lunch, dinner, HS sugars) * Will tighten correction factor (which will help with all BSG's, including AM fasting) 06/05/16 * BSG's ranging 185-260 mg/dL over 24 hours * Not enough time yet to assess impact of change to Novolog yesterday (started at dinner). Leave for now. * Increase Lantus as AM fasting still elevated to 185 mg/dL PLAN FOR INPATIENT GLYCEMIC CONTROL: * Increase Basal insulin with LANTUS SQ BID as follows: 10 units for BSG < 100 mg/dL 24 units for BSG 100-199 mg/dL 30 units for BSG 200+ mg/dL * Correctional Insulin with NOVOLOG per scale ACHS or Q6hrs while NPO * Goal Range: Low 110 mg/dL - High 140 mg/dL * Correction Factor: 20 mg/dL/unit * Nutritional / Prandial insulin per carb ratio of 1 unit per 8 grams CHO consumed * Please note that the plan above was derived based on current level of insulin resistance and hospital stress. These recommendations are appropriate for inpatient admission only. Plan of care upon discharge will need to be reassessed to avoid potential outpatient hypo/hyperglycemia. Thank you.
[2016-06-05] MEDS: GABAPENTIN 300 MG CAP PO SCH (08:52)
[2016-06-05] MEDS: PANTOprazole SOD 40 MG TAB PO SCH (08:52)
[2016-06-05] MEDS: CHOLECALCIFEROL 1000 INTER.UNIT TAB PO SCH (08:52)
[2016-06-05] MEDS: ASPIRIN 81 MG ECTAB PO SCH (08:54)
[2016-06-05] MEDS: CITALOPRAM 40 MG TAB PO SCH (08:55)
[2016-06-05] MEDS: BusPIRone 15 MG TAB PO SCH (08:56)
[2016-06-05] MEDS: INSULIN GLARGINE SOLOSTAR 100 UNITS/ML 3 ML PEN SC SCH (08:59)
[2016-06-05] MEDS: INSULIN ASPART 100 UNITS/ML 3 ML PEN SC SCH ×2 (08:59→12:49)
[2016-06-05] MEDS ORDERED: FUROSEMIDE 20 MG TAB PO SCH (09:00)
[2016-06-05 15:22] VITALS: BP 122/72; PULSE 87; TEMP 36.9; O2SAT 97
--- NOTE | 2016-06-05 15:48 | Progress Note ---
Medicine Progress Note Date & Time of Visit: Jun 05, 2016 at 15:45. Subjective states she feels better overall walking in the halls with no problems denies abdominal pain, recurrence of melena normal BM since yesterday denies other symptoms states she is ready and would like to be discharged today Objective Last 8 Hrs Date Time Temp Pulse Resp B/P Pulse Ox O2 Delivery O2 Flow Rate FiO2 06/05/16 15:22 36.9 87 20 122/72 97 Room Air Physical Exam: General- oriented x 3, not in distress, speaks in sentences with no effort Lungs- clear breath sounds bilaterally, no rales/wheeze Heart-normal rate, regular rhythm; no murmurs Abdomen- normal bowel sounds, non distended, soft, nontender Extremities- mild pretibial edema, no calf tenderness Neuro- alert, oriented x 3; no gross deficits Skin- warm & dry Laboratory Results: Last 24 Hours Test 06/04/16 16:36 06/04/16 20:47 06/05/16 07:03 06/05/16 07:08 Bedside Glucose 260 mg/dl 231 mg/dl 185 mg/dl White Blood Count 9.67 K/uL Red Blood Count 4.27 M/uL Hemoglobin 12.1 g/dL Hematocrit 36.0 % Mean Corpuscular Volume 84.3 fL Mean Corpuscular Hemoglobin 28.3 pg Mean Corpuscular Hemoglobin Concent 33.6 g/dl Platelet Count 356 K/uL Mean Platelet Volume 9.3 fL Neutrophils (%) (Auto) 69.5 % Lymphocytes (%) (Auto) 15.7 % Monocytes (%) (Auto) 8.1 % Eosinophils (%) (Auto) 5.5 % Basophils (%) (Auto) 0.7 % Neutrophils # (Auto) 6.72 K/uL Lymphocytes # (Auto) 1.52 K/uL Monocytes # (Auto) 0.78 K/uL Eosinophils # (Auto) 0.53 K/uL Basophils # (Auto) 0.07 K/uL RDW Standard Deviation 48.6 fL RDW Coefficient of Variation 16.0 % Immature Granulocyte % (Auto) 0.5 % Immature Granulocyte # (Auto) 0.05 K/uL Test 06/05/16 12:10 Bedside Glucose 231 mg/dl Assessment & Plan 70 year old female with history of chronic mesenteric ischemia s/p stent and bypass graft, Multiple AVMs on monthly octreotide injections, presenting with melena. ANEMIA, LIKELY SECONDARY TO ACUTE BLOOD LOSS FROM UPPER GI BLEED, UNCLEAR ETIOLOGY HISTORY OF MULTIPLE AVMS, MESENTERIC ISCHEMIA - recent EGD in 05/04 unrevealing - Hg decreased from 9.4 to 7.8 - transfuse 1 unit pRBC--> hg improved to 10 - per GI, no interventions at this point continue supportive care, PRN transfusions and Venofer changed protonix drip to PO BID discussed with Vascular Surgery in [place], will need to resume Plavix and just monitor H&H - no recurrence of melena since 3 days ago Aspirin and Plavix resumed Hg stable, 12 on discharge day - will need close monitoring of H&h as outpatient repeat Hg on follow up with PCP next week POSSIBLE NON SPECIFIC ENTERITIS based on CT abdomen no diarrhea on empiric Cipro + Metro--> changed to Aztreonam as patient was having hives/ dyspnea/pruritus- day 2 completed 5 days of antibiotic course CHRONIC MESENTERIC ISCHEMIA ELEVATED LACTIC ACID -follows with Dr. Clark - vascular surgery [place] [facility] [place] a/p without signs of acute ischemia;stent patent -Lactate 5.43 --> normalized after IV fluids was given BILL -likely pre-renal etiology - resolved COPD -stable -continue home inhalers prn IDDM -A1c 6 -SSI coverage -Pharmacy consulted for glycemic control DEPRESSION -continue Celexa, Ativan, BuSpar, Amitriptyline [id number] RED BLOOD CELL ANTIBODY POSITIVE -has had difficulties getting PRBCs in the past HLD - statin H/O CVA -no residual defects - resumed Aspirin and Statin CODE STATUS: FULL CODE Disposition d/c home ff up with PCP in 3-5 days Current Inpatient Medications: Current Inpatient Medications Medications (Trade) Dose Ordered Sig/Carson Route Start Time Stop Time Status Last Admin Dose Admin Ondansetron HCl (Zofran Inj) 4 mg Q6H PRN IV 05/31/16 16:00 06/30/16 15:59 06/01/16 05:19 4 MG Acetaminophen (Tylenol Tab) 500 mg Q8 PRN PO 05/31/16 16:00 06/30/16 15:59 06/05/16 00:14 500 MG Albuterol (Ventolin Hfa Inhaler) 2 puffs Q6 PRN INH 05/31/16 16:00 06/30/16 15:59 Amitriptyline HCl (Elavil Tab) 5 mg HS PO 05/31/16 21:00 06/30/16 20:59 06/04/16 21:03 5 MG Buspirone HCl (BusPAR TAB) 30 mg BID PO 05/31/16 21:00 06/30/16 20:59 06/05/16 08:56 30 MG Citalopram Hydrobromide (celeXA TAB) 40 mg QAM PO 06/01/16 09:00 07/01/16 08:59 06/05/16 08:55 40 MG Cyclobenzaprine HCl (Flexeril Tab) 5 mg BID PRN PO 05/31/16 16:00 06/30/16 15:59 06/05/16 08:51 5 MG Gabapentin (Neurontin Cap) 300 mg BID PO 05/31/16 21:00 06/30/16 20:59 06/05/16 08:52 300 MG Lorazepam (Ativan Tab) 0.5 mg HS PRN PO 05/31/16 16:00 06/30/16 15:59 Glucose (Glucose 40% Gel) 15-30 GRAMS 15 GRAMS... UD PRN PO 05/31/16 16:15 06/30/16 16:14 Glucose (Glucose Chew Tab) 4-8 Tablets 4 Tabl... UD PRN PO 05/31/16 16:15 06/30/16 16:14 Dextrose (Dextrose 50% 50ML Syringe) 25-50ML OF 50% DW IV FOR... UD PRN IV 05/31/16 16:15 06/30/16 16:14 Glucagon (Glucagon Inj) 1 mg UD PRN SQ 05/31/16 16:15 06/30/16 16:14 Miscellaneous Information (Consult Glycemic Management Pharmacy) 1 ea UD N/A 05/31/16 18:17 06/30/16 18:16 Insulin Glargine (Lantus Solostar Pen) SEE PROTOCOL TEXT BID SC 06/01/16 09:00 07/01/16 08:59 06/05/16 08:59 24 UNIT Diphenhydramine HCl (Benadryl Cap) 25 mg Q6H PRN PO 06/01/16 21:30 07/01/16 21:29 06/02/16 18:28 25 MG Insulin Aspart (novoLOG ASPART) SLIDING SCALE If C... ACHS SC 06/02/16 07:00 07/02/16 06:59 06/05/16 12:49 10 UNITS Aspirin (Ecotrin Tab) 81 mg DAILY PO 06/04/16 09:00 07/04/16 08:59 06/05/16 08:54 81 MG Cholecalciferol (Vitamin D Tab) 1,000 inter.unit DAILY PO 06/04/16 09:00 07/04/16 08:59 06/05/16 08:52 1,000 INTER.UNIT Lactobacillus Acidophilus (Floranex Tab) 4 tab TIDM PO 06/03/16 11:30 07/03/16 11:29 06/05/16 12:45 4 TAB Pantoprazole Sodium (Protonix Tab) 40 mg BID PO 06/03/16 21:00 07/03/16 20:59 06/05/16 08:52 40 MG Simvastatin (Zocor Tab) 20 mg QPM PO 06/03/16 21:00 07/03/16 20:59 06/04/16 21:03 20 MG Clopidogrel Bisulfate (plAVix TAB) 75 mg HS PO 06/04/16 21:00 07/04/16 20:59 06/04/16 21:04 75 MG Furosemide (Lasix Tab) 20 mg DAILY PO 06/05/16 09:00 07/05/16 08:59 06/05/16 08:55 20 MG
--- NOTE | 2016-06-05 16:00 | Discharge Instructions ---
Discharge Instructions Admission Reason for Admission: Gi Bleed Discharge Discharge Diagnosis / Problem: ANEMIA, GASTROINTESTINAL BLEED Discharge Goals Goal(s): Diagnostic testing, Therapeutic intervention Activity Recommendations Activity Limitations: as noted below (NO HEAVY EXERTION UNTIL RE-EVALUATED BY PRIMARY CARE PHYSICIAN) . Instructions / Follow-Up Instructions / Follow-Up AVOID CARBONATED, ACIDIC, SPICY FOOD/BEVERAGES. MAINTAIN SOFT, LOW FIBER DIET. CALL PRIMARY CARE PHYSICIAN OR RETURN TO ER IMMEDIATELY IF WITH RECURRENCE OF SYMPTOMS. FOLLOW UP WITH DR. DUMAS ON Tuesday06/09/16 AT 9:50AM. Current Hospital Diet Patient's current hospital diet: Diabetes Type 2 Diet, AHA Diet (Heart Healthy) Discharge Diet Recommended Diet: AHA Diet (Heart Healthy), Diabetes Type 2 Diet, Low Fiber Diet Procedures Procedures Performed: BLOOD TRANSFUSION- 1 UNIT PRBC Pending Studies Studies pending at discharge: yes (REPEAT) List of pending studies: REPEAT CBC ON FOLLOW UP WITH PRIMARY CARE PHYSICIAN NEXT WEEK Laboratory Results Hemoglobin A1c Test 05/12/16 07:13 Range/Units Estimated Average Glucose 126 mg/dl Hemoglobin A1c 6.0 H 4.5-5.6 % Medical Emergencies . Who to Call and When: Medical Emergencies: If at any time you feel your situation is an emergency, please call 911 immediately. . Non-Emergent Contact Non-Emergency issues call your: Primary Care Provider Call Non-Emergent contact if: you have a fever, you have any medication questions . Past History Medical & Surgical History: (1) Anemia (2) GI bleed (3) Degenerative disc disease (4) Diab Gloria Wo Compl, Type Ii Or Unspec Type, Not Uncntrld (5) Diverticulosis Colon (W/O Ment Of Hemorrhage) (6) Hyperlipidemia Nec/Nos (7) Hypertension Nos (8) Iron Defic Anemia Nos (9) Intestinal ischemia (10) History of CVA (cerebrovascular accident) (11) PAD (peripheral artery disease) (12) Depression (13) SBO (small bowel obstruction) (14) Anxiety (15) History of appendectomy (16) History of cholecystectomy . "Provider Documentation" section prepared by Justin Becerra. VTE Core Measure Inpt VTE Proph given/why not?: SCD's
--- NOTE | 2016-06-05 16:06 | Discharge Summary ---
Discharge Summary Admission Date: May 31, 2016 at 15:56 Discharge Date: Jun 05, 2016 Discharge Disposition: Home Principal Diagnosis: ANEMIA, LIKELY SECONDARY TO ACUTE BLOOD LOSS FROM GI BLEED, UNCLEAR ETIOLOGY HISTORY OF MULTIPLE AVMS, MESENTERIC ISCHEMIA Secondary Diagnoses/Problems: PLEASE REFER TO HOSPITAL COURSE BELOW. Procedures: 1 UNIT PRBC TRANSFUSION; CT ABDOMEN: 1. Suggestion of minimal fat stranding adjacent to the short segment of the proximal jejunum. This is consistent with a mild nonspecific enteritis. 2. No evidence for bowel obstruction. 3. The celiac artery stent is patent. 4. Occluded proximal superior and inferior mesenteric arteries with reconstitution through collaterals. This is likely chronic. 5. The aortobiiliac grafts appear patent. 6. A 1.9 cm enhancing lesion within the right hepatic lobe. This favors a hemangioma. 7. Additional findings as described above. Consultations: [employer] DR. ZELAYA Pending Studies/Follow-Up: PLEASE REPEAT H&H ON FOLLOW UP NEXT WEEK. (WILL NEED REGULAR MONITORING OF H&H) Medication Reconciliation Continued Medications: Acetaminophen (Tylenol) 500 Mg Tab 1-2 TAB PO Q8 PRN for Pain for 3 Days, #10 TAB Albuterol Sulfate (Proventil Hfa) 108 Mcg/Act Aer 2 PUFFS INH Q6 PRN for Wheezing Amitriptyline HCl (Amitriptyline HCl) 10 Mg Tab 5 MG PO HS Ascorbic Acid (Vitamin C) 500 Mg Tab 500 MG PO DAILY Aspirin (Aspirin EC Low Dose) 81 Mg Ectab 81 MG PO DAILY B-Complex W/Biotin & Folic Aci (Super B-Complex) 1 Cap Cap 1 CAP PO DAILY Buspirone Hcl (Buspar) 15 Mg Tab 30 MG PO BID Cholecalciferol (Vitamin D 1000 Unit) 1,000 Unit Cap 1000 INTER.UNIT PO DAILY, CAP Citalopram Hydrobromide (Celexa) 40 Mg Tab 40 MG PO QAM Clopidogrel (Plavix) 75 Mg Tab 75 MG PO HS, TAB Cyclobenzaprine Hcl (Flexeril) 5 Mg Tab 1 TAB PO BID PRN for Muscle Spasms for 30 Days, #30 TAB Furosemide (Lasix) 20 Mg Tab 1 TAB PO DAILY, TAB 1 Refill CAN TAKE 1 EXTRA FOR INCREASED SWELLING/EDEMA WITH WEIGHT GAIN Gabapentin (Neurontin) 300 Mg Cap 300 MG PO BID, CAP Insulin Isophan/Regular (Novolin 70/30) Susp 35 UNITS SC BID, BTL TAKE BEFORE BREAKFAST AND SUPPER Lorazepam (Lorazepam) 0.5 Mg Tab 0.5 MG PO HS PRN for Anxiety Magnesium Oxide (Mg Supplement (Magnesium) 500 Mg Cap 500 MG PO DAILY Metformin Hcl (Glucophage) 1,000 Mg Tab 1000 MG PO BIDM, TAB Octreotide Acetate (Sandostatin [place]) 20 Mg Kit 20 MG IM MONTHLY Omeprazole (Prilosec) 40 Mg Cap 40 MG PO BID, #90 Ondansetron Hcl (Zofran) 4 Mg Tab 4 MG PO TID PRN for Nausea, #30 TAB Probiotic Product (Probiotic) 1 Tab Tab 1 TAB PO DAILY Simvastatin (Zocor) 20 Mg Tab 20 MG PO QPM, TAB Admission Information HPI (per Admitting provider): Patient seen and examined. 70 year old female with PMHx of chronic mesenteric ischemia s/p bypass and stenting, h/o multiple AVMs, IDDM, depression and other problems listed below presents to the ED complaining of dark tarry stools x 2 days. Recently patient was admitted from 05/05-05/09 with UGI bleed, EGD was normal at that time. She was then readmitted on 05/11-05/13 for SBO managed conservatively. Patient reports since then she has been doing fairly well. She states she gradually returned to a regular diet and started that approximately 4 days ago. 2 days ago she started to notice her stool was dark and tarry. She had some rectal pain with defecation d/t some constipation. She reports her stools are currently soft but continue to be dark and tarry. She states she has not seen any bright red blood. She also reports nausea. She reports that over the last day or so she has had increased BAHENA and extremity cramping with activity and that is always a sign that her blood counts are dropping. She denies fevers, chills, URI symptoms, chest pain, vomiting, diarrhea, dysuria, and edema. Patient is on Aspirin and Plavix last dose of Aspirin was this morning and last dose of Plavix was last night. In the ED VS were stable, Hgb was 9.3 and had been running around 10. POC lactate was 5.43. CTA a/p showed mild nonspecific enteritis but otherwise nothing acute. She was started on Cipro /Flagyl, and PPI gtt, and IVFs. GI was consulted and will follow the patient. She will be admitted for further workup and treatment. Physical Exam (per Admitting): General Appearance: + pertinent finding (Very pleasant WD/WN 70 year old female lying inbed in NAD ) Head: normocephalic, atraumatic Eyes: PERRL, EOMI, sclerae normal ENT: hearing grossly normal, pharynx normal Neck: supple, no JVD Respiratory/Chest: chest non-tender, lungs clear, normal breath sounds, no respiratory distress, no accessory muscle use Cardiovascular: regular rate, rhythm, no edema, no gallop, no JVD, no murmur , normal peripheral pulses Abdomen/GI: normal bowel sounds, soft, + tenderness (diffuse mild tenderness , no guarding or rigidity ), + distended Back: normal inspection, no muscle spasm Extremities/Musculoskelatal: no calf tenderness, normal capillary refill, no pedal edema Neurologic/Psych: alert, oriented x 3, + pertinent finding (no motor or sensory deficits noted on gross exam ) Skin: normal color, warm/dry, no rash Lymphatic: no adenopathy Hospital Course 70 year old female with history of chronic mesenteric ischemia s/p stent and bypass graft, Multiple AVMs on monthly octreotide injections, presenting with melena. ANEMIA, LIKELY SECONDARY TO ACUTE BLOOD LOSS FROM UPPER GI BLEED, UNCLEAR ETIOLOGY FROM ENTERITIS? HISTORY OF MULTIPLE AVMS, MESENTERIC ISCHEMIA - recent EGD last April 2016 was unrevealing - Hg decreased from 9.4 to 7.8 - transfused 1 unit pRBC--> hg improved to 10 was placed on Protonix drip - per GI, no interventions at this point, will just need close monitoring of Hg and PRN transfusions and Venofer discussed with Vascular Surgery in [place], will need to resume both Aspirin and Plavix and just monitor H&H - no recurrence of melena since admission Aspirin and Plavix resumed Hg stable, remained stable between 10-12 - will need close monitoring of H&h as outpatient repeat Hg on follow up with PCP next week POSSIBLE NON SPECIFIC ENTERITIS based on CT abdomen no diarrhea on empiric Cipro + Metro--> changed to Aztreonam as patient was having hives/ dyspnea/pruritus- day 2 completed 5 days of antibiotic course CHRONIC MESENTERIC ISCHEMIA ELEVATED LACTIC ACID -follows with Dr. Clark - vascular [place] [facility] [place] a/p without signs of acute ischemia;stent patent (report noted in the Procedure Section) -Lactate 5.43 --> normalized after IV fluids was given ACUTE RENAL FAILURE -likely pre-renal etiology - resolved COPD -stable -continue home inhalers prn IDDM -A1c 6 -SSI coverage -Pharmacy consulted for glycemic control DEPRESSION -continue Celexa, Ativan, BuSpar, Amitriptyline [id number] RED BLOOD CELL ANTIBODY POSITIVE -has had difficulties getting PRBCs in the past HLD - statin H/O CVA -no residual defects - resumed Aspirin and Statin Disposition d/c home ff up with PCP next week Total time spent on discharge = 30 minutes This includes examination of the patient, discharge planning, medication reconciliation, and communication with other providers. Discharge Instructions Discharge Instructions Admission Reason for Admission: Gi Bleed Discharge Discharge Diagnosis / Problem: ANEMIA, GASTROINTESTINAL BLEED Discharge Goals Goal(s): Diagnostic testing, Therapeutic intervention Activity Recommendations Activity Limitations: as noted below (NO HEAVY EXERTION UNTIL RE-EVALUATED BY PRIMARY CARE PHYSICIAN) . Instructions / Follow-Up Instructions / Follow-Up AVOID CARBONATED, ACIDIC, SPICY FOOD/BEVERAGES. MAINTAIN SOFT, LOW FIBER DIET. CALL PRIMARY CARE PHYSICIAN OR RETURN TO ER IMMEDIATELY IF WITH RECURRENCE OF SYMPTOMS. FOLLOW UP WITH DR. DMUAS ON Tuesday06/09/16 AT 9:50AM. Current Hospital Diet Patient's current hospital diet: Diabetes Type 2 Diet, AHA Diet (Heart Healthy) Discharge Diet Recommended Diet: AHA Diet (Heart Healthy), Diabetes Type 2 Diet, Low Fiber Diet Procedures Procedures Performed: BLOOD TRANSFUSION- 1 UNIT PRBC Pending Studies Studies pending at discharge: yes (REPEAT) List of pending studies: REPEAT CBC ON FOLLOW UP WITH PRIMARY CARE PHYSICIAN NEXT WEEK Laboratory Results Hemoglobin A1c Test 05/12/16 07:13 Range/Units Estimated Average Glucose 126 mg/dl Hemoglobin A1c 6.0 H 4.5-5.6 % Medical Emergencies . Who to Call and When: Medical Emergencies: If at any time you feel your situation is an emergency, please call 911 immediately. . Non-Emergent Contact Non-Emergency issues call your: Primary Care Provider Call Non-Emergent contact if: you have a fever, you have any medication questions . Past History Medical & Surgical History: (1) Anemia (2) GI bleed (3) Degenerative disc disease (4) Diab Gloria Wo Compl, Type Ii Or Unspec Type, Not Uncntrld (5) Diverticulosis Colon (W/O Ment Of Hemorrhage) (6) Hyperlipidemia Nec/Nos (7) Hypertension Nos (8) Iron Defic Anemia Nos (9) Intestinal ischemia (10) History of CVA (cerebrovascular accident) (11) PAD (peripheral artery disease) (12) Depression (13) SBO (small bowel obstruction) (14) Anxiety (15) History of appendectomy (16) History of cholecystectomy . "Provider Documentation" section prepared by Justin Becerra. VTE Core Measure Inpt VTE Proph given/why not?: SCD's
[2016-06-05 16:09] VITALS: BP 122/72; PULSE 87; TEMP 36.9; O2SAT 97
[2016-06-08] MEDS ORDERED: AMT10 PO (00:53)
[2016-06-08] MEDS ORDERED: SIMV20TA2 PO (05:28)
[2016-06-08] MEDS ORDERED: B-CO1CAP5 PO (05:30)
[2016-06-08] MEDS ORDERED: OMEP40CA41 PO (12:28)
[2016-06-08] MEDS ORDERED: CHOL100027 PO (15:56)
[2016-06-08] MEDS ORDERED: ALBUAER INH (15:56)
[2016-06-08] MEDS ORDERED: MAGN500C PO (16:03)
[2016-06-08] MEDS ORDERED: ASCO500T3 PO (16:03)
[2016-06-08] MEDS ORDERED: LORA0.5T12 PO (16:12)
[2016-06-08] MEDS ORDERED: ASPEC81 PO (16:12)
[2016-06-08] MEDS ORDERED: BUSP15TA70 PO (18:58)
[2016-06-08] MEDS ORDERED: CYCL5TAB PO (19:02)
[2016-06-08] MEDS ORDERED: METF-384 PO (19:02)
[2016-06-08] MEDS ORDERED: FURO-85 PO (19:02)
[2016-06-08] MEDS ORDERED: GABA-113 PO (19:02)
[2016-06-09] MEDS ORDERED: PRD20 PO (10:02)
== END 2016-06-05 16:20 | disposition home or self-care (01) | DRG 378 ==
LOC: ENRESERVDT → ENRESERVTM → C.EDB 10:47 → C.2E 15:56 → C.MS2W 06-04 11:44
PROVIDERS: ADMIT Hospitalist; ATTEND Internal Medicine
DX: K92.2 Gastrointestinal hemorrhage, unspecified (principal); N17.9 Acute kidney failure, unspecified; K55.1 Chronic vascular disorders of intestine; I77.4 Celiac artery compression syndrome; K52.9 Noninfective gastroenteritis and colitis, unspecified; F32.9 Major depressive disorder, single episode, unspecified; E11.9 Type 2 diabetes mellitus without complications; E78.5 Hyperlipidemia, unspecified; Z86.73 Personal history of transient ischemic attack (TIA), and cerebral infarction without residual deficits; J44.9 Chronic obstructive pulmonary disease, unspecified; I10 Essential (primary) hypertension; F41.9 Anxiety disorder, unspecified; Z87.891 Personal history of nicotine dependence; D50.9 Iron deficiency anemia, unspecified; Z83.3 Family history of diabetes mellitus; I73.9 Peripheral vascular disease, unspecified; Z79.82 Long term (current) use of aspirin; Z79.4 Long term (current) use of insulin; M79.7 Fibromyalgia; K92.1 Melena; K62.89 Other specified diseases of anus and rectum

== ENCOUNTER 2016-06-08 19:41 | Observation (INO) | payer OTHER ==
[~2016-06-08] VITALS: Ht 160 cm; Wt 80.0 kg
[~2016-06-08 19:41] MED LIST changes: +ALBUAER INH; -AMITRIPTYLLINE; +AMT10 PO; +ASCO500T3 PO; +ASPEC81 PO; +B-CO1CAP5 PO; +BUSP15TA70 PO; +CHOL100027 PO; +CYCL5TAB PO; +FURO-85 PO; +GABA-113 PO; +LORA0.5T12 PO; +MAGN500C PO; +METF-384 PO; +OMEP40CA41 PO; +PROB1TAB16 PO; -PRT40 PO; +SIMV20TA2 PO
[2016-06-08] MEDS ORDERED: ACET-1256 PO (20:17)
[2016-06-08] MEDS ORDERED: CLOP1TAB15 PO (20:17)
[2016-06-08] MEDS ORDERED: INSU70IN2 SC (20:17)
[2016-06-08] MEDS ORDERED: OCTR20KI IM (20:26)
[2016-06-08] MEDS ORDERED: SODIUM CHLORIDE 0.9% 1000ML 1,000 ML IV STA (20:37)
[2016-06-08] MEDS ORDERED: FAMOTIDINE 20MG/102 ML D5W IV STA (20:37)
[2016-06-08] MEDS ORDERED: DiphenhydrAMINE HCL 50 MG/ML VIAL IV STA (20:37)
[2016-06-08] MEDS ORDERED: DEXAMETHASONE SOD INJ 10 MG/ML VIAL IV ONE (20:45)
[2016-06-08] MEDS ORDERED: DiphenhydrAMINE HCL 50 MG/ML VIAL IM STA (20:53)
[2016-06-08] MEDS ORDERED: CITA40TA12 PO (20:54)
[2016-06-08] MEDS ORDERED: DEXAMETHASONE SOD INJ 10 MG/ML VIAL IM ONE (21:00)
[2016-06-08] MEDS ORDERED: FAMOTIDINE 20 MG TAB PO ONE (21:00)
--- NOTE | 2016-06-08 21:04 | EMERGENCY ROOM VISIT NOTE ---
History Report prepared by Blanka: Patrick Sweet Under the Supervision of: Dr. Darci English M.D. First contact with patient: 20:31 Chief Complaint: ALLERGIC REACTION Stated Complaint: SOB, HIVES Nursing Triage Summary: Patient reports she woke up this morning with hives all over and took benadryl and this afternoon they came back and she took benadryl again but now having shortness of breath. Patient was just discharged a few days ago and had an infection in her right arm from an IV. Patient states "my eyes are discolored as well. I can feel the hives on my tongue." History of Present Illness The patient is a 70 year old female who presents to the Emergency Room with complaints of persistent hives that started this morning when she woke up. The rash is located on her abdomen and back. She complains of itchiness and some difficulty breathing. The patient took Benadryl with little relief of her symptoms. The patient has medication allergies, but notes that she hasn't had any recent change to any of her medications. She denies being on antibiotics or steroids currently. She notes that she switched detergents recently but she has used this detergent in the past and has not had a reaction to it. The patient was recently in the hospital for internal bleeding and an infection in her bowels; she notes her abdomen feels fine today. The patient also notes that her conjunctiva are pale and that her hemoglobin and iron levels were a little low last week when her levels were drawn. Source of History: patient Onset: when she woke up today Position: other (global) Timing: other (persistent) Associated Symptoms: + SOB (some difficulty breathing) Note: Other associated symptoms: itching, pale conjunctiva Review of Systems See HPI for pertinent positives & negatives. A total of 10 systems reviewed and were otherwise negative. 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 (11) Iron Defic Anemia Nos (12) PAD (peripheral artery disease) (13) SBO (small bowel obstruction) (14) Urticaria Surgical Problems: (1) History of appendectomy (2) History of cholecystectomy Family History Diabetes mellitus Kidney disease Social History Smoking Status: Never Smoker Alcohol Use: none Drug Use: none Marital Status: single Housing Status: lives with family Occupation Status: retired Current/Historical Medications Scheduled Amitriptyline HCl (Amitriptyline HCl), 5 MG PO HS Ascorbic Acid (Vitamin C), 500 MG PO DAILY Aspirin (Aspirin EC Low Dose), 81 MG PO DAILY B-Complex W/Biotin & Folic Aci (Super B-Complex), 1 CAP PO DAILY Buspirone Hcl (Buspar), 30 MG PO BID Cholecalciferol (Vitamin D 1000 Unit), 1,000 INTER.UNIT PO DAILY Citalopram Hydrobromide (Celexa), 40 MG PO QAM Clopidogrel (Plavix), 75 MG PO HS Gabapentin (Neurontin), 300 MG PO BID Insulin Isophan/Regular (Novolin 70/30), 35 UNITS SC BID Magnesium Oxide (Mg Supplement (Magnesium), 500 MG PO DAILY Metformin Hcl (Glucophage), 1,000 MG PO BIDM Octreotide Acetate (Sandostatin Lar Depot), 20 MG IM MONTHLY Omeprazole (Prilosec), 40 MG PO BID Probiotic Product (Probiotic), 1 TAB PO BID Simvastatin (Zocor), 20 MG PO QPM Scheduled PRN Acetaminophen (Tylenol), 1-2 TAB PO Q8 PRN for Pain Albuterol Sulfate (Proventil Hfa), 2 PUFFS INH Q6 PRN for Wheezing Cyclobenzaprine Hcl (Flexeril), 1 TAB PO BID PRN for Muscle Spasms Furosemide (Lasix), 1 TAB PO DAILY PRN for leg swelling Lorazepam (Lorazepam), 0.5 MG PO HS PRN for Anxiety Ondansetron Hcl (Zofran), 4 MG PO TID PRN for Nausea Allergies Coded Allergies: Bupropion (Unverified Allergy, Intermediate, HIVES, 05/31/16) Ciprofloxacin (Verified Allergy, Intermediate, HIVES, 06/04/16) Iodinated Diagnostic Agents (Unverified Allergy, Intermediate, HIVES, 05/31) TOLERATED IVP DYE WITH 50 MG IV BENADRYL, 100 MG SOLUCORTEF IV AND 20 MG IV PEPCID PREP Metronidazole (Verified Allergy, Intermediate, HIVES, 06/04/16) Oxycodone (Verified Allergy, Intermediate, rashes, 05/31/16) Penicillins (Verified Allergy, Intermediate, Hives, 05/31/16) Pioglitazone (Verified Allergy, Intermediate, HIVES, 05/31/16) Sulfa Antibiotics (Verified Allergy, Intermediate, Hives, 05/31/16) Sulfamethoxazole w/Trimethoprim (Verified Allergy, Intermediate, HIVES, ) Clindamycin (Unverified Allergy, Mild, ITCHING, 05/31/16) Codeine (Unverified Allergy, Mild, ITCING, 05/31/16) Erythromycin (Unverified Allergy, Mild, RASH, HIVES, 05/31/16) Glimepiride (Unverified Allergy, Mild, TONGUE TINGLING AND ITCHING, ) Morphine (Unverified Allergy, Mild, ITCHING, 05/31/16) NSAIDs (Verified Allergy, Mild, Itching - TORADOL OK, 05/31/16) Propoxyphene (Unverified Allergy, Mild, ITCHING, 05/31/16) Glipizide (Verified Allergy, Unknown, Needle sensation- Tongue, 05/31/16) Rosuvastatin (Unverified Adverse Reaction, Intermediate, MUSCLE PAIN, 05/31) Sitagliptin (Unverified Adverse Reaction, Intermediate, GI SYMPTOMS, ) Adhesives (Verified Adverse Reaction, Mild, Tape - skin irritation, ) Atorvastatin (Verified Adverse Reaction, Mild, Muscle cramps, 05/31/16) Hydrocodone (Verified Adverse Reaction, Mild, ITCHING, 05/31/16) FROM DARVOCET Metformin (Unverified Adverse Reaction, Mild, BLOATING, 05/31/16) Physical Exam Vital Signs Date Time Temp Pulse Resp B/P Pulse Ox O2 Delivery O2 Flow Rate FiO2 06/08/16 23:27 78 14 141/47 97 Room Air 06/08/16 21:39 83 18 119/47 95 Room Air 06/08/16 20:27 90 06/08/16 19:48 37.2 92 18 132/51 97 Room Air Physical Exam GENERAL: Patient is in minimal distress. HEENT: No acute trauma, normocephalic atraumatic, mucous membranes moist, no nasal congestion, mildly pale conjunctiva. NECK: No stridor, no adenopathy, no meningismus, trachea is midline. LUNGS: No dyspnea. Clear to auscultation and equal bilaterally. No wheeze, no rhonchi. HEART: Regular rate and rhythm. No murmurs, rubs, gallops appreciated. ABDOMEN: Soft, nontender, bowel sounds positive, no masses appreciated, no peritonitis. BACK: No midline tenderness, no CVA tenderness EXTREMITIES: Normal motion all extremities, no cyanosis, no edema. Small area of right forearm phlebitis. NEUROLOGIC: Alert and oriented, no acute motor or sensory deficits, no focal weakness, cranial nerves grossly intact. SKIN: Diffuse hives and urticaria, does not include face, no jaundice, no diaphoresis. Medical Decision & Procedures Laboratory Results 06/08/16 21:16 06/08/16 21:16 Test 06/08/16 21:16 Red Blood Count 3.51 M/uL (4.2-5.4) Mean Corpuscular Volume 85.2 fL (80-100) Mean Corpuscular Hemoglobin 27.9 pg (25-34) Mean Corpuscular Hemoglobin Concent 32.8 g/dl (32-36) RDW Standard Deviation 51.1 fL (36.4-46.3) RDW Coefficient of Variation 16.5 % (11.5-14.5) Mean Platelet Volume 8.8 fL (7.4-10.4) Anion Gap 11.0 mmol/L (3-11) Est Creatinine Clear Calc Drug Dose 54.3 ml/min Estimated GFR () 68.2 Estimated GFR (Non- 58.9 BUN/Creatinine Ratio 11.9 (10-20) Calcium Level 8.7 mg/dl (8.5-10.1) Laboratory results as reviewed by me. Medications Administered Medications (Trade) Dose Ordered Sig/Carson Route Start Time Stop Time Status Last Admin Dose Admin Dexamethasone Sodium Phosphate (Decadron Inj) 10 mg NOW ONCE IM 06/08/16 21:00 06/08/16 21:01 DC 06/08/16 21:01 10 MG Diphenhydramine HCl (Benadryl Inj) 50 mg NOW STAT IM 06/08/16 20:53 06/08/16 20:55 DC 06/08/16 21:01 50 MG Famotidine (Pepcid Tab) 20 mg NOW ONCE PO 06/08/16 21:00 06/08/16 21:01 DC 06/08/16 21:01 20 MG ED Course 2030: The patient was evaluated in room C7. A complete history and physical exam was performed. 2036: Ordered NSS 1000 ml @ 999 mls/hr IV, Benadryl Inj 50 mg IV, Famotidine 20 mg IV. 2044: Ordered Decadron Inj 10 mg IV. 2052: Ordered Benadryl Inj 50 mg IM. 2099: Ordered Pepcid Tab 20 mg PO, Decadron Inj 10 mg IM. 2144: At this time, I reevaluated the patient and she feels that her hives have worsened. The hives do not involve her throat or mouth. She feels she needs to be admitted to the hospital because her hemoglobin levels have to stay about 10. 2237: At this time, I discussed the patient's case with Dr. Roger Grant and she agreed to accept the patient for further evaluation. Medical Decision Differential diagnosis: Etiologies such as allergic reaction, anaphylaxis, urticaria, Odom-Calixto syndrome, toxic epidermal necrolysis, erythema multiforme, cellulitis, as well as others were entertained. 70 yr old female well known to me with chronic gi bleed anemia due to ischemia and AVMs. Denies any increased black stool nor blood in stool. HgB has dropped 2.5 in just last few days which is acute for her. Benadryl/Decadron without improvement of hives she arrived for. Initially unable to get IV though after many attempts small hand IV obtained. She likely is having transfusion reaction given history. Hives are not improving with above. I do not feel that she is at the point of needing epi at this time though clearly needs further monitoring. With her anemia acutely worsening and her extensive history this too should be further monitored, though I do not feel that she requires emergent transfusion, especially given issues with transfusion reactions. After admission her antibody test did return positive leading to further suspecion that this is a transfusion reaction. No respiratory issues nor face/tongue swelling. Stable throughout ED stay. Consults Time Called: [phone] Consulting Physician: Dr. Roger Grant Returned Call: [phone] At this time, I discussed the patient's case with Dr. Duran and she agreed to accept the patient for further evaluation. Impression Primary Impression: Allergic urticaria Additional Impressions: Transfusion reaction Anemia Scribe Attestation The scribe's documentation has been prepared under my direction and personally reviewed by me in its entirety. I confirm that the note above accurately reflects all work, treatment, procedures, and medical decision making performed by me. Departure Information Dispostion Being Evaluated By Hospitalist Referrals Nicole Catherine M.D. (PCP) Problem Qualifiers Additional Impressions: Transfusion reaction Encounter type: initial encounter Qualified Codes: T80.92XA - Unspecified transfusion reaction, initial encounter Anemia Anemia type: iron deficiency Iron deficiency anemia type: chronic blood loss Qualified Codes: D50.0 - Iron deficiency anemia secondary to blood loss ( chronic)
[2016-06-08 21:24] LABS: HEMATOCRIT 29.9 % (37-47); MEAN CELL VOLUME 85.2 fL (80-100); MEAN CORPUSCULAR HEMOGLOBIN 27.9 pg (25-34); MEAN CORPUSCULAR HGB CONC 32.8 g/dl (32-36); MEAN PLATELET VOLUME 8.8 fL (7.4-10.4); PLATELET COUNT 307 K/uL (130-400); RED BLOOD COUNT 3.51 M/uL (4.2-5.4); WHITE BLOOD COUNT 8.93 K/uL (4.8-10.8)
[2016-06-08 21:43] LABS: BUN/CREATININE RATIO 11.9 (10-20); CALCIUM 8.7 mg/dl (8.5-10.1); CREATININE 0.98 mg/dl (0.60-1.20); POTASSIUM 4.1 mmol/L (3.5-5.1)
[2016-06-08] MEDS ORDERED: DEXTROSE 50% 50 ML SYR IV PRN (23:30)
[2016-06-08] MEDS ORDERED: GLUCOSE 40% GEL 15 GM TUBE PO PRN (23:30)
[2016-06-08] MEDS ORDERED: ACETAMINOPHEN 325 MG TAB PO PRN (23:30)
[2016-06-08] MEDS ORDERED: GLUCAGON FOR INJ 1 MG VIAL SQ PRN (23:30)
[2016-06-08] MEDS ORDERED: GLUCOSE 10 TABS/TUBE PO PRN (23:30)
[2016-06-08] MEDS ORDERED: ONDANSETRON INJ 2 MG/ML 2 ML VIAL IV PRN (23:30)
[2016-06-08] MEDS ORDERED: POLYETHYLENE (MIRALAX) 17 GM PACK PO PRN (23:30)
[2016-06-09] VITALS (7 sets, daily range): BP systolic 101–144; BP diastolic 62–99; PULSE 79–86; TEMP 36.6–36.8; O2SAT 96–97; Ht 160 cm; Wt 80.0 kg
[2016-06-09] MEDS ORDERED: PHARMACY GLYCEMIC MGMT CONSULT PRN (00:53)
[2016-06-09] MEDS ORDERED: FUROSEMIDE 20 MG TAB PO PRN (01:45)
[2016-06-09] MEDS ORDERED: LORAZEPAM 0.5 MG TAB PO PRN (01:45)
[2016-06-09] MEDS ORDERED: ALBUTEROL HFA 8 GM INHALER INH PRN (01:45)
[2016-06-09] MEDS ORDERED: CYCLOBENZAPRINE HCL 10 MG TAB PO PRN (01:45)
[2016-06-09] MEDS ORDERED: INSULIN GLARGINE SOLOSTAR 100 UNITS/ML 3 ML PEN SC SCH ×4 (02:00→20:00)
[2016-06-09] MEDS ORDERED: INSULIN ASPART 100 UNITS/ML 3 ML PEN SC SCH (02:00)
[2016-06-09] MEDS ORDERED: IV FLUIDS COMPLETED PRN (02:30)
--- NOTE | 2016-06-09 06:34 | DIAGNOSTIC IMAGING REPORT ---
CHEST ONE VIEW PORTABLE CLINICAL HISTORY: shortness of breath x 1 day ALLERGIC REACTION COMPARISON STUDY: No previous studies for comparison. FINDINGS: The cardiac and mediastinal contours are normal. There is no evidence of focal pulmonary consolidation. There is no evidence of failure. No pleural effusions are visualized.[ A spinal stimulator is again visualized. IMPRESSION: No active disease in the chest. Electronically signed by: Jimenez Snell M.D. 06/09/2016 6:33 AM Dictated Date/Time: 06/09/2016 6:33 AM
[2016-06-09 07:50] LABS: ESTIMATED AVERAGE GLUCOSE 143 mg/dl; HA1C FLAG Normal (Normal)
[2016-06-09] MEDS ORDERED: BusPIRone 15 MG TAB PO SCH (08:00)
[2016-06-09] MEDS ORDERED: CHOLECALCIFEROL 1000 INTER.UNIT TAB PO SCH (08:00)
[2016-06-09] MEDS ORDERED: GABAPENTIN 300 MG CAP PO SCH (08:00)
[2016-06-09] MEDS ORDERED: PANTOprazole SOD 40 MG TAB PO SCH (08:00)
[2016-06-09] MEDS ORDERED: ASCORBIC ACID 500 MG TAB PO SCH (08:00)
[2016-06-09] MEDS ORDERED: CITALOPRAM 40 MG TAB PO SCH (08:00)
[2016-06-09] MEDS ORDERED: ASPIRIN 81 MG ECTAB PO SCH (08:00)
[2016-06-09] MEDS ORDERED: MAGNESIUM OXIDE 400 MG TAB PO SCH (08:00)
[2016-06-09] MEDS: INSULIN ASPART 100 UNITS/ML 3 ML PEN SC SCH ×2 (08:30→12:45)
--- NOTE | 2016-06-09 08:30 | History and Physical ---
History & Physical Date & Time of Service: Jun 09, 2016 at 01:36 Chief Complaint: Urticaria Primary Care Physician: Nicole Catherine M.D. History of Present Illness Source: patient 70 yoF with h/o AVMs and frequent blood transfusions including one two weeks ago presents with acute urticaria on her arms, back and abdomen that appeared this morning when she awoke. She reported some itching but took some Benadryl and went on with her day. She notes that by 4pm, however, the itching and rash became severe and she began having some shortness of breath and could feel hives on her tongue and in her mouth. Although she had hives two weeks ago while admitted, she denies anything like this before. She did reportedly change her laundry detergent recently, but reports using that before without difficulty. She also has known blood antibodies as a result of multiple prior transfusions, and with recent blood given, there is a possiblity of a transfusion reaction to the blood. ROS were otherwise positive for leg cramps for which she takes Flexeril, and some reports of a headache and blurry vision which occurred when the itching and rash became severe, but which spontaneously resolved. She denied any stroke like symptoms including no facial droop, difficulty speaking, swallowing, or walking and she also denies any chest pain, tongue swelling or difficulty breathing because her airway is closing off, abdominal pain, bleeding per rectum or dark tarry stools. She notably has multiple medication allergies but denies taking anything new, and there were no new medications started at the prior hospital discharge. Past Medical/Surgical History Medical Problems: (1) Anxiety Status: Chronic (2) Degenerative disc disease Status: Chronic (3) Depression Status: Chronic (4) Diab Gloria Wo Compl, Type Ii Or Unspec Type, Not Uncntrld Status: Chronic (5) Diverticulosis Colon (W/O Ment Of Hemorrhage) Status: Resolved (6) History of CVA (cerebrovascular accident) Permanent Comment: 2012; no residual deficits Status: Resolved (7) Hyperlipidemia Nec/Nos Status: Chronic (8) Hypertension Nos Status: Chronic (9) Intestinal ischemia Permanent Comment: s/p hepatic artery to SMA in November 2014 S/p angioplasty of proximal and distal anastomoses of the common hepatic to superior mesenteric artery reversed saphenous vein bypass graft (4 mm [employer] Reuben balloon) by Dr. Gatica on 03/04/2015. -S/p angioplasty of proximal and distal anastomoses of the re-stenotic common hepatic => SMA reversed saphenous vein bypass graft 08/06/[address] Gatica. -S/p open exposure of left brachial artery (re-do), stenting of celiac artery ( [employer] iCast 7 x 22 mm stent post dilated to 8 mm), and angioplasty of proximal and distal anastomoses of the re-stenotic common hepatic to SMA reversed saphenous vein bypass graft (5 mm [employer] AngioSculpt balloon) 12/10/[address] Gatica. Status: Chronic (10) Iron Defic Anemia Nos Status: Chronic (11) PAD (peripheral artery disease) Status: Chronic Surgical Problems: (1) History of appendectomy Status: Resolved (2) History of cholecystectomy Status: Resolved Family History Diabetes mellitus Kidney disease Social History Smoking Status: Never Smoker Smokeless Tobacco Use: No Alcohol Use: none Drug Use: none Marital Status: single Housing status: lives with family Occupational Status: retired Immunizations History of Influenza Vaccine: Yes Influenza Vaccine Date: Jan 14, 2016 History of Tetanus Vaccine?: utd Tetanus Immunization Date: Jun 22, 2011 History of Pneumococcal: Yes Pneumococcal Date: Mar 02, 2013 History of Hepatitis B Vaccine: No Hepatitis Immunization Date: Jun 21, 1968 Multi-Drug Resistant Organisms History of MDRO: Yes Type of MDRO: MRSA Allergies Coded Allergies: Bupropion (Unverified Allergy, Intermediate, HIVES, 05/31/16) Ciprofloxacin (Verified Allergy, Intermediate, HIVES, 06/04/16) Iodinated Diagnostic Agents (Unverified Allergy, Intermediate, HIVES, 05/31) TOLERATED IVP DYE WITH 50 MG IV BENADRYL, 100 MG SOLUCORTEF IV AND 20 MG IV PEPCID PREP Metronidazole (Verified Allergy, Intermediate, HIVES, 06/04/16) Oxycodone (Verified Allergy, Intermediate, rashes, 05/31/16) Penicillins (Verified Allergy, Intermediate, Hives, 05/31/16) Pioglitazone (Verified Allergy, Intermediate, HIVES, 05/31/16) Sulfa Antibiotics (Verified Allergy, Intermediate, Hives, 05/31/16) Sulfamethoxazole w/Trimethoprim (Verified Allergy, Intermediate, HIVES, ) Clindamycin (Unverified Allergy, Mild, ITCHING, 05/31/16) Codeine (Unverified Allergy, Mild, ITCING, 05/31/16) Erythromycin (Unverified Allergy, Mild, RASH, HIVES, 05/31/16) Glimepiride (Unverified Allergy, Mild, TONGUE TINGLING AND ITCHING, ) Morphine (Unverified Allergy, Mild, ITCHING, 05/31/16) NSAIDs (Verified Allergy, Mild, Itching - TORADOL OK, 05/31/16) Propoxyphene (Unverified Allergy, Mild, ITCHING, 05/31/16) Glipizide (Verified Allergy, Unknown, Needle sensation- Tongue, 05/31/16) Rosuvastatin (Unverified Adverse Reaction, Intermediate, MUSCLE PAIN, 05/31) Sitagliptin (Unverified Adverse Reaction, Intermediate, GI SYMPTOMS, ) Adhesives (Verified Adverse Reaction, Mild, Tape - skin irritation, ) Atorvastatin (Verified Adverse Reaction, Mild, Muscle cramps, 05/31/16) Hydrocodone (Verified Adverse Reaction, Mild, ITCHING, 05/31/16) FROM DARVOCET Metformin (Unverified Adverse Reaction, Mild, BLOATING, 05/31/16) Home Medications Scheduled Amitriptyline HCl (Amitriptyline HCl), 5 MG PO HS Ascorbic Acid (Vitamin C), 500 MG PO DAILY Aspirin (Aspirin EC Low Dose), 81 MG PO DAILY B-Complex W/Biotin & Folic Aci (Super B-Complex), 1 CAP PO DAILY Buspirone Hcl (Buspar), 30 MG PO BID Cholecalciferol (Vitamin D 1000 Unit), 1,000 INTER.UNIT PO DAILY Citalopram Hydrobromide (Celexa), 40 MG PO QAM Clopidogrel (Plavix), 75 MG PO HS Gabapentin (Neurontin), 300 MG PO BID Insulin Isophan/Regular (Novolin 70/30), 35 UNITS SC BID Magnesium Oxide (Mg Supplement (Magnesium), 500 MG PO DAILY Metformin Hcl (Glucophage), 1,000 MG PO BIDM Octreotide Acetate (Sandostatin Lar Depot), 20 MG IM MONTHLY Omeprazole (Prilosec), 40 MG PO BID Probiotic Product (Probiotic), 1 TAB PO BID Simvastatin (Zocor), 20 MG PO QPM Scheduled PRN Acetaminophen (Tylenol), 1-2 TAB PO Q8 PRN for Pain Albuterol Sulfate (Proventil Hfa), 2 PUFFS INH Q6 PRN for Wheezing Cyclobenzaprine Hcl (Flexeril), 1 TAB PO BID PRN for Muscle Spasms Furosemide (Lasix), 1 TAB PO DAILY PRN for leg swelling Lorazepam (Lorazepam), 0.5 MG PO HS PRN for Anxiety Ondansetron Hcl (Zofran), 4 MG PO TID PRN for Nausea Review of Systems Constitutional: No chills, No fever, No weakness Eyes: + worsening of vision, No diplopia ENT: No sore throat, No trouble swallowing Respiratory: No cough, No shortness of breath, No wheezing Cardiovascular: No chest pain Abdomen: + diarrhea, No GI bleeding, No constipation, No nausea, No pain, No vomiting Musculoskeletal: No problem reported Genitourinary - Female: No problem reported Psychiatric: + depression symptoms Hematologic / Lymphatic: No abnormal bleeding/bruising Integumentary: + itch, + new/changing skin lesions, + rash Allergic / Immunologic: + hives Physical Exam Vital Signs Date Time Temp Pulse Resp B/P Pulse Ox O2 Delivery O2 Flow Rate FiO2 06/09/16 01:23 81 16 134/74 96 Room Air 06/09/16 00:34 71 06/08/16 23:27 78 14 141/47 97 Room Air 06/08/16 21:39 83 18 119/47 95 Room Air 06/08/16 20:27 90 06/08/16 19:48 37.2 92 18 132/51 97 Room Air GEN: WNWD, in no acute distress, alert and appropriate HEENT: NC/AT, PERRL, normal sclerae CARDIO: reg rate, S1/2 heard without m/g/r LUNGS: CTA bilaterally, no crackles, rales or wheezes, good diaphragmatic excursion ABD: soft, non-tender, non-distended, no rebound or guarding EXTREMITY: RP and DP palpable 2+ bilat, no LE swelling or edema, extremities are warm and well-perfused NEURO: CN 2-12 grossly intact, sensation intact throughout MUSC: 5/5 strength throughout, no focal deficits SKIN: warm and dry, rash is completely resolved aside from one erythematous nodule on forearm near wrist (back abdomen arms and lower legs are clear) Diagnostics Laboratory Results Results Past 24 Hours Test 06/08/16 21:16 06/09/16 00:39 Range/Units White Blood Count 8.93 4.8-10.8 K/uL Red Blood Count 3.51 4.2-5.4 M/uL Hemoglobin 9.8 12.0-16.0 g/dL Hematocrit 29.9 37-47 % Mean Corpuscular Volume 85.2 80-100 fL Mean Corpuscular Hemoglobin 27.9 25-34 pg Mean Corpuscular Hemoglobin Concent 32.8 32-36 g/dl RDW Standard Deviation 51.1 36.4-46.3 fL RDW Coefficient of Variation 16.5 11.5-14.5 % Platelet Count 307 130-400 K/uL Mean Platelet Volume 8.8 7.4-10.4 fL Sodium Level 139 136-145 mmol/L Potassium Level 4.1 3.5-5.1 mmol/L Chloride Level 105 98-107 mmol/L Carbon Dioxide Level 23 21-32 mmol/L Anion Gap 11.0 3-11 mmol/L Blood Urea Nitrogen 12 7-18 mg/dl Creatinine 0.98 0.60-1.20 mg/dl Est Creatinine Clear Calc Drug Dose 54.3 ml/min Estimated GFR () 68.2 Estimated GFR (Non- 58.9 BUN/Creatinine Ratio 11.9 10-20 Random Glucose 194 70-99 mg/dl Calcium Level 8.7 8.5-10.1 mg/dl Bedside Glucose 207 70-90 mg/dl Diagnostic Radiology CXR port: IMPRESSION: No active disease in the chest. EKG EKG (06-02-16): SR 82, q waves V1-3 that are chronic finding, no ST changes concerning for ischemia Impression Assessment and Plan 70 yoF with h/o AVMs and recurring GI bleeds requiring multiple transfusions in the past, now with extensive hives after blood transfusion two weeks ago. 1. Urticaria-etiologies include but not limited to blood transfusion reaction, allergic reaction to soap or other such as food, Has a h/o multiple medication allergies, however, she reports no changes in meds recently and this is reflected on discharge summary two weeks ago. -resolved after decadron -like d/c home in am 2. h/o AVMs-on PPI BID for recent GI bleed, no bleeding at this time. H/H dropped from 12. to 02/14. Trend CBC in am. No concern for GI bleeding at this time. Cont Protonix BID 3. SOB-obtain CXR now in light of SOB today-->no active disease. SOB has resolved with resolution of rash and severe itching. 4. Chronic mesenteric ischemia: follows with Dr. Clark-vascular surg at [facility] [place]. Asymptomatic at this time. Cont ASA/Plavix 5. Anemia -multifactorial with blood loss from recurrent GI bleeding and multiple hospitalizations and blood draws. CBC in am to ensure stability 6. COPD--stable; continue home inhalers prn 7. DMII-insulin dependent. ISS coverage with Lantus, Pharmacy consulted for glycemic control 8. Depression-stable, cont Celexa, Ativan, BuSpar, Amitriptyline 9. [id number] RED BLOOD CELL ANTIBODY POSITIVE -per prior notes 10. HLD: cont statin 11. H/O CVA-no residual defects. Cont ASA, Plavix and statin therapy DVT PROPHYLAXIS: SCDs RE: recent GI bleed and drop in H/H from DC CODE STATUS: FULL CODE Dispo-to med surg floor for observation overnight [facility] Med/Surg Resuscitation Status FULL RESUSCITATION VTE Prophylaxis VTE Risk Assessment Done? Y/N: Yes Risk Level: Moderate Given or contraindicated: SCD's
[2016-06-09] MEDS ORDERED: PRD20 PO (10:02)
--- NOTE | 2016-06-09 10:08 | Discharge Instructions ---
Discharge Instructions Admission Reason for Admission: Urticaria Discharge Discharge Diagnosis / Problem: Hives Discharge Goals Goal(s): Improve disease control Activity Recommendations Activity Limitations: resume your previous activity . Instructions / Follow-Up Instructions / Follow-Up Please follow up with Family Medicine Dr. Catherine on June 15 at 12:50pm. Please have your labs checked (CBC and BMP) at that follow up appointment. If you experience hives again, please take prednisone 20mg daily x5 days. You can also take Pepcid 20mg twice a day OR Zyrtec 150mg twice a day for 5 days. You can also take Benadryl 25mg every 6 hours as needed for 5 days. Current Hospital Diet Patient's current hospital diet: Diabetes Type 2 Diet Discharge Diet Recommended Diet: Diabetes Type 2 Diet Pending Studies Studies pending at discharge: no Laboratory Results Hemoglobin A1c Test 06/09/16 05:45 Range/Units Estimated Average Glucose 143 mg/dl Hemoglobin A1c 6.6 H 4.5-5.6 % Medical Emergencies . Who to Call and When: Medical Emergencies: If at any time you feel your situation is an emergency, please call 911 immediately. . Non-Emergent Contact Non-Emergency issues call your: Primary Care Provider . . "Provider Documentation" section prepared by Marlena Mirza. VTE Core Measure Inpt VTE Proph given/why not?: SCD's
[2016-06-09 10:23] LABS: BUN/CREATININE RATIO 9.1 (10-20); CALCIUM 9.4 mg/dl (8.5-10.1); CREATININE 1.3 mg/dl (0.60-1.20); POTASSIUM 4.1 mmol/L (3.5-5.1)
[2016-06-09 10:33] LABS: BETA-HYDROXYBUTYRATE 1.95 mg/dL (0.2-2.81)
--- NOTE | 2016-06-09 11:19 | Pharmacy Progress Note ---
Glycemic Control Intl Consult Date of Service Jun 09, 2016. Scope Glycemic Pharmacist consulted by for glycemic control and to write orders per [facility] ED inpatient glycemic control protocol Objective Weight (Kilograms): 80.000 Accuchecks BSG (last 24hrs): Test 06/08/16 21:16 06/09/16 00:39 06/09/16 03:07 06/09/16 09:25 Random Glucose 194 mg/dl (70-99) 348 mg/dl (70-99) Bedside Glucose 207 mg/dl (70-90) 317 mg/dl (70-90) Laboratory Data (last 24hrs) Test 06/08/16 21:16 06/09/16 05:45 06/09/16 09:25 Anion Gap 11.0 mmol/L 14.0 mmol/L BUN/Creatinine Ratio 11.9 9.1 Blood Urea Nitrogen 12 mg/dl 12 mg/dl Creatinine 0.98 mg/dl 1.30 mg/dl Potassium Level 4.1 mmol/L 4.1 mmol/L Sodium Level 139 mmol/L 136 mmol/L White Blood Count 8.93 K/uL Hemoglobin A1c 6.6 % HbA1c Test 06/09/16 05:45 Hemoglobin A1c 6.6 % (4.5-5.6) H Recent Pertinent Medications Outpatient Anti-diabetic Regimen: * Novolin 70/30 35 units SQ BID * Metformin Risk Factors for Insulin Resistance: * Steroids: DXM 10mg IM x 1 in ED * Diet Assessment & Plan ASSESSMENT: * 70yo T2DM female known to pharmacy from previous admissions/glycemic consults * Pt with presumed adequate control of diabetes as an outpatient per recent A1c. However, this A1c is likely unreliable d/t recent/frequent blood transfusions, chronic anemia, and GI bleeds * Pt with SEVERE hyperglycemia secondary to large dose of Dexamethasone IM given in ED for urticaria. Expect BSGs to remain high for the next 24hrs due to the long duration of action of dexamethasone. * Will use aggressive CF/CR to combat steroid induced hyperglycemia * Will use moderate stress basal insulin dosing which is also consistent with outpatient dosing * ADA & AACE recommend a goal blood sugar range 140-180 mg/dl for the majority of critically ill & non-critically ill patients. However, more stringent targets may be selected in individual cases. Will utilize more stringent goal range of 1140-140mg/dl based on age and tight glycemic control at baseline. PLAN FOR INPATIENT GLYCEMIC CONTROL: * Hold outpatient oral diabetes medications * Basal insulin with LANTUS 20 units SQ BID * Correctional Insulin with NOVOLOG per scale ACHS or Q6hrs while NPO * Goal Range: Low 110 mg/dL - High 140 mg/dL * Correction Factor: 20 mg/dL/unit * Nutritional / Prandial insulin per carb ratio of 1 unit per 7 grams CHO consumed * Please note that the plan above was derived based on current level of insulin resistance and hospital stress. These recommendations are appropriate for inpatient admission only. Plan of care upon discharge will need to be reassessed to avoid potential outpatient hypo/hyperglycemia. Thank you.
[2016-06-09 11:33] LABS: HEMATOCRIT 36.4 % (37-47); MEAN CELL VOLUME 86.5 fL (80-100); MEAN CORPUSCULAR HEMOGLOBIN 28.3 pg (25-34); MEAN CORPUSCULAR HGB CONC 32.7 g/dl (32-36); MEAN PLATELET VOLUME 10.1 fL (7.4-10.4); PLATELET COUNT 436 K/uL (130-400); RED BLOOD COUNT 4.21 M/uL (4.2-5.4); WHITE BLOOD COUNT 20.02 K/uL (4.8-10.8)
--- NOTE | 2016-06-09 19:46 | Discharge Summary ---
Discharge Summary Date of Service Jun 09, 2016. Discharge Summary Admission Date: Jun 08, 2016 at 23:35 Discharge Date: Jun 09, 2016 Discharge Disposition: Home Principal Diagnosis: Urticaria Medication Reconciliation New Medications: Prednisone (Prednisone) 20 Mg Tab 1 TAB PO DAILY for 5 Days, #5 TAB Continued Medications: Acetaminophen (Tylenol) 500 Mg Tab 1-2 TAB PO Q8 PRN for Pain for 3 Days, #10 TAB Albuterol Sulfate (Proventil Hfa) 108 Mcg/Act Aer 2 PUFFS INH Q6 PRN for Wheezing Amitriptyline HCl (Amitriptyline HCl) 10 Mg Tab 5 MG PO HS Ascorbic Acid (Vitamin C) 500 Mg Tab 500 MG PO DAILY Aspirin (Aspirin EC Low Dose) 81 Mg Ectab 81 MG PO DAILY B-Complex W/Biotin & Folic Aci (Super B-Complex) 1 Cap Cap 1 CAP PO DAILY Buspirone Hcl (Buspar) 15 Mg Tab 30 MG PO BID Cholecalciferol (Vitamin D 1000 Unit) 1,000 Unit Cap 1000 INTER.UNIT PO DAILY, CAP Citalopram Hydrobromide (Celexa) 40 Mg Tab 40 MG PO QAM Clopidogrel (Plavix) 75 Mg Tab 75 MG PO HS, TAB Cyclobenzaprine Hcl (Flexeril) 5 Mg Tab 1 TAB PO BID PRN for Muscle Spasms for 30 Days, #30 TAB Furosemide (Lasix) 20 Mg Tab 1 TAB PO DAILY PRN for leg swelling, TAB 1 Refill Gabapentin (Neurontin) 300 Mg Cap 300 MG PO BID, CAP Insulin Isophan/Regular (Novolin 70/30) Susp 35 UNITS SC BID, BTL TAKE BEFORE BREAKFAST AND SUPPER Lorazepam (Lorazepam) 0.5 Mg Tab 0.5 MG PO HS PRN for Anxiety Magnesium Oxide (Mg Supplement (Magnesium) 500 Mg Cap 500 MG PO DAILY Metformin Hcl (Glucophage) 1,000 Mg Tab 1000 MG PO BIDM, TAB Octreotide Acetate (Sandostatin [place]) 20 Mg Kit 20 MG IM MONTHLY Omeprazole (Prilosec) 40 Mg Cap 40 MG PO BID, #90 Ondansetron Hcl (Zofran) 4 Mg Tab 4 MG PO TID PRN for Nausea, #30 TAB Probiotic Product (Probiotic) 1 Tab Tab 1 TAB PO BID Simvastatin (Zocor) 20 Mg Tab 20 MG PO QPM, TAB Admission Information HPI (per Admitting provider): 70 yoF with h/o AVMs and frequent blood transfusions including one two weeks ago presents with acute urticaria on her arms, back and abdomen that appeared this morning when she awoke. She reported some itching but took some Benadryl and went on with her day. She notes that by 4pm, however, the itching and rash became severe and she began having some shortness of breath and could feel hives on her tongue and in her mouth. Although she had hives two weeks ago while admitted, she denies anything like this before. She did reportedly change her laundry detergent recently, but reports using that before without difficulty. She also has known blood antibodies as a result of multiple prior transfusions, and with recent blood given, there is a possiblity of a transfusion reaction to the blood. ROS were otherwise positive for leg cramps for which she takes Flexeril, and some reports of a headache and blurry vision which occurred when the itching and rash became severe, but which spontaneously resolved. She denied any stroke like symptoms including no facial droop, difficulty speaking, swallowing, or walking and she also denies any chest pain, tongue swelling or difficulty breathing because her airway is closing off, abdominal pain, bleeding per rectum or dark tarry stools. She notably has multiple medication allergies but denies taking anything new, and there were no new medications started at the prior hospital discharge. Physical Exam (per Admitting): GEN: WNWD, in no acute distress, alert and appropriate HEENT: NC/AT, PERRL, normal sclerae CARDIO: reg rate, S1/2 heard without m/g/r LUNGS: CTA bilaterally, no crackles, rales or wheezes, good diaphragmatic excursion ABD: soft, non-tender, non-distended, no rebound or guarding EXTREMITY: RP and DP palpable 2+ bilat, no LE swelling or edema, extremities are warm and well-perfused NEURO: CN 2-12 grossly intact, sensation intact throughout MUSC: 5/5 strength throughout, no focal deficits SKIN: warm and dry, rash is completely resolved aside from one erythematous nodule on forearm near wrist (back abdomen arms and lower legs are clear) Hospital Course Patient was admitted with urticaria. Etiology remains unknown. Patient received Decadron, Benadryl and Pepcid with complete resolution of urticaria. No changes were made to patient's home medications. Patient was given a prescription for prednisone to take only if the urticaria returns. Patient was also instructed that she could take Pepcid and Benadryl, along with the prednisone, if the urticaria returned. Of note, labs checked on day of discharge were notable for mild BILL. Patient was encouraged to drink fluids. Patient should have a repeat BMP and CBC at her follow up visit to ensure resolution. Patient deemed stable for discharge with Family Medicine follow up. PE on discharge: General- awake; alert; NAD Eyes- EOMI; no scleral icterus ENT- clear OC/OP Neck- no stridor; trachea midline Lungs- CTA bilaterally; no wheezes/crackles Heart- RRR; no m/r/g Abdomen- soft; NTND; nBS Back- no gross abnormalities Extremities- no c/c/e; no deformity Neuro- no gross focal deficits Skin- no appreciable rash or hives . Total time spent on discharge = This includes examination of the patient, discharge planning, medication reconciliation, and communication with other providers. Discharge Instructions Discharge Instructions Admission Reason for Admission: Urticaria Discharge Discharge Diagnosis / Problem: Hives Discharge Goals Goal(s): Improve disease control Activity Recommendations Activity Limitations: resume your previous activity . Instructions / Follow-Up Instructions / Follow-Up Please follow up with Family Medicine Dr. Catherine on June 15 at 12:50pm. Please have your labs checked (CBC and BMP) at that follow up appointment. If you experience hives again, please take prednisone 20mg daily x5 days. You can also take Pepcid 20mg twice a day OR Zyrtec 150mg twice a day for 5 days. You can also take Benadryl 25mg every 6 hours as needed for 5 days. Current Hospital Diet Patient's current hospital diet: Diabetes Type 2 Diet Discharge Diet Recommended Diet: Diabetes Type 2 Diet Pending Studies Studies pending at discharge: no Laboratory Results Hemoglobin A1c Test 06/09/16 05:45 Range/Units Estimated Average Glucose 143 mg/dl Hemoglobin A1c 6.6 H 4.5-5.6 % Medical Emergencies . Who to Call and When: Medical Emergencies: If at any time you feel your situation is an emergency, please call 911 immediately. . Non-Emergent Contact Non-Emergency issues call your: Primary Care Provider . . "Provider Documentation" section prepared by Marlena Mirza. VTE Core Measure Inpt VTE Proph given/why not?: SCD's Additional Copies To Nicole Catherine M.D.
[2016-06-09] MEDS ORDERED: CLOPIDOGREL BISULFATE 75 MG TAB PO SCH (21:00)
[2016-06-09] MEDS ORDERED: SIMVASTATIN 20 MG TAB PO SCH (21:00)
[2016-06-09] MEDS ORDERED: AMITRIPTYLINE HCL 10 MG TAB PO SCH (21:00)
[2016-06-10] MEDS ORDERED: INSULIN ASPART 100 UNITS/ML 3 ML PEN SC SCH (02:00)
== END 2016-06-09 16:06 | disposition home or self-care (01) ==
LOC: C.EDB 19:42 → INTOOBSV 23:35 → C.EDINP 23:35 → C.4E 06-09 01:14 → EDBEDREQ 06-09 01:24 → EDBEDREQSVC 06-09 01:24
PROVIDERS: ADMIT Hospitalist; ATTEND Internal Medicine
DX: T45.8X5A Adverse effect of other primarily systemic and hematological agents, initial encounter (principal); L50.0 Allergic urticaria; D64.9 Anemia, unspecified; E11.9 Type 2 diabetes mellitus without complications; E78.5 Hyperlipidemia, unspecified; I10 Essential (primary) hypertension; F32.9 Major depressive disorder, single episode, unspecified; Z91.041 Radiographic dye allergy status; Z88.0 Allergy status to penicillin; Z88.5 Allergy status to narcotic agent; Z79.82 Long term (current) use of aspirin; Z79.4 Long term (current) use of insulin; Z86.73 Personal history of transient ischemic attack (TIA), and cerebral infarction without residual deficits; I73.9 Peripheral vascular disease, unspecified; Z90.49 Acquired absence of other specified parts of digestive tract; Z98.62 Peripheral vascular angioplasty status; Z83.3 Family history of diabetes mellitus; Z82.49 Family history of ischemic heart disease and other diseases of the circulatory system

== ENCOUNTER 2019-01-10 20:02 | Inpatient (IN) ==
--- OUTSIDE RECORDS SUMMARY | 2019-01-10 20:06 | External Medical Summary | Continuity of Care Document ---
:1945 Author Name Camilla Omer Address Unavailable Unavailable , Care Team Providers Name Role Phone Gerard Montoya PA-C Unavailable [email or web address] Kaylyn Jian BRUNER Unavailable [email or web address] Jas Omer Unavailable [email or web address] Brandon Middleton PA-C Unavailable [email or web address] Mesfin PAYOTN Unavailable [email or web address] PCP, UNKNOWN Unavailable Unavailable Unavailable Unavailable Unavailable Problems Bone Pain Numbness (782.0) (R20.0) Solitary pulmonary nodule (793.11) (R91.1) Tremor (781.0) (R25.1) Anxiety (300.00) (F41.9) Intestinal obstruction (560.9) (K56.609) Pain in joint of right shoulder (719.41) (M25.511) Anemia (285.9) (D64.9) Ventral hernia (553.20) (K43.9) Iron deficiency anemia (280.9) (D50.9) Acute sinusitis (461.9) (J01.90) Dermatosis (709.9) (L98.9) Type 2 diabetes mellitus (250.00) (E11.9) Asthma (493.90) (J45.909) Carpal tunnel syndrome (354.0) (G56.00) Acute bronchitis (466.0) (J20.9) Insomnia (780.52) (G47.00) Lower back pain (724.2) (M54.5) Abdominal pain (789.00) (R10.9) Pain in foot (729.5) (M79.673) Pain in hand (729.5) (M79.643) Osteoarthritis (715.90) Stroke syndrome Diverticulosis of colon (562.10) (K57.30) Migraine headache (346.90) (G43.909) Carotid artery stenosis (433.10) (I65.29) PAD (peripheral artery disease) (443.9) (I73.9) Encounter for routine gynecological examination (V72.31) (Z0 1.419) Arthralgia of multiple sites (719.49) (M25.50) Dyslipidemia (272.4) (E78.5) Vertigo (780.4) (R42) Fecal occult blood test positive (792.1) (R19.5) Edema (782.3) (R60.9) Plantar fasciitis (728.71) (M72.2) Fibromyalgia (729.1) (M79.7) Disc degeneration, lumbar (722.52) (M51.36) Fatigue (780.79) (R53.83) Encounter for routine gynecological exam ination with Papanicolaou smear of cervix (V72.31) (Z01.419) Labyrinthitis (386.30) (H83.09) Asymptomatic Postmenopausal Status (V49.81) Myalgia and myositis (729.1) Dermatitis due to drugs or medicines (693.0) (L27.0) Tinnitus (388.30) (H93.19) Esophageal reflux (530.81) (K21.9) Hearing loss (389.9) (H91.90) Bloating (787.3) (R14.0) Hypertension (401.9) (I10) Muscle spasm (728.85) (M62.838) Tobacco use (305.1) (Z72.0) Depression (311) (F32.9) Vitamin B12 deficiency (266.2) (E53.8) Spondylitis (720.9) (M46.90) Functional Status Hearing loss Allergies and Adverse Reactions Actos TABS (Allergy) Aspirin TABS (Allergy) Bextra TABS (Allergy) Clindamycin (Allergy) Codeine Derivatives (Allergy) Erythromycin Derivatives (Allergy) Lipitor TABS (Allergy) Niaspan TBCR (Allergy) NSAIDs (Allergy) Penicillins (Allergy) Sulfa Drugs (Allergy) Reaction: Hives Medications NovoLOG FlexPen 100 UNIT/ML SOLN; INJECT 15 UNIT Befor e meals KaylynFRANC Start: 17-Mar-2012 Quantity: 3 Refills: 5 Clopidogrel Bisulfate 75 MG Oral Tablet; TAKE 1 TABLET BY MOUTH EVERY DAY Kan Mark Start: 04-Jan-2012 Quantity: 30 Refills: 5 BD Pen Needle Mini U/F 31G X 5 MM; USE DIRECTED INJ ECT UP TO 6 TIMES A DAY Kan Mark Start: 18-Jul-2011 Quantity: 200 Refills: 4 OneTouch Ultra Blue In Vitro Strip; Test 5 times daily for use with multiple daily insulin doses Type 2 Diabetes Mellitus 52721 Insulin dependent KaylynFRANC Start: 23-Mar-2013 Quantity: 500 Refills: 3 OneTouch Basic System w/Device Kit; Test 5 times daily for use with multiple daily insulin injections Type 2 Diabetes Mellitus 74802, Insulin dependent KaylynFRANC Start: 23-Mar-2013 Quantity: 1 Refills: 0 Atenolol 25 MG Oral Tablet; TAKE 1/2 TABLET EVERY DAY Kan Mark Start: 06-Aug-2010 Quantity: 15 Refills: 5 Zinc TABS; Take as directed Refills: 0 Vitamin C TABS Refills: 0 Fish Oil 875 MG Oral Capsule; Twice daily Kan Mark Start: 15-Apr-2011 Refills: 0 Citalopram Hydrobromide 40 MG Oral Table t; TAKE 1 TABLET EVERY DAY, WITH 20MG CITALOPRAM TABLET Kan Mark Start: 21-Aug-2012 Quantity: 30 Refills: 5 busPIRone HCl - 5 MG Oral Tablet; Take 1 tablet twice daily DAMON Montoya Start: 03-Nov-2012 Quantity: 60 Refills: 5 Levemir FlexPen 100 UNIT/ML Subcutaneous Solution Pen-injector; 15 units in the morning and 15 units at night FRANC Patiño Start: 21-Aug-2013 Quantity: 4 3 ML Pen Refills: 5 metFORMIN HCl - 1000 MG Oral Tablet; SHRUTI E 1 TABLET BY MOUTH TWICE DAILY WITH MEALS. Kan Mark Start: 09-Mar-2010 Quantity: 60 Refills: 5 Vitamin D 1000 UNIT Oral Tablet; Take 1 tablet twice d DAMON Bull Refills: 0 Simvastatin 40 MG Oral Tablet; TAKE 1 TABLET BY MOUTH AT BEDTIME Kan Mark Start: 09-Mar-2010 Quantity: 30 Refills: 5 ProAir HFA 108 (90 Base) MCG/ACT Inhalat ion Aerosol Solution; INHALE 1 TO 2 PUFFS EVERY 4 TO 6 HOURS NEEDED. Kan Mark Start: 27-Jun-2012 Quantity: 1 8.5 GM Inhaler Refills: 6 ALPRAZolam 0.25 MG Oral Tablet; TAKE 1/2 TO 1 TABLET D AILY NEEDED. DAMON Montoya Start: 27-Oct-2012 Quantity: 30 Refills: 0 NovoLOG FlexPen 100 UNIT/ML Subcutaneous Solution Pen-injector; Injecting 10 units before meals. KaylynFRANC Start: 30-Jul-2013 Quantity: 1 3 ML Pen (5 Pens) Refills: 5 Procedures History of Complete Colonoscopy For Polyp Removal Status: Completed History of Cholecystectomy Status: Compl eted History of Tonsillectomy With Adenoidectomy Status: Completed History of Lower Back Surgery Status: Co mpleted History of Incisional Hernia Repair Stat us: Completed History of Breast Surgery Reduction Procedure Status: Completed History of Bypass Graft (Non-Vein) Aortic-iliac Status: Completed Immunizations Tdap On: 05-Oct-2007 Tdap On: 13-Feb-2011 GLAXO ALBERT RICKETTS Influenza On: 13-Feb-2011 PPD On: 09-Nov-2011 15:45 Lot #: [id number], [employer] PPD On: 28-Dec-2011 Lot #: [id number], [employer] Pneumococcal polysaccharide vaccine, 23 valent On: 13-Jun-19 13 11:02 Lot #: [id number], [employer] Influenza On: 23-Mar-2013 10:54 Lot #: [id number], [employer] Family History Mother Family history of Hypertension (V17.49) Status: Active Family history of Arthritis (V17.7) Status: Active Grandmother Family history of Type 2 Diabetes Mellitus Status: Active Sister Family history of Gout (V18.19) Status: Active Social History - Smoking Status Smoker. current status unknown Plan of Treatment Planned Observations Planned Goals not documented Results No Known Results Results not documented
[2019-01-10] MEDS ORDERED: SODIUM CHLORIDE 0.9% 1000ML 1,000 ML IV ONE ×2 (20:38→21:00)
[2019-01-10] MEDS ORDERED: LORazepam 0.5 MG/1 ML VIAL IV STA (20:38)
--- NOTE | 2019-01-10 20:52 | XRay Report ---
XR chest 1V portable CLINICAL HISTORY: 73 years-old Female presenting with Chest Pain. TECHNIQUE: Portable upright AP view of the chest was obtained. COMPARISON: 06/09/2016. FINDINGS: Atherosclerosis of the aortic arch. Cardiac silhouette normal in size. No focal opacity. Trace right pleural effusion. No large pneumothorax. Degenerative changes of the thoracic spine. Spinal stimulato r device projects over the midthoracic spine. IMPRESSION: 1. Possible trace right pleural effusion. Otherwise no acute cardiopulmonary disease. Electronically signed by: Titi Andrade M.D. 01/10/2019 8:50 PM
[2019-01-10 20:57] LABS: Basophils # (auto) 0.06 K/uL (0-0.2); Basophils % (auto) 0.3 %; Eosinophils # (auto) 0.09 K/uL (0-0.5); Eosinophils % (auto) 0.5 %; Hematocrit (blood only) 35.1 % (37-47); Hemoglobin 11.4 g/dL (12.0-16.0); Immature Granulocytes # (auto) 0.05 K/uL (0.00-0.02); Immature Granulocytes % (auto) 0.3 %; Lymphocytes # (auto) 0.97 K/uL (1.2-3.4); Lymphocytes % (auto) 5.4 %; Mean Corpuscular Hemoglobin 27.5 pg (25-34); Mean Corpuscular Hgb Conc 32.5 g/dL (32-36); Mean Corpuscular Volume 84.8 fL (80-100); Mean Platelet Volume 10.3 fL (7.4-10.4); Monocytes % (auto) 8.3 %; Neutrophils # (auto) 15.31 K/uL (1.4-6.5); Neutrophils % (auto) 85.2 %; Platelet Count 341 K/uL (130-400); RDW Coefficient of Variation 14.5 % (11.5-14.5); Red Blood Count 4.14 M/uL (4.2-5.4); White Blood Count 17.98 K/uL (4.8-10.8)
[2019-01-10] MEDS ORDERED: ASPIRIN CHEW 324 MG PO STA (21:00)
[2019-01-10] MEDS ORDERED: NITROGLYCERIN SL 0.4 MG/TAB TAB SL STA (21:00)
[2019-01-10] MEDS ORDERED: NITROGLYCERIN SL 0.4 MG/TAB TAB ONE (21:01)
[2019-01-10] MEDS ORDERED: methylPREDNISolone 125 MG/2 ML VIAL IV STA (21:04)
[2019-01-10] MEDS ORDERED: DiphenhydrAMINE HCL 50 MG/ML VIAL IV STA (21:04)
[2019-01-10 21:09] LABS: Partial Thromboplastin Time 25.8 Seconds (21.0-31.0)
[2019-01-10 21:18] LABS: Albumin Level 3.7 gm/dl (3.4-5.0); BUN Creatinine Ratio 22.1 (10-20); Creatinine Clr Calc Pharmacy 39.3 ml/min; Est GFR (African American) 60.1; Est GFR (Non-African American) 51.8; Potassium 4.3 mmol/L (3.5-5.1)
[2019-01-10] MEDS ORDERED: NITROGLYCERIN/D5W 100MCG/ML 20ML SYR ONE (21:35)
[2019-01-10] MEDS ORDERED: NiCARDipine HCL INJ 2.5 MG/ML 10 ML AMP ONE (21:35)
[2019-01-10] MEDS ORDERED: HEPARIN (PORCINE) 1000 UNIT/ML 10 ML (CATH LAB USE ONLY) ONE (21:36)
[2019-01-10] MEDS ORDERED: MIDAZOLAM HCL 1 MG/ML 2ML VIAL ONE (21:37)
[2019-01-10] MEDS ORDERED: fentaNYL citrate 100 MCG/2 ML VIAL ONE (21:37)
[2019-01-10] MEDS ORDERED: raNITIdine HCl 25 MG/ML VIAL IV ONE (21:47)
[2019-01-10 21:48] LABS: Bilirubin,Total 0.4 mg/dl (0.2-1); Globulin 3.6 gm/dl (2.5-4.0); Total Protein 7.4 gm/dl (6.4-8.2); Troponin I 4.48 ng/ml (0-0.045)
[2019-01-10 21:56] LABS: Creatine Kinase MB 15.9 ng/ml (0.5-3.6)
[2019-01-10] MEDS ORDERED: ONDANSETRON INJ 2 MG/ML 2 ML VIAL IV PRN (22:45)
[2019-01-10] MEDS ORDERED: SODIUM CHLORIDE 0.9% 1000ML 1,000 ML IV SCH (22:45)
[2019-01-10] MEDS ORDERED: lisinopriL 5 MG TAB PO ONE (22:51)
--- NOTE | 2019-01-10 23:00 | Cardiology Consultation ---
Date of Consultation January 10, 2019 Assessment & Plan (1) Acute AL: Presentation consistent potentially consistent with acute AL although right clinical context for stress-induced cardia myopathy in the setting of severe distress secondary to terminal illness of her sister. In the setting of ongoing severe chest pain, known vascular disease recommend proceeding with emergent cardiac catheterization and possible primary PCI. Patient has a dye allergy and will pretreat Discussed risks, benefits, alternatives of procedure with patient and they are willing to proceed. Further recommendations pending findings of coronary angiography. History of Present Illness Attending Physician: Jerry Miller MD History of Present Illness 73-year-old woman here with acute chest pain and ECG concerning for acute AL. Patient seen emergently in the ED after heart alert activated after serial EKGs, elevated troponin. Patient denies significant cardiac history. She has long-standing peripheral arterial disease and is post aorto bifemoral bypass at [place] in 2006. She is also had mesenteric ischemia and is post hepatic artery mesenteric artery bypass and multiple repeat interventions. Also reports multiple prior interventions to her lower extremities. She has type 2 diabetes and states only takes insulin that she needs to. Has a history of a TIA. Is an ongoing smoker with more than 50-year pack history. Reports previously being on Plavix was discontinued in the setting of recurrent GI bleed secondary to AVMs. Patient lives in [place] but is here visiting her sister who reportedly was recently diagnosed and is currently hospitalized with a terminal illness. This evening developed severe 10 out of 10 chest pain. Denies similar symptoms in the past. EKG remarkable for sinus tachycardia and subtle anterior ST elevations with lateral T wave inversions. Troponin elevated at 4.4. Allergies Allergy/AdvReac Type Severity Reaction Status Date / Time Bactrim Allergy Intermediate HIVES Verified 05/31/16 12:24 bupropion Allergy Intermediate HIVES Unverified 01/12/19 22:39 Cipro Allergy Intermediate HIVES Verified 06/04/16 11:46 ciprofloxacin Allergy Intermediate HIVES Verified 01/12/19 22:39 Iodinated Contrast Media Allergy Intermediate HIVES Unverified 01/12/19 22:39 metronidazole Allergy Intermediate HIVES Verified 01/12/19 22:39 oxycodone Allergy Intermediate rashes Verified 01/12/19 22:39 Penicillins Allergy Intermediate Hives Verified 01/12/19 22:39 pioglitazone Allergy Intermediate HIVES Verified 01/12/19 22:39 Sulfa (Sulfonamide Allergy Intermediate Hives Verified 01/12/19 22:39 Antibiotics) sulfamethoxazole Allergy Intermediate HIVES Verified 01/12/19 22:39 trimethoprim Allergy Intermediate HIVES Verified 01/12/19 22:39 clindamycin Allergy Mild ITCHING Unverified 01/12/19 22:39 codeine Allergy Mild ITCING Unverified 01/12/19 23:11 erythromycin base Allergy Mild RASH, HIVES Unverified 01/12/19 23:11 glimepiride Allergy Mild TONGUE Unverified 01/12/19 23:11 TINGLING AND ITCHING morphine Allergy Mild ITCHING Unverified 01/12/19 23:11 NSAIDS (Non-Steroidal Allergy Mild Itching - Verified 01/12/19 23:11 Anti-Inflamma TORADOL OK propoxyphene Allergy Mild ITCHING Unverified 01/12/19 23:11 glipizide Allergy Unknown Needle Verified 01/12/19 23:11 sensation- Tongue rosuvastatin AdvReac Intermediate MUSCLE PAIN Unverified 01/12/19 23:11 sitagliptin AdvReac Intermediate GI SYMPTOMS Unverified 01/12/19 23:11 adhesive AdvReac Mild Tape - Verified 01/12/19 23:11 skin irritation atorvastatin AdvReac Mild Muscle Verified 01/12/19 23:11 cramps hydrocodone AdvReac Mild ITCHING Verified 01/12/19 23:11 metformin AdvReac Mild BLOATING Unverified 01/12/19 23:11 Home Medications Home Medications Medication Instructions Recorded Confirmed Type acetaminophen [Tylenol] 650 mg PO Q6H PRN 01/12/19 01/12/19 History albuterol sulfate 2 puff INHALATION Q6H PRN 01/12/19 01/12/19 History ascorbic acid (vitamin C) [Vitamin 500 mg PO DAILY 01/12/19 01/12/19 History C] aspirin [Aspir-81] 81 mg PO DAILY 01/12/19 01/12/19 History cholecalciferol (vitamin D3) 1,000 unit PO DAILY 01/12/19 01/12/19 History [Vitamin D3] citalopram 20 mg PO DAILY 01/12/19 01/12/19 History gabapentin 200 mg PO HS 01/12/19 01/12/19 History insulin NPH and regular human 0 unit SUBCUT BID 01/12/19 01/12/19 History [Novolin 70/30 U-100 Insulin] lisinopril 5 mg PO DAILY 01/12/19 01/12/19 History magnesium oxide 500 mg PO BID 01/12/19 01/12/19 History metformin 500 mg PO HS 01/12/19 01/12/19 History metoprolol succinate 25 mg PO DAILY 01/12/19 01/12/19 History omeprazole 20 mg PO DAILY 01/12/19 01/12/19 History vitamin B complex 1 tab PO DAILY 01/12/19 01/12/19 History vitamin E 400 unit PO DAILY 01/12/19 01/12/19 History lorazepam 0.5 mg tablet 0.5 mg PO BID PRN #30 tab 01/18/19 01/18/19 Rx Patient History Medical History Intestinal ischemia (Chronic) "s/p hepatic artery to SMA in November 2014 S/p angioplasty of proximal and distal anastomoses of the common hepatic to superior mesenteric artery reversed saphenous vein bypass graft (4 mm [place] [employer] balloon) by Dr. Gatica on 03/04/2015. -S/p angioplasty of proximal and distal anastomoses of the re-stenotic common hepatic => SMA reversed saphenous vein bypass graft 08/06/[address] Gatica. -S/p open exposure of left brachial artery (re-do), stenting of celiac artery (Atrium iCast 7 x 22 mm stent post dilated to 8 mm), and angioplasty of proximal and distal anastomoses of the re-stenotic common hepatic to SMA reversed saphenous vein bypass graft (5 mm [employer] AngioSculpt balloon) 12/10/[address] Gatica." On 02/28/15 15:59 Julia Friedman wrote "s/p hepatic artery to SMA in November 2014" On 02/28/15 15:55 Julia Friedman wrote "s/p hepatic artery to SMA" History of CVA (cerebrovascular accident) (Resolved) "2012; no residual deficits" PAD (peripheral artery disease) (Chronic) Depression (Chronic) Anxiety (Chronic) SBO (small bowel obstruction) GI bleed Urticaria Surgical History History of appendectomy (Resolved) History of cholecystectomy (Resolved) Social History Beliefs That Will Affect Care: None Current Living Situation: Family Feels Safe at Home: Yes Smoking Status: Current every day smoker Hx Alcohol Use: No Hx Substance Use: No Review of Systems Review of Systems: Unable to obtain the setting of emergent situation, severe pain Physical Exam Physical Exam: General: Severe pain, thin, frail HEENT: Sclerae anicteric, mucous membranes moist Lungs: Coarse breath sounds with prolonged expiratory phase Cardiac: Tachycardic, regular, no murmurs Abdomen: Soft, tender Extremities: Warm, well perfused, no edema. 1+ right radial pulse. Diminished distal pulses. Skin: No rashes or lesions. Neuro: Nonfocal Psych: Alert orient x3, normal affect and mood Results & Data Vital Signs (Past 12 Hours) Vital Signs Temp Pulse Resp BP Pulse Ox 01/10/19 21:41 112 H 26 H 98 01/10/19 21:40 112 H 22 110/57 L 97 01/10/19 21:35 112 H 28 H 96/55 L 93 01/10/19 21:34 112 H 24 97/53 L 93 01/10/19 21:30 112 H 26 H 01/10/19 21:20 111 H 29 H 01/10/19 21:11 109 H 24 01/10/19 21:10 110 H 25 H 100/52 L 01/10/19 21:05 110 H 27 H 98/54 L 01/10/19 21:02 106 H 23 100/60 01/10/19 21:00 106 H 26 H 100/60 98 01/10/19 20:50 106 H 26 H 01/10/19 20:40 105 H 26 H 01/10/19 20:35 110 H 21 111/53 L 01/10/19 20:30 107 H 28 H 01/10/19 20:25 108 H 21 01/10/19 20:15 97 01/10/19 20:06 99.3 F 107 H 22 87/49 L 97 PG Care Time/CCT Total # of Minutes Spent Total Time Spent with Patient: Total time spent is greater than 50% in coordination of care (as documented) at patient's floor/unit and/or counseling patient:
--- NOTE | 2019-01-10 23:00 | Pre Anesthesia Assessment ---
Date of Service January 10, 2019 Pre Sedation Assessment Vital Signs Temp Pulse Resp BP Pulse Ox 01/10/19 21:41 112 H 26 H 98 01/10/19 21:40 112 H 22 110/57 L 97 01/10/19 21:35 112 H 28 H 96/55 L 93 01/10/19 21:34 112 H 24 97/53 L 93 01/10/19 21:30 112 H 26 H 01/10/19 21:20 111 H 29 H 01/10/19 21:11 109 H 24 01/10/19 21:10 110 H 25 H 100/52 L 01/10/19 21:05 110 H 27 H 98/54 L 01/10/19 21:02 106 H 23 100/60 01/10/19 21:00 106 H 26 H 100/60 98 01/10/19 20:50 106 H 26 H 01/10/19 20:40 105 H 26 H 01/10/19 20:35 110 H 21 111/53 L 01/10/19 20:30 107 H 28 H 01/10/19 20:25 108 H 21 01/10/19 20:15 97 01/10/19 20:06 99.3 F 107 H 22 87/49 L 97 Cardiovascular RRR, no murmur, no edema Respiratory normal respiratory effort, lungs clear to auscultation Pre-Sedation Airway Assessment Smoking Status: Current some day smoker Hx Sleep Apnea: No Hx Difficult Intubation: No Short, Thick Neck: No Thyromental Distance: > or= 3.5 Finger Breadths Oral Cavity: + WNL Mallampati Class: III Procedure Planning Contraindications for Sedation: none Current Medications Reviewed: Yes Notes The planned sedation has been discussed with the patient. Informed Consent was obtained. I have identified the patient, determined the appropriateness of sedation and have assessed the patient immediately prior to the procedure. All medicine(s) and interventions are by my order.
--- NOTE | 2019-01-10 23:05 | Cardiac Catheterization ---
[facility] Data: Sports Physiotherapist Cardiac Status Clinical evaluation leading to the procedure CAD Presenation: Non STEMI Anginal Classification: CCS IV Heart Failure: No Cardiogenic Shock within 24 Hours: No Cardiac Arrest within 24 Hours: No Imaging Studies Past 6 Months: No Stress Studies Past 6 Months: No Diagnostic Physicians Name: Jerry Miller MD Status: Elective Closure Device Percutaneous Entry Location: Radial Closure Device: Radial Band Recommendations: Medical Therapy and/or Counseling Intraprocedure Events Significant Disection: No Perforation: No Cardiac Cath Procedure Full Procedure Date January 10, 2019 Pre-Procedure Diagnosis Pre-Procedure Diagnosis: Non STEMI AUC Score AUC Score: 8 Post-Procedure Diagnosis Post-Procedure Diagnosis: Moderate CAD, Decreased LV Systolic Function and Elevated Intracardiac Pressures Procedure(s) Performed Procedure(s) Performed: Coronary Angiography, Left Heart Cath, LV Angiography and Ultrasound Guided Vascular Access Printing [employer] Cl[employer] Tender Jerry Miller MD Client Experience Consultant(s) Riki Estimated Blood Loss Estimated Blood Loss: 10 Medication(s) Medication(s): Diphenhydramine, Fentanyl, Heparin, Lidocaine 1%, Nicardipine, Nitroglycerin and Versed Medication(s): Zantac, Solu-Medrol Summary of Findings Indication: Acute coronary syndrome Access: 6 Fr right radial artery under ultrasound guidance Catheters: Royal, pigtail Findings: LM -calcified at ostium, moderate caliber without significant disease LAD -moderate caliber vessel, proximal luminal irregularities, 20 to 30% mid segment disease, distal luminal irregularities as wraps around apex. Moderate caliber bifurcating first diagonal. Inferior branch with 70% ostial stenosis. Circumflex -dominant, moderate caliber, proximal luminal irregularities, gives off large OM1 without significant disease 50% stenosis in the midsegment just after takeoff of OM1, distal luminal irregularities. Small right PDA without significant disease RCA -small, nondominant, ostial stenosis likely vessel spasm LVEDP -19 LVEF30% with apical akinesis consistent with Takotsubo's Arterial Closure: TR band Summary: 1. Mild to moderate nonobstructive coronary artery disease in major epicardial vessels -50% mid circumflex after OM1 20 to 30% mid LAD 2. 70% ostial stenosis of superior branch of first diagonal 3. Takotsubo's cardiomyopathy, LVEF 30% Recommendations: Admit to telemetry Trend troponin until peak, echocardiogram in a.m. Pain control Start beta-britta, ARTUR inhibitor Continue ASCVD risk factor modification including smoking cessation Hemodynamics Rest Ao:: //59 Final Ao: 94/51/68 LV: 100/19 Recommendations Recommendations: Medical Therapy and/or Counseling Specimens Specimens: None Radiation Exposure (mGy) 486 Contrast (mls) 100 Fluids (cc crystalloids) Fluids (cc crystalloids): 67 Drains Drains: None Anesthesia Moderate Procedural Complication(s) None Disposition PCU I attest to the content of the Intraoperative Record and any orders documented therein. Any exceptions are noted below.
[2019-01-10] MEDS ORDERED: CARBOHYDRATES FOR HYPOGLYCEMIA PO PRN (23:45)
[2019-01-10] MEDS ORDERED: GLUCOSE 10 TABS/TUBE PO PRN (23:45)
[2019-01-10] MEDS ORDERED: GLUCAGON FOR INJ 1 MG VIAL SQ PRN (23:45)
[2019-01-10] MEDS ORDERED: ALBUTEROL 0.5% NEB SOLN 2.5 MG/0.5 ML VIAL NEB PRN (23:45)
[2019-01-10] MEDS ORDERED: GLUCOSE 40% GEL 15 GM TUBE PO PRN (23:45)
[2019-01-10] MEDS ORDERED: DEXTROSE 50% 50 ML SYRINGE IV PRN (23:45)
--- NOTE | 2019-01-10 23:58 | History & Physical Report ---
Date of Service January 10, 2019 Assessment & Plan (1) Takotsubo cardiomyopathy: Patient presenting with acute onset of substernal chest discomfort, ischemic changes on EKG and elevated troponin. Code Heart called and patient taken to the dental laboratory technician apprentice. Found to have mild-moderate nonobstructive CAD and takotsubo/stress-induced cardiomyopathy with EF of 30%. Presently she is in sinus tachycardia, blood pressure is stable, no respiratory distress or overt evidence of failure, breathing comfortably with adequate saturation on 6L NC. -Admit to PCU, continuous cardiac monitoring -Trend troponin until peak -2D echo in the AM -Initiate BB therapy, Metoprolol 12.5mg po BID -Initiate ARTUR-inhibitor - Lisinopril 5 mg po daily -Patient will need outpatient Cardiology followup with repeat echo after trial of medical management Present on Admission?: Yes (2) CAD (coronary artery disease): Patient with nonobstructive CAD found on cath today. No prior history of CAD, however, has diffuse vascular disease to include mesenteric ischemia, PAD and prior TIA -Continue ASA 81mg po daily -Patient was on Plavix previously which was discontinued d/t GIB -Continue statin - home medication lists Simvastatin 20mg po daily. Home meds to be confirmed with patient when she is more awake and able to answer questions appropriately. Will increase this to 40mg po daily -Metoprolol and Lisinopril as above -Smoking cessation counseling Present on Admission?: Yes (3) Diabetes: Blood sugar elevated presently at 261. Patient on Metformin and 70/30 at home -Hold metformin for now -Lantus 5u BID -ISS -Continue to monitor Present on Admission?: Yes (4) Anxiety: Chronic -Home medications list Lorazepam, Citalopram and Buspirone as well as Amitriptyline qHS -Will confirm home medications as patient wakes. Hold above medications at this time Present on Admission?: Yes (5) PAD (peripheral artery disease): Chronic. Stable -Continue ASA, increase statin as above -Smoking cessation Present on Admission?: Yes (6) History of CVA (cerebrovascular accident): Chronic. No deficits -ASA and Statin for secondary prevention Present on Admission?: Yes (7) Intestinal ischemia: Chronic. Stable -ASA and Statin -Smoking cessation F/E/N - Monitor electrolytes and replete as needed, check Mg and PO4 x 1, CC diet as tolerated Code - Full Ppx - SCDs Dispo - PCU Present on Admission?: Yes History of Present Illness Chief Complaint: Chest Pain Primary Care Provider: DHARA MINOR Patient seen and examined after arrival to the PCU from dental laboratory technician apprentice. She is still somewhat somnolent/sedated after receiving medications for her cardiac catheterization. She does not freely answer questions at this time. She states that her chest pain has resolved and she denies SOB at this time. Remainder of history obtained through chart review. Patient is a 73yo C female with history of DM, prior CVA, intestinal ischemia s/p hepatic artery mesenteric artery bypass, PAD s/p aorto-femoral bypass at [facility] in 2006 and active smoker presenting to the ER with acute substernal chest pain. She is from [place] and is in the area visiting her sister who, unfortunately, was just diagnosed with a terminal illness. She developed 10/10 chest pain Found to have EKG changes suggestive of anterior wall ischemia, elevated troponin. Code Heart was called and the patient was taken to the dental laboratory technician apprentice. Findings as below: 1. Mild to moderate nonobstructive coronary artery disease in major epicardial vessels -50% mid circumflex after OM1 20 to 30% mid LAD 2. 70% ostial stenosis of superior branch of first diagonal 3. Takotsubo's cardiomyopathy, LVEF 30% Allergies Allergy/AdvReac Type Severity Reaction Status Date / Time Bactrim Allergy Intermediate HIVES Verified 05/31/16 12:24 bupropion Allergy Intermediate HIVES Unverified 05/31/16 12:24 Cipro Allergy Intermediate HIVES Verified 06/04/16 11:46 Iodinated Contrast Media Allergy Intermediate HIVES Unverified 05/31/16 12:24 metronidazole Allergy Intermediate HIVES Verified 06/04/16 11:47 oxycodone Allergy Intermediate rashes Verified 05/31/16 12:24 Penicillins Allergy Intermediate Hives Verified 05/31/16 12:24 pioglitazone Allergy Intermediate HIVES Verified 05/31/16 12:24 Sulfa (Sulfonamide Allergy Intermediate Hives Verified 05/31/16 12:24 Antibiotics) clindamycin Allergy Mild ITCHING Unverified 05/31/16 12:24 codeine Allergy Mild ITCING Unverified 05/31/16 12:24 erythromycin base Allergy Mild RASH, HIVES Unverified 05/31/16 12:24 glimepiride Allergy Mild TONGUE Unverified 05/31/16 12:24 TINGLING AND ITCHING morphine Allergy Mild ITCHING Unverified 05/31/16 12:24 NSAIDS (Non-Steroidal Allergy Mild Itching - Verified 05/31/16 12:24 Anti-Inflamma TORADOL OK propoxyphene Allergy Mild ITCHING Unverified 05/31/16 12:24 glipizide Allergy Unknown Needle Verified 05/31/16 12:24 sensation- Tongue rosuvastatin AdvReac Intermediate MUSCLE PAIN Unverified 05/31/16 12:24 sitagliptin AdvReac Intermediate GI SYMPTOMS Unverified 05/31/16 12:24 adhesive AdvReac Mild Tape - Verified 05/31/16 12:24 skin irritation atorvastatin AdvReac Mild Muscle Verified 05/31/16 12:24 cramps hydrocodone AdvReac Mild ITCHING Verified 05/31/16 12:24 metformin AdvReac Mild BLOATING Unverified 05/31/16 12:24 Home Medications Home Medications Medication Instructions Recorded Confirmed Type CITALOPRAM HYDROBROMIDE (CELEXA) 40 mg PO QAM #0 07/04/11 History BUSPIRONE HCL (BUSPAR) 30 mg PO BID #0 10/01/14 History Aspirin (Aspirin EC Low Dose) 81 mg PO DAILY #0 02/28/15 History LORAZEPAM 0.5 mg PO HS PRN #0 02/28/15 History B-COMPLEX W/BIOTIN & FOLIC ACI 1 cap PO DAILY #0 10/10/15 History (SUPER B-COMPLEX) Simvastatin (Zocor) 20 mg PO QPM #0 tab 10/10/15 History Amitriptyline HCl 5 mg PO HS #0 10/20/15 History Acetaminophen (Tylenol) 1 - 2 tab PO Q8 PRN 3 Days #10 tab 02/01/16 History CYCLOBENZAPRINE HCL (FLEXERIL) 1 tab PO BID PRN 30 Days #30 tab 02/01/16 History Clopidogrel (Plavix) 75 mg PO HS #0 tab 02/01/16 History FUROSEMIDE (LASIX) 1 tab PO DAILY PRN #0 tab 02/01/16 History Gabapentin (Neurontin) 300 mg PO BID #0 cap 02/01/16 History Insulin Isophan/Regular (Novolin 35 unit SC BID #0 btl 02/01/16 History 70/30) METFORMIN HCL (GLUCOPHAGE) 1,000 mg PO BIDM #0 tab 02/01/16 History OCTREOTIDE ACETATE (SANDOSTATIN 20 mg IM MONTHLY #0 02/01/16 History LAR DEPOT) PROBIOTIC PRODUCT (PROBIOTIC) 1 tab PO BID #0 02/01/16 History ASCORBIC ACID (VITAMIN C) 500 mg PO DAILY #0 05/05/16 History Albuterol Sulfate (Proventil Hfa) 2 puff INHALATION Q6 PRN #0 05/05/16 History CHOLECALCIFEROL (VITAMIN D 1000 1,000 inter.unit PO DAILY #0 cap 05/05/16 History UNIT) MAGNESIUM OXIDE (MG SUPPLEMENT 500 mg PO DAILY #0 05/05/16 History (MAGNESIUM) OMEPRAZOLE (PRILOSEC) 40 mg PO BID #90 05/31/16 History Prednisone 1 tab PO DAILY 5 Days #5 tab 06/09/16 Rx Past Med/Surg History Medical History Intestinal ischemia (Chronic) "s/p hepatic artery to SMA in November 2014 S/p angioplasty of proximal and distal anastomoses of the common hepatic to superior mesenteric artery reversed saphenous vein bypass graft (4 mm [employer] balloon) by Dr. Gatica on 03/04/2015. -S/p angioplasty of proximal and distal anastomoses of the re-stenotic common hepatic => SMA reversed saphenous vein bypass graft 08/06/[address] Gatica. -S/p open exposure of left brachial artery (re-do), stenting of celiac artery (Atrium iCast 7 x 22 mm stent post dilated to 8 mm), and angioplasty of proximal and distal anastomoses of the re-stenotic common hepatic to SMA reversed saphenous vein bypass graft (5 mm [employer] balloon) 12/10/[address] Gatica." On 02/28/15 15:59 Julia Friedman wrote "s/p hepatic artery to SMA in November 2014" On 02/28/15 15:55 Julia Friedman wrote "s/p hepatic artery to SMA" History of CVA (cerebrovascular accident) (Resolved) "2012; no residual deficits" PAD (peripheral artery disease) (Chronic) Depression (Chronic) Anxiety (Chronic) SBO (small bowel obstruction) GI bleed Urticaria Surgical History History of appendectomy (Resolved) History of cholecystectomy (Resolved) Family History Other Family history non-contributory Social History Beliefs That Will Affect Care: None Current Living Situation: Family Other Information That Helps Us Care for You: No Feels Safe at Home: Yes Safety Concerns: Feels Safe At This Time Smoking Status: Current some day smoker Hx Alcohol Use: No Hx Substance Use: No Review of Systems Review of Systems: Unobtainable due to reduced consciousness patient somnolent, arousable. Answers "no" to pain or SOB Physical Exam Physical Exam: General: patient resting comfortably, arousable, answers some questions then returns to sleep Skin: warm, dry,no rashes or lesions, radial artery occlusion device on right wrist, no bleeding noted HEENT: NC/AT, PERRL, anicteric sclera, conjunctiva without injection, external ear normal to inspection and nontender, nares patent, moist mucus membranes, dentition intact, no oropharyngeal lesions, neck supple, trachea midline, no LAD, no thyromegaly, no JVD Heart: +S1/S2, regular, tachycardic, no m/r/g Lungs: equal air entry bilaterally, no rales/rhonchi/wheezes Abd: +BS, soft, NT/ND, no masses/organomegaly/ascites Ext: warm, 2+ pulses in UE/LE bilaterally, no clubbing/cyanosis or edema Neuro: grossly nonfocal, speech intact, no facial droop, moving all extremities on command with equal strength 5/5 Results & Data Vital Signs (Past 12 Hours) Vital Signs Temp Pulse Pulse Resp BP BP Pulse Ox 01/10/19 23:00 37.0 C 111 H 18 99/52 L 94 01/10/19 21:41 112 H 26 H 98 01/10/19 21:40 112 H 22 110/57 L 97 01/10/19 21:35 112 H 28 H 96/55 L 93 01/10/19 21:34 112 H 24 97/53 L 93 01/10/19 21:30 112 H 26 H 01/10/19 21:20 111 H 29 H 01/10/19 21:11 109 H 24 01/10/19 21:10 110 H 25 H 100/52 L 01/10/19 21:05 110 H 27 H 98/54 L 01/10/19 21:02 106 H 23 100/60 01/10/19 21:00 106 H 26 H 100/60 98 01/10/19 20:50 106 H 26 H 01/10/19 20:40 105 H 26 H 01/10/19 20:35 110 H 21 111/53 L 01/10/19 20:30 107 H 28 H 01/10/19 20:25 108 H 21 01/10/19 20:15 97 01/10/19 20:06 37.4 C 107 H 22 87/49 L 97 Laboratory Results Lab Results 01/10/19 01/10/19 01/10/19 Range/Units 20:29 20:29 20:29 WBC 17.98 H (4.8-10.8) K/uL RBC 4.14 L (4.2-5.4) M/uL Hgb 11.4 L (12.0-16.0) g/dL Hct 35.1 L (37-47) % MCV 84.8 (80-100) fL MCH 27.5 (25-34) pg MCHC 32.5 (32-36) g/dL RDW Std Deviation 45.0 (36.4-46.3) fL RDW Coeff of Brandy 14.5 (11.5-14.5) % Plt Count 341 (130-400) K/uL MPV 10.3 (7.4-10.4) fL Immature Gran % (Auto) 0.3 % Neut % (Auto) 85.2 % Lymph % (Auto) 5.4 % [place] % (Auto) 8.3 % Eos % (Auto) 0.5 % Baso % (Auto) 0.3 % Immature Gran # (Auto) 0.05 H (0.00-0.02) K/uL Neut # (Auto) 15.31 H (1.4-6.5) K/uL Lymph # (Auto) 0.97 L (1.2-3.4) K/uL [place] # (Auto) 1.50 H (0.11-0.59) K/uL Eos # (Auto) 0.09 (0-0.5) K/uL Baso # (Auto) 0.06 (0-0.2) K/uL PT 10.0 (9.0-12.0) Seconds INR 1.0 (0.9-1.1) APTT 25.8 (21.0-31.0) Seconds PTT Ratio 1.0 Sodium 136 (136-145) mmol/L Potassium 4.3 (3.5-5.1) mmol/L Chloride 105 (98-107) mmol/L Carbon Dioxide 22 (21-32) mmol/L Anion Gap 9.0 (3-11) BUN 24 H (7-18) mg/dl Creatinine 1.07 (0.6-1.2) mg/dl Est Cr Clr Drug Dosing 39.3 ml/min Est GFR ( Amer) 60.1 Est GFR (Non-Af Amer) 51.8 BUN/Creatinine Ratio 22.1 H (10-20) Glucose 261 H (70-99) mg/dl Calcium 10.0 (8.5-10.1) mg/dl Phosphorus (2.5-4.9) mg/dl Magnesium (1.8-2.4) mg/dl Total Bilirubin 0.4 (0.2-1) mg/dl AST 71 H (15-37) U/L ALT 63 (12-78) U/L Alkaline Phosphatase 108 (45-117) U/L Total Creatine Kinase (26-192) U/L CK-MB (CK-2) (0.5-3.6) ng/ml CK/CKMB % Calc (0-3.0) POC Troponin I (0-0.045) ng/ml Troponin I 4.480 H* (0-0.045) ng/ml Total Protein 7.4 (6.4-8.2) gm/dl Albumin 3.7 (3.4-5.0) gm/dl Globulin 3.6 (2.5-4.0) gm/dl Albumin/Globulin Ratio 1.0 (0.9-2) Lipase (73-393) U/L 01/10/19 01/10/19 01/10/19 Range/Units 20:29 20:29 20:55 WBC (4.8-10.8) K/uL RBC (4.2-5.4) M/uL Hgb (12.0-16.0) g/dL Hct (37-47) % MCV (80-100) fL MCH (25-34) pg MCHC (32-36) g/dL RDW Std Deviation (36.4-46.3) fL RDW Coeff of Brandy (11.5-14.5) % Plt Count (130-400) K/uL MPV (7.4-10.4) fL Immature Gran % (Auto) % Neut % (Auto) % Lymph % (Auto) % [place] % (Auto) % Eos % (Auto) % Baso % (Auto) % Immature Gran # (Auto) (0.00-0.02) K/uL Neut # (Auto) (1.4-6.5) K/uL Lymph # (Auto) (1.2-3.4) K/uL [place] # (Auto) (0.11-0.59) K/uL Eos # (Auto) (0-0.5) K/uL Baso # (Auto) (0-0.2) K/uL PT (9.0-12.0) Seconds INR (0.9-1.1) APTT (21.0-31.0) Seconds PTT Ratio Sodium (136-145) mmol/L Potassium (3.5-5.1) mmol/L Chloride (98-107) mmol/L Carbon Dioxide (21-32) mmol/L Anion Gap (3-11) BUN (7-18) mg/dl Creatinine (0.6-1.2) mg/dl Est Cr Clr Drug Dosing ml/min Est GFR ( Amer) Est GFR (Non-Af Amer) BUN/Creatinine Ratio (10-20) Glucose (70-99) mg/dl Calcium (8.5-10.1) mg/dl Phosphorus 3.0 (2.5-4.9) mg/dl Magnesium 2.0 (1.8-2.4) mg/dl Total Bilirubin (0.2-1) mg/dl AST (15-37) U/L ALT (12-78) U/L Alkaline Phosphatase (45-117) U/L Total Creatine Kinase 180 (26-192) U/L CK-MB (CK-2) 15.9 H (0.5-3.6) ng/ml CK/CKMB % Calc 8.8 H (0-3.0) POC Troponin I 3.70 H (0-0.045) ng/ml Troponin I (0-0.045) ng/ml Total Protein (6.4-8.2) gm/dl Albumin (3.4-5.0) gm/dl Globulin (2.5-4.0) gm/dl Albumin/Globulin Ratio (0.9-2) Lipase 166 (73-393) U/L Diagnostic Findings XR chest 1V portable CLINICAL HISTORY: 73 years-old Female presenting with Chest Pain. TECHNIQUE: Portable upright AP view of the chest was obtained. COMPARISON: 06/09/2016. FINDINGS: Atherosclerosis of the aortic arch. Cardiac silhouette normal in size. No focal opacity. Trace right pleural effusion. No large pneumothorax. Degenerative changes of the thoracic spine. Spinal stimulator device projects over the midthoracic spine. IMPRESSION: 1. Possible trace right pleural effusion. Otherwise no acute cardiopulmonary disease. Electronically signed by: Titi Andrade M.D. 01/10/2019 8:50 PM Dictated: 01/10/192048 Transcribed: 01/10/192048 ECG Additional Comments: Initial EKG with mild ST elevations in V1-V4 with TWI in I, aVL Code Status & VTE Plan Code Status FULL VTE Prophylaxis Plan VTE Prophylaxis will be ordered: Yes PG Care Time/CCT Total # of Minutes Spent Total Time Spent with Patient: Total time spent is greater than 50% in coordination of care (as documented) at patient's floor/unit and/or counseling patient: (1) Diabetes Diabetes mellitus type: type 2 Diabetes mellitus terminal computer operator insulin use: with terminal computer operator use Diabetes mellitus complication status: without complication Qualified Code(s): E11.9 - Type 2 diabetes mellitus without complications; Z79.4 - terminal manager (current) use of insulin (2) CAD (coronary artery disease) Associated angina: without angina Coronary Disease-Associated Artery/Lesion type: [place] artery [place] vs. transplanted heart: [place] heart Qualified Code(s): I25.10 - Atherosclerotic heart disease of [place] coronary artery without angina pectoris
[2019-01-11] MEDS ORDERED: INSULIN GLARGINE SOLOSTAR 100 UNITS/ML 3 ML PEN SC SCH ×2 (00:45→09:00)
[2019-01-11] MEDS: INSULIN ASPART 100 UNITS/ML 3 ML PEN SC SCH ×5 (01:02→20:54)
--- NOTE | 2019-01-11 01:11 | Emergency Department Note ---
Entered by Stephani Guerrero acting as a scribe for Loco Tisnley History of Present Illness General Chief complaint: Chest Pain Stated complaint: CHEST PAIN STARTED YESTERDAY Time Seen by Provider: 01/10/19 20:32 Source: patient History of Present Illness Provider complaint: Chest Pain Onset (ago): day(s) 1 Location: chest Radiation: back Maximum Pain Intensity: 8 Exacerbated By: + none Associated symptoms: + denies other symptoms (Blood in urine or stools ) and + shortness of breath The patient is a 73 year old female who presents to the Emergency Room with complaints of chest pain that began yesterday. Pain is 8 out of 10 and pressure-like in nature. The patient flew from [place] yesterday to [place] to be with her sister who she recently found out is dying in the hospital on the floor upstairs. When the patient got to the hospital, the patient's began having increasing chest pain. The patient states the pain radiates from her chest to her back but is not exacerbated by anything specific. The patient reports experiencing shortness of breath. The patient denies having any blood in her urine or stools. The patient notes that she just flew here from [place] to see her dying sister and is very anxious. Home Medications Home Medications Medication Instructions Recorded Confirmed Type CITALOPRAM HYDROBROMIDE (CELEXA) 40 mg PO QAM #0 07/04/11 History BUSPIRONE HCL (BUSPAR) 30 mg PO BID #0 10/01/14 History Aspirin (Aspirin EC Low Dose) 81 mg PO DAILY #0 02/28/15 History LORAZEPAM 0.5 mg PO HS PRN #0 02/28/15 History B-COMPLEX W/BIOTIN & FOLIC ACI 1 cap PO DAILY #0 10/10/15 History (SUPER B-COMPLEX) Simvastatin (Zocor) 20 mg PO QPM #0 tab 10/10/15 History Amitriptyline HCl 5 mg PO HS #0 10/20/15 History Acetaminophen (Tylenol) 1 - 2 tab PO Q8 PRN 3 Days #10 tab 02/01/16 History CYCLOBENZAPRINE HCL (FLEXERIL) 1 tab PO BID PRN 30 Days #30 tab 02/01/16 History Clopidogrel (Plavix) 75 mg PO HS #0 tab 02/01/16 History FUROSEMIDE (LASIX) 1 tab PO DAILY PRN #0 tab 02/01/16 History Gabapentin (Neurontin) 300 mg PO BID #0 cap 02/01/16 History Insulin Isophan/Regular (Novolin 35 unit SC BID #0 btl 02/01/16 History 70/30) METFORMIN HCL (GLUCOPHAGE) 1,000 mg PO BIDM #0 tab 02/01/16 History OCTREOTIDE ACETATE (SANDOSTATIN 20 mg IM MONTHLY #0 02/01/16 History LAR DEPOT) PROBIOTIC PRODUCT (PROBIOTIC) 1 tab PO BID #0 02/01/16 History ASCORBIC ACID (VITAMIN C) 500 mg PO DAILY #0 05/05/16 History Albuterol Sulfate (Proventil Hfa) 2 puff INHALATION Q6 PRN #0 05/05/16 History CHOLECALCIFEROL (VITAMIN D 1000 1,000 inter.unit PO DAILY #0 cap 05/05/16 Histo ry UNIT) MAGNESIUM OXIDE (MG SUPPLEMENT 500 mg PO DAILY #0 05/05/16 History (MAGNESIUM) OMEPRAZOLE (PRILOSEC) 40 mg PO BID #90 05/31/16 History Prednisone 1 tab PO DAILY 5 Days #5 tab 06/09/16 Rx Allergies Allergy/AdvReac Type Severity Reaction Status Date / Time Bactrim Allergy Intermediate HIVES Verified 05/31/16 12:24 bupropion Allergy Intermediate HIVES Unverified 05/31/16 12:24 Cipro Allergy Intermediate HIVES Verified 06/04/16 11:46 Iodinated Contrast Media Allergy Intermediate HIVES Unverified 05/31/16 12:24 metronidazole Allergy Intermediate HIVES Verified 06/04/16 11:47 oxycodone Allergy Intermediate rashes Verified 05/31/16 12:24 Penicillins Allergy Intermediate Hives Verified 05/31/16 12:24 pioglitazone Allergy Intermediate HIVES Verified 05/31/16 12:24 Sulfa (Sulfonamide Allergy Intermediate Hives Verified 05/31/16 12:24 Antibiotics) clindamycin Allergy Mild ITCHING Unverified 05/31/16 12:24 codeine Allergy Mild ITCING Unverified 05/31/16 12:24 erythromycin base Allergy Mild RASH, HIVES Unverified 05/31/16 12:24 glimepiride Allergy Mild TONGUE Unverified 05/31/16 12:24 TINGLING AND ITCHING morphine Allergy Mild ITCHING Unverified 05/31/16 12:24 NSAIDS (Non-Steroidal Allergy Mild Itching - Verified 05/31/16 12:24 Anti-Inflamma TORADOL OK propoxyphene Allergy Mild ITCHING Unverified 05/31/16 12:24 glipizide Allergy Unknown Needle Verified 05/31/16 12:24 sensation- Tongue rosuvastatin AdvReac Intermediate MUSCLE PAIN Unverified 05/31/16 12:24 sitagliptin AdvReac Intermediate GI SYMPTOMS Unverified 05/31/16 12:24 adhesive AdvReac Mild Tape - Verified 05/31/16 12:24 skin irritation atorvastatin AdvReac Mild Muscle Verified 05/31/16 12:24 cramps hydrocodone AdvReac Mild ITCHING Verified 05/31/16 12:24 metformin AdvReac Mild BLOATING Unverified 05/31/16 12:24 Past Med/Surg History Medical History Intestinal ischemia (Chronic) "s/p hepatic artery to SMA in November 2014 S/p angioplasty of proximal and distal anastomoses of the common hepatic to superior mesenteric artery reversed saphenous vein bypass graft (4 mm [employer] Reuben balloon) by Dr. Gatica on 03/04/2015. -S/p angioplasty of proximal and distal anastomoses of the re-stenotic common hepatic => SMA reversed saphenous vein bypass graft 08/06/[address] Gatica. -S/p open exposure of left brachial artery (re-do), stenting of celiac artery ([facility] iCast 7 x 22 mm stent post dilated to 8 mm), and angioplasty of proximal and distal anastomoses of the re-stenotic common hepatic to SMA reversed saphenous vein bypass graft (5 mm [employer] balloon) 12/10/[address] Gatica." On 02/28/15 15:59 Julia Friedman wrote "s/p hepatic artery to SMA in November 2014" On 02/28/15 15:55 Julia Friedman wrote "s/p hepatic artery to SMA" History of CVA (cerebrovascular accident) (Resolved) "2012; no residual deficits" PAD (peripheral artery disease) (Chronic) Depression (Chronic) Anxiety (Chronic) SBO (small bowel obstruction) GI bleed Urticaria Surgical History History of appendectomy (Resolved) History of cholecystectomy (Resolved) Family History Other Family history non-contributory Social History Beliefs That Will Affect Care: None Current Living Situation: Family Other Information That Helps Us Care for You: No Feels Safe at Home: Yes Safety Concerns: Feels Safe At This Time Smoking Status: Current some day smoker Hx Alcohol Use: No Hx Substance Use: No Review of Systems See HPI for pertinent positives & negatives. and A total of 10 systems reviewed and were otherwise negative Physical Exam Vital Signs Vital Signs - 24 hr 01/10/19 20:06 01/10/19 20:15 01/10/19 20:25 Temperature 37.4 C Temperature Source Oral Sepsis Recent Fever Within 48 Hours No Sepsis Action Taken by Nursing No Action Required Pulse Rate 107 H 108 H Pulse Rate from SpO2 Sensor Respiratory Rate 22 21 Respiratory Effort / Characteristics Non-Labored Spontaneous Respiratory Depth Normal Blood Pressure 87/49 L Blood Pressure Mean 61 Pulse Oximetry 97 97 Oxygen Delivery Method Room Air Room Air 01/10/19 20:30 01/10/19 20:35 01/10/19 20:40 Temperature Temperature Source Sepsis Recent Fever Within 48 Hours Sepsis Action Taken by Nursing Pulse Rate 107 H 110 H 105 H Pulse Rate from SpO2 Sensor Respiratory Rate 28 H 21 26 H Respiratory Effort / Characteristics Respiratory Depth Blood Pressure 111/53 L Blood Pressure Mean 72 Pulse Oximetry Oxygen Delivery Method 01/10/19 20:50 01/10/19 21:00 01/10/19 21:02 Temperature Temperature Source Sepsis Recent Fever Within 48 Hours Sepsis Action Taken by Nursing Pulse Rate 106 H 106 H 106 H Pulse Rate from SpO2 Sensor Respiratory Rate 26 H 26 H 23 Respiratory Effort / Characteristics Respiratory Depth Blood Pressure 100/60 100/60 Blood Pressure Mean 73 73 Pulse Oximetry 98 Oxygen Delivery Method Room Air 01/10/19 21:05 01/10/19 21:10 01/10/19 21:11 Temperature Temperature Source Sepsis Recent Fever Within 48 Hours Sepsis Action Taken by Nursing Pulse Rate 110 H 110 H 109 H Pulse Rate from SpO2 Sensor Respiratory Rate 27 H 25 H 24 Respiratory Effort / Characteristics Respiratory Depth Blood Pressure 98/54 L 100/52 L Blood Pressure Mean 68 68 Pulse Oximetry Oxygen Delivery Method 01/10/19 21:20 01/10/19 21:30 01/10/19 21:34 Temperature Temperature Source Sepsis Recent Fever Within 48 Hours Sepsis Action Taken by Nursing Pulse Rate 111 H 112 H 112 H Pulse Rate from SpO2 Sensor 112 H Respiratory Rate 29 H 26 H 24 Respiratory Effort / Characteristics Respiratory Depth Blood Pressure 97/53 L Blood Pressure Mean 67 Pulse Oximetry 93 Oxygen Delivery Method 01/10/19 21:35 01/10/19 21:40 01/10/19 21:41 Temperature Temperature Source Sepsis Recent Fever Within 48 Hours Sepsis Action Taken by Nursing Pulse Rate 112 H 112 H 112 H Pulse Rate from SpO2 Sensor 111 H 112 H 113 H Respiratory Rate 28 H 22 26 H Respiratory Effort / Characteristics Respiratory Depth Blood Pressure 96/55 L 110/57 L Blood Pressure Mean 68 74 Pulse Oximetry 93 97 98 Oxygen Delivery Method Room Air GENERAL: She is oriented to person, place, and time. She appears well-developed and well-nourished. Anxious appearing. HENT: Exam performed. Head: Normocephalic and atraumatic. Right Ear: External ear normal. No mastoid tenderness. Left Ear: External ear normal. No mastoid tenderness. Mouth/Throat: The oropharynx is clear and moist. No trismus in the jaw. No dental abscesses or uvula swelling. No oropharyngeal exudate or tonsillar abscesses. EYES: Conjunctivae and EOM are normal. Pupils are equal, round, and reactive to light. Right eye exhibits no discharge. Left eye exhibits no discharge. No scleral icterus. NECK: Normal range of motion. Neck supple. No JVD present. No spinous process tenderness present. No carotid bruit present. No rigidity. No tracheal deviation and normal range of motion present. No Brudzinski's sign and no Kernig's sign noted. CV: Normal rate, regular rhythm, normal heart sounds and intact distal pulses. There is no peripheral edema. Palpable radial pulses bue. PULM/CHEST: Effort normal and breath sounds normal. No respiratory distress. No stridor. She has no wheezes. She has no rales. Chest Wall: She exhibits no tenderness. ABD: The abdomen is soft. Bowel sounds are normal. She has no distension. No mass is present. There is no tenderness. There is no rebound, no guarding, no Matthews's sign and no tenderness at McBurney's point. Rovsig negative MUSC/SKEL: Normal range of motion. There is no peripheral edema, tenderness or deformity. LYMPH: No cervical adenopathy. NEURO: She is alert and oriented to person, place, and time. She has normal s trength. No cranial nerve deficit or sensory deficit. Coordination and gait normal. GCS eye subscore is 4. GCS verbal subscore is 5. GCS motor subscore is 6. cerbellar tests wnl. SKIN: Skin is warm and dry. She is not diaphoretic. PSYCH: Appears anxious and sad. Course 2044: Past medical records reviewed. The patient was evaluated in room A02. A complete history and physical exam was performed. EKG done in triage showed a sinus rhythm with a rate of 111 first-degree AV block present. ND interval 224 QRS 94 QTc 503. T wave inversion in leads I and aVL. Subtle ST elevation in leads V2 through V6. We repeated the EKG and the new EKG at 2045 showed sinus rhythm with first-degree AV block. Rate of 104. ND interval 264. QRS 82. QTc 504. T wave inversion in leads I and aVL. Subtle ST elevation in leads V2 through V6. When compared with the EKGs done in 2017, the T wave inversion and ST changes are new. The patient appears very anxious and appears as though she is going to cry about what is been going on with her sister who she reports is dying upstairs. We will conduct a POC troponin. Contacted Dr. Miller to review the EKGs. There is concerned that the patient could be having tach at [place] cardiomyopathy like findings versus a true ST elevation DC. 2109: Patient's POC troponin is elevated patient is reporting her chest pain improved after receiving sublingual nitroglycerin. Given these findings in the patient's EKG a heart alert was called. Large-bore IV access was obtained. Cardiac pads were placed on the patient. 2139: The patient is still having chest pain. Dr. Miller is at the beside and will take the patient to the supervisor laboratory animal facility. Administered Medications Sodium Chloride (Nss 1000ml) 1,000 mls @ 75 mls/hr IV .[id number] [facility] Stop: 01/11/19 05:24 Last Admin: 01/11/19 00:49 Dose: 75 mls/hr Documented by: [id number] Insulin Aspart (Novolog Flexpen) 0 units SC ACHS [facility] Stop: 02/10/19 00:44 Last Admin: 01/11/19 01:02 Dose: 2 units Documented by: [id number] Cosigned by: [id number] Insulin Glargine (Lantus Solostar Pen) 5 units SC BID [facility] Stop: 02/10/19 00:44 Last Admin: 01/11/19 01:02 Dose: 5 units Documented by: [id number] Cosigned by: [id number] Discontinued Medications Aspirin (Aspirin) 324 mg PO NOW STA Stop: 01/10/19 21:01 Last Admin: 01/10/19 21:14 Dose: 324 mg Documented by: [id number] Diphenhydramine HCl (Benadryl) 25 mg IV NOW STA Stop: 01/10/19 21:05 Last Admin: 01/10/19 22:44 Dose: 25 mg Documented by: [id number] Fentanyl Citrate (Fentanyl Citrate) Confirm Administered Dose 100 mcg .ROUTE .STK-MED ONE Stop: 01/10/19 21:38 Last Increment: 01/10/19 22:45 Dose: 75 mcg Documented by: [id number] Heparin Sodium (Porcine) (Heparin Iv Bolus (V [employer] Use Only)) Confirm Administered Dose 10,000 units .ROUTE .STK-MED ONE Stop: 01/10/19 21:37 Last Admin: 01/10/19 22:45 Dose: 10,000 units Documented by: [id number] Heparin Sodium/Sodium Chloride (Heparin/Nss 1000 Unit/500ml Flush Bag) Confirm Administered Dose 1,000 units IV .STK-MED ONE Stop: 01/10/19 21:38 Last Admin: 01/10/19 22:45 Dose: 1,000 units Documented by: [id number] Heparin Sodium/Sodium Chloride (Heparin/Nss 1000 Unit/500ml Flush Bag) Confirm Administered Dose 1,000 units IV .STK-MED ONE Stop: 01/10/19 23:05 Last Admin: 01/11/19 00:05 Dose: Not Given Documented by: [id number] Lorazepam (Ativan) 0.5 mg in 1 mls @ 1 mls/min IV NOW STA Stop: 01/10/19 20:39 Last Admin: 01/11/19 00:04 Dose: Not Given Documented by: [id number] Sodium Chloride (Nss 1000ml) 1,000 mls @ 999 mls/hr IV .Q1H1M ONE Stop: 01/10/19 21:38 Last Infusion: 01/11/19 00:04 Dose: 0 mls/hr Documented by: [id number] Admin: 01/10/19 21:11 Dose: 999 mls/hr Documented by: [id number] Sodium Chloride (Nss 1000ml) 1,000 mls @ 999 mls/hr IV .Q1H1M ONE Stop: 01/10/19 22:00 Last Infusion: 01/11/19 00:04 Dose: 0 mls/hr Documented by: [id number] Admin: 01/10/19 21:14 Dose: 999 mls/hr Documented by: [id number] Methylprednisolone (Solumedrol) 125 mg IV NOW STA Stop: 01/10/19 21:05 Last Admin: 01/10/19 22:44 Dose: 125 mg Documented by: [id number] Midazolam HCl (Versed) Confirm Administered Dose 2 mg .ROUTE .STK-MED ONE Stop: 01/10/19 21:38 Last Admin: 01/10/19 22:46 Dose: 2 mg Documented by: [id number] Nicardipine HCl (Cardene) Confirm Administered Dose 25 mg .ROUTE .STK-MED ONE Stop: 01/10/19 21:36 Last Admin: 01/10/19 22:45 Dose: 25 mg Documented by: [id number] Nitroglycerin (Nitrostat) 0.4 mg SL NOW STA Stop: 01/10/19 21:01 Last Admin: 01/10/19 21:04 Dose: 0.4 mg Documented by: [id number] Nitroglycerin (Nitrostat) Confirm Administered Dose 0.4 mg .ROUTE .STK-MED ONE Stop: 01/10/19 21:02 Last Admin: 01/10/19 21:04 Dose: Not Given Documented by: [id number] Nitroglycerin/Dextrose (Nitroglycerin/D5w 100 Mcg/Ml 20ml Syringe) Confirm Administered Dose 2,000 mcg .ROUTE .STK-MED ONE Stop: 01/10/19 21:36 Last Admin: 01/10/19 22:45 Dose: 2,000 mcg Documented by: [id number] Ranitidine HCl (Zantac) Confirm Administered Dose 50 mg IV .STK-MED ONE Stop: 01/10/19 21:48 Last Admin: 01/10/19 22:46 Dose: 50 mg Documented by: [id number] Medical Decision Making Medical Records Attestation: I reviewed the patient's medical records. Home Medications Current Medication List: was personally reviewed by me Laboratory Data Attestation: I reviewed the patient's lab results. Result diagrams: 01/10/19 20:29 01/10/19 20:29 Lab Results 01/10/19 01/10/19 01/10/19 Range/Units 20:29 20:29 20:29 WBC 17.98 H (4.8-10.8) K/uL RBC 4.14 L (4.2-5.4) M/uL Hgb 11.4 L (12.0-16.0) g/dL Hct 35.1 L (37-47) % MCV 84.8 (80-100) fL MCH 27.5 (25-34) pg MCHC 32.5 (32-36) g/dL RDW Std Deviation 45.0 (36.4-46.3) fL RDW Coeff of Brandy 14.5 (11.5-14.5) % Plt Count 341 (130-400) K/uL MPV 10.3 (7.4-10.4) fL Immature Gran % (Auto) 0.3 % Neut % (Auto) 85.2 % Lymph % (Auto) 5.4 % [place] % (Auto) 8.3 % Eos % (Auto) 0.5 % Baso % (Auto) 0.3 % Immature Gran # (Auto) 0.05 H (0.00-0.02) K/uL Neut # (Auto) 15.31 H (1.4-6.5) K/uL Lymph # (Auto) 0.97 L (1.2-3.4) K/uL [place] # (Auto) 1.50 H (0.11-0.59) K/uL Eos # (Auto) 0.09 (0-0.5) K/uL Baso # (Auto) 0.06 (0-0.2) K/uL PT 10.0 (9.0-12.0) Seconds INR 1.0 (0.9-1.1) APTT 25.8 (21.0-31.0) Seconds PTT Ratio 1.0 Sodium 136 (136-145) mmol/L Potassium 4.3 (3.5-5.1) mmol/L Chloride 105 (98-107) mmol/L Carbon Dioxide 22 (21-32) mmol/L Anion Gap 9.0 (3-11) BUN 24 H (7-18) mg/dl Creatinine 1.07 (0.6-1.2) mg/dl Est Cr Clr Drug Dosing 39.3 ml/min Est GFR ( Amer) 60.1 Est GFR (Non-Af Amer) 51.8 BUN/Creatinine Ratio 22.1 H (10-20) Glucose 261 H (70-99) mg/dl Calcium 10.0 (8.5-10.1) mg/dl Phosphorus (2.5-4.9) mg/dl Magnesium (1.8-2.4) mg/dl Total Bilirubin 0.4 (0.2-1) mg/dl AST 71 H (15-37) U/L ALT 63 (12-78) U/L Alkaline Phosphatase 108 (45-117) U/L Total Creatine Kinase (26-192) U/L CK-MB (CK-2) (0.5-3.6) ng/ml CK/CKMB % Calc (0-3.0) POC Troponin I (0-0.045) ng/ml Troponin I 4.480 H* (0-0.045) ng/ml Total Protein 7.4 (6.4-8.2) gm/dl Albumin 3.7 (3.4-5.0) gm/dl Globulin 3.6 (2.5-4.0) gm/dl Albumin/Globulin Ratio 1.0 (0.9-2) Lipase (73-393) U/L 01/10/19 01/10/19 01/10/19 Range/Units 20:29 20:29 20:55 WBC (4.8-10.8) K/uL RBC (4.2-5.4) M/uL Hgb (12.0-16.0) g/dL Hct (37-47) % MCV (80-100) fL MCH (25-34) pg MCHC (32-36) g/dL RDW Std Deviation (36.4-46.3) fL RDW Coeff of Brandy (11.5-14.5) % Plt Count (130-400) K/uL MPV (7.4-10.4) fL Immature Gran % (Auto) % Neut % (Auto) % Lymph % (Auto) % [place] % (Auto) % Eos % (Auto) % Baso % (Auto) % Immature Gran # (Auto) (0.00-0.02) K/uL Neut # (Auto) (1.4-6.5) K/uL Lymph # (Auto) (1.2-3.4) K/uL [place] # (Auto) (0.11-0.59) K/uL Eos # (Auto) (0-0.5) K/uL Baso # (Auto) (0-0.2) K/uL PT (9.0-12.0) Seconds INR (0.9-1.1) APTT (21.0-31.0) Seconds PTT Ratio Sodium (136-145) mmol/L Potassium (3.5-5.1) mmol/L Chloride (98-107) mmol/L Carbon Dioxide (21-32) mmol/L Anion Gap (3-11) BUN (7-18) mg/dl Creatinine (0.6-1.2) mg/dl Est Cr Clr Drug Dosing ml/min Est GFR ( Amer) Est GFR (Non-Af Amer) BUN/Creatinine Ratio (10-20) Glucose (70-99) mg/dl Calcium (8.5-10.1) mg/dl Phosphorus 3.0 (2.5-4.9) mg/dl Magnesium 2.0 (1.8-2.4) mg/dl Total Bilirubin (0.2-1) mg/dl AST (15-37) U/L ALT (12-78) U/L Alkaline Phosphatase (45-117) U/L Total Creatine Kinase 180 (26-192) U/L CK-MB (CK-2) 15.9 H (0.5-3.6) ng/ml CK/CKMB % Calc 8.8 H (0-3.0) POC Troponin I 3.70 H (0-0.045) ng/ml Troponin I (0-0.045) ng/ml Total Protein (6.4-8.2) gm/dl Albumin (3.4-5.0) gm/dl Globulin (2.5-4.0) gm/dl Albumin/Globulin Ratio (0.9-2) Lipase 166 (73-393) U/L Imaging Data Radiologist's Impression: Radiology results as stated below per my review and the radiologist's interpretation: XR chest 1V portable CLINICAL HISTORY: 73 years-old Female presenting with Chest Pain. TECHNIQUE: Portable upright AP view of the chest was obtained. COMPARISON: 06/09/2016. FINDINGS: Atherosclerosis of the aortic arch. Cardiac silhouette normal in size. No focal opacity. Trace right pleural effusion. No large pneumothorax. Degenerative c hanges of the thoracic spine. Spinal stimulator device projects over the midthoracic spine. IMPRESSION: 1. Possible trace right pleural effusion. Otherwise no acute cardiopulmonary disease. Electronically signed by: Titi Andrade M.D. 01/10/2019 8:50 PM ECG Data Attestation: I personally reviewed and interpreted this ECG as follows: Indication: chest pain Rate (beats per minute): 111 Rhythm: normal sinus Findings: + other (ND 224, QRS 94, QTC 503), + 1st degree AV block and + T-wave inversion Blood Pressure Blood Pressure Findings: Low blood pressure Blood Pressure Disposition: further management by hospitalist CAR Narrative 2044: Past medical records reviewed. The patient was evaluated in room A02. A complete history and physical exam was performed. EKG done in triage showed a sinus rhythm with a rate of 111 first-degree AV block present. ND interval 224 QRS 94 QTc 503. T wave inversion in leads I and aVL. Subtle ST elevation in l alonso V2 through V6. We repeated the EKG and the new EKG at 2045 showed sinus rhythm with first-degree AV block. Rate of 104. ND interval 264. QRS 82. QTc 504. T wave inversion in leads I and aVL. Subtle ST elevation in leads V2 through V6. When compared with the EKGs done in 2017, the T wave inversion and ST changes are new. The patient appears very anxious and appears as though she is going to cry about what is been going on with her sister who she reports is dying upstairs. We will conduct a POC troponin. Contacted Dr. Miller to review the EKGs. There is concerned that the patient could be having tach at [place] cardiomyopathy like findings versus a true ST elevation DC. 2109: Patient's POC troponin is elevated patient is reporting her chest pain improved after receiving sublingual nitroglycerin. Given these findings in the patient's EKG a heart alert was called. Large-bore IV access was obtained. Cardiac pads were placed on the patient. 2139: The patient is still having chest pain. Dr. Miller is at the beside and will take the patient to the supervisor laboratory animal facility. Impression & Plan STEMI (ST elevation myocardial infarction) Critical Care Time Total Critical Care Time: 50 I have personally spent greater than 50 minutes of critical care time in the direct management of this patient. This includes bedside care, interpretation of diagnostic studies, and testing, discussion with consultants, patient, and family members, and other required patient management activities. This 50 minutes is in excess of all separately billable procedures. Discharge Plan Visit Data *Final* Discharge Date/Time: 01/10/19 21:41 Chief Complaint: Chest Pain Stated Complaint: CHEST PAIN STARTED YESTERDAY ED Provider: Loco Tinsley Discharge Problem: STEMI (ST elevation myocardial infarction) Patient Disposition: Still a Patient Discharge Instructions Interventions: ED Discharge Assessment Last Done: 01/10/19 21:41 The scribe's documentation has been prepared under my direction and personally reviewed by me in its entirety. I confirm that the note above accurately reflects all work, treatment, procedures, and medical decision making performed by me.
[2019-01-11] MEDS ORDERED: SODIUM CHLORIDE 0.9% 500 ML IV ONE (04:30)
[2019-01-11 04:39] LABS: Basophils # (auto) 0.02 K/uL (0-0.2); Basophils % (auto) 0.1 %; Eosinophils # (auto) 0.01 K/uL (0-0.5); Eosinophils % (auto) 0.1 %; Hematocrit (blood only) 31.5 % (37-47); Hemoglobin 10.1 g/dL (12.0-16.0); Immature Granulocytes # (auto) 0.03 K/uL (0.00-0.02); Immature Granulocytes % (auto) 0.2 %; Lymphocytes # (auto) 0.42 K/uL (1.2-3.4); Mean Corpuscular Hemoglobin 27.2 pg (25-34); Mean Corpuscular Hgb Conc 32.1 g/dL (32-36); Mean Corpuscular Volume 84.9 fL (80-100); Mean Platelet Volume 10.3 fL (7.4-10.4); Monocytes # (auto) 0.42 K/uL (0.11-0.59); Neutrophils # (auto) 13.14 K/uL (1.4-6.5); Neutrophils % (auto) 93.6 %; Platelet Count 271 K/uL (130-400); RDW Coefficient of Variation 14.6 % (11.5-14.5); RDW Standard Deviation 45.5 fL (36.4-46.3); Red Blood Count 3.71 M/uL (4.2-5.4); White Blood Count 14.04 K/uL (4.8-10.8)
[2019-01-11 05:08] LABS: BUN Creatinine Ratio 22.7 (10-20); Creatinine Clr Calc Pharmacy 37.9 ml/min; Est GFR (African American) 57.5; Est GFR (Non-African American) 49.6; Potassium 4.3 mmol/L (3.5-5.1)
[2019-01-11 05:10] LABS: Troponin I 2.63 ng/ml (0-0.045)
[2019-01-11] MEDS ORDERED: PERFLUTREN LIPID MICROSPHERE (DEFINITY) IV ONE (08:14)
[2019-01-11] MEDS: ASPIRIN 81 MG ECTAB PO SCH (08:32)
[2019-01-11] MEDS: METOPROLOL TARTRATE 25 MG TAB PO SCH ×2 (08:33→23:34)
[2019-01-11] MEDS: lisinopriL 5 MG TAB PO SCH (08:37)
[2019-01-11] MEDS ORDERED: PHARMACY GLYCEMIC MGMT CONSULT PRN (08:43)
[2019-01-11] MEDS: INSULIN GLARGINE SOLOSTAR 100 UNITS/ML 3 ML PEN SC SCH ×2 (09:15→20:54)
--- NOTE | 2019-01-11 10:30 | Family Medicine Progress Note ---
Date of Service January 11, 2019 Assessment & Plan (1) Takotsubo cardiomyopathy: 73-year-old female with a past medical history of type 2 diabetes, CAD, CVA, PAD, depression, anxiety presents to [facility] with chest pain, was taken to the It Consultant and found to have non-obstructive CAD and stress-induced cardiomyopathy. Takotsubo cardiomyopathy - EF 30-35% Heart catheterization showed nonobstructive CAD and apical akinesis Beta-britta metoprolol 12.5 mg twice daily. 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 Anxiety/depression Under significant stress-sister is at end of life Continue Celexa Reports taking Lorazepam on rare occasion, continue current dosing of lorazepam Tobacco use Continue conversations regarding cessation DVT prophylaxisSCDs, patient has an extensive history of GI bleed FENheart healthy diet, intermittent IV bolus for hypotension (2) Diabetes: (3) CAD (coronary artery disease): (4) History of CVA (cerebrovascular accident): (5) Depression: (6) PAD (peripheral artery disease): (7) Anxiety: Supervising Physician Co-Signing Physician Notes Resident Physician Supervision Note: I independently interviewed and examined the patient and verified the deal h istory and physical, reviewed labs and image studies, discussed the case with the resident Dr. Yoon and agree with the findings and care plan. Subjective Patient was resting in bed this morning. States that she has not had any repeat of the chest pain. Although she does describe having some pain in the back of her neck. She does have moments of anxiety. She understands the results of the heart catheterization. She denies any chest pain, shortness of breath, heart palpitations at this time. Around 2 PM, the patient experienced chest pain, but was also having a panic attack. EKG was unremarkable. Review of Systems Review of Systems: All systems reviewed & are unremarkable except as noted in HPI & below Physical Exam Constitutional: WD/WN, vitals as above Eyes: PERRL, conjunctivae normal, anicteric sclerae ENMT: external ear and nose normal, oropharynx normal Neck: trachea midline, no thyromegaly Respiratory: normal respiratory effort, lungs clear to auscultation Cardiovascular: RRR, no murmur, no edema Gastrointestinal (Abdomen): normal bowel sounds, soft, nontender, no hepatosplenomegaly Musculoskeletal: no cyanosis or clubbing, extremities motor strength 5/5 Skin: no rashes, warm and dry Neurologic: PERRL, EOMI, accommodation nl, no face palsy, no dysarthria Psychiatric: A+Ox3, euthymic affect Results & Data Vital Signs (Past 12 Hours) Vital Signs Temp Pulse Pulse Resp BP BP Pulse Ox 01/11/19 08:53 89 01/11/19 08:45 36.8 C 95 H 18 87/37 L 95 01/11/19 03:42 36.7 C 94 H 97 H 19 88/41 L 88/41 L 95 01/11/19 03:30 100 H 17 88/45 L 95 01/11/19 03:15 100 H 22 99/47 L 94 01/11/19 03:00 103 H 22 96/49 L 91 01/11/19 02:45 104 H 21 97/51 L 90 01/11/19 02:30 106 H 22 98/54 L 89 L 01/11/19 02:15 108 H 20 102/53 L 90 01/11/19 02:00 109 H 21 97/55 L 90 01/11/19 01:45 110 H 22 104/58 L 94 01/11/19 01:30 110 H 24 99/64 L 94 01/11/19 01:15 111 H 25 H 107/51 L 94 01/11/19 01:04 109 H 21 100/51 L 95 01/11/19 00:45 109 H 21 96/53 L 96 01/11/19 00:30 116 H 24 101/61 88 L 01/11/19 00:16 115 H 22 96/58 L 01/11/19 00:00 109 H 20 99/58 L 97 01/10/19 23:45 120 H 21 95/57 L 97 01/10/19 23:30 115 H 23 107/54 L 94 01/10/19 23:15 113 H 20 100/55 L 95 01/10/19 23:03 111 H 21 99/52 L 95 01/10/19 23:00 37.0 C 111 H 18 99/52 L 94 Pulse Ox 01/11/19 08:53 92 01/11/19 08:45 01/11/19 03:42 01/11/19 03:30 01/11/19 03:15 01/11/19 03:00 01/11/19 02:45 01/11/19 02:30 01/11/19 02:15 01/11/19 02:00 01/11/19 01:45 01/11/19 01:30 01/11/19 01:15 01/11/19 01:04 01/11/19 00:45 01/11/19 00:30 01/11/19 00:16 01/11/19 00:00 01/10/19 23:45 01/10/19 23:30 01/10/19 23:15 01/10/19 23:03 01/10/19 23:00 PG Care Time/CCT Total # of Minutes Spent Total Time Spent with Patient: Total time spent is greater than 50% in coordination of care (as documented) at patient's floor/unit and/or counseling patient: Resident Activity Tracking Resident Involvement: Resident Care Provided Care Provided: Adult Hospital Medicine (1) Diabetes Diabetes mellitus complication status: without complication 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 transplanted heart: [place] heart Qualified Code(s): I25.10 - Atherosclerotic heart disease of [place] coronary artery without angina pectoris
[2019-01-11] MEDS ORDERED: INSULIN HUMAN REGULAR PER UNIT 5 UNITS in SYRINGE 4.95 ML IV ONE (11:15)
--- NOTE | 2019-01-11 11:18 | Pharmacy Report ---
Pharmacy Glycemic Short Note 2 - Date of Service January 11, 2019 - Glycemic Short BSG Results (Last 24 hours): 01/10/19 01/11/19 01/11/19 20:29 00:54 04:26 Glucose 261 H 298 H POC Glucose 290 H 01/11/19 01/11/19 01/11/19 04:27 07:05 07:08 Glucose POC Glucose 327 H* 321 H* 323 H* 01/11/19 01/11/19 11:06 11:07 Glucose POC Glucose 351 H* 360 H* OUTPATIENT ANTIDIABETIC REGIMEN: * Novolin 70/30 35 units SQ BID * Metformin 1gm PO BID * HbA1c: pending with am labs ASSESSMENT: * Ms Hawley is a 73yo diabetic female admitted with NSTEMI. * Patient was taken to the label coder last night, where she received SoluMedrol 125mg IV. This is expected to contribute to significant steroid-induced hyperglycemia. * Patient is ordered a diabetic diet. * At this point, patient is significantly basal insulin deficient and also exhibiting severe hyperglycemia (BSGs >300mg/dL). * Basal insulin increased this morning and Novolog parameters tightened. Will continue to adjust until BSGs have stabilized. * If blood sugars do not resolve, patient will probably need to start on an IV insulin infusion. PLAN FOR INPATIENT GLYCEMIC CONTROL: * Hold outpatient oral diabetes medications * Basal insulin * Lantus 20 units SQ BID * Bolus insulin * NovoLog per scale ACHS or Q6hrs while NPO plus 0000 and 0400 until hyperglycemia has resolved * Goal Range: Low 110 mg/dL - High 150 mg/dL * Correction Factor: 25 mg/dL/unit * Nutritional / Prandial insulin per carb ratio of 1 unit per 9 grams CHO consumed PLAN FOR DISCHARGE: * pending A1c results
[2019-01-11] MEDS: ACETAMINOPHEN 325 MG TAB PO PRN ×3 (11:40→23:35)
[2019-01-11] MEDS ORDERED: LORazepam 0.5 MG/1 ML VIAL IV STA (11:51)
--- NOTE | 2019-01-11 12:47 | Cardiology Progress Note ---
Date of Service January 11, 2019 Assessment & Plan (1) Takotsubo cardiomyopathy: -- LVEF 30-35%, Apical akinesis, no thrombus 2. Non-obstructive multivessel CAD 3. Severe lower extremity and mesenteric PAD 4. Prior AVMs with GI bleeding 5. Diabetes Chest pain improved, troponin trending down. Severe LV dysfunction with apical akinesis. No significant congestion on exam or echo. Hypotension with attempts at GDMT. -- Continue to monitor on telemetry -- Gentle fluid boluses as need for hypotension. -- Would hold ARTUR initially and continue beta-britta as BP allows. -- Continue ASA, statin and stress smoking cessation -- Repeat limited echo prior to discharge to make sure no LV thrombus. Subjective Feeling much better today. No additional chest pain today. Breathing comfortably. Intermittently hypotensive overnight/today after received lisinopril last night, metoprolol this morning. Tele - unremarkable. Review of Systems Review of Systems: All systems reviewed & are unremarkable except as noted in HPI & below Physical Exam Physical Exam: General: Comfortable, no acute distress, nasal cannula in place HEENT: Sclerae anicteric, mucous membranes moist Lungs: Clear to auscultation bilaterally Cardiac: Regular rate and rhythm, no murmurs. No JVD. Abdomen: Soft, nontender Extremities: Warm, well perfused, no edema. Right radial artery access site with no ecchymosis, hematoma. Distal pulse and sensation intact. Skin: No rashes or lesions. Neuro: Nonfocal Psych: Alert orient x3, normal affect and mood Results & Data Vital Signs (Past 12 Hours) Vital Signs Temp Pulse Pulse Resp BP BP Pulse Ox 01/11/19 11:09 98.2 F 85 18 75/40 L 95 01/11/19 08:53 89 01/11/19 08:45 98.2 F 95 H 18 87/37 L 95 01/11/19 03:42 98.1 F 94 H 97 H 19 88/41 L 88/41 L 95 01/11/19 03:30 100 H 17 88/45 L 95 01/11/19 03:15 100 H 22 99/47 L 94 01/11/19 03:00 103 H 22 96/49 L 91 01/11/19 02:45 104 H 21 97/51 L 90 01/11/19 02:30 106 H 22 98/54 L 89 L 01/11/19 02:15 108 H 20 102/53 L 90 01/11/19 02:00 109 H 21 97/55 L 90 01/11/19 01:45 110 H 22 104/58 L 94 01/11/19 01:30 110 H 24 99/64 L 94 01/11/19 01:15 111 H 25 H 107/51 L 94 01/11/19 01:04 109 H 21 100/51 L 95 01/11/19 00:45 109 H 21 96/53 L 96 Pulse Ox 01/11/19 11:09 01/11/19 08:53 92 01/11/19 08:45 01/11/19 03:42 01/11/19 03:30 01/11/19 03:15 01/11/19 03:00 01/11/19 02:45 01/11/19 02:30 01/11/19 02:15 01/11/19 02:00 01/11/19 01:45 01/11/19 01:30 01/11/19 01:15 01/11/19 01:04 01/11/19 00:45 PG Care Time/CCT Total # of Minutes Spent Total Time Spent with Patient: Total time spent is greater than 50% in coordination of care (as documented) at patient's floor/unit and/or counseling patient:
[2019-01-11 15:08] LABS: Lyme Ab IgG w/WB Rflx Negative (Negative); Lyme Ab IgM w/WB Rflx Negative (Negative)
[2019-01-11] MEDS ORDERED: LORazepam 0.5 MG/1 ML VIAL IV PRN (16:57)
[2019-01-11] MEDS ORDERED: LORazepam 2 MG/4 ML VIAL ONE (16:58)
[2019-01-11] MEDS ORDERED: SODIUM CHLORIDE 0.9% 1000ML 250 ML IV ONE (20:34)
[2019-01-11] MEDS ORDERED: BUTALBITAL/ACETAMIN/CAFFEINE TAB PO STA (20:34)
[2019-01-11] MEDS ORDERED: SIMVASTATIN 40 MG TAB PO SCH (21:00)
[2019-01-11] MEDS ORDERED: CLOPIDOGREL BISULFATE 75 MG TAB PO SCH (21:00)
[2019-01-11] MEDS: LORazepam 0.5 MG TAB PO PRN (23:34)
[2019-01-12] MEDS: INSULIN ASPART 100 UNITS/ML 3 ML PEN SC SCH ×4 (00:11→12:41)
[2019-01-12 07:35] LABS: BUN Creatinine Ratio 33.1 (10-20); Calcium 8.8 mg/dl (8.5-10.1); Creatinine Clr Calc Pharmacy 34.8 ml/min; Est GFR (African American) 51.8; Est GFR (Non-African American) 44.7; Potassium 3.8 mmol/L (3.5-5.1)
[2019-01-12] MEDS: LORazepam 0.5 MG TAB PO PRN (07:43)
[2019-01-12] MEDS: ACETAMINOPHEN 325 MG TAB PO PRN (07:44)
[2019-01-12 08:16] LABS: Estimated Average Glucose 169 mg/dl; Hemoglobin A1C 7.5 % (4.5-5.6)
[2019-01-12] MEDS: METOPROLOL TARTRATE 25 MG TAB PO SCH (08:34)
[2019-01-12] MEDS: ASPIRIN 81 MG ECTAB PO SCH (08:35)
[2019-01-12] MEDS: lisinopriL 5 MG TAB PO SCH (08:35)
[2019-01-12] MEDS: INSULIN GLARGINE SOLOSTAR 100 UNITS/ML 3 ML PEN SC SCH (08:37)
[2019-01-12] MEDS ORDERED: CITALOPRAM 40 MG TAB PO SCH (09:00)
[2019-01-12] MEDS ORDERED: diazePAM 5 MG TABLET PO ONE (09:10)
--- NOTE | 2019-01-12 11:14 | Pharmacy Report ---
Pharmacy Glycemic Short Note 2 - Date of Service January 12, 2019 - Glycemic Short BSG Results (Last 24 hours): 01/11/19 01/11/19 01/12/19 15:31 20:20 00:09 Glucose POC Glucose 105 H 162 H 152 H 01/12/19 01/12/19 01/12/19 04:16 06:49 07:23 Glucose 105 H POC Glucose 119 H 132 H OUTPATIENT ANTIDIABETIC REGIMEN: * Novolin 70/30 35 units SQ BID * Metformin 1gm PO BID * HbA1c: 7.5% (01/12/19) ASSESSMENT: 01/12/19: * Blood sugars have improved significantly following the changes made yesterday. * No changes at this time, but will continue to follow. 01/11/19 * Ms Hawley is a 73yo diabetic female admitted with NSTEMI. * Patient was taken to the clam bed laborer last night, where she received SoluMedrol 125mg IV. This is expected to contribute to significant steroid-induced hyp erglycemia. * Patient is ordered a diabetic diet. * At this point, patient is significantly basal insulin deficient and also exhibiting severe hyperglycemia (BSGs >300mg/dL). * Basal insulin increased this morning and Novolog parameters tightened. Will continue to adjust until BSGs have stabilized. * If blood sugars do not resolve, patient will probably need to start on an IV insulin infusion. PLAN FOR INPATIENT GLYCEMIC CONTROL: * Hold outpatient oral diabetes medications * Basal insulin * Lantus 20 units SQ BID * Bolus insulin * NovoLog per scale ACHS or Q6hrs while NPO * Goal Range: Low 110 mg/dL - High 150 mg/dL * Correction Factor: 30 mg/dL/unit * Nutritional / Prandial insulin per carb ratio of 1 unit per 10 grams CHO consumed PLAN FOR DISCHARGE: * A1c = 7.5% on 01/12/19 * Goal A1c = <8% based on age and comorbidities * Less stringent A1C goals may be appropriate for patients with a history of severe hypoglycemia, limited life expectancy, advanced microvascular or macrovascular complications, extensive comorbid conditions, or long- standing diabetes in whom the goal is difficult to achieve despite diabetes self-management education, appropriate glucose monitoring, and effective doses of multiple glucose-lowering agents including insulin. * Expect that pt may resume home dose on discharge, as long as she does not report having episodes of hypoglycemia.
--- NOTE | 2019-01-12 12:14 | Cardiology Progress Note ---
Date of Service January 12, 2019 Assessment & Plan (1) Takotsubo cardiomyopathy: -- LVEF 30-35%, Apical akinesis, no thrombus on repeat echo 2. Non-obstructive multivessel CAD 3. Severe lower extremity and mesenteric PAD 4. Prior AVMs with GI bleeding 5. Diabetes Symptoms improved and troponin trended down. Severe LV dysfunction with apical akinesis, repeat echo without LV thrombus. Blood pressure improved. No signs of congestion on exam. --Patient OK to discharge today from cardiac standpoint --Continue lisinopril 5 mg daily --Switch metoprolol tartrate to succinate 25 mg daily --Continue ASA, statin. Smoking cessation --Followup in our office in one week before returning to [place] Subjective Patient with continued improvement in symptoms. Had slight chest soreness this morning but nothing similar to her previous chest pain. No shortness of breath, orthopnea or PND. Repeat echo yesterday without LV thrombus. Tele reviewed-- no events Review of Systems Review of Systems: All systems reviewed & are unremarkable except as noted in HPI & below Physical Exam Physical Exam: General: Comfortable, no acute distress HEENT: Sclerae anicteric, mucous membranes moist Lungs: Clear to auscultation bilaterally Cardiac: Regular rate and rhythm, no murmurs. No JVD. Abdomen: Soft, nontender Extremities: Warm, well perfused, no edema. Right radial artery access site without ecchymosis or hematoma. Distal pulse and sensation intact. Skin: No rashes or lesions. Neuro: Nonfocal Psych: Alert orient x3, normal affect and mood Results & Data Vital Signs (Past 12 Hours) Vital Signs Temp Pulse Resp BP Pulse Ox 01/12/19 10:39 36.7 C 82 18 91/47 L 91 01/12/19 07:25 36.9 C 97 H 19 103/48 L 91 01/12/19 04:00 36.6 C 80 16 93/42 L 94 Laboratory Results Laboratory Results - last 24 hr 01/10/19 01/11/19 01/11/19 20:29 15:31 20:20 Sodium Potassium Chloride Carbon Dioxide Anion Gap BUN Creatinine Est Cr Clr Drug Dosing Est GFR ( Amer) Est GFR (Non-Af Amer) BUN/Creatinine Ratio Glucose POC Glucose 105 H 162 H Estimat Average Glucose Hemoglobin A1c Calcium Lyme Disease IgG Ab Negative Lyme Disease IgM Ab Negative 01/12/19 01/12/1919 00:09 04:16 06:49 Sodium 140 Potassium 3.8 Chloride 111 H Carbon Dioxide 23 Anion Gap 6.0 BUN 40 H D Creatinine 1.21 H Est Cr Clr Drug Dosing 34.8 Est GFR ( Amer) 51.8 Est GFR (Non-Af Amer) 44.7 BUN/Creatinine Ratio 33.1 H Glucose 105 H POC Glucose 152 H 119 H Estimat Average Glucose Hemoglobin A1c Calcium 8.8 Lyme Disease IgG Ab Lyme Disease IgM Ab 01/12/19 01/12/19 06:49 07:23 Sodium Potassium Chloride Carbon Dioxide Anion Gap BUN Creatinine Est Cr Clr Drug Dosing Est GFR ( Amer) Est GFR (Non-Af Amer) BUN/Creatinine Ratio Glucose POC Glucose 132 H Estimat Average Glucose 169 Hemoglobin A1c 7.5 H Calcium Lyme Disease IgG Ab Lyme Disease IgM Ab PG Care Time/CCT Total # of Minutes Spent Total Time Spent with Patient: Total time spent is greater than 50% in coordination of care (as documented) at patient's floor/unit and/or counseling patient:
--- NOTE | 2019-01-12 14:25 | Medical Student Progress Note ---
Date of Service January 12, 2019 Assessment & Plan (1) Takotsubo cardiomyopathy: Jodee is a 73 y/o female with a history of prior CVA, intestinal ischemia status post hepatic artery mesenteric artery bypass, PAD status post aorto- femoral bypass and active smoking presented to the ED on 01/10 with acute substernal chest pain. Pt was diagnosed with Takotsubo cardiomyopathy per imaging and lab studies and admitted for telemetry monitoring. 1) Takotsubo cardiomyopathy -ECHO revealed 30-35% apical akinesis with no evidence of occlusion via thrombus or CAD. -Repeat Echo confirmed no evidence of thrombus -Symptoms have resolved per pt reporting -Troponins are downtrending (currently 1.98 from 4.48 on 01/10). -Pt is OK for D/C from a cardiac standpoint -Will continue with lisinopril 5 mg daily and will switch from metoprolol tartrate to succinate 25 mg daily 3) Anxiety - Continue Citalopram and prn lorazapam -Encourage follow-up with PCP or psychiatrist -Educate on relationship between mental health and recent cardiac event. 2) PAD and chronic ischemia (mesenteric and CAD) -Insurance Verifier patient on smoking cessation -Encourage followup with PCP Disposition: Pt is ready for D/C within the next 24 hours given no change in cardiac monitoring FEN: Continue regular low sodium diet Subjective Jodee is a 73 y/o female with a history of prior CVA, intestinal ischemia status post hepatic artery mesenteric artery bypass, PAD status post aorto- femoral bypass and active smoking presented to the ED on 01/10 with acute substernal chest pain. An EKG at this time suggested anterior wall Ischemia (ST-elevations in V3, V4). Tropinin was elevated at 4.48. A follow-up echo showed apical akinesis with an EF of 30%-35% however no evidence of thrombus, and non-obstructive multivessel CAD. Findings indicate Taktosubo cardiomyopathy (taran in context of pt's social history-- in town visiting sister who has a terminal illness). Vitals at this time indicated significant hypotension. Pt was admitted for telemetry and supportive therapy. Today, Pt is non-distressed with no chest pain or SOB. Pt feels that she is r fidelina for discharge. She is not experiencing an palpitations, and is not orthostatically dizzy. No significant events happened over night or today. Review of Systems Review of Systems: Pt is nonstressed and non-toxic. Appears well Constitutional: no fever, no chills, no sweats and no weight loss Respiratory: no cough, no chest congestion, no dyspnea, no hemoptysis and no pain on inspiration Cardiovascular: no chest pain, no dyspnea, no orthopnea, no palpitations and no edema Gastrointestinal: no abdominal pain, no nausea and no vomiting Genitourinary: no dysuria, no difficulty urinating and no urinary frequency Psychiatric: Pt is euthymic with a normal affect Physical Exam Constitutional: WD/WN, vitals as above Eyes: PERRL, conjunctivae normal, anicteric sclerae ENMT: Mallampati Class: III Neck: trachea midline, no thyromegaly Respiratory: normal respiratory effort, lungs clear to auscultation Cardiovascular: RRR, no murmur, no edema Gastrointestinal (Abdomen): normal bowel sounds, soft, nontender, no hepatosplenomegaly Musculoskeletal: no cyanosis or clubbing, extremities motor strength 5/5 Skin: no rashes, warm and dry Neurologic: PERRL, EOMI, accommodation nl, no face palsy, no dysarthria Pt is noted to have a resting neck tremor. She states that this tremor comes upon when she is stressed for the past 5 years and is thought to be benign. Psychiatric: A+Ox3, euthymic affect Results & Data Vital Signs (Past 12 Hours) Vital Signs Temp Pulse Resp BP Pulse Ox 01/12/19 10:39 36.7 C 82 18 91/47 L 91 01/12/19 07:25 36.9 C 97 H 19 103/48 L 91 01/12/19 04:00 36.6 C 80 16 93/42 L 94 Laboratory Tests 01/10/19 01/11/19 01/11/19 20:29 04:26 10:46 Troponin I 4.480 H* 2.630 H* 1.980 H*
--- NOTE | 2019-01-12 14:56 | Discharge Summary ---
Date of Service January 12, 2019 Admission HPI Per Admitting Provider Patient seen and examined after arrival to the PCU from optical lab technician. She is still somewhat somnolent/sedated after receiving medications for her cardiac catheterization. She does not freely answer questions at this time. She states that her chest pain has resolved and she denies SOB at this time. Remainder of history obtained through chart review. 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 She is from [place] and is in the area visiting her sister who, unfortunately, was just diagnosed with a terminal illness. She developed 10/10 chest pain Found to have EKG changes suggestive of anterior wall ischemia, elevated troponin. Code Heart was called and the patient was taken to the optical lab technician. Findings as below: 1. Mild to moderate nonobstructive coronary artery disease in major epicardial vessels -50% mid circumflex after OM1 20 to 30% mid LAD 2. 70% ostial stenosis of superior branch of first diagonal 3. Takotsubo's cardiomyopathy, LVEF 30% Principal Diagnosis Takotsubo's cardiomyopathy Discharge Exam Constitutional WD/WN, vitals as above Respiratory normal respiratory effort, lungs clear to auscultation Cardiovascular RRR, no murmur, no edema Chest (Breasts) Chest: normal inspection of chest Gastrointestinal (Abdomen) normal bowel sounds, soft, nontender, no hepatosplenomegaly Skin no rashes, warm and dry Discharge Data Allergies Allergy/AdvReac Type Severity Reaction Status Date / Time Bactrim Allergy Intermediate HIVES Verified 05/31/16 12:24 bupropion Allergy Intermediate HIVES Unverified 05/31/16 12:24 Cipro Allergy Intermediate HIVES Verified 06/04/16 11:46 Iodinated Contrast Media Allergy Intermediate HIVES Unverified 05/31/16 12:24 metronidazole Allergy Intermediate HIVES Verified 06/04/16 11:47 oxycodone Allergy Intermediate rashes Verified 05/31/16 12:24 Penicillins Allergy Intermediate Hives Verified 05/31/16 12:24 pioglitazone Allergy Intermediate HIVES Verified 05/31/16 12:24 Sulfa (Sulfonamide Allergy Intermediate Hives Verified 05/31/16 12:24 Antibiotics) clindamycin Allergy Mild ITCHING Unverified 05/31/16 12:24 codeine Allergy Mild ITCING Unverified 05/31/16 12:24 erythromycin base Allergy Mild RASH, HIVES Unverified 05/31/16 12:24 glimepiride Allergy Mild TONGUE Unverified 05/31/16 12:24 TINGLING AND ITCHING morphine Allergy Mild ITCHING Unverified 05/31/16 12:24 NSAIDS (Non-Steroidal Allergy Mild Itching - Verified 05/31/16 12:24 Anti-Inflamma TORADOL OK propoxyphene Allergy Mild ITCHING Unverified 05/31/16 12:24 glipizide Allergy Unknown Needle Verified 05/31/16 12:24 sensation- Tongue rosuvastatin AdvReac Intermediate MUSCLE PAIN Unverified 05/31/16 12:24 sitagliptin AdvReac Intermediate GI SYMPTOMS Unverified 05/31/16 12:24 adhesive AdvReac Mild Tape - Verified 05/31/16 12:24 skin irritation atorvastatin AdvReac Mild Muscle Verified 05/31/16 12:24 cramps hydrocodone AdvReac Mild ITCHING Verified 05/31/16 12:24 metformin AdvReac Mild BLOATING Unverified 05/31/16 12:24 Procedures Performed Operation Date: 01/10/19 21:30 Actual Procedures p Cath, Left with Cors and Vent - Zeb Miller MD s Cineradiography w/Routine Exam - Zeb Miller MD s Ultrasound Vascular Access - Zeb Miller MD Ordered Studies 01/10/19 21:03 CT angio chest PE protocol Stat 01/10/19 21:30 CL Cath Imgs for PACS use only Stat Hospital Course (1) Takotsubo cardiomyopathy: 73-year-old female with a past medical history of type 2 diabetes, CAD, CVA, PAD, depression, anxiety presents to [facility] with chest pain, was taken to the Drapery Installer and found to have non-obstructive CAD and stress-induced cardiomyopathy. Takotsubo cardiomyopathy - EF 30-35% Heart catheterization showed nonobstructive CAD -Was hypotensive first 24 hrs and received fluid boluses. BP 91 systolic on discharge. Beta-britta metoprolol 12.5 mg twice daily - switched to 25mgs Toprol XL on discharge -Added lisinopril at 5mgs daily. -Discussed tobacco cessation. 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 On discharge given small rx of lorazepam until further evaluation by PCP for anxiety control (2) Diabetes: (3) CAD (coronary artery disease): (4) History of CVA (cerebrovascular accident): (5) Depression: (6) PAD (peripheral artery disease): (7) Anxiety: Total Time Total Time Spent Total Time Spent (In Minutes): 35 min Discharge Plan Discharge Items Patient Disposition: Home - Self-Care Reason For Visit: CARDIOMYOPATHY Discharge Diagnosis: Takotsubo cardiomyopathy s/p [facility] with normal coronary arteries. Activity: Per Instructions section Activity Comment: Advance activity as tolerated Non-emergency contact: Primary Care Provider Follow-up/Referrals: DHARA MINOR [Other] Evette Ernandez PA-C [Physician School Bus Attendant] - 01/18/19 1:00 pm Diet: Carb Consistent or DM2 and Low Sodium (2gm) Addtl Attending Provider Instructions: Please follow up with your family physician in one week Quitting smoking is important for you. Pending Studies at Discharge: No Stand-Alone Forms: Call Back Authorization, My [facility] Medications and DC Order Prescriptions: New metoprolol succinate [Toprol XL] 25 mg tablet extended release 24 hr 25 mg PO DAILY Qty: 30 RF: 0 lisinopril 5 mg tablet 5 mg PO DAILY Qty: 30 RF: 0 lorazepam 0.5 mg tablet 0.5 mg PO TID Qty: 12 RF: 0 Continued CITALOPRAM HYDROBROMIDE (CELEXA) 40 MG tablet 40 mg PO QAM Qty: 0 RF: 0 BUSPIRONE HCL (BUSPAR) 15 MG tablet 30 mg PO BID Qty: 0 RF: 0 Aspirin (Aspirin EC Low Dose) 81 MG ENTERIC COATED TAB 81 mg PO DAILY Qty: 0 RF: 0 LORAZEPAM 0.5 MG tablet 0.5 mg PO HS PRN (Reason: Anxiety) Qty: 0 RF: 0 Simvastatin (Zocor) 20 MG tablet 20 mg PO QPM Qty: 0 RF: 0 B-COMPLEX W/BIOTIN & FOLIC ACI (SUPER B-COMPLEX) 1 CAP capsule 1 cap PO DAILY Qty: 0 RF: 0 Amitriptyline HCl 10 MG tablet 5 mg PO HS Qty: 0 RF: 0 CYCLOBENZAPRINE HCL (FLEXERIL) 5 MG tablet 1 tab PO BID PRN (Reason: Muscle Spasms) 30 Days Qty: 30 RF: 0 FUROSEMIDE (LASIX) 20 MG tablet 1 tab PO DAILY PRN (Reason: leg swelling) Qty: 0 RF: 1 Gabapentin (Neurontin) 300 MG capsule 300 mg PO BID Qty: 0 RF: 0 METFORMIN HCL (GLUCOPHAGE) 1,000 MG tablet 1,000 mg PO BIDM Qty: 0 RF: 0 Acetaminophen (Tylenol) 500 MG tablet 1 - 2 tab PO Q8 PRN (Reason: Pain) 3 Days Qty: 10 RF: 0 Clopidogrel (Plavix) 75 MG tablet 75 mg PO HS Qty: 0 RF: 0 Insulin Isophan/Regular (Novolin 70/30) suspension 35 unit SC BID Qty: 0 RF: 0 PROBIOTIC PRODUCT (PROBIOTIC) 1 TAB tablet 1 tab PO BID Qty: 0 RF: 0 OCTREOTIDE ACETATE (SANDOSTATIN LAR DEPOT) 20 MG [id number] 20 mg IM MONTHLY Qty: 0 RF: 0 Albuterol Sulfate (Proventil Hfa) 108 MCG/ACT AER 2 puff Inhalation Q6 PRN (Reason: Wheezing) Qty: 0 RF: 0 CHOLECALCIFEROL (VITAMIN D 1000 UNIT) 1,000 UNIT capsule 1,000 inter.unit PO DAILY Qty: 0 RF: 0 ASCORBIC ACID (VITAMIN C) 500 MG tablet 500 mg PO DAILY Qty: 0 RF: 0 MAGNESIUM OXIDE (MG SUPPLEMENT (MAGNESIUM) 500 MG capsule 500 mg PO DAILY Qty: 0 RF: 0 OMEPRAZOLE (PRILOSEC) 40 MG capsule 40 mg PO BID Qty: 90 RF: 0 Prednisone 20 MG tablet 1 tab PO DAILY 5 Days Qty: 5 RF: 0 Discharge Orders: Discharge Order (Routine); Ordered 01/12/19 Ordered By: Ivett Lee/Other Patient Handouts: Diabetes Char Filter Tank Tender Complications, Diabetes Type 2 Coping, Diabetes Healthy Meals, Diabetes Carbs, Diabetes Manage A1C Test Admission Data Admit Date/Time: 01/10/19 22:49 Attending Provider: Ivett Levy Admit Provider: Zeb Miller Other Providers: Karen Marx
[2019-01-13] MEDS ORDERED: METOPROLOL SUCC 25MG EXT REL TAB PO SCH (09:00)
== END 2019-01-12 16:30 | disposition home or self-care (01) | DRG 287 ==
LOC: ED 20:02 → CC 21:41 → 2E 22:49 → SUATTDRO 22:49
DX: I25.10 Atherosclerotic heart disease of native coronary artery without angina pectoris; Z79.4 Long term (current) use of insulin; Z88.0 Allergy status to penicillin; K55.9 Vascular disorder of intestine, unspecified; E11.51 Type 2 diabetes mellitus with diabetic peripheral angiopathy without gangrene; F32.9 Major depressive disorder, single episode, unspecified; Z88.2 Allergy status to sulfonamides; F41.8 Other specified anxiety disorders; I51.81 Takotsubo syndrome; F17.200 Nicotine dependence, unspecified, uncomplicated; Z79.84 Long term (current) use of oral hypoglycemic drugs; Z86.73 Personal history of transient ischemic attack (TIA), and cerebral infarction without residual deficits